=== PATIENT | female | born 1945 | race Caucasian/White ===

== ENCOUNTER 2016-08-18 17:25 | Inpatient (IN) | payer MEDICARE ==
[~2016-08-18] VITALS: Ht 157.5 cm; Wt 71.2 kg
[~2016-08-18 17:25] MED LIST changes: -ACET-2267 PO; -AMOX-358 PO; -BUSP7.5T5 PO; -CATHETER FLUSH 10 ML SYR IV PRN; -CIPR500T4 PO; -DOCU-143 PO; -FAMO-119 PO; -HYDR-3816 PO; -IBUP-30 PO; -IOHEXOL 350 MG/ML 100 ML (OMNIPAQUE 350) VIAL IV ONE; -LEVO500T80 PO; -LORA0.5T PO; -METR500T PO; -METR500T21 PO; -NS 100 ML (IVPB) BAG IV ONE; -ONDA4TAB8 PO; -OXYC-197 PO; -OXYC-201 PO; -OXYC-464 PO; -POLY17PO23 PO; -POLY17PO6 PO; -TRAM50TA2 PO
[2016-08-18 18:05] VITALS: BP 122/80
[2016-08-18] MEDS ORDERED: NS IV 1000 ML 1,000 ML ONE (18:06)
[2016-08-18] MEDS ORDERED: ACETAMINOPHEN 325 MG TABLET/CAPLET (TYLENOL) ONE (18:06)
[2016-08-18] MEDS ORDERED: fentaNYL INJECTION 100 MCG/2 ML AMP ONE (18:06)
[2016-08-18] MEDS ORDERED: ONDANSETRON 4 MG/2 ML (SDV) Z0FRAN IV PRN (18:30)
[2016-08-18] MEDS ORDERED: HYDROcodone/APAP 7.5 MG/325 MG (LORTAB, LORCET PLUS) TABLET PO PRN (18:30)
[2016-08-18] MEDS ORDERED: CATHETER FLUSH 10 ML SYR IV PRN (18:30)
[2016-08-18] MEDS: PANTOPRAZOLE 40 MG/10 ML (PROTONIX) VIAL IV SCH (18:33)
[2016-08-18] MEDS: NS IV 1000 ML 1,000 ML IV SCH (18:33)
[2016-08-18] MEDS: CIPROFLOXACIN 400 MG/D5W 200 ML (PRE-MIX) IV SCH (18:33)
[2016-08-18 18:42] LABS: BASOPHILS % (AUTO) 0 % (0-10); EOSINOPHILS % (AUTO) 0 % (0-10); LYMPHOCYTES # (AUTO) 0.8 X 10^3 (1.0-4.0); LYMPHOCYTES % (AUTO) 6 % (12-44); MEAN CORPUSCULAR HEMOGLOBIN 25 PG (25-34); MEAN CORPUSCULAR HGB CONC 32 G/DL (32-36); MEAN CORPUSCULAR VOLUME 79 FL (80-99); MEAN PLATELET VOLUME 9.1 FL (7.4-10.4); MONOCYTES # (AUTO) 0.5 X 10^3 (0.0-1.0); MONOCYTES % (AUTO) 4 % (0-12); NEUTROPHILS # (AUTO) 11.4 X 10^3 (1.8-7.8); NEUTROPHILS % (AUTO) 89 % (42-75); PLATELET COUNT 522 10^3/uL (130-400); RED BLOOD COUNT 3.92 10^6/uL (4.35-5.85); RED CELL DISTRIBUTION WIDTH 13.9 % (10.0-14.5); WHITE BLOOD COUNT 12.7 10^3/uL (4.3-11.0)
[2016-08-18] MEDS ORDERED: FLU TRIvalent (5 YOA+) 2016-17 (AFLURIA) 0.5 ML IM ONE (18:45)
[2016-08-18 18:59] LABS: BAND NEUTROPHILS 0 %; BASOPHILS % (MANUAL) 0 %; EOSINOPHILS % (MANUAL) 0 %; LYMPHOCYTES % (MANUAL) 6 %; NEUTROPHILS % (MANUAL) 94 %
[2016-08-18 19:00] VITALS: BP 157/76
[2016-08-18 19:00] LABS: MICROCYTOSIS SLIGHT
[2016-08-18] MEDS ORDERED: LORazepam INJ 2 MG/ML (ATIVAN) VIAL IVP PRN (19:45)
[2016-08-18] MEDS: metroNIDAZOLE 500 MG/100 ML IVPB (PRE-MIX) IV SCH (19:50)
[2016-08-18] MEDS: ENOXAPARIN 40 MG/0.4 ML (LOVENOX) SYR SC SCH (20:48)
[2016-08-19] VITALS: BP 105/62
[2016-08-19 04:00] VITALS: BP 162/77
[2016-08-19] MEDS: fentaNYL INJECTION 100 MCG/2 ML AMP IV PRN ×4 (04:03→18:43)
[2016-08-19] MEDS: NS IV 1000 ML 1,000 ML IV SCH (05:40)
[2016-08-19 05:57] LABS: BASOPHILS % (AUTO) 0 % (0-10); EOSINOPHILS % (AUTO) 0 % (0-10); LYMPHOCYTES # (AUTO) 1.3 X 10^3 (1.0-4.0); LYMPHOCYTES % (AUTO) 15 % (12-44); MEAN CORPUSCULAR HEMOGLOBIN 25 PG (25-34); MEAN CORPUSCULAR HGB CONC 32 G/DL (32-36); MEAN CORPUSCULAR VOLUME 79 FL (80-99); MEAN PLATELET VOLUME 8.6 FL (7.4-10.4); MONOCYTES # (AUTO) 0.6 X 10^3 (0.0-1.0); MONOCYTES % (AUTO) 7 % (0-12); NEUTROPHILS # (AUTO) 6.8 X 10^3 (1.8-7.8); NEUTROPHILS % (AUTO) 78 % (42-75); PLATELET COUNT 469 10^3/uL (130-400); RED BLOOD COUNT 3.79 10^6/uL (4.35-5.85); WHITE BLOOD COUNT 8.7 10^3/uL (4.3-11.0)
[2016-08-19] MEDS: metroNIDAZOLE 500 MG/100 ML IVPB (PRE-MIX) IV SCH ×2 (05:57→19:49)
[2016-08-19 06:19] LABS: ANION GAP 10 MMOL/L (5-14); BLOOD UREA NITROGEN 8 MG/DL (7-18); BUN/CREATININE RATIO 14; CALCIUM 8.2 MG/DL (8.5-10.1); CARBON DIOXIDE 21 MMOL/L (21-32); CHLORIDE 105 MMOL/L (98-107); CREATININE SERUM 0.57 MG/DL (0.60-1.30); GFR ESTIMATED > 60; GLUCOSE 121 MG/DL (70-105); POTASSIUM 3.2 MMOL/L (3.6-5.0); SODIUM 136 MMOL/L (135-145)
[2016-08-19] MEDS: CIPROFLOXACIN 400 MG/D5W 200 ML (PRE-MIX) IV SCH ×2 (06:57→18:31)
[2016-08-19 08:00] VITALS: BP 171/80
--- NOTE | 2016-08-19 08:38 | HISTORY AND PHYSICAL ---
DATE OF ADMISSION: 08/18/2016 ATTENDING PRIMARY CARE PHYSICIAN: Dr. Allegra Valentin. Ms. Sarah Emmanuel is a 70-year-old female who was seen in the clinic today for left lower quadrant abdominal pain. She reports that the pain started approximately 2 weeks ago and has persisted on an intermittent basis. She reports that food initially makes this worse and she has crampy pain in the left lower abdominal quadrant. She reports that she has also had a long-standing history of constipation. She reports that she did take some laxatives several days ago and this did result in a significant amount of loose stools. She does not report any red blood per rectum nor any dark tarry stools. She reports that the pain was much worse today and again localized towards left lower abdominal quadrant. In the past 2 weeks. She does report some mild episodes of chills as well. She does not report any fevers. She reports that this is her first event that she has not had any other events like this in the past. She does not report any history of gastroesophageal reflux disease nor peptic ulcer disease, as well as no nausea or vomiting. She was sent over for a CT scan, which did show a sigmoid diverticulitis as well as 2 areas of abscess formation. Her white count is also elevated at 11.4. PAST MEDICAL HISTORY: 1. Fibromyalgia. 2. Osteoarthritis. 3. Anxiety. 4. Depression. PAST SURGICAL HISTORY: 1. Left total knee arthroplasty 09/2012. 2. Right total knee arthroplasty 11/2012. MEDICATIONS: 1. Ambien 10 mg at bedtime p.r.n. 2. buspirone p.r.n. SOCIAL HISTORY: Negative smoke. Negative alcohol. FAMILY HISTORY: Father myocardial infarction age 69. VITAL SIGNS: Blood pressure 140/60, currently 157.7 pounds at 5 feet 2 inches. REVIEW OF SYSTEMS: This is a well-nourished female, currently guarded secondary to the abdominal pain. She is not experiencing any shortness of breath or difficulty breathing. No chest pain, palpitations, or diaphoresis. No nausea or vomiting, with pain in the left lower abdominal quadrant associated with eating food. Long-standing history of constipation. No red blood per rectum. No dark tarry stools. Mild chills. No fevers. No recent inadvertent weight loss. PHYSICAL EXAMINATION: CHEST: Clear. HEART: Regular. EXTREMITIES: No lower extremity edema. Negative Liz sign. HEENT: No scleral icterus. No cervical lymphadenopathy. ABDOMEN: Soft, nondistended. There is pain in the left lower abdominal quadrant with voluntary guarding. No rebound. ASSESSMENT AND PLAN: 70-year-old female with acute diverticulitis with abscess formation. This is her first episode and we will treat her conservatively with IV hydration, IV antibiotics, as well as bowel rest, as well as a follow-up CT scan. Job ID: [id number] Dictated Date: 08/18/2016 17:25:57 Refrigerator Repair Technician Date: 08/19/2016 08:33:24/vikash
[2016-08-19] MEDS ORDERED: ONDA4TAB8 PO (08:44)
[2016-08-19] MEDS ORDERED: BUSP7.5T5 PO (08:44)
[2016-08-19] MEDS ORDERED: CIPR500T4 PO (09:07)
[2016-08-19] MEDS ORDERED: METR500T21 PO (09:07)
[2016-08-19] MEDS ORDERED: HYDR-3816 PO (09:07)
[2016-08-19] MEDS ORDERED: IBUP-30 PO (09:07)
[2016-08-19] MEDS ORDERED: ACET-2267 PO (09:07)
--- NOTE | 2016-08-19 09:14 | History & Physical-Hospitalist ---
HPI History of Present Illness: HPI/Chief Complaint CC: abdominal pain HPI: Source: patient, RN/MD Date Seen 08/19/16 Attending Physician Viktor Rivas MD PCP Allegra Valentin MD Referring Physician Date of Admission Aug 18, 2016 at 17:48 Home Medications & Allergies Home Medications Reviewed patient Home Medication Reconciliation Form Allergies Coded Allergies: No Known Drug Allergies (Unverified , 10/25/15) Past Asceeem-Jsicof-Ooomjk Hx Patient Social History Alcohol Use: Occasionally Uses Recreational Drug Use: No Smoking Status: Never a Smoker Physical Abuse Screen: No Sexual Abuse: No Recent Foreign Travel: No Contact w/other who traveled: No Recent Infectious Disease Expo: No Seasonal Allergies Seasonal Allergies: No Surgeries HX Surgeries: Yes (BTKN) Surgeries: Orthopedic Respiratory Hx Respiratory Disorders: No Cardiovascular Hx Cardiovascular Disorders: No Neurological Hx Neurological Disorders: No 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 System Hx 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 Disorders: No Genitourinary Hx Genitourinary Disorders: No Gastrointestinal Hx Gastrointestinal Disorders: No Musculoskeletal Hx Musculoskeletal Disorders: No Endocrine Hx Endocrine Disorders: No HEENT HX ENT Disorders: No Cancer Hx Cancer: No Psychosocial Hx Psychiatric Problems: Yes Behavioral Health Disorders: Sleep Difficulties Integumentary HX Skin/Integumentary Disorder: No Blood Transfusions Hx Blood Disorders: No Adverse Reaction to a Blood Tr: No Family Medical History Significant Family History: No Pertinent Family Hx Physical Exam Physical Exam Vital Signs Vital Sign - Last 12Hours 08/18/16 18:05 Temp 103.2 Pulse 116 Resp 22 B/P 122/80 Pulse Ox 98 O2 Delivery Room Air Capillary Refill : Results Results/Procedures Lab Laboratory Tests 08/18/16 18:28 08/19/16 05:[address] abd/pelv: 1. There is evidence of sigmoid diverticulitis with localized perforation and small fluid collections adjacent to the sigmoid colon. The sigmoid wall thickening is presumably related to inflammation. A followup colonoscopy in a few weeks to rule out underlying mass would be recommended. 2. There is an S-shaped IUD seen in the uterus. Assessment/Plan Admission Diagnosis diverticulitis with abscess formation Assessment and Plan 70yoF with PMH of fibromyalgia, anxiety and depression with diverticulitis with abscess formation. 1. diverticulitis with abscess 2. hypokalemia 3. elevated lactic acid 4. leukocytosis/fever 5. fibromyalgia 6. OA 7. anxiety 8. depression Continue pushing IVF Continue IV antibiotics Bowel rest F/u CT abd/pelv looking for improvement/progression Will need to obtain colonoscopy as outpatient per radiology CT reading to rule out mass Clinical Quality Measures DVT/VTE Risk/Contraindication: Risk Factor Score Per Nursin RFS Level Per Nursing on Admit: 3=High MARIA EUGENIA PARKS MED STUDENT Aug 19, 2016 09:14
[2016-08-19] MEDS: PANTOPRAZOLE 40 MG/10 ML (PROTONIX) VIAL IV SCH (09:18)
--- NOTE | 2016-08-19 10:01 | Consultation-Hospitalist ---
MARIA EUGENIA PARKS MED STUDENT 08/19/16 1001: HPI History of Present Illness: HPI/Chief Complaint CC: abdominal pain HPI: Mrs. Emmanuel is a 70yo with a PMH of fibromyalgia, OA, and depression who was seen yesterday in clinic by Dr. Rivas for LLQ abdominal pain. CT abd/pelv showed diverticulitis with abscess formation. She was admitted for IVF and antibiotics. Her pain has since improved and she feels she is much better. She has no complaints this morning. Her last BM was yesterday before admission and it was not bloody. She is on a clear liquid diet. She had Jello this morning with no n/v. Her primary care provider is Dr. Allegra Valentin. She lives in [place] with her . Source: patient, RN/MD Exam Limitations: no limitations Date Seen 08/19/16 Attending Physician Viktor Rivas MD PCP Allegra Valentin MD Referring Physician Date of Admission Aug 18, 2016 at 17:48 Home Medications & Allergies Home Medications Reviewed patient Home Medication Reconciliation Form Allergies Coded Allergies: No Known Drug Allergies (Unverified , 10/25/15) Past Dejjvku-Pbmyfx-Qpsumt Hx Patient Social History Alcohol Use: Occasionally Uses Recreational Drug Use: No Smoking Status: Never a Smoker Physical Abuse Screen: No Sexual Abuse: No Recent Foreign Travel: No Contact w/other who traveled: No Recent Infectious Disease Expo: No Seasonal Allergies Seasonal Allergies: No Surgeries HX Surgeries: Yes (BTKN) Surgeries: Orthopedic Respiratory Hx Respiratory Disorders: No Cardiovascular Hx Cardiovascular Disorders: No Neurological Hx Neurological Disorders: No 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 System Hx 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 Disorders: No Genitourinary Hx Genitourinary Disorders: No Gastrointestinal Hx Gastrointestinal Disorders: No Musculoskeletal Hx Musculoskeletal Disorders: No Endocrine Hx Endocrine Disorders: No HEENT HX ENT Disorders: No Cancer Hx Cancer: No Psychosocial Hx Psychiatric Problems: Yes Behavioral Health Disorders: Sleep Difficulties Integumentary HX Skin/Integumentary Disorder: No Blood Transfusions Hx Blood Disorders: No Adverse Reaction to a Blood Tr: No Family Medical History Significant Family History: No Pertinent Family Hx Review of Systems Constitutional: No fever, No weakness EENTM: no symptoms reported Respiratory: no symptoms reported Cardiovascular: no symptoms reported Gastrointestinal: LLQ (improved from yesterday) Genitourinary: no symptoms reported Musculoskeletal: no symptoms reported Skin: no symptoms reported Psychiatric/Neurological: No Symptoms Reported All Other Systems Reviewed Negative Unless Noted: Yes Physical Exam Physical Exam Vital Signs Vital Sign - Last 12Hours 08/18/16 18:05 Temp 103.2 Pulse 116 Resp 22 B/P 122/80 Pulse Ox 98 O2 Delivery Room Air Capillary Refill : General Appearance: No Apparent Distress HEENT: PERRL/EOMI TMs Normal Normal ENT Inspection Neck: Full Range of Motion Normal Inspection Non Tender Supple Respiratory: Chest Non Tender Lungs Clear Normal Breath Sounds No Accessory Muscle Use No Respiratory Distress Cardiovascular: Regular Rate, Rhythm No Edema No Gallop No JVD No Murmur Normal Peripheral Pulses Gastrointestinal: Normal Bowel Sounds No Organomegaly No Pulsatile Mass Non Tender Soft Rectal: Deferred Back: Normal Inspection No CVA Tenderness Extremity: Normal Capillary Refill Normal Inspection Normal Range of Motion Non Tender No Calf Tenderness Neurologic/Psychiatric: Alert Oriented x3 No Motor/Sensory Deficits Normal Mood/Affect Skin: Normal Color Warm/Dry Lymphatic: No Adenopathy Results Results/Procedures Lab Laboratory Tests 08/18/16 18:28 08/19/16 05:[address] abd/pelv: 1. There is evidence of sigmoid diverticulitis with localized perforation and small fluid collections adjacent to the sigmoid colon. The sigmoid wall thickening is presumably related to inflammation. A followup colonoscopy in a few weeks to rule out underlying mass would be recommended. 2. There is an S-shaped IUD seen in the uterus. Assessment/Plan Admission Diagnosis diverticulitis with abscess formation Assessment and Plan 70yoF with PMH of fibromyalgia, anxiety and depression with diverticulitis with abscess formation. 1. diverticulitis with abscess 2. hypokalemia 3. elevated lactic acid 4. leukocytosis/fever 5. fibromyalgia 6. OA 7. anxiety 8. depression Continue pushing IVF Continue IV antibiotics Bowel rest F/u CT abd/pelv looking for improvement/progression Will need to obtain colonoscopy as outpatient per radiology CT reading to rule out mass Copy Copies To 1: ALLEGRA VALENTIN MD Clinical Quality Measures DVT/VTE Risk/Contraindication: Risk Factor Score Per Nursin RFS Level Per Nursing on Admit: 3=High ELIDIA JIN DO 08/19/16 1159: HPI History of Present Illness: HPI/Chief Complaint Patient is doing much better right now and all information obtained by medical student confirmed. She has never had a colonoscopy and she is prepared to have that done in the near future as Dr. 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) Surgeries HX Surgeries: No Respiratory Hx Respiratory Disorders: No Cardiovascular Hx Cardiovascular Disorders: No Neurological Hx Neurological Disorders: No Genitourinary Hx Genitourinary Disorders: No Gastrointestinal Hx Gastrointestinal Disorders: No Musculoskeletal Hx Musculoskeletal Disorders: No Endocrine Hx Endocrine Disorders: No HEENT HX ENT Disorders: No Cancer Hx Cancer: No Psychosocial Hx Psychiatric Problems: Yes Behavioral Health Disorders: Sleep Difficulties, Anxiety Integumentary HX Skin/Integumentary Disorder: No Review of Systems Constitutional: see HPI dizziness EENTM: no symptoms reported Respiratory: no symptoms reported Cardiovascular: no symptoms reported Gastrointestinal: LLQ (improved from yesterday) abdominal pain (LLQ) constipation loss of appetite Genitourinary: no symptoms reported Musculoskeletal: no symptoms reported Skin: no symptoms reported Psychiatric/Neurological: No Symptoms Reported All Other Systems Reviewed Negative Unless Noted: Yes Physical Exam Physical Exam Vital Signs Vital Sign - Last 12Hours 08/18/16 18:05 Temp 103.2 Pulse 116 Resp 22 B/P 122/80 Pulse Ox 98 O2 Delivery Room Air General Appearance: No Apparent Distress WD/WN Eyes: Bilateral Eye Normal Inspection, Bilateral Eye PERRL HEENT: PERRL/EOMI Normal ENT Inspection Pharynx Normal Neck: Full Range of Motion Normal Inspection Non Tender Supple Carotid Bruit Respiratory: Chest Non Tender Lungs Clear Normal Breath Sounds No Accessory Muscle Use No Respiratory Distress Cardiovascular: Regular Rate, Rhythm No Edema No Gallop No JVD No Murmur Normal Peripheral Pulses Gastrointestinal: Normal Bowel Sounds No Organomegaly No Pulsatile Mass Soft Tenderness (LLQ) Back: Normal Inspection No CVA Tenderness No Vertebral Tenderness Extremity: Normal Capillary Refill Normal Inspection Normal Range of Motion Non Tender No Calf Tenderness No Pedal Edema Neurologic/Psychiatric: Alert Oriented x3 No Motor/Sensory Deficits Normal Mood/Affect Skin: Normal Color Warm/Dry Lymphatic: No Adenopathy Results Results/Procedures Lab Laboratory Tests 08/18/16 18:28 08/19/16 05:47 Assessment/Plan Admission Diagnosis Acute diverticulitis with abscess formation Possible colon mass needs colonoscopy upon resolution of abscess difficult to ascertain Anxiety Insomnia Assessment and Plan Agree with the plan Copy Copies To 1: ALLEGRA VALENTIN MD, ZACHARY MED STUDENT Aug 19, 2016 10:01 ELIDIA JIN DO Aug 19, 2016 11:59
--- NOTE | 2016-08-19 11:25 | Progress Note (SOAP) ---
Subjective Subjective/Events-last exam doing better today. less abd pain. no fever/chills. tolerating clears. Objective Exam Vital Signs Date Time Temp Pulse Resp B/P Pulse Ox O2 Delivery O2 Flow Rate FiO2 08/19/16 08:00 98.9 73 18 171/80 96 Room Air 08/19/16 04:00 100.5 84 18 162/77 96 Room Air 08/19/16 00:00 99.0 82 18 105/62 97 Room Air 08/18/16 21:44 99.6 08/18/16 20:10 101.3 08/18/16 19:00 102.9 103 22 157/76 97 Room Air 08/18/16 18:22 103.2 08/18/16 18:05 103.2 116 22 122/80 98 Room Air I & O 08/19/16 07:00 Intake Total 1950 ml Output Total 650 ml Balance 1300 ml Capillary Refill : General Appearance: No Apparent Distress HEENT: PERRL/EOMI Neck: Full Range of Motion Respiratory: Chest Non Tender Lungs Clear Normal Breath Sounds Cardiovascular: Regular Rate, Rhythm Gastrointestinal: soft other (LLQ abd pain) Extremity: Normal Capillary Refill Neurologic/Psychiatric: Alert Oriented x3 Skin: Normal Color Lymphatic: No Adenopathy Results Lab Laboratory Tests 08/18/16 18:28: Band Neutrophils 0, Basophils # (Auto) 0.0, Basophils % (Manual) 0, Basophils (% ) (Auto) 0, Eosinophils # (Auto) 0.0, Eosinophils % (Manual) 0, Eosinophils (%) (Auto) 0, Hematocrit 31L, Hemoglobin 9.9L, Lactic Acid Level 2.7*H, Lymphocytes # (Auto) 0.8L, Lymphocytes % (Manual) 6, Lymphocytes (%) (Auto) 6L, Mean Corpuscular Hemoglobin 25, Mean Corpuscular Hemoglobin Concent 32, Mean Corpuscular Volume 79L, Mean Platelet Volume 9.1, Microcytosis SLIGHT, Monocytes # (Auto) 0.5, Monocytes % (Manual) 0, Monocytes (%) (Auto) 4, Neutrophils # (Auto) 11.4H, Neutrophils % (Manual) 94, Neutrophils (%) (Auto) 89H, Platelet Count 522H, Red Blood Count 3.92L, Red Cell Distribution Width 13.9, White Blood Count 12.7H 08/18/16 21:06: Lactic Acid Level 0.6 08/19/16 05:47: Basophils # (Auto) 0.0, Basophils (%) (Auto) 0, Eosinophils # (Auto) 0.0, Eosinophils (%) (Auto) 0, Hematocrit 30L, Hemoglobin 9.6L, Lactic Acid Level 0.5 , Lymphocytes # (Auto) 1.3, Lymphocytes (%) (Auto) 15, Mean Corpuscular Hemoglobin 25, Mean Corpuscular Hemoglobin Concent 32, Mean Corpuscular Volume 79L, Mean Platelet Volume 8.6, Monocytes # (Auto) 0.6, Monocytes (%) (Auto) 7, Neutrophils # (Auto) 6.8, Neutrophils (%) (Auto) 78H, Platelet Count 469H, Red Blood Count 3.79L, Red Cell Distribution Width 14.0, White Blood Count 8.7, Anion Gap 10, BUN/Creatinine Ratio 14, Blood Urea Nitrogen 8, Calcium Level 8.2L , Carbon Dioxide Level 21, Chloride Level 105, Creatinine 0.57L, Estimat Glomerular Filtration Rate > 60, Glucose Level 121H, Potassium Level 3.2L, Sodium Level 136 Assessment/Plan Assessment/Plan Assess & Plan/Chief Complaint diverticulitis with abscess. continue IV abx and bowel rest. f/u CT tomorrow. Diagnosis/Problems: Clinical Quality Measures DVT/VTE Risk/Contraindication: Risk Factor Score Per Nursin RFS Level Per Nursing on Admit: 3=High AMBER INFANTE MD Aug 19, 2016 11:25 am
[2016-08-19 12:00] VITALS: BP 134/91
[2016-08-19] MEDS ORDERED: ONDANSETRON 4 MG (ZOFRAN) ORAL DISSOLVE TAB PO PRN (12:00)
[2016-08-19] MEDS ORDERED: HYDROcodone/APAP 7.5 MG/325 MG (LORTAB, LORCET PLUS) TABLET PO PRN (12:00)
[2016-08-19] MEDS ORDERED: MAGNESIUM 1 GM/100 ML IVPB 100 ML IV ONE (12:00)
[2016-08-19] MEDS ORDERED: NON-FORMULARY MEDICATION 1 EA EA (Buspirone HCl 7.5 MG) PO PRN (12:00)
[2016-08-19] MEDS ORDERED: busPIRone 15 MG (BUSPAR) TABLET PO PRN (12:15)
--- NOTE | 2016-08-19 13:01 | Physician Query-Sepsis ---
Physician Query-Sepsis Query to Physician: The documentation in this patient's medical record requires additional clarification to accurately capture the patient's diagnosis (es), treatment, acuity, and/or severity of illness per CMS guidelines. Criteria, any TWO of the following with an infectious OR noninfectious etiology: * Temp= <96.8 or >100.4 * HR= >90 bpm * RR= >20/min or PaCO2<32 mmHG * WBC= <4000 or >12,000; or >10% bands PATIENT DATA: DATE/TIME: 08/18/16 TEMP: 103.2 PULSE: 116 RESP: 22 B/P: 122/80 WBC: 12.7 LACTIC ACID: 2.7 OTHER: Blood Culture Organism: (Negative or inconclusive blood cultures do not preclude a diagnosis of septicemia or Sepsis in patients with clinical evidence of the condition.) Choose one of the below Dx: Sepsis=2 or more SIRS criteria with an identified source or suspected source of infection Severe Sepsis=Sepsis associated with organ dysfunction, hypoperfusion or hypotension. (Manifestations may include lactic acidosis, oliguria, and acute alteration in mental status.) Septic Shock=Acute circulatory failure unexplained by other cause: SBP <90 or MAP <65 or reduction in SBP 40 mmHg from baseline despite adequate volume resuscitation or Lactate Level >=4 mmol/L. Patients who require inotropic or vasopressor support despite adequate fluid replacement are in septic shock. Septicemia=Systemic disease associated with the presence of pathological microorganisms or toxins in the blood. Bacteremia=Per ICD-9 guidelines, Bacteremia indicates the presence of bacteria in the blood, but DOES NOT infer the bacterium are pathological or has resulted in any systemic illness needing treatment Please indicate if no sepsis, none of the above, not correct physician/provider. PHYSICIAN RESPONSE: Choose one of the diagnosis: Sepsis Sepsis/Severe Sepsis: Please specify site/source of: diverticulitis with abscess SIRS (systemic response to): If known process list: diverticulitis with abscess Physician Note: If you have questions please contact: Parking Control Officer:Lory Murguia [facility] Ext:[phone] Thank you for your time and cooperation. Clinical Plant Director/Parking Control Officer This is a permanent part of the medical record LORY MURGUIA Aug 19, 2016 13:01 AMBER INFANTE MD Aug 19, 2016 14:16
[2016-08-19] MEDS: POTASSIUM CL 10MEQ/50ML IVPB 50 ML IV SCH ×4 (15:18→18:00)
[2016-08-19 15:55] VITALS: BP 164/77
[2016-08-19] MEDS: ACETAMINOPHEN 325 MG TABLET/CAPLET (TYLENOL) PO PRN (16:57)
[2016-08-19] MEDS ORDERED: KCL 20 MEQ TAB (K-DUR) PO NR (18:30)
[2016-08-19 19:15] VITALS: BP 158/69
[2016-08-19] MEDS: ENOXAPARIN 40 MG/0.4 ML (LOVENOX) SYR SC SCH (19:49)
[2016-08-19] MEDS ORDERED: NON-FORMULARY MEDICATION 1 EA EA (Zolpidem Tartrate 10 MG) PO SCH (21:00)
[2016-08-19] MEDS: ZOLPIDEM 5 MG (AMBIEN) TAB PO SCH (21:33)
[2016-08-20] VITALS: BP 129/73
[2016-08-20 04:00] VITALS: BP 142/83
[2016-08-20] MEDS: NS IV 1000 ML 1,000 ML IV SCH (04:24)
[2016-08-20] MEDS: metroNIDAZOLE 500 MG/100 ML IVPB (PRE-MIX) IV SCH ×2 (06:00→17:59)
[2016-08-20] MEDS: CIPROFLOXACIN 400 MG/D5W 200 ML (PRE-MIX) IV SCH ×2 (06:47→20:15)
[2016-08-20] MEDS: PANTOPRAZOLE 40 MG/10 ML (PROTONIX) VIAL IV SCH (07:55)
[2016-08-20 08:00] VITALS: BP 147/71
[2016-08-20] MEDS ORDERED: NS 100 ML (IVPB) BAG IV ONE (09:00)
[2016-08-20] MEDS ORDERED: IOHEXOL 350 MG/ML 100 ML (OMNIPAQUE 350) VIAL IV ONE (09:00)
--- NOTE | 2016-08-20 11:18 | Progress Note-Hospitalist ---
Progress Note HPI/CC on Admission Patient is doing much better right now and all information obtained by medical student confirmed. She has never had a colonoscopy and she is prepared to have that done in the near future as Dr. Rivas has recommended Progress Notes/Assess & Plan Date Seen 08/20/16 Admission Dx/Process Acute diverticulitis with abscess formation Possible colon mass needs colonoscopy upon resolution of abscess difficult to ascertain Anxiety Insomnia Diagonsis/Assessment & Plan Chart Review: Max fever 100.4 Dr. Rivas Review: Dr. Rivas requests repeat CT scan and drain for abscess. Patient Interview: Dr. Pierre informs pt that she has run a fever. Dr. Pierre informs pt that she will be consulting with Dr. Rivas regarding possible need to drain abscess. Physical exam was stable. Pt states that pain is very manageable, and she has not taken any pain meds today. Pt denies having any BMs. Pt states that she vomited Wednesday, and has not eaten much. Pt at some Jell-O and broth last night at 5pm. no fever except for low-grade 100.4, pleasant, oriented 3, at the bedside Regular rate and rhythm, clear to auscultation bilaterally Mild tenderness LLQ Laboratory Tests 08/20/16 11:21 Assessment: Acute diverticulitis with abscess formation Possible colon mass needs colonoscopy upon resolution of abscess difficult to ascertain Anxiety Insomnia Hypokalemia Plan: CBC CMP Drain abscess? Repeat CT scan Possible DC Wednesday on antibiotics with follow-up Replace potassium in IV fluid Scribed by Kwabena Malone under the direct supervision of Dr. Pierre. ELIDIA PIERRE DO Aug 20, 2016 11:17
[2016-08-20 11:38] LABS: BASOPHILS % (AUTO) 0 % (0-10); EOSINOPHILS % (AUTO) 0 % (0-10); LYMPHOCYTES # (AUTO) 1.4 X 10^3 (1.0-4.0); LYMPHOCYTES % (AUTO) 20 % (12-44); MEAN CORPUSCULAR HEMOGLOBIN 25 PG (25-34); MEAN CORPUSCULAR HGB CONC 32 G/DL (32-36); MEAN CORPUSCULAR VOLUME 79 FL (80-99); MONOCYTES # (AUTO) 0.5 X 10^3 (0.0-1.0); MONOCYTES % (AUTO) 7 % (0-12); NEUTROPHILS # (AUTO) 5.2 X 10^3 (1.8-7.8); NEUTROPHILS % (AUTO) 73 % (42-75); PLATELET COUNT 516 10^3/uL (130-400); RED BLOOD COUNT 4.11 10^6/uL (4.35-5.85); RED CELL DISTRIBUTION WIDTH 13.8 % (10.0-14.5); WHITE BLOOD COUNT 7.1 10^3/uL (4.3-11.0)
[2016-08-20 11:48] LABS: ALANINE AMINOTRANSFERASE 17 U/L (0-55); ALBUMIN 3.4 G/DL (3.2-4.5); ANION GAP 12 MMOL/L (5-14); ASPARTATE AMINO TRANSFERASE 16 U/L (5-34); BILIRUBIN,TOTAL 0.3 MG/DL (0.1-1.0); BLOOD UREA NITROGEN 4 MG/DL (7-18); BUN/CREATININE RATIO 7; CALCIUM 8.8 MG/DL (8.5-10.1); CARBON DIOXIDE 19 MMOL/L (21-32); CHLORIDE 105 MMOL/L (98-107); CREATININE SERUM 0.58 MG/DL (0.60-1.30); GFR ESTIMATED > 60; GLUCOSE 98 MG/DL (70-105); POTASSIUM 3.4 MMOL/L (3.6-5.0); SODIUM 136 MMOL/L (135-145); TOTAL PROTEIN 6.6 G/DL (6.4-8.2)
--- NOTE | 2016-08-20 11:57 | Diagnostic Imaging Report ---
PROCEDURE: CT abdomen and pelvis with contrast. TECHNIQUE: Multiple contiguous axial images were obtained through the abdomen and pelvis after administration of intravenous contrast. INDICATION: Lower abdominal pain. Pelvic pain. COMPARISON: 08/18/2016. FINDINGS: Again noted are findings of diverticulitis in the sigmoid colon with inflammatory changes seen. There are small pockets of loculated perforation again noted with air bubbles and minimal amount of fluid noted that demonstrates no significant change when compared to the previous study. There are 3 adjacent potentially communicating pockets, the largest is 2.9 cm in size located to the left of the sigmoid colon and one pocket is projecting superiorly. There is an S-shaped IUD in the uterus. The uterus is displaced to the right side. The urinary bladder appears unremarkable. No pelvic free fluid of significance is seen. No free peritoneal air is noted. The lung bases appear clear. The liver demonstrates a 1.6 cm simple cyst adjacent to the left hepatic vein. The gallbladder, the adrenal glands, and the pancreas appear unremarkable. The spleen is 12.8 CM in length, at the upper limits of normal. The kidneys have symmetric enhancement and contrast excretion. The abdominal aorta is normal in caliber. No para-aortic significantly enlarged lymph nodes. Tiny fat-containing umbilical hernia is noted. There are degenerative changes in the lumbar spine and sacroiliac joints. IMPRESSION: Sigmoid diverticulitis with adjacent small pockets of contained perforation/abscess. The findings were discussed with Dr. Rivas by Dr. Bautista at the time of dictation. Dictated by: Dictated on workstation # [id number]
[2016-08-20 12:00] VITALS: BP 158/79
[2016-08-20] MEDS: POTASSIUM CHLORIDE INJ 10 MEQ in NS IV 1000 ML 1,000 ML IV SCH (13:35)
--- NOTE | 2016-08-20 15:10 | Progress Note (SOAP) ---
Subjective Subjective/Events-last exam Patient seen with Dr. Rivas. Patient reports that she is doing fine. No N/V. No fever/chills. Minimal LLQ tenderness. Ambulating. No BM. Review of Systems General: No Chills, No Night Sweats Gastrointestinal: : Abdominal Pain (LLQ minimal)No: Nausea, Vomiting Objective Exam Vital Signs Date Time Temp Pulse Resp B/P Pulse Ox O2 Delivery O2 Flow Rate FiO2 08/20/16 12:00 98.6 84 16 158/79 98 Room Air 08/20/16 10:00 96 Room Air 08/20/16 08:00 96.6 73 20 147/71 97 Room Air 08/20/16 07:55 Room Air 08/20/16 04:00 99.8 85 18 142/83 97 Room Air 08/20/16 00:00 98.0 82 18 129/73 97 Room Air 08/19/16 19:15 98.7 85 16 158/69 97 Room Air 08/19/16 17:00 100.4 08/19/16 16:57 100.4 08/19/16 15:55 100.4 88 16 164/77 97 Room Air I & O 08/20/16 07:00 Intake Total 2700 ml Output Total 2350 ml Balance 350 ml Capillary Refill : General Appearance: No Apparent Distress WD/WN HEENT: PERRL/EOMI Neck: Supple Respiratory: Lungs Clear Normal Breath Sounds No Accessory Muscle Use Cardiovascular: Regular Rate, Rhythm Gastrointestinal: soft tenderness (LLQ with deep palpation) Extremity: Normal Capillary Refill Normal Inspection Normal Range of Motion Neurologic/Psychiatric: Alert Oriented x3 Skin: Normal Color Warm/Dry Results Lab Laboratory Tests 08/20/16 11:21: Alanine Aminotransferase (ALT/SGPT) 17, Albumin 3.4, Alkaline Phosphatase 82, Anion Gap 12, Aspartate Amino Transf (AST/SGOT) 16, BUN/Creatinine Ratio 7, Basophils # (Auto) 0.0, Basophils (%) (Auto) 0, Blood Urea Nitrogen 4L, Calcium Level 8.8, Carbon Dioxide Level 19L, Chloride Level 105, Creatinine 0.58L, Eosinophils # (Auto) 0.0, Eosinophils (%) (Auto) 0, Estimat Glomerular Filtration Rate > 60, Glucose Level 98, Hematocrit 32L, Hemoglobin 10.3L, Lymphocytes # (Auto) 1.4, Lymphocytes (%) (Auto) 20, Mean Corpuscular Hemoglobin 25, Mean Corpuscular Hemoglobin Concent 32, Mean Corpuscular Volume 79L, Mean Platelet Volume 9.0, Monocytes # (Auto) 0.5, Monocytes (%) (Auto) 7, Neutrophils # (Auto) 5.2, Neutrophils (%) (Auto) 73, Platelet Count 516H, Potassium Level 3.4L, Red Blood Count 4.11L, Red Cell Distribution Width 13.8, Sodium Level 136, Total Bilirubin 0.3, Total Protein 6.6, White Blood Count 7.1 Assessment/Plan Assessment/Plan Assess & Plan/Chief Complaint A 70 year old female wtih diverticulitis with abscess. VSS. WBC normal. continue IV abx, pain and nausea medication. Continue Clear liquids. Diagnosis/Problems: Clinical Quality Measures DVT/VTE Risk/Contraindication: Risk Factor Score Per Nursin RFS Level Per Nursing on Admit: 3=High JAYDEN SINGH APRN Aug 20, 2016 15:10
[2016-08-20 15:35] VITALS: BP 156/81
--- NOTE | 2016-08-20 15:39 | Progress Note-Standard ---
Standard Progress Note Progress Notes/Assess & Plan Progress/Assessment & Plan doing better, decreased abd pain, tolerating clears, no fever/chills. low grade fever. admitted with severe sepsis however improved. criteria included fever, leukocytosis, and elevated lactic acid. no blood cultures drawn due to known etiology of infection which likely colonic bacterial ry and diverticulitis with abscess. no progression of disease on f/u CT today. will continue with conservative managmenent with bowel rest and IV abx. AMBER INFANTE MD Aug 20, 2016 3:39 pm
[2016-08-20] MEDS: ENOXAPARIN 40 MG/0.4 ML (LOVENOX) SYR SC SCH (20:15)
[2016-08-20] MEDS: ACETAMINOPHEN 325 MG TABLET/CAPLET (TYLENOL) PO PRN (20:16)
[2016-08-20] MEDS: ZOLPIDEM 5 MG (AMBIEN) TAB PO SCH (21:53)
[2016-08-21] VITALS: BP 145/79
[2016-08-21] MEDS: POTASSIUM CHLORIDE INJ 10 MEQ in NS IV 1000 ML 1,000 ML IV SCH ×2 (01:44→08:24)
[2016-08-21] MEDS: metroNIDAZOLE 500 MG/100 ML IVPB (PRE-MIX) IV SCH (06:03)
[2016-08-21] MEDS: CIPROFLOXACIN 400 MG/D5W 200 ML (PRE-MIX) IV SCH (07:36)
[2016-08-21 08:00] VITALS: BP 135/79
[2016-08-21] MEDS: PANTOPRAZOLE 40 MG/10 ML (PROTONIX) VIAL IV SCH (08:46)
--- NOTE | 2016-08-21 11:26 | Progress Note (SOAP) ---
Subjective Subjective/Events-last exam Patient seen with Dr. Rivas. Patient reports doing well. Tolerating diet and ambulating. Reports 2 BMs this AM. Denies N/V, fever/chills. No abdominal pain. Review of Systems General: No Chills, No Night Sweats Gastrointestinal: No: Abdominal Pain, Nausea, Vomiting Objective Exam Vital Signs Date Time Temp Pulse Resp B/P Pulse Ox O2 Delivery O2 Flow Rate FiO2 08/21/16 08:00 98.6 84 16 135/79 96 Room Air 08/21/16 00:00 97.5 82 18 145/79 98 Room Air 08/20/16 20:20 Room Air 08/20/16 15:35 97.7 85 18 156/81 97 Room Air 08/20/16 12:00 98.6 84 16 158/79 98 Room Air I & O 08/21/16 07:00 Intake Total 3445 ml Output Total 1900 ml Balance 1545 ml Capillary Refill : General Appearance: No Apparent Distress WD/WN HEENT: PERRL/EOMI Neck: Supple Respiratory: No Accessory Muscle Use No Respiratory Distress Cardiovascular: Regular Rate, Rhythm Gastrointestinal: normal bowel sounds soft tenderness (LLQ with deep palpation.) Extremity: Normal Capillary Refill Normal Inspection Normal Range of Motion Neurologic/Psychiatric: Alert Oriented x3 Skin: Normal Color Warm/Dry Assessment/Plan Assessment/Plan Assess & Plan/Chief Complaint A 70 year old female wtih diverticulitis with abscess. VSS. Tolerating diet and ambulating. No N/V, no abdominal pain. Will DC home today on Abx and pain medication. Diagnosis/Problems: Clinical Quality Measures DVT/VTE Risk/Contraindication: Risk Factor Score Per Nursin RFS Level Per Nursing on Admit: 3=High JAYDEN SINGH MEDART OPERATOR Aug 21, 2016 11:26
--- NOTE | 2016-08-21 11:31 | Discharge Inst-Surgical ---
D/C Lap Instructions-KIDO New, Converted, or Re-Newed RX: Other Follow Up Appt in 6 weeks. Will need follow up colonoscopy in 6 weeks. Activity as tolerated No driving while on pain medications Low residue diet for 6 weeks. Avoid Alcohol, Caffeine, Spicy Mora and Acid foods. Drink 64 fluid oz or more of fluids per day. Symptoms to Report: Fever over 101 degree F, Nausea/Vomiting If any problems/questions: Contact your physician or go to Emergency Room JAYDEN SINGH APRN Aug 21, 2016 11:31
--- NOTE | 2016-08-21 12:05 | Progress Note-Hospitalist ---
Progress Note HPI/CC on Admission Patient is doing much better right now and all information obtained by medical student confirmed. She has never had a colonoscopy and she is prepared to have that done in the near future as Dr. Rivas has recommended Progress Notes/Assess & Plan Date Seen 08/21/16 Admission Dx/Process Acute diverticulitis with abscess formation Possible colon mass needs colonoscopy upon resolution of abscess difficult to ascertain Anxiety Insomnia Diagonsis/Assessment & Plan Patient doing very well and denies any pain No fever CT scan stable Improved, O x 3 Regular rate and rhythm, clear to auscultation bilaterally Assessment: Acute diverticulitis with abscess formation Possible colon mass needs colonoscopy upon resolution of abscess difficult to ascertain Anxiety Insomnia Hypokalemia Plan: DC planned PO abx ELIDIA JIN DO Aug 21, 2016 12:05
[2016-08-21 12:40] VITALS: BP 135/79
[2016-08-21] MEDS ORDERED: metroNIDAZOLE 500 MG/100 ML IVPB (PRE-MIX) IV SCH (18:00)
--- NOTE | 2016-09-02 11:53 | Discharge Summary-Hospitalist ---
Diagnosis/Chief Complaint Date of Admission Aug 18, 2016 at 17:48 Date of Discharge Aug 21, 2016 at 12:40 Discharge Date: Aug 21, 2016 Admission Diagnosis Acute diverticulitis with abscess formation Possible colon mass needs colonoscopy upon resolution of abscess difficult to ascertain Anxiety Insomnia Discharge Diagnosis Patient doing very well and denies any pain No fever CT scan stable Improved, O x 3 Regular rate and rhythm, clear to auscultation bilaterally Assessment: Acute diverticulitis with abscess formation Possible colon mass needs colonoscopy upon resolution of abscess difficult to ascertain Anxiety Insomnia Hypokalemia Plan: DC planned PO abx Reason Hospital Visit/Course Patient is doing much better right now and all information obtained by medical student confirmed. She has never had a colonoscopy and she is prepared to have that done in the near future as Dr. Rivas has recommended Hospital course: Patient was admitted for diverticulitis with abscess formation and was placed on empiric antibiotics and Dr. Rivas was consulted and monitored CT scan that was repeated to assure she did not need a interventional radiology placement of drain. Patient improved immensely laboratory return back to normal and no fever was noted and patient was ambulatory so she was discharged without complication on oral antibiotics with close follow-up with Dr. Rivas. Discharge Summary Discharge Physical Examination Allergies: Coded Allergies: No Known Drug Allergies (Unverified , 10/25/15) Discharge Home Medications: Active Scripts Active Reported Hydrocodon-Acetaminoph 7.5-325 (Hydrocodone/Acetaminophen) 1 Each Tablet 2 Tab PO EVERY 4-6 HOURS PRN Metronidazole 500 Mg Tablet 500 Mg PO BID 10 DAY SUPPLY FILLED 08-18-16 (HAS NOT STARTED YET) Ciprofloxacin HCl 500 Mg Tablet 500 Mg PO BID 10 DAY SUPPLY FILLED 08-18-16 (HAS NOT STARTED YET) Advil (Ibuprofen) 200 Mg Tablet 600 Mg PO TID PRN Tylenol Extra Strength (Acetaminophen) 500 Mg Tablet 500-1,000 Mg PO Q6H PRN Buspirone HCl 7.5 Mg Tablet 7.5 Mg PO DAILY PRN Zofran Odt (Ondansetron) 4 Mg Tab.rapdis 4 Mg PO Q6H PRN Zolpidem Tartrate 10 Mg Tablet 10 Mg PO HS Instructions to patient/family Please see electonic discharge instructions given to patient. Clinical Quality Measures DVT/VTE Risk/Contraindication: Risk Factor Score Per Nursin RFS Level Per Nursing on Admit: 3=High ELIDIA JIN DO Sep 02, 2016 11:53
== END 2016-08-21 12:40 | disposition home or self-care (01) | DRG 872 ==
LOC: 4TH 17:48
PROVIDERS: ADMIT Surgery Pediatric Surgery; ATTEND Surgery Pediatric Surgery
DX: A41.9 Sepsis, unspecified organism (principal); K57.20 Diverticulitis of large intestine with perforation and abscess without bleeding; E87.2 Acidosis; E87.6 Hypokalemia; G47.00 Insomnia, unspecified; M79.7 Fibromyalgia; M19.90 Unspecified osteoarthritis, unspecified site; Z96.653 Presence of artificial knee joint, bilateral; F41.9 Anxiety disorder, unspecified; F32.9 Major depressive disorder, single episode, unspecified
CPT/HCPCS: 36415; 74177; 80048; 80053; 83605; 85007; 85025; 85027

== ENCOUNTER → 2016-08-18 | Outpatient (CLI) | payer MEDICARE ==
[~2016-08-18] MED LIST: ACET-2267 PO; AMOX-358 PO; BUSP7.5T5 PO; CATHETER FLUSH 10 ML SYR IV PRN; CIPR500T4 PO; DOCU-143 PO; FAMO-119 PO; HYDR-3816 PO; HYDR25CA PO; IBUP-30 PO; IOHEXOL 350 MG/ML 100 ML (OMNIPAQUE 350) VIAL IV ONE; LEVO500T80 PO; LORA0.5T PO; METR500T PO; METR500T21 PO; NITR-65 PO; NS 100 ML (IVPB) BAG IV ONE; ONDA4TAB11 PO; ONDA4TAB8 PO; OXYC-197 PO; OXYC-201 PO; OXYC-464 PO; POLY17PO23 PO; POLY17PO6 PO; TRAM50TA2 PO; ZOLP10TA5 PO
[2016-08-18 15:44] LABS: MEAN PLATELET VOLUME 8.9 FL (7.4-10.4); RED BLOOD COUNT 4.6 10^6/uL (4.35-5.85); RED CELL DISTRIBUTION WIDTH 14.1 % (10.0-14.5); WHITE BLOOD COUNT 11.7 10^3/uL (4.3-11.0)
[2016-08-18 16:00] LABS: ALANINE AMINOTRANSFERASE 20 U/L (0-55); ALBUMIN 3.7 G/DL (3.2-4.5); ANION GAP 10 MMOL/L (5-14); ASPARTATE AMINO TRANSFERASE 20 U/L (5-34); BILIRUBIN,TOTAL 0.3 MG/DL (0.1-1.0); BLOOD UREA NITROGEN 13 MG/DL (7-18); BUN/CREATININE RATIO 16; CALCIUM 9.3 MG/DL (8.5-10.1); CARBON DIOXIDE 25 MMOL/L (21-32); CHLORIDE 103 MMOL/L (98-107); CREATININE SERUM 0.79 MG/DL (0.60-1.30); GFR ESTIMATED > 60; GLUCOSE 135 MG/DL (70-105); POTASSIUM 3.8 MMOL/L (3.6-5.0); SODIUM 138 MMOL/L (135-145); TOTAL PROTEIN 7.4 G/DL (6.4-8.2)
--- NOTE | 2016-08-18 16:53 | Diagnostic Imaging Report ---
PROCEDURE: CT abdomen and pelvis with contrast. TECHNIQUE: Multiple contiguous axial images were obtained through the abdomen and pelvis after administration of intravenous contrast. INDICATION: Left lower quadrant pain with severe nausea and vomiting. CONTRAST: 100 mL of Omnipaque 350 was administered intravenously. FINDINGS: The lung bases appear clear. The liver demonstrates a simple hepatic cyst in the left lobe near the left hepatic vein measuring 1.5 cm. No other abnormality is identified. The gallbladder demonstrates no calcified stones or evidence of cholecystitis. The spleen is not enlarged. The pancreas and adrenal glands appear unremarkable. The kidneys are enhancing in symmetric fashion with no hydronephrosis seen. There is thickening of the sigmoid colon wall with adjacent inflammatory changes and contained perforations and small abscesses along the left side aspect of the sigmoid colon in the upper pelvis with the largest collection measuring 3 x 3.3 cm, a smaller collection with questionable communication more posteriorly measuring 3 x 1.5 cm, and a third focus seen more superiorly measuring 2.3 cm. There are surrounding diverticuli seen and this is presumably related to diverticulitis with contained areas of perforation. Underlying mass is not excluded. The abdominal aorta is normal in caliber. No periaortic significantly enlarged lymph node is seen. There is an intrauterine contraceptive device seen within the uterus. No significant free fluid or free air. The appendix is normal. There is no bowel obstruction. There is, however, debris seen in the distal esophagus which could be related to reflux. The osseous structures demonstrate mild left convexity scoliosis with degenerative changes. IMPRESSION: 1. There is evidence of sigmoid diverticulitis with localized perforation and small fluid collections adjacent to the sigmoid colon. The sigmoid wall thickening is presumably related to inflammation. A followup colonoscopy in a few weeks to rule out underlying mass would be recommended. 2. There is an S-shaped IUD seen in the uterus. Dr. Rivas was called and informed about the findings by Dr. Bautista at the time of dictation. Dictated by: Dictated on workstation # [id number]
== END ==
LOC: RAD 15:28
PROVIDERS: ATTEND Surgery Pediatric Surgery
DX: K57.32 Diverticulitis of large intestine without perforation or abscess without bleeding (principal)
CPT/HCPCS: 36415; 74177; 80053; 85027

== ENCOUNTER 2016-10-04 10:41 | Inpatient (IN) | payer MEDICARE ==
[~2016-10-04] VITALS: Ht 157.5 cm; Wt 71.2 kg
[~2016-10-04 10:41] MED LIST changes: +ACET-2267 PO; +BUSP7.5T5 PO; +CIPR500T4 PO; +HYDR-3816 PO; +IBUP-30 PO; +METR500T21 PO; +ONDA4TAB8 PO
--- OUTSIDE RECORDS SUMMARY | 2016-10-04 10:46 | XMS REPORT | Continuity of Care Document ---
Author Author [facility] Organization [facility] Address Unknown Phone Unavailable Allergies Active Description Code Type Severity Reaction Onset Reported/Identified Relationship to Patient Clinical Status Yes No Known Drug Allergies [id number] Drug Allergy Unknown N/ A 10/25/2015 Medications Problems Date Dx Coded Attending Type Code Diagnosis Diagnosed By 10/25/2015 LARA CERVANTES Ot B34.9 VIRAL INFECTION, UNSPECIFIED 10/25/2015 LARA CERVANTES Ot F43.9 REACTION TO SEVERE STRESS, UNSPECIFIED 10/25/2015 LARA CERVANTES Ot N39.0 URINARY TRACT INFECTION, SITE NOT SPECIF 10/28/2015 LARA CERVANTES Ot B34.9 10/28/2015 LARA CERVANTES Ot F43.9 10/28/2015 LARA CERVANTES Ot N39.0 08/19/2016 AMBER INFANTE MD Ot K57.32 DVTRCLI OF LG INT W/O PERFORATION OR ABS 08/19/2016 AMBER INFANTE MD Ot K57.32 DVTRCLI OF LG INT W/O PERFORATION OR ABS 08/20/2016 AMBER INFANTE MD Ot A41.9 SEPSIS, UNSPECIFIED ORGANISM 08/20/2016 AMBER INFANTE MD Ot E87.2 ACIDOSIS 08/20/2016 AMBER INFANTE MD Ot E87.6 HYPOKALEMIA 08/20/2016 AMBER INFANTE MD Ot F32.9 MAJOR DEPRESSIVE DISORDER, SINGLE EPISOD 08/20/2016 AMBER INFANTE MD Ot F41.9 ANXIETY DISORDER, UNSPECIFIED 08/20/2016 AMBER INFANTE MD Ot G47.00 INSOMNIA, UNSPECIFIED 08/20/2016 AMBER INFANTE MD Ot 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 08/20/2016 AMBER INFANTE MD Ot M19.90 UNSPECIFIED OSTEOARTHRITIS, UNSPECIFIED 08/20/2016 AMBER INFANTE MD, Ot M79.7 FIBROMYALGIA 08/20/2016 AMBER INFANTE MD, Ot Z96.653 PRESENCE OF ARTIFICIAL KNEE JOINT, BILAT 08/21/2016 AMBER INFANTE MD, Ot A41.9 SEPSIS, UNSPECIFIED ORGANISM 08/21/2016 AMBER INFANTE MD, Ot E87.2 ACIDOSIS 08/21/2016 AMBER INFANTE MD, Ot E87.6 HYPOKALEMIA 08/21/2016 AMBER INFANTE MD, Ot F32.9 MAJOR DEPRESSIVE DISORDER, SINGLE EPISOD 08/21/2016 AMBER INFANTE MD, Ot F41.9 ANXIETY DISORDER, UNSPECIFIED 08/21/2016 AMBER INFANTE MD, Ot G47.00 INSOMNIA, UNSPECIFIED 08/21/2016 AMBER INFANTE MD, Ot 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 08/21/2016 AMBER INFANTE MD, Ot M19.90 UNSPECIFIED OSTEOARTHRITIS, UNSPECIFIED 08/21/2016 AMBER INFANTE MD, Ot M79.7 FIBROMYALGIA 08/21/2016 AMBER INFANTE MD, Ot Z96.653 PRESENCE OF ARTIFICIAL KNEE JOINT, BILAT 09/10/2016 AMBER INFANTE MD, Ot K57.32 DVTRCLI OF LG INT W/O PERFORATION OR ABS 09/29/2016 AMBER INFANTE MD, Ot K57.32 DVTRCLI OF LG INT W/O PERFORATION OR ABS Procedures Results Test Result Range Automated blood complete blood count (hemogram) panel - 08/18/16 15:36 Blood leukocytes automated count (number/volume) 11.7 10*3/ uL 4.3-11.0 Blood erythrocytes automated count (number/volume) 4.60 10*6 /uL 4.35-5.85 Venous blood hemoglobin measurement (mass/volume) 11.7 g/dL 11.5-16.0 Blood hematocrit (volume fraction) 36 % 35-52 Automated erythrocyte mean corpuscular volume 79 [foz_us] 80-99 Automated erythrocyte mean corpuscular hemoglobin (mass per erythrocyte) 25 pg 25-34 Automated erythrocyte mean corpuscular hemoglobin concentration measurement ( mass/volume) 32 g/dL 32-36 Automated erythrocyte distribution width ratio 14.1 % 10.0-14.5 Automated blood platelet count (count/volume) 613 10*3/uL 130-400 Automated blood platelet mean volume measurement 8.9 [foz_us ] 7.4-10.4 Comprehensive metabolic panel - 08/18/16 15:36 Serum or plasma sodium measurement (moles/volume) 138 mmol/ L 135-145 Serum or plasma potassium measurement (moles/volume) 3.8 mmol/L 3.6-5.0 Serum or plasma chloride measurement (moles/volume) 103 mmol /L 98-107 Carbon dioxide 25 mmol/L 21-32 Serum or plasma anion gap determination (moles/volume) 10 mmol/L 5-14 Serum or plasma urea nitrogen measurement (mass/volume) 13 mg/dL 7-18 Serum or plasma creatinine measurement (mass/volume) 0.79 mg /dL 0.60-1.30 Serum or plasma urea nitrogen/creatinine mass ratio 16 NRG Serum or plasma creatinine measurement with calculation of estimated glomerular filtration rate > NRG Serum or plasma glucose measurement (mass/volume) 135 mg/dL 70-105 Serum or plasma calcium measurement (mass/volume) 9.3 mg/dL 8.5-10.1 Serum or plasma total bilirubin measurement (mass/volume) 0.3 mg/dL 0.1-1.0 Serum or plasma alkaline phosphatase measurement (enzymatic activity/volume) 87 U/L 40-136 Serum or plasma aspartate aminotransferase measurement (enzymatic activity/ volume) 20 U/L 5-34 Serum or plasma alanine aminotransferase measurement (enzymatic activity/volume ) 20 U/L 0-55 Serum or plasma protein measurement (mass/volume) 7.4 g/dL 6.4-8.2 Serum or plasma albumin measurement (mass/volume) 3.7 g/dL 3.2-4.5 Complete blood count (CBC) with automated white blood cell (WBC) differential - 08/18/16 18:28 Blood leukocytes automated count (number/volume) 12.7 10*3/ uL 4.3-11.0 Blood erythrocytes automated count (number/volume) 3.92 10*6 /uL 4.35-5.85 Venous blood hemoglobin measurement (mass/volume) 9.9 g/dL 11.5-16.0 Blood hematocrit (volume fraction) 31 % 35-52 Automated erythrocyte mean corpuscular volume 79 [foz_us] 80-99 Automated erythrocyte mean corpuscular hemoglobin (mass per erythrocyte) 25 pg 25-34 Automated erythrocyte mean corpuscular hemoglobin concentration measurement ( mass/volume) 32 g/dL 32-36 Automated erythrocyte distribution width ratio 13.9 % 10.0-14.5 Automated blood platelet count (count/volume) 522 10*3/uL 130-400 Automated blood platelet mean volume measurement 9.1 [foz_us ] 7.4-10.4 Automated blood neutrophils/100 leukocytes 89 % 42-75 Automated blood lymphocytes/100 leukocytes 6 % 12-44 Blood monocytes/100 leukocytes 4 % 0-12 Automated blood eosinophils/100 leukocytes 0 % 0-10 Automated blood basophils/100 leukocytes 0 % 0-10 Blood neutrophils automated count (number/volume) 11.4 10*3 1.8-7.8 Blood lymphocytes automated count (number/volume) 0.8 10*3 1.0-4.0 Blood monocytes automated count (number/volume) 0.5 10*3 0.0-1.0 Automated eosinophil count 0.0 10*3/uL 0.0-0.3 Automated blood basophil count (count/volume) 0.0 10*3/uL 0.0-0.1 Blood lactic acid measurement (moles/volume) - 08/18/16 18:28 Blood lactic acid measurement (moles/volume) 2.7 mmol/L 0.5-2.0 Blood manual differential performed detection - 08/18/16 18:28 Blood monocytes/100 leukocytes 0 % NRG Manual blood segmented neutrophils/100 leukocytes 94 % NRG Blood band neutrophils/100 leukocytes 0 % NRG Manual blood lymphocytes/100 leukocytes 6 % NRG Manual eosinophils/100 leukocytes in nose 0 % NRG Manual blood basophils/100 leukocytes 0 % NRG Blood microcytes detection by light microscopy SLIGHT NRG Serum or plasma lactate measurement (moles/volume) - 08/18/16 21:06 Serum or plasma lactate measurement (moles/volume) 0.6 mmol/ L 0.5-2.0 Complete blood count (CBC) with automated white blood cell (WBC) differential - 08/19/16 05:47 Blood leukocytes automated count (number/volume) 8.7 10*3/ uL 4.3-11.0 Blood erythrocytes automated count (number/volume) 3.79 10*6 /uL 4.35-5.85 Venous blood hemoglobin measurement (mass/volume) 9.6 g/dL 11.5-16.0 Blood hematocrit (volume fraction) 30 % 35-52 Automated erythrocyte mean corpuscular volume 79 [foz_us] 80-99 Automated erythrocyte mean corpuscular hemoglobin (mass per erythrocyte) 25 pg 25-34 Automated erythrocyte mean corpuscular hemoglobin concentration measurement ( mass/volume) 32 g/dL 32-36 Automated erythrocyte distribution width ratio 14.0 % 10.0-14.5 Automated blood platelet count (count/volume) 469 10*3/uL 130-400 Automated blood platelet mean volume measurement 8.6 [foz_us ] 7.4-10.4 Automated blood neutrophils/100 leukocytes 78 % 42-75 Automated blood lymphocytes/100 leukocytes 15 % 12-44 Blood monocytes/100 leukocytes 7 % 0-12 Automated blood eosinophils/100 leukocytes 0 % 0-10 Automated blood basophils/100 leukocytes 0 % 0-10 Blood neutrophils automated count (number/volume) 6.8 10*3 1.8-7.8 Blood lymphocytes automated count (number/volume) 1.3 10*3 1.0-4.0 Blood monocytes automated count (number/volume) 0.6 10*3 0.0-1.0 Automated eosinophil count 0.0 10*3/uL 0.0-0.3 Automated blood basophil count (count/volume) 0.0 10*3/uL 0.0-0.1 Blood lactic acid measurement (moles/volume) - 08/19/16 05:47 Blood lactic acid measurement (moles/volume) 0.5 mmol/L 0.5-2.0 Whole blood basic metabolic panel - 08/19/16 05:47 Serum or plasma sodium measurement (moles/volume) 136 mmol/ L 135-145 Serum or plasma potassium measurement (moles/volume) 3.2 mmol/L 3.6-5.0 Serum or plasma chloride measurement (moles/volume) 105 mmol /L 98-107 Carbon dioxide 21 mmol/L 21-32 Serum or plasma anion gap determination (moles/volume) 10 mmol/L 5-14 Serum or plasma urea nitrogen measurement (mass/volume) 8 mg /dL 7-18 Serum or plasma creatinine measurement (mass/volume) 0.57 mg /dL 0.60-1.30 Serum or plasma urea nitrogen/creatinine mass ratio 14 NRG Serum or plasma creatinine measurement with calculation of estimated glomerular filtration rate > NRG Serum or plasma glucose measurement (mass/volume) 121 mg/dL 70-105 Serum or plasma calcium measurement (mass/volume) 8.2 mg/dL 8.5-10.1 Complete blood count (CBC) with automated white blood cell (WBC) differential - 08/20/16 11:21 Blood leukocytes automated count (number/volume) 7.1 10*3/ uL 4.3-11.0 Blood erythrocytes automated count (number/volume) 4.11 10*6 /uL 4.35-5.85 Venous blood hemoglobin measurement (mass/volume) 10.3 g/dL 11.5-16.0 Blood hematocrit (volume fraction) 32 % 35-52 Automated erythrocyte mean corpuscular volume 79 [foz_us] 80-99 Automated erythrocyte mean corpuscular hemoglobin (mass per erythrocyte) 25 pg 25-34 Automated erythrocyte mean corpuscular hemoglobin concentration measurement ( mass/volume) 32 g/dL 32-36 Automated erythrocyte distribution width ratio 13.8 % 10.0-14.5 Automated blood platelet count (count/volume) 516 10*3/uL 130-400 Automated blood platelet mean volume measurement 9.0 [foz_us ] 7.4-10.4 Automated blood neutrophils/100 leukocytes 73 % 42-75 Automated blood lymphocytes/100 leukocytes 20 % 12-44 Blood monocytes/100 leukocytes 7 % 0-12 Automated blood eosinophils/100 leukocytes 0 % 0-10 Automated blood basophils/100 leukocytes 0 % 0-10 Blood neutrophils automated count (number/volume) 5.2 10*3 1.8-7.8 Blood lymphocytes automated count (number/volume) 1.4 10*3 1.0-4.0 Blood monocytes automated count (number/volume) 0.5 10*3 0.0-1.0 Automated eosinophil count 0.0 10*3/uL 0.0-0.3 Automated blood basophil count (count/volume) 0.0 10*3/uL 0.0-0.1 Comprehensive metabolic panel - 08/20/16 11:21 Serum or plasma sodium measurement (moles/volume) 136 mmol/ L 135-145 Serum or plasma potassium measurement (moles/volume) 3.4 mmol/L 3.6-5.0 Serum or plasma chloride measurement (moles/volume) 105 mmol /L 98-107 Carbon dioxide 19 mmol/L 21-32 Serum or plasma anion gap determination (moles/volume) 12 mmol/L 5-14 Serum or plasma urea nitrogen measurement (mass/volume) 4 mg /dL 7-18 Serum or plasma creatinine measurement (mass/volume) 0.58 mg /dL 0.60-1.30 Serum or plasma urea nitrogen/creatinine mass ratio 7 NRG Serum or plasma creatinine measurement with calculation of estimated glomerular filtration rate > NRG Serum or plasma glucose measurement (mass/volume) 98 mg/dL 70-105 Serum or plasma calcium measurement (mass/volume) 8.8 mg/dL 8.5-10.1 Serum or plasma total bilirubin measurement (mass/volume) 0.3 mg/dL 0.1-1.0 Serum or plasma alkaline phosphatase measurement (enzymatic activity/volume) 82 U/L 40-136 Serum or plasma aspartate aminotransferase measurement (enzymatic activity/ volume) 16 U/L 5-34 Serum or plasma alanine aminotransferase measurement (enzymatic activity/volume ) 17 U/L 0-55 Serum or plasma protein measurement (mass/volume) 6.6 g/dL 6.4-8.2 Serum or plasma albumin measurement (mass/volume) 3.4 g/dL 3.2-4.5 Encounters ACCT No. Visit Date/Time Discharge Status Pt. Type Provider Facility Loc./Unit Complaint [id number] 08/18/2016 17:48:00 2016 12:40:00 DIS Inpatient AMBER INFANTE MD [facility] 4TH DIVERTICULITIS, ABSCESS [id number] 10/25/2015 13:21:00 2015 18:05:00 DIS Emergency LARA CERVANTES [facility] ER [id number] 08/18/2016 15:28:00 ACT Outpatient AMBER INFANTE MD [facility] RAD LLQ PAIN
[2016-10-04] MEDS ORDERED: DOCU-143 PO (11:03)
[2016-10-04] MEDS ORDERED: LEVO500T80 PO (11:03)
[2016-10-04 11:05] LABS: BASOPHILS % (AUTO) 0 % (0-10); EOSINOPHILS % (AUTO) 0 % (0-10); LYMPHOCYTES # (AUTO) 0.9 X 10^3 (1.0-4.0); LYMPHOCYTES % (AUTO) 7 % (12-44); MEAN CORPUSCULAR HEMOGLOBIN 26 PG (25-34); MEAN CORPUSCULAR HGB CONC 33 G/DL (32-36); MEAN CORPUSCULAR VOLUME 78 FL (80-99); MEAN PLATELET VOLUME 9.6 FL (7.4-10.4); MONOCYTES # (AUTO) 0.6 X 10^3 (0.0-1.0); MONOCYTES % (AUTO) 5 % (0-12); NEUTROPHILS # (AUTO) 10.8 X 10^3 (1.8-7.8); NEUTROPHILS % (AUTO) 88 % (42-75); PLATELET COUNT 411 10^3/uL (130-400); RED BLOOD COUNT 5.09 10^6/uL (4.35-5.85); RED CELL DISTRIBUTION WIDTH 16.8 % (10.0-14.5); WHITE BLOOD COUNT 12.3 10^3/uL (4.3-11.0)
[2016-10-04 11:15] LABS: BAND NEUTROPHILS 5 %; LYMPHOCYTES % (MANUAL) 9 %; NEUTROPHILS % (MANUAL) 81 %
[2016-10-04 11:24] LABS: ALANINE AMINOTRANSFERASE 16 U/L (0-55); ANION GAP 13 MMOL/L (5-14); ASPARTATE AMINO TRANSFERASE 16 U/L (5-34); BILIRUBIN,TOTAL 0.7 MG/DL (0.1-1.0); BLOOD UREA NITROGEN 15 MG/DL (7-18); BUN/CREATININE RATIO 21; CALCIUM 9.4 MG/DL (8.5-10.1); CARBON DIOXIDE 20 MMOL/L (21-32); CHLORIDE 103 MMOL/L (98-107); CREATININE SERUM 0.73 MG/DL (0.60-1.30); GFR ESTIMATED > 60; GLUCOSE 117 MG/DL (70-105); LIPASE 8 U/L (8-78); SODIUM 136 MMOL/L (135-145); TOTAL PROTEIN 7.2 G/DL (6.4-8.2)
--- NOTE | 2016-10-04 11:31 | ED Abdominal Pain ---
General Chief Complaint: Abdominal/GI Problems Stated Complaint: L SIDE ABD PAIN/VOMITING Nursing Triage Note: pt reports she was released from the hospital 08/18/16 for Diverticulitis. Pt reports she started having similiar symptoms 09/29/16 with left lower abdominal pain constipation and nausea. Sepsis Screen: No Definite Risk Source of Information: Patient Exam Limitations: No Limitations History of Present Illness Time Seen By Provider: 11:30 Initial Comments 70-year-old female patient presents to the emergency Department with reports left lower quadrant pain. Patient was released from the hospital in August for acute diverticulitis. Patient states she finished antibiotics and was seen by Dr. Rivas on Wednesday. Patient now complains of nausea, increased pain, and constipation. Denies any melena, hematochezia, hematemesis, fever. Patient was noted to have a temperature of 100.0 in the emergency department. Timing/Duration: 2-3 Days Severity/Quality: Cramping, Sharp Location: LLQ Radiation: No Radiation Activities at Onset: None Modifying Factors: Worsens With Eating, Worsens With Movement, Worsens With Palpation Allergies and Home Medications Allergies Coded Allergies: No Known Drug Allergies (Unverified , 10/04/16) Home Medications Acetaminophen 500 Mg Tablet 500-1,000 MG PO Q6H PRN PRN PAIN (Reported) Buspirone HCl 7.5 Mg Tablet 7.5 MG PO DAILY PRN PRN ANXIETY (Reported) Docusate Sodium 100 Mg Capsule 200 MG PO DAILY (Reported) Hydrocodone/Acetaminophen 1 Each Tablet 2 TAB PO EVERY 4-6 HOURS PRN PRN PAIN ( Reported) Ibuprofen 200 Mg Tablet 600 MG PO TID PRN PRN PAIN (Reported) Levofloxacin 500 Mg Tablet 500 MG PO DAILY (Reported) Metronidazole 500 Mg Tablet 500 MG PO TID (Reported) 10 DAY SUPPLY FILLED 08-18-16 (HAS NOT STARTED YET) Zolpidem Tartrate 10 Mg Tablet 10 MG PO HS (Reported) Review of Systems Constitutional: No chills, No diaphoresis, No fever, malaise Respiratory: No Symptoms Reported Cardiovascular: No Symptoms Reported Gastrointestinal: Denies Abdomen Distended, Abdominal PainDenies Blood Streaked Stools, ConstipatedDenies Diarrhea, Denies Difficulty Swallowing, Nausea Poor Appetite Poor Fluid IntakeDenies Rectal Bleeding, Denies Vomiting Genitourinary: Denies Burning, Denies Discharge, Denies Frequency, Denies Flank Pain, Denies Hematuria, Denies Pain Musculoskeletal: no symptoms reported Skin: no symptoms reported Psychiatric/Neurological: No Symptoms Reported All Other Systems Reviewed Negative Unless Noted: Yes (Negative excepted noted.) Past Mfcfspb-Ypeglx-Mgivdz Hx Patient Social History Alcohol Use: Occasionally Uses Recreational Drug Use: No Smoking Status: Never a Smoker Recent Foreign Travel: No Contact w/Someone Who Travel: No Recent Infectious Disease Expo: No Recent Hopitalizations: No Seasonal Allergies Seasonal Allergies: No Surgeries HX Surgeries: No (l/r tkr) Surgeries: Orthopedic Respiratory Hx Respiratory Disorders: No Cardiovascular Hx Cardiac Disorders: No Neurological Hx Neurological Disorders: No 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 System Hx 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 Disorders: No 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 Genitourinary Hx Genitourinary Disorders: No Gastrointestinal Hx Gastrointestinal Disorders: Yes Gastrointestinal Disorders: Diverticulosis Musculoskeletal Hx Musculoskeletal Disorders: No Endocrine Hx Endocrine Disorders: No HEENT HX ENT Disorders: No Cancer Hx Cancer: No Psychosocial Hx Psychiatric Problems: Yes Behavioral Health Disorders: Sleep Difficulties, Anxiety Integumentary HX Skin/Integumentary Disorder: No Blood Transfusions Hx Blood Disorders: No Adverse Reaction to a Blood Tr: No Reviewed Nursing Assessment Reviewed/Agree w Nursing PMH: Yes Family Medical History Significant Family History: No Pertinent Family Hx Physical Exam Vital Signs VS - Last 72 Hours, by Label 10/04/16 10/04/16 10/04/16 10/04/16 10:47 10:54 11:04 13:05 Temp 100.0 100.0 100.0 98.9 Pulse 116 111 111 109 Resp 20 24 20 20 B/P 154/90 154/90 151/82 154/71 Pulse Ox 98 96 98 99 10/04/16 10/04/16 13:15 13:30 Temp 98.9 98.9 Pulse 110 116 Resp 20 20 B/P 141/84 131/89 Pulse Ox 97 98 Capillary Refill : Less Than 3 Seconds General Appearance: WD/WN no apparent distress Respiratory: lungs clear normal breath sounds no respiratory distress Cardiovascular: no murmur tachycardia Gastrointestinal: normal bowel sounds soft no organomegalyNo distended, guarding (LLQ and suprapubic)No rebound, tenderness (bilateral lower quadrant and suprapubic) Extremities: normal inspection normal capillary refill Back: normal inspection no CVA tenderness Neurologic/Psychiatric: alert normal mood/affect oriented x 3 Skin: normal color warm/dry Progress/Results/Core Measures Results/Orders Lab Results Laboratory Tests Test 10/04/16 10:50 10/04/16 10:52 10/04/16 11:35 10/04/16 11:55 Range/Units C-Reactive Protein High Sensitivity 11.85 H 0.00-0.50 MG/DL Alanine Aminotransferase (ALT/SGPT) 16 0-55 U/L Albumin 4.0 3.2-4.5 G/DL Alkaline Phosphatase 111 40-136 U/L Anion Gap 13 5-14 MMOL/L Aspartate Amino Transf (AST/SGOT) 16 5-34 U/L BUN/Creatinine Ratio 21 Band Neutrophils 5 % Basophils # (Auto) 0.0 0.0-0.1 10^3/uL Basophils (%) (Auto) 0 0-10 % Blood Morphology Comment NORMAL Blood Urea Nitrogen 15 7-18 MG/DL Calcium Level 9.4 8.5-10.1 MG/DL Carbon Dioxide Level 20 L 21-32 MMOL/L Chloride Level 103 98-107 MMOL/L Creatinine 0.73 0.60-1.30 MG/DL Dohle Bodies SLIGHT Eosinophils # (Auto) 0.0 0.0-0.3 10^3/uL Eosinophils (%) (Auto) 0 0-10 % Estimat Glomerular Filtration Rate > 60 Glucose Level 117 H 70-105 MG/DL Hematocrit 40 35-52 % Hemoglobin 13.2 11.5-16.0 G/DL Lipase 8 8-78 U/L Lymphocytes # (Auto) 0.9 L 1.0-4.0 X 10^3 Lymphocytes % (Manual) 9 % Lymphocytes (%) (Auto) 7 L 12-44 % Mean Corpuscular Hemoglobin 26 25-34 PG Mean Corpuscular Hemoglobin Concent 33 32-36 G/DL Mean Corpuscular Volume 78 L 80-99 FL Mean Platelet Volume 9.6 7.4-10.4 FL Monocytes # (Auto) 0.6 0.0-1.0 X 10^3 Monocytes % (Manual) 5 % Monocytes (%) (Auto) 5 0-12 % Neutrophils # (Auto) 10.8 H 1.8-7.8 X 10^3 Neutrophils % (Manual) 81 % Neutrophils (%) (Auto) 88 H 42-75 % Platelet Count 411 H 130-400 10^3/uL Potassium Level 4.0 3.6-5.0 MMOL/L Red Blood Count 5.09 4.35-5.85 10^6/uL Red Cell Distribution Width 16.8 H 10.0-14.5 % Sodium Level 136 135-145 MMOL/L Total Bilirubin 0.7 0.1-1.0 MG/DL Total Protein 7.2 6.4-8.2 G/DL Toxic Granulation 1+ White Blood Count 12.3 H 4.3-11.0 10^3/uL Urine Bacteria TRACE /HPF Urine Bilirubin NEGATIVE NEGATIVE Urine Casts NONE /LPF Urine Clarity CLEAR Urine Color YELLOW Urine Crystals NONE /LPF Urine Culture Indicated NO Urine Glucose (UA) NEGATIVE NEGATIVE Urine Ketones 4+ H NEGATIVE Urine Leukocyte Esterase 2+ H NEGATIVE Urine Mucus NEGATIVE /LPF Urine Nitrite NEGATIVE NEGATIVE Urine Protein 1+ H NEGATIVE Urine RBC 0-2 /HPF Urine RBC (Auto) 2+ H NEGATIVE Urine Specific Olive 1.025 H 1.016-1.022 Urine Urobilinogen NORMAL NORMAL MG/DL Urine WBC 0-2 /HPF Urine Yeast FEW H /HPF Urine pH 5 5-9 Lactic Acid Level 1.1 0.5-2.0 MMOL/L My Orders Orders-[facility] AC Ct Abdomen/Pelvis W (10/04/16 11:43) Ondansetron Injection (Zofran Injectio (10/04/16 11:45) Ns Iv 1000 Ml (Sodium Chloride 0.9%) (10/04/16 11:43) Morphine Injection (Morphine Injection (10/04/16 11:43) Lactic Acid Analyzer (10/04/16 11:43) Blood Culture (10/04/16 11:43) Piperacillin Sodium/Tazobactam (Zosyn Vi (10/04/16 11:45) Ns (Ivpb) (Sodium Chloride 0.9% Ivpb Bag (10/04/16 11:50) Iohexol Injection (Omnipaque 350 Mg/Ml 1 (10/04/16 12:15) Ns (Ivpb) (Sodium Chloride 0.9% Ivpb Bag (10/04/16 12:15) Medications Given in ED Current Medications Medications Dose Ordered Sig/Zaria Route Start Time Stop Time Status Last Admin Dose Admin Iohexol 100 ml ONCE ONCE IV 10/04/16 12:15 10/04/16 12:16 DC 10/04/16 12:45 100 ML Ondansetron HCl 4 mg 4 mg ONCE ONCE IVP 10/04/16 11:45 10/04/16 11:46 DC 10/04/16 11:55 4 MG Piperacillin Sod/ Tazobactam Sod 4.5 gm ONCE ONCE IV 10/04/16 11:45 10/04/16 11:46 DC 10/04/16 12:58 4.5 GM Sodium Chloride 100 ml ONCE ONCE IV 10/04/16 12:15 10/04/16 12:16 DC 10/04/16 12:46 80 ML Sodium Chloride 1,000 ml @ 0 mls/hr Q0M ONCE IV 10/04/16 11:43 10/04/16 11:45 DC 10/04/16 11:56 0 MLS/HR Vital Signs/I&O Vital Sign - Last 12Hours 10/04/16 10/04/16 10/04/16 10/04/16 10:47 10:54 11:04 13:05 Temp 100.0 100.0 100.0 98.9 Pulse 116 111 111 109 Resp 20 24 20 20 B/P 154/90 154/90 151/82 154/71 Pulse Ox 98 96 98 99 10/04/16 10/04/16 13:15 13:30 Temp 98.9 98.9 Pulse 110 116 Resp 20 20 B/P 141/84 131/89 Pulse Ox 97 98 Blood Pressure Mean: 111 Diagnostic Imaging Diagonstic Imaging: CT Plain Films/CT/US/NM/MRI: abdomen, pelvis Comments INDICATION: Diverticulitis. The previous CT abdomen/pelvis done on 08/20/16 noted diverticulosis of the sigmoid colon with small adjacent pockets of contained perforation/abscesses. On this exam, there is still generalized thickening of the wall of the sigmoid colon. This does suggest that there is still an an element of edema/inflammation/infection present. The small fluid pockets noted on the prior study appear to have coalesced on this exam. There is now a 3.1 x 5.0 cm soft tissue density in this area with a few droplets of gas. I suspect that this is an abscess but it does not appear to be drainable. The overall appearance of the abdomen and pelvis has not changed significantly otherwise. There still some type of IUD within the uterus. The lung bases are clear. IMPRESSION: 1. There is persistent edema/inflammation/infection of the sigmoid colon consistent with diverticulitis. The suspected small abscesses seen on the previous study have coalesced. These abscesses do not appear to be drainable by percutaneous CT guidance, however. 2. There is no new abnormality noted otherwise. These results were discussed with RYLAND Devine. Dictated by: Dictated on workstation # [id number] Reviewed: Reviewed by Me (radiology report reviewed by me) Departure Communication Time/Spoke to Admitting Phy: 14:[address] Rivas accepts patient to his surgical service for IV antibiotics, IV fluids, and pain control. Progress Notes All laboratory findings, diagnostic study findings, and plan for admission discussed with the patient. Patient voices understanding and agrees with the treatment plan. Patient does report pain is much improved after the IV morphine. Patient case and plan for admission discussed with Dr. Najera, he agrees with the plan of care. Impression Impression: Primary Impression: Sepsis Qualified Code: A41.9 - Sepsis, unspecified organism Additional Impression: Diverticulitis Qualified Code: K57.20 - Diverticulitis of large intestine with perforation and abscess without bleeding Disposition: ADMITTED INPATIENT Condition: Stable Decision to Admit Reason: Admit from ER (Trauma) Decision to Admit/Date: Oct 04, 2016 Time/Decision to Admit Time: 14:00 Departure-Patient Inst. Referrals: EDGAR TEMPLETON MD (PCP/Family) Primary Care Physician [facility] AC Oct 04, 2016 11:30
[2016-10-04 11:42] LABS: BILIRUBIN,URINE NEGATIVE (NEGATIVE); KETONES,URINE 4+ (NEGATIVE); LEUKOCYTE ESTERASE ,URINE 2+ (NEGATIVE); NITRITE,URINE NEGATIVE (NEGATIVE); PH,URINE 5 (5-9); PROTEIN,URINE 1+ (NEGATIVE); UROBILINOGEN,URINE NORMAL (NORMAL)
[2016-10-04] MEDS ORDERED: morphine INJ 10 MG/ML 1ML (SYR OR VIAL) IVP STA (11:43)
[2016-10-04] MEDS ORDERED: NS IV 1000 ML 1,000 ML IV ONE (11:43)
[2016-10-04] MEDS ORDERED: ONDANSETRON 4 MG/2 ML (SDV) Z0FRAN IVP ONE (11:45)
[2016-10-04] MEDS ORDERED: PIPERACILLIN/TAZO 4.5 GM VIAL (ZOSYN) IV ONE (11:45)
[2016-10-04] MEDS ORDERED: NS (IVPB) 100 ML ONE (11:50)
[2016-10-04 12:04] LABS: WBC,URINE 0-2 /HPF; YEAST,URINE FEW /HPF
[2016-10-04] MEDS ORDERED: IOHEXOL 350 MG/ML 100 ML (OMNIPAQUE 350) VIAL IV ONE (12:15)
[2016-10-04] MEDS ORDERED: NS 100 ML (IVPB) BAG IV ONE (12:15)
--- NOTE | 2016-10-04 14:22 | Diagnostic Imaging Report ---
PROCEDURE: CT abdomen and pelvis with contrast. TECHNIQUE: Multiple contiguous axial images were obtained through the abdomen and pelvis after administration of intravenous contrast. INDICATION: Diverticulitis. The previous CT abdomen/pelvis done on 08/20/16 noted diverticulosis of the sigmoid colon with small adjacent pockets of contained perforation/abscesses. On this exam, there is still generalized thickening of the wall of the sigmoid colon. This does suggest that there is still an an element of edema/inflammation/infection present. The small fluid pockets noted on the prior study appear to have coalesced on this exam. There is now a 3.1 x 5.0 cm soft tissue density in this area with a few droplets of gas. I suspect that this is an abscess but it does not appear to be drainable. The overall appearance of the abdomen and pelvis has not changed significantly otherwise. There still some type of IUD within the uterus. The lung bases are clear. IMPRESSION: 1. There is persistent edema/inflammation/infection of the sigmoid colon consistent with diverticulitis. The suspected small abscesses seen on the previous study have coalesced. These abscesses do not appear to be drainable by percutaneous CT guidance, however. 2. There is no new abnormality noted otherwise. These results were discussed with RYLAND Devine. Dictated by: Dictated on workstation # [id number]
[2016-10-04 15:09] VITALS: BP 138/58
[2016-10-04] MEDS ORDERED: morphine INJ 4 MG/ML 1 ML (VIAL/SYRINGE) IVP PRN (15:15)
[2016-10-04] MEDS ORDERED: IBUPROFEN 800 MG (MOTRIN) TAB PO PRN (15:15)
[2016-10-04] MEDS ORDERED: ONDANSETRON 4 MG/2 ML (SDV) Z0FRAN IV PRN (15:15)
[2016-10-04] MEDS: NS W/KCL 20 MEQ/L 1,000 ML IV SCH ×2 (15:48→21:55)
[2016-10-04] MEDS: HYDROcodone/APAP 5 MG/325 MG (LORTAB) TAB PO PRN ×2 (15:57→22:06)
[2016-10-04] MEDS: metroNIDAZOLE 500 MG/100 ML IVPB (PRE-MIX) IV SCH ×2 (15:58→22:05)
[2016-10-04] MEDS ORDERED: FLU TRIvalent (5 YOA+) 2016-17 (AFLURIA) 0.5 ML IM ONE (16:30)
[2016-10-04 16:50] VITALS: BP 145/63
[2016-10-04] MEDS ORDERED: ACETAMINOPHEN 500 MG TAB (TYLENOL) PO PRN (17:00)
[2016-10-04] MEDS ORDERED: NON-FORMULARY MEDICATION 1 EA EA (Buspirone HCl 7.5 MG) PO PRN (17:00)
[2016-10-04] MEDS: CIPROFLOXACIN 400 MG/D5W 200 ML (PRE-MIX) IV SCH (17:45)
[2016-10-04 20:00] VITALS: BP 121/61
[2016-10-04] MEDS: FAMOTIDINE 20MG/2ML IV (PEPCID) IVP SCH (22:05)
[2016-10-04] MEDS: ZOLPIDEM 5 MG (AMBIEN) TAB PO SCH (22:05)
[2016-10-05] VITALS: BP 138/82
[2016-10-05] MEDS: NS W/KCL 20 MEQ/L 1,000 ML IV SCH ×4 (03:37→22:16)
[2016-10-05 04:50] LABS: BASOPHILS % (AUTO) 0 % (0-10); EOSINOPHILS % (AUTO) 0 % (0-10); LYMPHOCYTES # (AUTO) 1.8 X 10^3 (1.0-4.0); LYMPHOCYTES % (AUTO) 24 % (12-44); MEAN CORPUSCULAR HEMOGLOBIN 26 PG (25-34); MEAN CORPUSCULAR HGB CONC 32 G/DL (32-36); MEAN CORPUSCULAR VOLUME 80 FL (80-99); MEAN PLATELET VOLUME 9.5 FL (7.4-10.4); MONOCYTES # (AUTO) 0.7 X 10^3 (0.0-1.0); MONOCYTES % (AUTO) 9 % (0-12); NEUTROPHILS % (AUTO) 67 % (42-75); PLATELET COUNT 324 10^3/uL (130-400); RED BLOOD COUNT 4.17 10^6/uL (4.35-5.85); RED CELL DISTRIBUTION WIDTH 16.6 % (10.0-14.5); WHITE BLOOD COUNT 7.6 10^3/uL (4.3-11.0)
[2016-10-05] MEDS: CIPROFLOXACIN 400 MG/D5W 200 ML (PRE-MIX) IV SCH ×2 (05:11→16:19)
[2016-10-05] MEDS: HYDROcodone/APAP 5 MG/325 MG (LORTAB) TAB PO PRN ×2 (05:13→18:01)
[2016-10-05 05:16] LABS: ALANINE AMINOTRANSFERASE 9 U/L (0-55); ALBUMIN 3.2 G/DL (3.2-4.5); ANION GAP 9 MMOL/L (5-14); ASPARTATE AMINO TRANSFERASE 12 U/L (5-34); BILIRUBIN,TOTAL 0.4 MG/DL (0.1-1.0); BLOOD UREA NITROGEN 7 MG/DL (7-18); BUN/CREATININE RATIO 11; CALCIUM 8.5 MG/DL (8.5-10.1); CARBON DIOXIDE 19 MMOL/L (21-32); CHLORIDE 110 MMOL/L (98-107); CREATININE SERUM 0.62 MG/DL (0.60-1.30); GFR ESTIMATED > 60; GLUCOSE 97 MG/DL (70-105); POTASSIUM 4.1 MMOL/L (3.6-5.0); SODIUM 138 MMOL/L (135-145); TOTAL PROTEIN 5.8 G/DL (6.4-8.2); hs C REACTIVE PROTEIN 12.96 MG/DL (0.00-0.50)
[2016-10-05] MEDS: metroNIDAZOLE 500 MG/100 ML IVPB (PRE-MIX) IV SCH ×3 (06:19→22:12)
[2016-10-05 08:00] VITALS: BP 110/57
[2016-10-05] MEDS: FAMOTIDINE 20MG/2ML IV (PEPCID) IVP SCH ×2 (08:21→22:12)
[2016-10-05] MEDS ORDERED: busPIRone 15 MG (BUSPAR) TABLET PO PRN (09:00)
[2016-10-05 12:00] VITALS: BP 136/63
[2016-10-05] MEDS ORDERED: LORazepam 0.5 MG (ATIVAN) TABLET ONE (16:17)
[2016-10-05 16:30] VITALS: BP 159/84
[2016-10-05] MEDS ORDERED: LORazepam INJ 2 MG/ML (ATIVAN) VIAL IVP PRN (16:30)
[2016-10-05] MEDS: LORazepam 0.5 MG (ATIVAN) TABLET PO SCH ×2 (16:31→22:11)
[2016-10-05 20:00] VITALS: BP 140/92
[2016-10-05] MEDS: ZOLPIDEM 5 MG (AMBIEN) TAB PO SCH (22:12)
[2016-10-06] VITALS: BP 142/72
[2016-10-06] MEDS: LORazepam 0.5 MG (ATIVAN) TABLET PO SCH ×4 (04:50→21:45)
[2016-10-06] MEDS: CIPROFLOXACIN 400 MG/D5W 200 ML (PRE-MIX) IV SCH ×2 (04:50→16:44)
[2016-10-06] MEDS: metroNIDAZOLE 500 MG/100 ML IVPB (PRE-MIX) IV SCH ×3 (06:29→21:35)
--- NOTE | 2016-10-06 07:52 | HISTORY AND PHYSICAL ---
DATE OF ADMISSION: 10/04/2016 ATTENDING PRIMARY CARE PHYSICIAN: Dr. Allegra Valentin. Ms. Sarah Emmanuel is a 70-year-old female known to us. She was seen in 08/18/2016 for left lower quadrant abdominal pain. She had reported she had started the pain 2 weeks prior on an intermittent basis and foods make this worse. She reported a sharp, as well as crampy pain in the left lower abdominal quadrant. She also reports a long-standing history of constipation. She states that she has taken laxatives on an intermittent basis for years. She does not report any red blood per rectum nor any dark tarry stools. A CT scan was performed at that time which did show a sigmoid diverticulitis as well as 2 areas of abscess formation, which were small. Her white count was mildly elevated at 11.4 as well. She was treated conservatively with IV antibiotics as well as fluids and bowel rest and did well. She reports in the next approximate 6 weeks, she did slowly improve. She reports that on some days she would feel no symptoms at all; however, on another days would feel some mild left lower quadrant abdominal pain. She states that one point, she did not have any symptoms for a good amount of time. She reports in the past week she has had recurrence of pain in the left lower abdominal quadrant, which progress in severity. She was seen in the emergency department where a CT scan was again performed, which did show inflammation of the similar area of the sigmoid colon as well as fluid collection near sigmoid which were very small. PAST MEDICAL HISTORY: 1. Fibromyalgia. 2. Osteoarthritis. 3. Anxiety. 4. Depression. PAST SURGERIES: 1. Left total knee arthroplasty 09/2012. 2. Right total knee arthroplasty 11/2012. MEDICATIONS: 1. Ambien 10 mg at bedtime. 2. Buspirone p.r.n. SOCIAL HISTORY: Negative smoke. Negative alcohol. FAMILY HISTORY: Father, myocardial infarction at age 69. VITAL SIGNS: Temperature 98.7, blood pressure 136/60, pulse 91. His respirations 18, pulse 96% on room air. REVIEW OF SYSTEMS: This is a well-nourished female currently in no acute distress. She is not experiencing any shortness of breath or difficulty breathing. No chest pain, palpitations, or diaphoresis. No nausea or vomiting, with her last bowel movement yesterday, which she states was soft in consistency. No fever or chills. No recent inadvertent weight loss. PHYSICAL EXAMINATION: CHEST: Clear. HEART: Regular. EXTREMITIES: No lower extremity edema. Negative Liz's sign. HEENT: No scleral icterus. No cervical lymphadenopathy. ABDOMEN: Soft, nondistended. There is pain in the left lower abdominal quadrant upon palpation. There is voluntary guarding, no rebound. LABS: WBC 7.6, hemoglobin 10.7, hematocrit 33, platelets 324, BUN 7, creatinine 0.62. UA showed leukocyte esterase positive. ASSESSMENT AND PLAN: 70-year-old female with recurrent complicated diverticulitis with small adjacent abscesses. We will again treat her conservatively with IV antibiotics, as well as bowel rest. This is her second admission for complicated diverticulitis and she was scheduled to have a colonoscopy; however, this event occurred. Again, we will recommend a colonoscopy to rule out an inflammatory bowel disease versus a malignancy. Once this is established and we could also evaluate the extent of diverticulosis and diverticulitis, the option will be given to proceed with a low anterior sigmoid rectal excision of the diseased portion of the colon to prevent further symptoms, as well as complications. Job ID: [id number] Dictated Date: 10/05/2016 16:30:20 Rhit Date: 10/06/2016 07:41:05/vikash LIEBERMAN
[2016-10-06 08:00] VITALS: BP 144/106
[2016-10-06] MEDS: NS W/KCL 20 MEQ/L 1,000 ML IV SCH ×3 (08:09→21:46)
[2016-10-06] MEDS: CATHETER FLUSH 10 ML SYR IV PRN (08:40)
[2016-10-06] MEDS: FAMOTIDINE 20MG/2ML IV (PEPCID) IVP SCH ×2 (08:40→21:34)
[2016-10-06 09:00] VITALS: BP 151/75
[2016-10-06 09:31] LABS: BASOPHILS % (AUTO) 0 % (0-10); EOSINOPHILS % (AUTO) 0 % (0-10); LYMPHOCYTES # (AUTO) 1.3 X 10^3 (1.0-4.0); LYMPHOCYTES % (AUTO) 21 % (12-44); MEAN CORPUSCULAR HEMOGLOBIN 26 PG (25-34); MEAN CORPUSCULAR HGB CONC 33 G/DL (32-36); MEAN CORPUSCULAR VOLUME 79 FL (80-99); MEAN PLATELET VOLUME 9.2 FL (7.4-10.4); MONOCYTES # (AUTO) 0.4 X 10^3 (0.0-1.0); MONOCYTES % (AUTO) 7 % (0-12); NEUTROPHILS # (AUTO) 4.2 X 10^3 (1.8-7.8); NEUTROPHILS % (AUTO) 71 % (42-75); PLATELET COUNT 389 10^3/uL (130-400); RED BLOOD COUNT 4.48 10^6/uL (4.35-5.85); RED CELL DISTRIBUTION WIDTH 16.4 % (10.0-14.5); WHITE BLOOD COUNT 5.9 10^3/uL (4.3-11.0)
--- NOTE | 2016-10-06 09:35 | Consultation-Hospitalist ---
HPI History of Present Illness: HPI/Chief Complaint CC: Severe and recurrent diverticulitis with fever and leukocytosis HPI: This is a 70-year-old white female known to me from prior hospitalization for diverticular abscess of Dr. Valentin the presents with recurrent diverticulitis episode in the same area the colon on CT scan. There was no abscess noted on CT scan but Dr. Rivas proceeded to admit for IV antibiotics bowel rest and IV fluids to improve status. She had not been able to undergo the planned colonoscopy considering she had become ill last week when she was scheduled for the colonoscopy so she still has never had a colonoscopy to fully evaluate the extensive nature of the diverticulosis but given this fact I did speak to her in depth and then Dr. Rivas regarding the probability of a sigmoid resection due to the severity of her disease. If strong possibility I told her that a diverting colostomy would be required due to the severity and scarring that has likely occurred due to back to back diverticulitis episodes and the abscess formation in the past. She seems willing to entertain that option and Dr. Rivas with talk to her further. Her lab work has improved but we'll be checking today but overall her pain is still present unlike the last time and she does report swelling in her left lower quadrant area. 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) Alcohol Use: Occasionally Uses Recreational Drug Use: No Smoking Status: Never a Smoker Physical Abuse Screen: No Sexual Abuse: No Recent Foreign Travel: No Contact w/other who traveled: No Recent Hopitalizations: No Recent Infectious Disease Expo: No Seasonal Allergies Seasonal Allergies: No Surgeries HX Surgeries: Yes (l/r tkr) Surgeries: Orthopedic Respiratory Hx Respiratory Disorders: No Cardiovascular Hx Cardiovascular Disorders: No Neurological Hx Neurological Disorders: No 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 System Hx 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 Disorders: No Sexually Transmitted Disease: No Female 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 Disorders: Denies Genitourinary Hx Genitourinary Disorders: No Gastrointestinal Hx Gastrointestinal Disorders: Yes Gastrointestinal Disorders: Diverticulosis Musculoskeletal Hx Musculoskeletal Disorders: No Endocrine Hx Endocrine Disorders: No HEENT HX ENT Disorders: No Loss of Vision: Denies Hearing Impairment: Denies Cancer Hx Cancer: No Psychosocial Hx Psychiatric Problems: Yes Behavioral Health Disorders: Sleep Difficulties, Anxiety Integumentary HX Skin/Integumentary Disorder: No Blood Transfusions Hx Blood Disorders: No Adverse Reaction to a Blood Tr: No Reviewed Nursing Assessment Reviewed/Agree w Nursing PMH: Yes Family Medical History Significant Family History: No Pertinent Family Hx Family Hx: Cardiovascular disease 19 FATHER Cataracts Review of Systems Constitutional: see HPI dizziness fever malaise EENTM: no symptoms reported Respiratory: no symptoms reported Cardiovascular: no symptoms reported Gastrointestinal: abdominal pain (LLQ) Genitourinary: no symptoms reported Musculoskeletal: no symptoms reported Skin: no symptoms reported Psychiatric/Neurological: No Symptoms Reported All Other Systems Reviewed Negative Unless Noted: Yes Physical Exam Physical Exam Vital Signs Vital Sign - Last 12Hours 10/04/16 10:47 Temp 100.0 Pulse 116 Resp 20 B/P 154/90 Pulse Ox 98 Capillary Refill : Less Than 3 Seconds General Appearance: No Apparent Distress WD/WN Eyes: Bilateral Eye Normal Inspection, Bilateral Eye PERRL HEENT: PERRL/EOMI Normal ENT Inspection Pharynx Normal Neck: Full Range of Motion Normal Inspection Non Tender Supple Carotid Bruit Respiratory: Chest Non Tender Lungs Clear Normal Breath Sounds No Accessory Muscle Use No Respiratory Distress Cardiovascular: Regular Rate, Rhythm No Edema No Gallop No JVD No Murmur Normal Peripheral Pulses Gastrointestinal: Normal Bowel Sounds No Organomegaly No Pulsatile Mass Soft Tenderness (left lower quadrant) Back: Normal Inspection No CVA Tenderness No Vertebral Tenderness Extremity: Normal Capillary Refill Normal Inspection Normal Range of Motion Non Tender No Calf Tenderness No Pedal Edema Neurologic/Psychiatric: Alert Oriented x3 No Motor/Sensory Deficits Normal Mood/Affect Skin: Normal Color Warm/Dry Lymphatic: No Adenopathy Results Results/Procedures Lab Laboratory Tests 10/04/16 10:52 10/05/16 04:15 Assessment/Plan Admission Diagnosis Assessment: Recurrent left lower quadrant sigmoid diverticulitis previous abscess formation but continued severe disease likely will require resection Anxiety Osteoarthritis status post knee replacement Leukocytosis Dehydration Assessment and Plan Plan: I confer with Dr. Rivas who will talk to her more in depth about resection with a colostomy is likely due to the severity of her inflammation and sigmoid disease Monitor closely Ambulate Pain control IV antibiotics and IV fluids Clinical Quality Measures DVT/VTE Risk/Contraindication: Risk Factor Score Per Nursin RFS Level Per Nursing on Admit: 3=High ELIDIA JIN DO Oct 06, 2016 09:34
[2016-10-06 09:55] LABS: ALANINE AMINOTRANSFERASE 14 U/L (0-55); ALBUMIN 3.6 G/DL (3.2-4.5); ANION GAP 13 MMOL/L (5-14); ASPARTATE AMINO TRANSFERASE 16 U/L (5-34); BILIRUBIN,TOTAL 0.2 MG/DL (0.1-1.0); BLOOD UREA NITROGEN 4 MG/DL (7-18); BUN/CREATININE RATIO 7; CARBON DIOXIDE 19 MMOL/L (21-32); CHLORIDE 108 MMOL/L (98-107); CREATININE SERUM 0.58 MG/DL (0.60-1.30); GFR ESTIMATED > 60; GLUCOSE 94 MG/DL (70-105); POTASSIUM 3.7 MMOL/L (3.6-5.0); SODIUM 140 MMOL/L (135-145); TOTAL PROTEIN 6.5 G/DL (6.4-8.2)
[2016-10-06 10:00] LABS: ERYTHROCYTE SEDIMENTATION RATE 72 MM/HR (0-30)
--- NOTE | 2016-10-06 11:31 | Progress Note (SOAP) ---
Subjective Subjective/Events-last exam still has some LLQ abdominal pain. tolerating clears and had BM. no fever/ chills. WBC normal. Objective Exam Vital Signs Date Time Temp Pulse Resp B/P Pulse Ox O2 Delivery O2 Flow Rate FiO2 10/06/16 09:00 151/75 10/06/16 08:00 99.5 98 18 144/106 97 Room Air 10/06/16 00:00 99.0 93 20 142/72 96 Room Air 10/05/16 20:00 99.7 91 18 140/92 96 Room Air 10/05/16 16:30 98.7 100 18 159/84 99 Room Air 10/05/16 12:00 98.7 91 18 136/63 96 Room Air I & O 10/06/16 07:00 Intake Total 4300 ml Output Total 1300 ml Balance 3000 ml Capillary Refill : Less Than 3 Seconds General Appearance: No Apparent Distress HEENT: PERRL/EOMI Neck: Full Range of Motion Respiratory: Chest Non Tender Lungs Clear Cardiovascular: Regular Rate, Rhythm Gastrointestinal: soft tenderness Extremity: Normal Capillary Refill Neurologic/Psychiatric: Alert Oriented x3 Skin: Normal Color Lymphatic: No Adenopathy Results Lab Laboratory Tests 10/06/16 09:22: Alanine Aminotransferase (ALT/SGPT) 14, Albumin 3.6, Alkaline Phosphatase 81, Anion Gap 13, Aspartate Amino Transf (AST/SGOT) 16, BUN/Creatinine Ratio 7, Basophils # (Auto) 0.0, Basophils (%) (Auto) 0, Blood Urea Nitrogen 4L, Calcium Level 9.0, Carbon Dioxide Level 19L, Chloride Level 108H, Creatinine 0.58L, Eosinophils # (Auto) 0.0, Eosinophils (%) (Auto) 0, Erythrocyte Sedimentation Rate 72H, Estimat Glomerular Filtration Rate > 60, Glucose Level 94, Hematocrit 35, Hemoglobin 11.6, Lymphocytes # (Auto) 1.3, Lymphocytes (%) (Auto) 21, Mean Corpuscular Hemoglobin 26, Mean Corpuscular Hemoglobin Concent 33, Mean Corpuscular Volume 79L, Mean Platelet Volume 9.2, Monocytes # (Auto) 0.4, Monocytes (%) (Auto) 7, Neutrophils # (Auto) 4.2, Neutrophils (%) (Auto) 71, Platelet Count 389, Potassium Level 3.7, Red Blood Count 4.48, Red Cell Distribution Width 16.4H, Sodium Level 140, Total Bilirubin 0.2, Total Protein 6.5, White Blood Count 5.9 Microbiology 10/04/16 Blood Culture - Preliminary, Resulted No growth Assessment/Plan Assessment/Plan Assess & Plan/Chief Complaint recurrent complicated sigmoid diverticulitis. risks and benefits explained to pt for surgery vs. non-surgical management. options given for sigmoid colon resection, end-colostomy, and joanna's pouch with reanastomosis at a later time. also explained continued IV abx and bowel rest may resolve symptoms however chance for recurrence high. she is in full understanding of risks and benefits. at this time she would like to take the medical route. she states that if she does not improve soon, she will then elect for surgery. Diagnosis/Problems: Clinical Quality Measures DVT/VTE Risk/Contraindication: Risk Factor Score Per Nursin RFS Level Per Nursing on Admit: 3=High AMBER INFANTE MD Oct 06, 2016 11:31
[2016-10-06] MEDS: HYDROcodone/APAP 5 MG/325 MG (LORTAB) TAB PO PRN (13:35)
--- NOTE | 2016-10-06 14:04 | Physician Query ---
PQ-Conflicting Diagnosis Admission/Discharge Admission Date: Oct 04, 2016 at 14:27 Discharge Date: he medical record reflects the following clinical scenario: History/Risk Factor: Diverticulitis with abscesses and Leukocytosis. Clinical Findings: WBCs 12.3,Bands 5, Temp 100.0, pulse 116, resp 20 and BP 154/90 Lactic acid 1.1. Treatment: IV Zosyn, IV Cipro and IV fluids. Question: Do you agree with the impression of sepsis per RYLAND Devine ?. Please document a response below. Do you agree w/Consulting Dx?: No Explanation of clincal finding all parameters for sepsis not met. diagnosis includes persistent and worsening left lower quadrant abdominal pain, mild fever, mild leukocytosis, and symptomatic and recurrent complicated acute sigmoid diverticulitis. In responding to this query, please exercise your independent professional judgment. The purpose of this communication is to more accurately reflect the complexity of your patients condition. The fact that a question is asked does not imply that any particular answer is desired or expected. Thank you for your timely response to this clarification. Requestors name: Lory Murguia [facility] Phone # ext [phone] or [phone] THIS PHYSICIAN QUERY FORM IS A PERMANENT PART OF THE MEDICAL RECORD LORY MURGUIA Oct 06, 2016 14:04 AMBER INFANTE MD Oct 06, 2016 18:18
[2016-10-06 16:00] VITALS: BP 153/72
[2016-10-06] MEDS: ZOLPIDEM 5 MG (AMBIEN) TAB PO SCH (21:37)
[2016-10-07] VITALS: BP 140/73
[2016-10-07] MEDS: NS W/KCL 20 MEQ/L 1,000 ML IV SCH ×4 (02:04→20:53)
[2016-10-07] MEDS: LORazepam 0.5 MG (ATIVAN) TABLET PO SCH ×4 (04:37→22:12)
[2016-10-07] MEDS: CIPROFLOXACIN 400 MG/D5W 200 ML (PRE-MIX) IV SCH ×2 (04:37→16:22)
[2016-10-07] MEDS: metroNIDAZOLE 500 MG/100 ML IVPB (PRE-MIX) IV SCH ×3 (05:47→22:12)
[2016-10-07 08:00] VITALS: BP 141/80
--- NOTE | 2016-10-07 09:11 | Progress Note-Hospitalist ---
Progress Note HPI/CC on Admission CC: Severe and recurrent diverticulitis with fever and leukocytosis HPI: This is a 70-year-old white female known to me from prior hospitalization for diverticular abscess of Dr. Valentin the presents with recurrent diverticulitis episode in the same area the colon on CT scan. There was no abscess noted on CT scan but Dr. Rivas proceeded to admit for IV antibiotics bowel rest and IV fluids to improve status. She had not been able to undergo the planned colonoscopy considering she had become ill last week when she was scheduled for the colonoscopy so she still has never had a colonoscopy to fully evaluate the extensive nature of the diverticulosis but given this fact I did speak to her in depth and then Dr. Rivas regarding the probability of a sigmoid resection due to the severity of her disease. If strong possibility I told her that a diverting colostomy would be required due to the severity and scarring that has likely occurred due to back to back diverticulitis episodes and the abscess formation in the past. She seems willing to entertain that option and Dr. Rivas with talk to her further. Her lab work has improved but we'll be checking today but overall her pain is still present unlike the last time and she does report swelling in her left lower quadrant area. Progress Notes/Assess & Plan Date Seen 10/07/16 Admission Dx/Process Assessment: Recurrent left lower quadrant sigmoid diverticulitis previous abscess formation but continued severe disease likely will require resection Anxiety Osteoarthritis status post knee replacement Leukocytosis Dehydration Diagonsis/Assessment & Plan Patient doing much better and overall tolerating clear liquids well Decrease pain in the left lower quadrant Dr. Rivas explained surgical options and she wants to hold off on that if at all possible Patient responding to antibiotic treatment and bowel rest Xanax as helped her anxiety which she has a lot of personal issues going on and this helps her cope No fever, vital signs stable, pleasant, improved Regular rate rhythm, clear to all sedation bilaterally Mild tenderness in the left lower quadrant no masses noted No edema Assessment: Recurrent left lower quadrant sigmoid diverticulitis previous abscess formation but continued severe disease likely will require resection but wants to explore non-surgical options currently Anxiety Osteoarthritis status post knee replacement Leukocytosis Dehydration Plan: Ambulate Pain control IV antibiotics and IV fluids ELIDIA JIN DO Oct 07, 2016 09:11
[2016-10-07] MEDS: FAMOTIDINE 20MG/2ML IV (PEPCID) IVP SCH ×2 (09:16→22:13)
--- NOTE | 2016-10-07 14:12 | Progress Note (SOAP) ---
Subjective Subjective/Events-last exam doing better. tolerating clears. less abdominal pain. having bowel movements. Objective Exam Vital Signs Date Time Temp Pulse Resp B/P Pulse Ox O2 Delivery O2 Flow Rate FiO2 10/07/16 08:00 96.4 94 20 141/80 96 Room Air 10/07/16 00:00 99.0 88 20 140/73 98 Room Air 10/06/16 16:00 98.9 93 18 153/72 94 Room Air I & O 10/07/16 07:00 Intake Total 4520 ml Output Total 1400 ml Balance 3120 ml Capillary Refill : Less Than 3 Seconds General Appearance: No Apparent Distress HEENT: PERRL/EOMI Neck: Full Range of Motion Respiratory: Chest Non Tender Lungs Clear Normal Breath Sounds Cardiovascular: Regular Rate, Rhythm Gastrointestinal: normal bowel sounds soft other (llq pain) Extremity: Normal Capillary Refill Neurologic/Psychiatric: Alert Oriented x3 Skin: Normal Color Lymphatic: No Adenopathy Results Lab Microbiology 10/04/16 Blood Culture - Preliminary, Resulted No growth Assessment/Plan Assessment/Plan Assess & Plan/Chief Complaint recurrent complicated sigmoid diverticulitis. risks and benefits explained to pt for surgery vs. non-surgical management. options given for sigmoid colon resection, end-colostomy, and joanna's pouch with reanastomosis at a later time. also explained continued IV abx and bowel rest may resolve symptoms however chance for recurrence high. she is in full understanding of risks and benefits. at this time she would like to take the medical route. she states that if she does not improve soon, she will then elect for surgery. doing better today. states she wants to continue conservative management. will advance to dys3 diet. augmentin and flagyl PO. Diagnosis/Problems: Clinical Quality Measures DVT/VTE Risk/Contraindication: Risk Factor Score Per Nursin RFS Level Per Nursing on Admit: 3=High AMBER INFANTE MD Oct 07, 2016 2:12 pm
[2016-10-07 16:29] VITALS: BP 131/65
[2016-10-07] MEDS: ZOLPIDEM 5 MG (AMBIEN) TAB PO SCH (22:12)
[2016-10-08] VITALS: BP 133/62
[2016-10-08] MEDS: LORazepam 0.5 MG (ATIVAN) TABLET PO SCH ×2 (04:24→10:53)
[2016-10-08] MEDS: CIPROFLOXACIN 400 MG/D5W 200 ML (PRE-MIX) IV SCH (04:24)
[2016-10-08] MEDS: NS W/KCL 20 MEQ/L 1,000 ML IV SCH ×2 (05:32→12:35)
[2016-10-08] MEDS: metroNIDAZOLE 500 MG/100 ML IVPB (PRE-MIX) IV SCH (05:33)
[2016-10-08 08:00] VITALS: BP 144/83
[2016-10-08] MEDS: CATHETER FLUSH 10 ML SYR IV PRN (09:06)
[2016-10-08] MEDS: FAMOTIDINE 20MG/2ML IV (PEPCID) IVP SCH (09:06)
[2016-10-08] MEDS: HYDROcodone/APAP 5 MG/325 MG (LORTAB) TAB PO PRN (09:11)
--- NOTE | 2016-10-08 10:35 | Progress Note-Hospitalist ---
Progress Note HPI/CC on Admission CC: Severe and recurrent diverticulitis with fever and leukocytosis HPI: This is a 70-year-old white female known to me from prior hospitalization for diverticular abscess of Dr. Valentin the presents with recurrent diverticulitis episode in the same area the colon on CT scan. There was no abscess noted on CT scan but Dr. Rivas proceeded to admit for IV antibiotics bowel rest and IV fluids to improve status. She had not been able to undergo the planned colonoscopy considering she had become ill last week when she was scheduled for the colonoscopy so she still has never had a colonoscopy to fully evaluate the extensive nature of the diverticulosis but given this fact I did speak to her in depth and then Dr. Rivas regarding the probability of a sigmoid resection due to the severity of her disease. If strong possibility I told her that a diverting colostomy would be required due to the severity and scarring that has likely occurred due to back to back diverticulitis episodes and the abscess formation in the past. She seems willing to entertain that option and Dr. Rivas with talk to her further. Her lab work has improved but we'll be checking today but overall her pain is still present unlike the last time and she does report swelling in her left lower quadrant area. Progress Notes/Assess & Plan Date Seen 10/08/16 Admission Dx/Process Assessment: Recurrent left lower quadrant sigmoid diverticulitis previous abscess formation but continued severe disease likely will require resection Anxiety Osteoarthritis status post knee replacement Leukocytosis Dehydration Diagonsis/Assessment & Plan Patient Interview: Pt will have a close follow-up with Dr. Rivas. Pt states that she is ready to DC to home. Pt states that she had a BM today, which was painful. Pt states that she has Hydrocodone at home, but it does not work well for her. Pt requests Xanax. Pt uses [facility]. No fever, vital signs stable, pleasant, improved Regular rate rhythm, clear to all sedation bilaterally Mild tenderness in the left lower quadrant no masses noted No edema Assessment: Recurrent left lower quadrant sigmoid diverticulitis previous abscess formation but continued severe disease likely will require resection but wants to explore non-surgical options currently Anxiety Osteoarthritis status post knee replacement Leukocytosis Dehydration Plan: Xanax Ambulate Pain control - switch to new pain meds Follow-up with Dr. Rivas in 2 weeks Discharge home Scribed by wKabena Malone under the direct supervision of Dr. Jin. ELIDIA JIN DO Oct 08, 2016 10:35
[2016-10-08] MEDS ORDERED: OXYC-201 PO (10:54)
[2016-10-08] MEDS ORDERED: LORA0.5T PO (10:54)
[2016-10-08] MEDS ORDERED: oxyCODONE/APAP 7.5-325 MG (PERCOCET 7.5) TABLET PO PRN (11:00)
[2016-10-08] MEDS ORDERED: METR500T PO (11:23)
[2016-10-08] MEDS ORDERED: AMOX-358 PO (11:23)
--- NOTE | 2016-10-08 11:24 | Discharge Instructions ---
Discharge Instructions Discharge Medications New, Converted or Re-Newed RX: Transmitted to Pharmacy New Medications: Amoxicillin/Potassium Clav (Augmentin 875-125 Tablet) 1 Each Tablet 1 EACH PO BID #20 TAB Metronidazole (Flagyl) 500 Mg Tablet 500 MG PO TID #30 TAB Oxycodone HCl/Acetaminophen (Percocet 7.5-325 mg Tablet) 1 Each Tablet 1 EACH PO Q4H PRN PAIN #60 TAB Lorazepam (Lorazepam) 0.5 Mg Tablet 0.5 MG PO Q6H #30 TAB Continued Medications: Acetaminophen (Tylenol Extra Strength) 500 Mg Tablet 500-1000 MG PO Q6H ALTERNATES WITH IBUPROFEN PRN PAIN TAB Buspirone HCl (Buspirone HCl) 7.5 Mg Tablet 7.5 MG PO DAILY PRN ANXIETY TAB Docusate Sodium (Colace) 100 Mg Capsule 200 MG PO DAILY PRN CONSTIPATION CAP Ibuprofen (Advil) 200 Mg Tablet 600 MG PO TID ALTERNATES WITH ACETAMINOPHEN PRN PAIN TAB Zolpidem Tartrate (Zolpidem Tartrate) 10 Mg Tablet 10 MG PO HS TAB Discontinued Medications: Hydrocodone/Acetaminophen (Hydrocodon-Acetaminoph 7.5-325) 1 Each Tablet 1-2 TAB PO EVERY 4-6 HOURS PRN PAIN TAB Levofloxacin (Levofloxacin) 500 Mg Tablet 500 MG PO DAILY FILLED 10/02/16 #10 FOR A 10 DAY THERAPY TAB Metronidazole (Metronidazole) 500 Mg Tablet 500 MG PO TID FILLED 10/02/16 #30 FOR A 10 DAY THERAPY TAB Patient Instructions Goal/Follow Up Appt: Dr Rivas in 2 weeks Activity & Diet Discharge Diet: Low Residue Activity as Tolerated: Yes ELIDIA JIN DO Oct 08, 2016 11:24
[2016-10-17] MEDS ORDERED: OXYC-197 PO (11:06)
--- NOTE | 2016-10-21 10:20 | DISCHARGE SUMMARY ---
DATE OF ADMISSION: 10/04/2016 DATE OF DISCHARGE: 10/08/2016 ATTENDING PRIMARY CARE PHYSICIAN: Dr. Allegra Valentin. ADMISSION DIAGNOSIS: Recurrent complicated sigmoid diverticulitis. DISCHARGE DIAGNOSIS: Recurrent complicated sigmoid diverticulitis. ADDITIONAL DIAGNOSES: 1. Fibromyalgia. 2. Osteoarthritis. 3. Anxiety. 4. Depression. PRINCIPAL PROCEDURE: None. COMPLICATIONS: None. DISPOSITION: Home in stable condition. Ms. Sarah Emmanuel is a 70-year-old female who was initially seen on 08/18/2016 for left lower quadrant abdominal pain which had started 2 weeks prior however, upon further questioning, she had reported pain on an intermittent basis for years. The pain was sharp and in the left lower abdominal quadrant. She also reports a long-standing history of constipation and has been taking laxatives on an intermittent basis for many years. A CT scan was performed at that time which showed sigmoid diverticulitis as well as 2 areas of abscess formation, which were small. Her white count was mildly elevated at 11.4. She was treated conservatively with IV antibiotics, as well as fluids and bowel rest. She was instructed to follow-up in approximately 6 weeks for follow-up colonoscopy. She reported that once she was discharged she did feel well for some amount of time however developed recurrence of pain in the left lower abdominal quadrant. She was seen in the emergency department where CT scan was performed, which did show inflammation in a similar area of the sigmoid colon, as well as worsening fluid collection and inflammation of the colon. PAST MEDICAL HISTORY: 1. Fibromyalgia. 2. Osteoarthritis. 3. Anxiety. 4. Depression. PAST SURGERIES: 1. Left total knee arthroscopy 2012. 2. Left total knee arthroplasty 09/2012. 3. Right total knee arthroplasty 11/2012. MEDICATIONS: 1. Ambien 10 mg at bedtime. 2. Buspirone p.r.n. 3. Levaquin daily. 4. Flagyl b.i.d. SOCIAL HISTORY: Negative smoke. Negative alcohol. FAMILY HISTORY: Father myocardial infarction age 69. The patient was admitted and again started on IV antibiotics, IV fluids, as well as bowel rest. The findings on the CT scan as well as the natural history of complicated diverticulitis was explained to patient including the a high risk of recurrent episodes of symptoms, as well as worsening abscess formation and possible sepsis, as well as obstruction and free perforation, as well as bleeding. It was also explained to her that due to these symptoms we still could not rule out malignancy because she has not had a colonoscopy up to this point in her life. She is in full understanding of the risks and benefits of surgical versus nonsurgical management and she did wish to proceed with another round of conservative medical management. She did well with IV antibiotics, as well as bowel rest. She was able to have bowel movements and she was started on a clear liquid diet which was advanced to a low residue diet without any difficulty. She also did have adequate control of pain in the left lower abdominal quadrant with oral pain medication. She was also ambulating well, and her vital signs remained stable and she was afebrile and her white count was normal. She is discharged 10/08/2016. HOME GOING INSTRUCTIONS: Activity as tolerated. Low residue diet. She is to follow-up in approximately 2 weeks. MEDICATIONS: 1. Hydrocodone p.r.n. 2. Levofloxacin 500 mg daily. 3. Metronidazole 500 mg t.i.d. Job ID: [id number] Dictated Date: 10/20/2016 13:08:03 Cardiac Technician Date: 10/21/2016 10:07:15/elizabeth
== END 2016-10-08 13:15 | disposition home or self-care (01) | DRG 392 ==
LOC: EDUNIT# 10:41 → ER 10:42 → 4TH 14:27
PROVIDERS: ADMIT Surgery Pediatric Surgery; ATTEND Surgery Pediatric Surgery
DX: K57.20 Diverticulitis of large intestine with perforation and abscess without bleeding (principal); E86.0 Dehydration; K59.00 Constipation, unspecified; M79.7 Fibromyalgia; G47.9 Sleep disorder, unspecified; F41.9 Anxiety disorder, unspecified; F32.9 Major depressive disorder, single episode, unspecified; Z96.653 Presence of artificial knee joint, bilateral
CPT/HCPCS: 36415; 74177; 80053; 81000; 83605; 83690; 85007; 85025; 85027; 85652; 86141; 87040; 96361; 96365; 96375

== ENCOUNTER 2016-10-13 09:05 | Inpatient (IN) | payer MEDICARE ==
[~2016-10-13] VITALS: Ht 157.5 cm; Wt 73.5 kg
[~2016-10-13 09:05] MED LIST changes: +AMOX-358 PO; +DOCU-143 PO; +LEVO500T80 PO; +LORA0.5T PO; +METR500T PO; +OXYC-201 PO
--- OUTSIDE RECORDS SUMMARY | 2016-10-13 09:48 | XMS REPORT | Continuity of Care Document ---
Author Author [facility] Organization [facility] Address Unknown Phone Unavailable Allergies Active Description Code Type Severity Reaction Onset Reported/Identified Relationship to Patient Clinical Status Yes No Known Drug Allergies [id number] Drug Allergy Unknown N/ A 10/04/2016 Medications Problems Date Dx Coded Attending Type [...] Ot M19.90 UNSPECIFIED OSTEOARTHRITIS, UNSPECIFIED 08/20/2016 AMBER IFNANTE MD, Ot M79.7 FIBROMYALGIA 08/20/2016 NARESH HERCULES, AMBER Ot Z96.653 PRESENCE OF ARTIFICIAL KNEE JOINT, BILAT 08/21/2016 AMBER INFANTE MD Ot A41.9 SEPSIS, UNSPECIFIED ORGANISM 08/21/2016 AMBER INFANTE MD Ot E87.2 ACIDOSIS 08/21/2016 AMBER INFANTE MD Ot E87.6 HYPOKALEMIA 08/21/2016 AMBER INFANTE MD Ot F32.9 MAJOR DEPRESSIVE DISORDER, SINGLE EPISOD 08/21/2016 AMBER INFANTE MD, Ot F41.9 ANXIETY DISORDER, UNSPECIFIED 08/21/2016 AMBER INFANTE MD, Ot G47.00 INSOMNIA, UNSPECIFIED 08/21/2016 AMBER INFANTE MD Ot 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 08/21/2016 AMBER INFANTE MD Ot M19.90 UNSPECIFIED OSTEOARTHRITIS, UNSPECIFIED 08/21/2016 AMBER INFANTE MD Ot M79.7 FIBROMYALGIA 08/21/2016 AMBER INFANTE MD Ot Z96.653 PRESENCE OF ARTIFICIAL KNEE JOINT, BILAT 09/10/2016 AMBER INFANTE MD Ot K57.32 DVTRCLI OF LG INT W/O PERFORATION OR ABS 09/29/2016 AMBER INFANTE MD Ot K57.32 DVTRCLI OF LG INT W/O PERFORATION OR ABS 10/06/2016 AMBER INFANTE MD Ot K57.32 DVTRCLI OF LG INT W/O PERFORATION OR ABS 10/06/2016 AMBER INFANTE MD Ot E86.0 DEHYDRATION 10/06/2016 AMBER INFANTE MD Ot F32.9 MAJOR DEPRESSIVE DISORDER, SINGLE EPISOD 10/06/2016 AMBER INFANTE MD Ot F41.9 ANXIETY DISORDER, UNSPECIFIED 10/06/2016 AMBER INFANTE MD Ot G47.9 SLEEP DISORDER, UNSPECIFIED 10/06/2016 AMBER INFANTE MD Ot 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 10/06/2016 AMBER INFANTE MD Ot K59.00 CONSTIPATION, UNSPECIFIED 10/06/2016 AMBER INFANTE MD Ot M79.7 FIBROMYALGIA 10/06/2016 AMBER INFANTE MD, Ot Z96.653 PRESENCE OF ARTIFICIAL KNEE JOINT, BILAT 10/08/2016 AMBER INFANTE MD, Ot E86.0 DEHYDRATION 10/08/2016 AMBER INFANTE MD, Ot F32.9 MAJOR DEPRESSIVE DISORDER, SINGLE EPISOD 10/08/2016 AMBER INFANTE MD, Ot F41.9 ANXIETY DISORDER, UNSPECIFIED 10/08/2016 AMBER INFANTE MD, Ot G47.9 SLEEP DISORDER, UNSPECIFIED 10/08/2016 AMBER INFANTE MD, Ot 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 10/08/2016 AMBER INFANTE MD, Ot K59.00 CONSTIPATION, UNSPECIFIED 10/08/2016 AMBER INFANTE MD, Ot M79.7 FIBROMYALGIA 10/08/2016 AMBER INFANTE MD, Ot Z96.653 PRESENCE OF ARTIFICIAL KNEE JOINT, BILAT Procedures Results Test Result Range Automated blood [...] plasma albumin measurement (mass/volume) 3.4 g/dL 3.2-4.5 Serum or plasma C reactive protein measurement (mass/volume) - 10/04/16 10:50 Serum or plasma C reactive protein measurement (mass/volume) 11.85 mg/dL 0.00-0.50 Complete blood count (CBC) with automated white blood cell (WBC) differential - 10/04/16 10:52 Blood leukocytes automated count (number/volume) 12.3 10*3/ uL 4.3-11.0 Blood erythrocytes automated count (number/volume) 5.09 10*6 /uL 4.35-5.85 Venous blood hemoglobin measurement (mass/volume) 13.2 g/dL 11.5-16.0 Blood hematocrit (volume fraction) 40 % 35-52 Automated erythrocyte mean corpuscular volume 78 [foz_us] 80-99 Automated erythrocyte mean corpuscular hemoglobin (mass per erythrocyte) 26 pg 25-34 Automated erythrocyte mean corpuscular hemoglobin concentration measurement ( mass/volume) 33 g/dL 32-36 Automated erythrocyte distribution width ratio 16.8 % 10.0-14.5 Automated blood platelet count (count/volume) 411 10*3/uL 130-400 Automated blood platelet mean volume measurement 9.6 [foz_us ] 7.4-10.4 Automated blood neutrophils/100 leukocytes 88 % 42-75 Automated blood lymphocytes/100 leukocytes 7 % 12-44 Blood monocytes/100 leukocytes 5 % 0-12 Automated blood eosinophils/100 leukocytes 0 % 0-10 Automated blood basophils/100 leukocytes 0 % 0-10 Blood neutrophils automated count (number/volume) 10.8 10*3 1.8-7.8 Blood lymphocytes automated count (number/volume) 0.9 10*3 1.0-4.0 Blood monocytes automated count (number/volume) 0.6 10*3 0.0-1.0 Automated eosinophil count 0.0 10*3/uL 0.0-0.3 Automated blood basophil count (count/volume) 0.0 10*3/uL 0.0-0.1 Blood manual differential performed detection - 10/04/16 10:52 Blood monocytes/100 leukocytes 5 % NRG Manual blood segmented neutrophils/100 leukocytes 81 % NRG Blood band neutrophils/100 leukocytes 5 % NRG Manual blood lymphocytes/100 leukocytes 9 % NRG Blood erythrocyte morphology finding identification NORMAL NRG Blood toxic granules detection by light microscopy 1+ NRG Blood dohle body detection by light microscopy SLIGHT NRG Comprehensive metabolic panel - 10/04/16 10:52 Serum or plasma sodium measurement (moles/volume) 136 mmol/ L 135-145 Serum or plasma potassium measurement (moles/volume) 4.0 mmol/L 3.6-5.0 Serum or plasma chloride measurement (moles/volume) 103 mmol /L 98-107 Carbon dioxide 20 mmol/L 21-32 Serum or plasma anion gap determination (moles/volume) 13 mmol/L 5-14 Serum or plasma urea nitrogen measurement (mass/volume) 15 mg/dL 7-18 Serum or plasma creatinine measurement (mass/volume) 0.73 mg /dL 0.60-1.30 Serum or plasma urea nitrogen/creatinine mass ratio 21 NRG Serum or plasma creatinine measurement with calculation of estimated glomerular filtration rate > NRG Serum or plasma glucose measurement (mass/volume) 117 mg/dL 70-105 Serum or plasma calcium measurement (mass/volume) 9.4 mg/dL 8.5-10.1 Serum or plasma total bilirubin measurement (mass/volume) 0.7 mg/dL 0.1-1.0 Serum or plasma alkaline phosphatase measurement (enzymatic activity/volume) 111 U/L 40-136 Serum or plasma aspartate aminotransferase measurement (enzymatic activity/ volume) 16 U/L 5-34 Serum or plasma alanine aminotransferase measurement (enzymatic activity/volume ) 16 U/L 0-55 Serum or plasma protein measurement (mass/volume) 7.2 g/dL 6.4-8.2 Serum or plasma albumin measurement (mass/volume) 4.0 g/dL 3.2-4.5 Lipase - 10/04/16 10:52 Lipase 8 U/L 8-78 Complete urinalysis with reflex to culture - 10/04/16 11:35 Urine color determination YELLOW NRG Urine clarity determination CLEAR NRG Urine pH measurement by test strip 5 5- 9 Specific gravity of urine by test strip 1.025 1.016-1.022 Urine protein assay by test strip, semi-quantitative 1+ NEGATIVE Urine glucose detection by automated test strip NEGATIVE NEGATIVE Erythrocytes detection in urine sediment by light microscopy 2+ NEGATIVE Urine ketones detection by automated test strip 4+ NEGATIVE Urine nitrite detection by test strip NEGATIVE NEGATIVE Urine total bilirubin detection by test strip NEGATIVE NEGATIVE Urine urobilinogen measurement by automated test strip (mass/volume) NORMAL NORMAL Urine leukocyte esterase detection by dipstick 2+ NEGATIVE Automated urine sediment erythrocyte count by microscopy (number/high power field) [HPF] NRG Automated urine sediment leukocyte count by microscopy (number/high power field ) [HPF] NRG Bacteria detection in urine sediment by light microscopy TRACE NRG Crystals detection in urine sediment by light microscopy NONE NRG Casts detection in urine sediment by light microscopy NONE NRG Mucus detection in urine sediment by light microscopy NEGATIVE NRG Complete urinalysis with reflex to culture NO NRG Yeast detection in urine sediment by light microscopy FEW NRG Blood lactic acid measurement (moles/volume) - 10/04/16 11:55 Blood lactic acid measurement (moles/volume) 1.1 mmol/L 0.5-2.0 Bacterial blood culture - 10/04/16 11:55 Bacterial blood culture NG NRG Bacterial blood culture - 10/04/16 12:00 Bacterial blood culture NG NRG Complete blood count (CBC) with automated white blood cell (WBC) differential - 10/05/16 04:15 Blood leukocytes automated count (number/volume) 7.6 10*3/ uL 4.3-11.0 Blood erythrocytes automated count (number/volume) 4.17 10*6 /uL 4.35-5.85 Venous blood hemoglobin measurement (mass/volume) 10.7 g/dL 11.5-16.0 Blood hematocrit (volume fraction) 33 % 35-52 Automated erythrocyte mean corpuscular volume 80 [foz_us] 80-99 Automated erythrocyte mean corpuscular hemoglobin (mass per erythrocyte) 26 pg 25-34 Automated erythrocyte mean corpuscular hemoglobin concentration measurement ( mass/volume) 32 g/dL 32-36 Automated erythrocyte distribution width ratio 16.6 % 10.0-14.5 Automated blood platelet count (count/volume) 324 10*3/uL 130-400 Automated blood platelet mean volume measurement 9.5 [foz_us ] 7.4-10.4 Automated blood neutrophils/100 leukocytes 67 % 42-75 Automated blood lymphocytes/100 leukocytes 24 % 12-44 Blood monocytes/100 leukocytes 9 % 0-12 Automated blood eosinophils/100 leukocytes 0 % 0-10 Automated blood basophils/100 leukocytes 0 % 0-10 Blood neutrophils automated count (number/volume) 5.0 10*3 1.8-7.8 Blood lymphocytes automated count (number/volume) 1.8 10*3 1.0-4.0 Blood monocytes automated count (number/volume) 0.7 10*3 0.0-1.0 Automated eosinophil count 0.0 10*3/uL 0.0-0.3 Automated blood basophil count (count/volume) 0.0 10*3/uL 0.0-0.1 Comprehensive metabolic panel - 10/05/16 04:15 Serum or plasma sodium measurement (moles/volume) 138 mmol/ L 135-145 Serum or plasma potassium measurement (moles/volume) 4.1 mmol/L 3.6-5.0 Serum or plasma chloride measurement (moles/volume) 110 mmol /L 98-107 Carbon dioxide 19 mmol/L 21-32 Serum or plasma anion gap determination (moles/volume) 9 mmol/L 5-14 Serum or plasma urea nitrogen measurement (mass/volume) 7 mg /dL 7-18 Serum or plasma creatinine measurement (mass/volume) 0.62 mg /dL 0.60-1.30 Serum or plasma urea nitrogen/creatinine mass ratio 11 NRG Serum or plasma creatinine measurement with calculation of estimated glomerular filtration rate > NRG Serum or plasma glucose measurement (mass/volume) 97 mg/dL 70-105 Serum or plasma calcium measurement (mass/volume) 8.5 mg/dL 8.5-10.1 Serum or plasma total bilirubin measurement (mass/volume) 0.4 mg/dL 0.1-1.0 Serum or plasma alkaline phosphatase measurement (enzymatic activity/volume) 78 U/L 40-136 Serum or plasma aspartate aminotransferase measurement (enzymatic activity/ volume) 12 U/L 5-34 Serum or plasma alanine aminotransferase measurement (enzymatic activity/volume ) 9 U/L 0-55 Serum or plasma protein measurement (mass/volume) 5.8 g/dL 6.4-8.2 Serum or plasma albumin measurement (mass/volume) 3.2 g/dL 3.2-4.5 Serum or plasma C reactive protein measurement (mass/volume) - 10/05/16 04:15 Serum or plasma C reactive protein measurement (mass/volume) 12.96 mg/dL 0.00-0.50 Complete blood count (CBC) with automated white blood cell (WBC) differential - 10/06/16 09:22 Blood leukocytes automated count (number/volume) 5.9 10*3/ uL 4.3-11.0 Blood erythrocytes automated count (number/volume) 4.48 10*6 /uL 4.35-5.85 Venous blood hemoglobin measurement (mass/volume) 11.6 g/dL 11.5-16.0 Blood hematocrit (volume fraction) 35 % 35-52 Automated erythrocyte mean corpuscular volume 79 [foz_us] 80-99 Automated erythrocyte mean corpuscular hemoglobin (mass per erythrocyte) 26 pg 25-34 Automated erythrocyte mean corpuscular hemoglobin concentration measurement ( mass/volume) 33 g/dL 32-36 Automated erythrocyte distribution width ratio 16.4 % 10.0-14.5 Automated blood platelet count (count/volume) 389 10*3/uL 130-400 Automated blood platelet mean volume measurement 9.2 [foz_us ] 7.4-10.4 Automated blood neutrophils/100 leukocytes 71 % 42-75 Automated blood lymphocytes/100 leukocytes 21 % 12-44 Blood monocytes/100 leukocytes 7 % 0-12 Automated blood eosinophils/100 leukocytes 0 % 0-10 Automated blood basophils/100 leukocytes 0 % 0-10 Blood neutrophils automated count (number/volume) 4.2 10*3 1.8-7.8 Blood lymphocytes automated count (number/volume) 1.3 10*3 1.0-4.0 Blood monocytes automated count (number/volume) 0.4 10*3 0.0-1.0 Automated eosinophil count 0.0 10*3/uL 0.0-0.3 Automated blood basophil count (count/volume) 0.0 10*3/uL 0.0-0.1 Comprehensive metabolic panel - 02/28/17 09:22 Serum or plasma sodium measurement (moles/volume) 140 mmol/ L 135-145 Serum or plasma potassium measurement (moles/volume) 3.7 mmol/L 3.6-5.0 Serum or plasma chloride measurement (moles/volume) 108 mmol /L 98-107 Carbon dioxide 19 mmol/L 21-32 Serum or plasma anion gap determination (moles/volume) 13 mmol/L 5-14 Serum or plasma urea nitrogen measurement (mass/volume) 4 mg /dL 7-18 Serum or plasma creatinine measurement (mass/volume) 0.58 mg /dL 0.60-1.30 Serum or plasma urea nitrogen/creatinine mass ratio 7 NRG Serum or plasma creatinine measurement with calculation of estimated glomerular filtration rate > NRG Serum or plasma glucose measurement (mass/volume) 94 mg/dL 70-105 Serum or plasma calcium measurement (mass/volume) 9.0 mg/dL 8.5-10.1 Serum or plasma total bilirubin measurement (mass/volume) 0.2 mg/dL 0.1-1.0 Serum or plasma alkaline phosphatase measurement (enzymatic activity/volume) 81 U/L 40-136 Serum or plasma aspartate aminotransferase measurement (enzymatic activity/ volume) 16 U/L 5-34 Serum or plasma alanine aminotransferase measurement (enzymatic activity/volume ) 14 U/L 0-55 Serum or plasma protein measurement (mass/volume) 6.5 g/dL 6.4-8.2 Serum or plasma albumin measurement (mass/volume) 3.6 g/dL 3.2-4.5 Erythrocyte sedimentation rate by westergren method - 10/06/16 09:22 Erythrocyte sedimentation rate by westergren method 72 mm 0-30 Encounters ACCT No. Visit Date/Time Discharge Status Pt. Type Provider Facility Loc./Unit Complaint [id number] 10/04/2016 14:27:00 2016 13:15:00 DIS Outpatient AMBER INFANTE MD [facility] 4TH SEPSIS, DIVERTICULITIS [id number] 08/18/2016 17:48:00 2016 12:40:00 DIS Inpatient AMBER INFANTE MD [facility] 4TH DIVERTICULITIS, ABSCESS [id number] 10/25/2015 13:21:00 2015 18:05:00 DIS Emergency LARA CERVANTES [facility] ER DIZZINESS;MEMORY LOSS [id number] 10/13/2016 09:05:00 PEN Preadmit AMBER INFANTE MD ABDOMINAL PAIN,DIVERTICULITIS [id number] 08/18/2016 15:28:00 ACT Outpatient AMBER INFANTE MD [facility] RAD LLQ PAIN
[2016-10-13] MEDS ORDERED: CATHETER FLUSH 10 ML SYR IV PRN (10:15)
[2016-10-13] MEDS: HYDROcodone/APAP 7.5 MG/325 MG (LORTAB, LORCET PLUS) TABLET PO PRN ×2 (10:15→19:46)
[2016-10-13] MEDS: metroNIDAZOLE 500MG/100ML IVPB 100 ML IV SCH ×2 (10:16→20:01)
[2016-10-13] MEDS: NS IV 1000 ML 1,000 ML IV SCH ×2 (10:16→19:47)
[2016-10-13] MEDS ORDERED: ONDANSETRON 4 MG/2 ML (SDV) Z0FRAN IVP PRN (10:30)
[2016-10-13 10:38] VITALS: BP 149/73
[2016-10-13] MEDS ORDERED: METR500T21 PO (10:40)
[2016-10-13] MEDS ORDERED: OXYC-464 PO (10:45)
[2016-10-13] MEDS ORDERED: FAMO-119 PO (10:45)
[2016-10-13] MEDS ORDERED: POLY17PO6 PO (10:45)
[2016-10-13] MEDS ORDERED: AMOX-358 PO (10:45)
[2016-10-13] MEDS ORDERED: LORA0.5T PO (10:45)
[2016-10-13 10:50] LABS: BASOPHILS % (AUTO) 0 % (0-10); EOSINOPHILS % (AUTO) 0 % (0-10); LYMPHOCYTES # (AUTO) 1.5 X 10^3 (1.0-4.0); LYMPHOCYTES % (AUTO) 14 % (12-44); MEAN CORPUSCULAR HEMOGLOBIN 26 PG (25-34); MEAN CORPUSCULAR HGB CONC 33 G/DL (32-36); MEAN CORPUSCULAR VOLUME 78 FL (80-99); MEAN PLATELET VOLUME 8.8 FL (7.4-10.4); MONOCYTES # (AUTO) 0.8 X 10^3 (0.0-1.0); MONOCYTES % (AUTO) 7 % (0-12); NEUTROPHILS # (AUTO) 8.7 X 10^3 (1.8-7.8); NEUTROPHILS % (AUTO) 79 % (42-75); PLATELET COUNT 498 10^3/uL (130-400); RED BLOOD COUNT 4.69 10^6/uL (4.35-5.85); RED CELL DISTRIBUTION WIDTH 16.7 % (10.0-14.5)
[2016-10-13 11:09] LABS: ALANINE AMINOTRANSFERASE 12 U/L (0-55); ALBUMIN 3.4 G/DL (3.2-4.5); ANION GAP 12 MMOL/L (5-14); ASPARTATE AMINO TRANSFERASE 13 U/L (5-34); BILIRUBIN,TOTAL 0.4 MG/DL (0.1-1.0); BLOOD UREA NITROGEN 10 MG/DL (7-18); BUN/CREATININE RATIO 16; CARBON DIOXIDE 22 MMOL/L (21-32); CHLORIDE 103 MMOL/L (98-107); CREATININE SERUM 0.64 MG/DL (0.60-1.30); GFR ESTIMATED > 60; GLUCOSE 120 MG/DL (70-105); SODIUM 137 MMOL/L (135-145); TOTAL PROTEIN 6.5 G/DL (6.4-8.2)
[2016-10-13] MEDS: CIPROFLOXACIN IV 400MG/200ML 200 ML IV SCH ×2 (11:26→21:49)
[2016-10-13] MEDS ORDERED: FLU TRIvalent (5 YOA+) 2016-17 (AFLURIA) 0.5 ML IM ONE (11:45)
[2016-10-13 12:00] VITALS: BP 147/65
--- NOTE | 2016-10-13 12:56 | HISTORY AND PHYSICAL ---
DATE OF ADMISSION: 10/13/2016 ATTENDING PRIMARY CARE PHYSICIAN: Dr. Allegra Valentin Ms. Sarah Emmanuel is a 70-year-old female known to us. She was seen 08/18/16 for left lower quadrant abdominal pain. She had reported that the pain had started 2 weeks previous on an intermittent basis and foods makes it worse. The pain was sharp and crampy in nature. She also reports a long-standing history of constipation and has been taking laxatives on as needed basis for years. A CT scan was performed, which did show a sigmoid diverticulitis as well as 2 areas of abscess formation. Her white count was mildly elevated at 11.4 and she was treated conservatively with IV antibiotics and bowel rest and fluids and did well. She reported that she did better for the next 6 weeks; however had recurrence of pain in the left lower abdominal quadrant which progressed in severity. She again presented to the emergency department where CT scan was performed and she was again found to have a significant sigmoid diverticulitis as well as inflammation and fluid collection similar to the previous CT scan however, slightly worse. She was admitted on 10/04/2016. The natural history of this disease process was explained to the patient as well as the high likelihood of recurrence and complications, as well as the fact that she has met criteria for a sigmoid colon resection to prevent further complications. She has full understanding of the risks and benefits of this however wanted to opt for conservative management without surgery. She was eventually discharged home however returned with recurrence of left lower quadrant abdominal pain which was significant in nature. This appears to be recurrent sigmoid diverticulitis. We will proceed with IV fluids, antibiotics, as well as a clear liquid diet. We will also proceed with bowel prep. However, due to the nature of her complicated diverticulitis, we will recommend laparoscopic sigmoid colon resection, as well as creation of Machado pouch and end colostomy and reversal at a later date. PAST MEDICAL HISTORY: 1. Fibromyalgia. 2. Osteoarthritis. 3. Anxiety. 4. Depression. PAST SURGERIES: 1. Left total knee arthroplasty 09/2012. 2. Right total knee arthroplasty 11/2012. ALLERGIES: No known drug allergies. MEDICATIONS: 1. Ambien 10 mg at bedtime. 2. Buspirone p.r.n. 3. Augmentin 875 mg b.i.d. 4. Flagyl 500 mg b.i.d. SOCIAL HISTORY: Negative smoke. Negative alcohol. FAMILY HISTORY: Father myocardial infarction age 69. VITAL SIGNS: Stable. REVIEW OF SYSTEMS: This is a well-nourished female, currently guarded secondary to abdominal pain. She is not experiencing any shortness of breath nor difficulty breathing. No chest pain, palpitations, diaphoresis. No nausea, vomiting, with pain in the left lower abdominal quadrant. She is having bowel movements. No red blood per rectum. No dark tarry stools. Mild fevers at home. No chills. No recent inadvertent weight loss. PHYSICAL EXAMINATION: CHEST: Clear. HEART: Regular. EXTREMITIES: No lower extremity edema. Negative Homans sign. HEENT: No scleral icterus. No cervical lymphadenopathy. ABDOMEN: Soft, nondistended. There is pain in the left lower abdominal quadrant with voluntary guarding. No rebound. ASSESSMENT AND PLAN: 70-year-old female with recurrent complicated sigmoid diverticulitis. The natural history of the disease process was explained to the patient as well as the likelihood of high recurrence, as well as other complications including recurrent abscess formation, sepsis, obstruction and perforation. We will proceed with resuscitation with IV hydration as well as IV antibiotics, as well as bowel prep and possible laparoscopic low anterior sigmoid rectal resection, as well as Machado pouch and end colostomy. Job ID: [id number] Dictated Date: 10/13/2016 10:29:02 Cash Analyst Date: 10/13/2016 12:43:31/elizabeth LIEBERMAN
[2016-10-13] MEDS: LORazepam INJ 2 MG/ML (ATIVAN) VIAL IVP PRN (15:27)
[2016-10-13 16:00] VITALS: BP 128/79
[2016-10-13] MEDS: fentaNYL INJECTION 100 MCG/2 ML AMP IVP PRN (19:59)
[2016-10-13 20:00] VITALS: BP 133/80
[2016-10-13] MEDS: ZOLPIDEM 5 MG (AMBIEN) TAB PO SCH (21:49)
[2016-10-14 00:02] VITALS: BP 111/75
[2016-10-14] MEDS: NS IV 1000 ML 1,000 ML IV SCH ×4 (02:00→19:37)
[2016-10-14 04:07] VITALS: BP 127/9
[2016-10-14] MEDS: HYDROcodone/APAP 7.5 MG/325 MG (LORTAB, LORCET PLUS) TABLET PO PRN ×2 (05:33→12:20)
[2016-10-14] MEDS: fentaNYL INJECTION 100 MCG/2 ML AMP IVP PRN (05:33)
[2016-10-14 06:06] LABS: BASOPHILS % (AUTO) 0 % (0-10); EOSINOPHILS # (AUTO) 0.1 10^3/uL (0.0-0.3); EOSINOPHILS % (AUTO) 1 % (0-10); LYMPHOCYTES # (AUTO) 1.6 X 10^3 (1.0-4.0); LYMPHOCYTES % (AUTO) 28 % (12-44); MEAN CORPUSCULAR HEMOGLOBIN 26 PG (25-34); MEAN CORPUSCULAR HGB CONC 33 G/DL (32-36); MEAN CORPUSCULAR VOLUME 79 FL (80-99); MEAN PLATELET VOLUME 8.9 FL (7.4-10.4); MONOCYTES # (AUTO) 0.5 X 10^3 (0.0-1.0); MONOCYTES % (AUTO) 9 % (0-12); NEUTROPHILS # (AUTO) 3.5 X 10^3 (1.8-7.8); NEUTROPHILS % (AUTO) 62 % (42-75); PLATELET COUNT 425 10^3/uL (130-400); RED BLOOD COUNT 4.09 10^6/uL (4.35-5.85); RED CELL DISTRIBUTION WIDTH 16.7 % (10.0-14.5); WHITE BLOOD COUNT 5.7 10^3/uL (4.3-11.0)
[2016-10-14 06:54] LABS: ALANINE AMINOTRANSFERASE 11 U/L (0-55); ANION GAP 10 MMOL/L (5-14); ASPARTATE AMINO TRANSFERASE 20 U/L (5-34); BILIRUBIN,TOTAL 0.3 MG/DL (0.1-1.0); BLOOD UREA NITROGEN 5 MG/DL (7-18); BUN/CREATININE RATIO 9; CALCIUM 8.4 MG/DL (8.5-10.1); CARBON DIOXIDE 22 MMOL/L (21-32); CHLORIDE 107 MMOL/L (98-107); CREATININE SERUM 0.58 MG/DL (0.60-1.30); GFR ESTIMATED > 60; GLUCOSE 107 MG/DL (70-105); SODIUM 139 MMOL/L (135-145); TOTAL PROTEIN 5.6 G/DL (6.4-8.2)
[2016-10-14] MEDS: CIPROFLOXACIN IV 400MG/200ML 200 ML IV SCH ×2 (07:51→21:42)
[2016-10-14] MEDS: metroNIDAZOLE 500MG/100ML IVPB 100 ML IV SCH ×2 (07:51→20:05)
[2016-10-14] MEDS: PANTOPRAZOLE 40 MG/10 ML (PROTONIX) VIAL IV SCH (07:51)
[2016-10-14 08:15] VITALS: BP 126/67
--- NOTE | 2016-10-14 10:15 | Progress Note (SOAP) ---
Subjective Subjective/Events-last exam doing ok. pain better controlled. no fever/chills. Objective Exam Vital Signs Date Time Temp Pulse Resp B/P Pulse Ox O2 Delivery O2 Flow Rate FiO2 10/14/16 08:58 Room Air 10/14/16 08:15 98.5 83 16 126/67 96 Room Air 10/14/16 04:07 97.4 84 16 127/9 98 Room Air 10/14/16 00:02 97.4 90 20 111/75 97 Room Air 10/13/16 20:00 98.4 93 20 133/80 99 Room Air 10/13/16 19:50 Room Air 10/13/16 16:00 99.3 85 20 128/79 98 Room Air 10/13/16 12:00 98.7 91 20 147/65 97 Room Air 10/13/16 10:38 98.3 106 20 149/73 96 Room Air I & O 10/14/16 06:59 Intake Total 2090 ml Output Total 550 ml Balance 1540 ml Capillary Refill : General Appearance: No Apparent Distress HEENT: PERRL/EOMI Neck: Full Range of Motion Respiratory: Chest Non Tender Lungs Clear Normal Breath Sounds Cardiovascular: Regular Rate, Rhythm Gastrointestinal: normal bowel sounds soft tenderness Extremity: Normal Capillary Refill Neurologic/Psychiatric: Alert Oriented x3 Skin: Normal Color Lymphatic: No Adenopathy Results Lab Laboratory Tests 10/13/16 10:34: Alanine Aminotransferase (ALT/SGPT) 12, Albumin 3.4, Alkaline Phosphatase 68, Anion Gap 12, Aspartate Amino Transf (AST/SGOT) 13, BUN/Creatinine Ratio 16, Basophils # (Auto) 0.0, Basophils (%) (Auto) 0, Blood Urea Nitrogen 10, Calcium Level 9.0, Carbon Dioxide Level 22, Chloride Level 103, Creatinine 0.64, Eosinophils # (Auto) 0.0, Eosinophils (%) (Auto) 0, Estimat Glomerular Filtration Rate > 60, Glucose Level 120H, Hematocrit 36, Hemoglobin 12.0, Lymphocytes # (Auto) 1.5, Lymphocytes (%) (Auto) 14, Mean Corpuscular Hemoglobin 26, Mean Corpuscular Hemoglobin Concent 33, Mean Corpuscular Volume 78L, Mean Platelet Volume 8.8, Monocytes # (Auto) 0.8, Monocytes (%) (Auto) 7, Neutrophils # (Auto) 8.7H, Neutrophils (%) (Auto) 79H, Platelet Count 498H, Potassium Level 3.0L, Red Blood Count 4.69, Red Cell Distribution Width 16.7H, Sodium Level 137, Total Bilirubin 0.4, Total Protein 6.5, White Blood Count 11.0 10/14/16 05:40: Basophils # (Auto) 0.0, Basophils (%) (Auto) 0, Eosinophils # (Auto) 0.1, Eosinophils (%) (Auto) 1, Hematocrit 32L, Hemoglobin 10.6L, Lymphocytes # (Auto ) 1.6, Lymphocytes (%) (Auto) 28, Mean Corpuscular Hemoglobin 26, Mean Corpuscular Hemoglobin Concent 33, Mean Corpuscular Volume 79L, Mean Platelet Volume 8.9, Monocytes # (Auto) 0.5, Monocytes (%) (Auto) 9, Neutrophils # (Auto ) 3.5, Neutrophils (%) (Auto) 62, Platelet Count 425H, Red Blood Count 4.09L, Red Cell Distribution Width 16.7H, White Blood Count 5.7 10/14/16 05:45: Alanine Aminotransferase (ALT/SGPT) 11, Albumin 3.0L, Alkaline Phosphatase 61, Anion Gap 10, Aspartate Amino Transf (AST/SGOT) 20, BUN/Creatinine Ratio 9, Blood Urea Nitrogen 5L, Calcium Level 8.4L, Carbon Dioxide Level 22, Chloride Level 107, Creatinine 0.58L, Estimat Glomerular Filtration Rate > 60, Glucose Level 107H, Potassium Level 3.0L, Sodium Level 139, Total Bilirubin 0.3, Total Protein 5.6L Assessment/Plan Assessment/Plan Assess & Plan/Chief Complaint complicated sigmoid diverticulitis. bowel prep today. continue IV abx. lap colon resection and end colostomy tomorrow. Clinical Quality Measures DVT/VTE Risk/Contraindication: Risk Factor Score Per Nursin RFS Level Per Nursing on Admit: 2=Moderate AMBER INFANTE MD Oct 14, 2016 10:15 am
[2016-10-14] MEDS: MAGNESIUM CITRATE 300 ML BTL PO SCH ×2 (11:37→20:05)
--- NOTE | 2016-10-14 11:55 | Consultation-Hospitalist ---
HPI History of Present Illness: HPI/Chief Complaint CC: Severe and recurrent sigmoid diverticulitis HPI: This is a 70-year-old white female known to me from 2 prior hospitalizations for recurrent and severe diverticulitis that was just discharge and unable to manage fever and pain at home and she is reluctantly but agreed for elective sigmoid resection for severe diseased colon. She is completing colon prep currently and has questions that I answer to the best of my ability. She is ready to have surgery and I explained the postoperative course. Source: patient Exam Limitations: no limitations Date Seen 10/14/16 Attending Physician Viktor Rivas MD PCP Allegra Valentin MD Referring Physician Date of Admission Oct 13, 2016 at 09:40 Home Medications & Allergies Home Medications Reviewed patient Home Medication Reconciliation Form Allergies Coded Allergies: No Known Drug Allergies (Unverified , 10/13/16) Past Tdodtcw-Npesjn-Nawafd Hx Patient Social History Marrital Status: Employed/Student: employed Alcohol Use: Denies Use Recreational Drug Use: No Smoking Status: Never a Smoker Physical Abuse Screen: No Sexual Abuse: No Recent Foreign Travel: No Contact w/other who traveled: No Recent Hopitalizations: No Recent Infectious Disease Expo: No Seasonal Allergies Seasonal Allergies: No Surgeries HX Surgeries: Yes (l/r tkr) Surgeries: Orthopedic Respiratory Hx Respiratory Disorders: No Cardiovascular Hx Cardiovascular Disorders: No Neurological Hx Neurological Disorders: No 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 System Hx 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 Disorders: No Sexually Transmitted Disease: No Female 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 Disorders: Denies Genitourinary Hx Genitourinary Disorders: No Gastrointestinal Hx Gastrointestinal Disorders: Yes Gastrointestinal Disorders: Diverticulosis Musculoskeletal Hx Musculoskeletal Disorders: No Endocrine Hx Endocrine Disorders: No HEENT HX ENT Disorders: No Loss of Vision: Denies Hearing Impairment: Denies Cancer Hx Cancer: No Psychosocial Hx Psychiatric Problems: Yes Behavioral Health Disorders: Sleep Difficulties, Anxiety Integumentary HX Skin/Integumentary Disorder: No Blood Transfusions Hx Blood Disorders: No Adverse Reaction to a Blood Tr: No Family Medical History Significant Family History: No Pertinent Family Hx Family Hx: Cardiovascular disease 19 FATHER Cataracts Review of Systems Constitutional: see HPI fever weakness EENTM: no symptoms reported Respiratory: no symptoms reported Cardiovascular: no symptoms reported Gastrointestinal: abdominal pain (LLQ) Genitourinary: no symptoms reported Musculoskeletal: no symptoms reported Skin: no symptoms reported Psychiatric/Neurological: No Symptoms Reported All Other Systems Reviewed Negative Unless Noted: Yes Physical Exam Physical Exam Vital Signs Vital Sign - Last 12Hours 10/13/16 10/13/16 10:00 10:38 Temp 98.3 Pulse 106 Resp 20 B/P 149/73 Pulse Ox 97 O2 Delivery Room Air Capillary Refill : General Appearance: No Apparent Distress WD/WN Eyes: Bilateral Eye Normal Inspection, Bilateral Eye PERRL HEENT: PERRL/EOMI Normal ENT Inspection Pharynx Normal Neck: Full Range of Motion Normal Inspection Non Tender Supple Carotid Bruit Respiratory: Chest Non Tender Lungs Clear Normal Breath Sounds No Accessory Muscle Use No Respiratory Distress Cardiovascular: Regular Rate, Rhythm No Edema No Gallop No JVD No Murmur Normal Peripheral Pulses Gastrointestinal: Normal Bowel Sounds No Organomegaly No Pulsatile Mass Soft Tenderness (left lower quadrant) Back: Normal Inspection No CVA Tenderness No Vertebral Tenderness Extremity: Normal Capillary Refill Normal Inspection Normal Range of Motion Non Tender No Calf Tenderness No Pedal Edema Neurologic/Psychiatric: Alert Oriented x3 No Motor/Sensory Deficits Normal Mood/Affect Skin: Normal Color Warm/Dry Lymphatic: No Adenopathy Results Results/Procedures Lab Laboratory Tests 10/13/16 10:34 10/14/16 05:40 10/14/16 05:45 Assessment/Plan Admission Diagnosis Assessment: Recurrent and severe diverticulitis plan for elective resection tomorrow by Dr. Rivas Anxiety Insomnia Assessment and Plan Plan: Proceed with surgical procedure for resection since benefits outweigh medical risk Anxiolytics for severe anxiety Clinical Quality Measures DVT/VTE Risk/Contraindication: Risk Factor Score Per Nursin RFS Level Per Nursing on Admit: 2=Moderate ELDIIA JIN DO Oct 14, 2016 11:55
[2016-10-14] MEDS: LORazepam INJ 2 MG/ML (ATIVAN) VIAL IVP PRN ×2 (12:20→20:12)
[2016-10-14 12:57] VITALS: BP 146/74
[2016-10-14 16:00] VITALS: BP 138/63
[2016-10-14 20:00] VITALS: BP 160/74
[2016-10-14] MEDS: ZOLPIDEM 5 MG (AMBIEN) TAB PO SCH (23:41)
[2016-10-15] VITALS (9 sets, daily range): BP systolic 120–178; BP diastolic 58–87
[2016-10-15] MEDS: NS IV 1000 ML 1,000 ML IV SCH ×2 (05:53→21:01)
[2016-10-15] MEDS: fentaNYL INJECTION 100 MCG/2 ML AMP IVP PRN (06:48)
[2016-10-15 07:04] LABS: BASOPHILS % (AUTO) 0 % (0-10); EOSINOPHILS % (AUTO) 1 % (0-10); LYMPHOCYTES # (AUTO) 1.4 X 10^3 (1.0-4.0); LYMPHOCYTES % (AUTO) 26 % (12-44); MEAN CORPUSCULAR HEMOGLOBIN 26 PG (25-34); MEAN CORPUSCULAR HGB CONC 33 G/DL (32-36); MEAN CORPUSCULAR VOLUME 79 FL (80-99); MEAN PLATELET VOLUME 9.3 FL (7.4-10.4); MONOCYTES # (AUTO) 0.5 X 10^3 (0.0-1.0); MONOCYTES % (AUTO) 9 % (0-12); NEUTROPHILS # (AUTO) 3.4 X 10^3 (1.8-7.8); NEUTROPHILS % (AUTO) 64 % (42-75); PLATELET COUNT 511 10^3/uL (130-400); RED BLOOD COUNT 4.48 10^6/uL (4.35-5.85); RED CELL DISTRIBUTION WIDTH 16.6 % (10.0-14.5); WHITE BLOOD COUNT 5.3 10^3/uL (4.3-11.0)
[2016-10-15 07:26] LABS: ALANINE AMINOTRANSFERASE 11 U/L (0-55); ALBUMIN 3.3 G/DL (3.2-4.5); ANION GAP 11 MMOL/L (5-14); ASPARTATE AMINO TRANSFERASE 14 U/L (5-34); BILIRUBIN,TOTAL 0.3 MG/DL (0.1-1.0); BLOOD UREA NITROGEN 4 MG/DL (7-18); BUN/CREATININE RATIO 7; CALCIUM 8.8 MG/DL (8.5-10.1); CARBON DIOXIDE 24 MMOL/L (21-32); CHLORIDE 105 MMOL/L (98-107); CREATININE SERUM 0.57 MG/DL (0.60-1.30); GFR ESTIMATED > 60; GLUCOSE 95 MG/DL (70-105); POTASSIUM 3.2 MMOL/L (3.6-5.0); SODIUM 140 MMOL/L (135-145); TOTAL PROTEIN 6.3 G/DL (6.4-8.2)
[2016-10-15] MEDS: CIPROFLOXACIN IV 400MG/200ML 200 ML IV SCH ×2 (08:59→20:13)
[2016-10-15] MEDS: PANTOPRAZOLE 40 MG/10 ML (PROTONIX) VIAL IV SCH (09:04)
[2016-10-15] MEDS ORDERED: MAGNESIUM 1 GM/100 ML IVPB 100 ML IV NR (09:15)
[2016-10-15] MEDS ORDERED: LACTATED RINGERS 1,000 ML IV PRN (09:27)
[2016-10-15] MEDS ORDERED: LORazepam INJ 2 MG/ML (ATIVAN) VIAL IVP NR (09:30)
[2016-10-15] MEDS: metroNIDAZOLE 500MG/100ML IVPB 100 ML IV SCH ×2 (10:05→21:23)
--- NOTE | 2016-10-15 10:25 | Progress Note-Pre Operative ---
Pre-Operative Progress Note H&P Reviewed The H&P was reviewed, patient examined and no changes noted. Date H&P Reviewed: Oct 15, 2016 Time H&P Reviewed: 10:25 Pre-Operative Diagnosis: complicated sigmoid diverticulitis AMBER INFANTE MD Oct 15, 2016 10:25 am
--- NOTE | 2016-10-15 10:56 | Progress Note-Hospitalist ---
Progress Note HPI/CC on Admission CC: Severe and recurrent sigmoid diverticulitis HPI: This is a 70-year-old white female known to me from 2 prior hospitalizations for recurrent and severe diverticulitis that was just discharge and unable to manage fever and pain at home and she is reluctantly but agreed for elective sigmoid resection for severe diseased colon. She is completing colon prep currently and has questions that I answer to the best of my ability. She is ready to have surgery and I explained the postoperative course. Progress Notes/Assess & Plan Date Seen 10/15/16 Admission Dx/Process Assessment: Recurrent and severe diverticulitis plan for elective resection tomorrow by Dr. Rivas Anxiety Insomnia Diagonsis/Assessment & Plan Chart Review: Max fever 100.6 BP 178/84 WBC 5.3 K+ 3.2 Patient Interview: Pt states that she feels good but is anxious due to upcoming surgery. Pt states that her BMs are very reduced. Physical exam stable. Vital signs stable, no fever Anxious but oriented 3 Clear to auscultation bilaterally No edema Assessment: Recurrent and severe diverticulitis plan for elective resection today by Dr. Rivas Anxiety Insomnia Plan: Proceed with surgical procedure for resection since benefits outweigh medical risk Anxiolytics for severe anxiety Will empirically replace K+ and Mg++ Scribed by Kwabena Malone under the direct supervision of Dr. Pierre. ELIDIA PIERRE DO Oct 15, 2016 10:56
[2016-10-15] MEDS: POTASSIUM CL 10MEQ/50ML IVPB 50 ML IV SCH ×4 (11:30→21:39)
[2016-10-15] MEDS ORDERED: DEXAMETHASONE PF 10 MG/ML (DECADRON) VIAL ONE (12:04)
[2016-10-15] MEDS ORDERED: LACTATED RINGERS 1,000 ML IV ONE (12:04)
[2016-10-15] MEDS ORDERED: MIDAZOLAM 2 MG/2 ML (VERSED) VIAL ONE (12:04)
[2016-10-15] MEDS ORDERED: ROCURONIUM 50 MG/5 ML (ZEMURON) VIAL IV ONE ×2 (12:04→15:45)
[2016-10-15] MEDS ORDERED: SEVOFLURANE (ULTANE) 15 ML INHAL SOLN ONE ×11 (12:04→17:44)
[2016-10-15] MEDS ORDERED: ONDANSETRON 4 MG/2 ML (SDV) Z0FRAN ONE (12:04)
[2016-10-15] MEDS ORDERED: proPOfol 200 MG/20 ML (DIPRIVAN) VIAL IV ONE (12:04)
[2016-10-15] MEDS ORDERED: fentaNYL INJECTION 250 MCG/5 ML AMP ONE (12:04)
[2016-10-15] MEDS ORDERED: LIDOCAINE PF 2% 10 ML (XYLOCAINE) AMP ONE (12:04)
[2016-10-15] MEDS ORDERED: BUP/EPI 0.5% 1:200,000 (SENSORCAINE) 30 ML VIAL ONE (12:39)
[2016-10-15] MEDS ORDERED: ceFAZolin 1,000 MG (ANCEF) VIAL ONE ×2 (12:50→16:56)
[2016-10-15] MEDS ORDERED: ONDANSETRON 4 MG/2 ML (SDV) Z0FRAN IV PRN ×2 (13:15→18:00)
[2016-10-15] MEDS ORDERED: fentaNYL INJECTION 100 MCG/2 ML AMP ONE (13:45)
[2016-10-15] MEDS ORDERED: HEParin (CENTRAL IV FLUSH) 500 UNIT/5 ML SYR ONE (13:50)
[2016-10-15] MEDS: LACTATED RINGERS 1,000 ML IV SCH ×3 (14:05→17:25)
[2016-10-15] MEDS ORDERED: MEPERIDINE (DEMEROL) INJ 50 MG/ML ONE (15:25)
[2016-10-15] MEDS ORDERED: morphine INJ 10 MG/ML 1ML (SYR OR VIAL) ONE (15:25)
[2016-10-15] MEDS ORDERED: ceFAZolin INJECTION 1,000 MG in NS (IVPB) 50 ML IV ONE (17:15)
[2016-10-15] MEDS ORDERED: GLYCOPYRROLATE 0.2 MG/ML (ROBINUL) 2 ML VIAL ONE (17:18)
[2016-10-15] MEDS ORDERED: NEOSTIGMINE (BLOXIVERZ ) 1 MG/1ML 10 ML VIAL ONE (17:18)
--- NOTE | 2016-10-15 17:34 | Progress Note-Post Operative ---
Post-Operative Progess Note Pre-Operative Diagnosis complicated sigmoid diverticulitis Post-Operative Diagnosis same with multiple contained abscess Post-Op Procedure Note Date of Procedure: Oct 15, 2016 Name of Procedure: laparoscopic low anterior sigmoid-rectal resection with bermudez's pouch and end colostomy. left subclavian central venous catheter placement. Anesthesia Type GET Estimated blood loss (mL): 400ml Specimen(s) collected sigmoid colon AMBER INFANTE MD Oct 15, 2016 5:34 pm
[2016-10-15] MEDS ORDERED: fentaNYL INJECTION 5,000 MCG in NS (IVPB) 0 ML IV SCH (17:45)
[2016-10-15] MEDS ORDERED: morphine INJ 10 MG/ML 1ML (SYR OR VIAL) IV PRN (18:00)
--- NOTE | 2016-10-15 18:20 | Diagnostic Imaging Report ---
INDICATION: Line placement. TECHNIQUE: Single view chest, 5:58 p.m. CORRELATION STUDY: None. FINDINGS: Left subclavian central line is present, tip projects over the right paramediastinal region, likely near the junction of the innominate vein and SVC. No pneumothorax. Lung is with minimal atelectasis at the left lung base. Heart size and mediastinum are unremarkable. There is presence of subcutaneous gas over the right lateral abdominal wall. IMPRESSION: 1. Left subclavian central line tip projects over the high paramediastinal region on the right. 2. There is subcutaneous gas over the right lateral abdominal wall, likely owing to recent surgery. Clinical correlation recommended. Report was called to patient's nurse, Damian, in the recovery room at [facility] at 6:14 p.m., by shavon. Dictated by: Dictated on workstation # [id number]
[2016-10-15] MEDS ORDERED: fentaNYL PCA 300 MCG/30 ML VIAL IV PRN (18:30)
[2016-10-15] MEDS ORDERED: FENTANYL INJ SCH ×2 (18:45)
[2016-10-15] MEDS ORDERED: SODIUM CHLORIDE INJ SCH ×2 (18:45)
[2016-10-15] MEDS: HYDROcodone/APAP 7.5 MG/325 MG (LORTAB, LORCET PLUS) TABLET PO PRN (21:03)
[2016-10-15] MEDS: ZOLPIDEM 5 MG (AMBIEN) TAB PO SCH (23:17)
[2016-10-16] VITALS (16 sets, daily range): BP systolic 99–138; BP diastolic 52–78
[2016-10-16] MEDS: NS IV 1000 ML 1,000 ML IV SCH ×3 (00:58→16:45)
[2016-10-16] MEDS: HYDROcodone/APAP 7.5 MG/325 MG (LORTAB, LORCET PLUS) TABLET PO PRN ×2 (02:40→09:26)
[2016-10-16 04:14] LABS: BASOPHILS % (AUTO) 0 % (0-10); EOSINOPHILS % (AUTO) 0 % (0-10); LYMPHOCYTES # (AUTO) 0.7 X 10^3 (1.0-4.0); LYMPHOCYTES % (AUTO) 8 % (12-44); MEAN CORPUSCULAR HEMOGLOBIN 26 PG (25-34); MEAN CORPUSCULAR HGB CONC 32 G/DL (32-36); MEAN CORPUSCULAR VOLUME 80 FL (80-99); MEAN PLATELET VOLUME 9.2 FL (7.4-10.4); MONOCYTES # (AUTO) 0.3 X 10^3 (0.0-1.0); MONOCYTES % (AUTO) 4 % (0-12); NEUTROPHILS # (AUTO) 7.2 X 10^3 (1.8-7.8); NEUTROPHILS % (AUTO) 88 % (42-75); PLATELET COUNT 437 10^3/uL (130-400); RED BLOOD COUNT 3.42 10^6/uL (4.35-5.85); RED CELL DISTRIBUTION WIDTH 16.4 % (10.0-14.5); WHITE BLOOD COUNT 8.2 10^3/uL (4.3-11.0)
[2016-10-16 04:37] LABS: ALANINE AMINOTRANSFERASE 7 U/L (0-55); ALBUMIN 2.6 G/DL (3.2-4.5); ANION GAP 8 MMOL/L (5-14); ASPARTATE AMINO TRANSFERASE 12 U/L (5-34); BILIRUBIN,TOTAL 0.3 MG/DL (0.1-1.0); BLOOD UREA NITROGEN 5 MG/DL (7-18); BUN/CREATININE RATIO 10; CALCIUM 8.1 MG/DL (8.5-10.1); CARBON DIOXIDE 22 MMOL/L (21-32); CHLORIDE 109 MMOL/L (98-107); CREATININE SERUM 0.52 MG/DL (0.60-1.30); GFR ESTIMATED > 60; GLUCOSE 123 MG/DL (70-105); POTASSIUM 3.9 MMOL/L (3.6-5.0); SODIUM 139 MMOL/L (135-145); TOTAL PROTEIN 4.9 G/DL (6.4-8.2)
[2016-10-16] MEDS: ENOXAPARIN 40 MG/0.4 ML (LOVENOX) SYR SC SCH (08:00)
[2016-10-16] MEDS: CIPROFLOXACIN IV 400MG/200ML 200 ML IV SCH ×2 (08:38→21:32)
[2016-10-16] MEDS: PANTOPRAZOLE 40 MG/10 ML (PROTONIX) VIAL IV SCH (08:38)
--- NOTE | 2016-10-16 09:56 | OPERATIVE REPORT ---
PROCEDURE PHYSICIAN: AMBER RIVAS DATE OF ADMISSION: 10/13/2016 DATE OF PROCEDURE: 10/15/2016 ATTENDING PHYSICIAN: Dr. Allegra Valentin PREOPERATIVE DIAGNOSIS: Complicated diverticulitis. POSTOPERATIVE DIAGNOSIS: Complicated diverticulitis with multiple contained abscesses. PROCEDURE: 1. Laparoscopic low anterior rectosigmoid resection with Rohit's pouch and end colostomy. 2. Placement left subclavian central venous catheter. SURGEON: Dr. Rivas. SENIOR SQL DEVELOPER: Leonard Ho APRN. ANESTHESIA: General endotracheal. ESTIMATED BLOOD LOSS: 400 mL. FINDINGS: Severely inflamed acute on chronic sigmoid diverticulitis with multiple contained abscesses, Hinchey's class III. DISPOSITION: The patient tolerated the procedure well. BRIEF HISTORY: Ms. Sarah Emmanuel is a 70-year-old female known to us. She was seen on 08/18/2016 for left lower quadrant abdominal pain. She had reported pain 2 weeks prior and that food made it worse. The pain was in the left lower abdominal quadrant and sharp in nature. She has had a long-standing history of constipation and has been taking laxatives on an as needed basis for many years. A CT scan was performed, which did show a sigmoid diverticulitis as well as 2 areas of abscess formation. Her white count was mildly elevated at 11.4 and she was treated conservatively with IV antibiotics and bowel rest and fluids and did well. She reported that she did better for the next 6 weeks, however, had recurrence of pain in the left lower abdominal quadrant, which progressed in severity. Again a CT scan was performed, which did show worsening of the sigmoid diverticulitis as well as inflammation and fluid collections which were slightly worse as well. She was admitted on 10/04/2016. The natural history of the disease process was explained to the patient as well as the high likelihood of recurrence as well as complications and that she had met the criteria for sigmoid rectal resection to prevent further complications. She is in full understanding of the risks and benefits of surgery, however, wanted to proceed with conservative management. She was eventually discharged home; however returned with recurrence of left lower abdominal quadrant pain which was significant in nature. She clinically had recurrent complicated sigmoid diverticulitis. She was placed on IV antibiotics, as well as a clear liquid diet. She understood the nature of the issue and wanted to proceed with a laparoscopic sigmoid colorectal resection as well as Rohit pouch and end colostomy and reversal at a later date. PROCEDURE: The patient was brought to the operating room, laid supine on the table. After adequate IV pain and sedative medications and general endotracheal intubation, the left chest and neck were prepped and draped in the standard surgical fashion. We first proceeded with placement of the left subclavian central venous catheter. The left subclavian vein was cannulated withdrawing of venous blood. A guidewire was inserted without any resistance. The cannulating needle removed and a small skin incision made using an 11 blade. A tract was then created using a venous dilator. Through this opening, a triple lumen central venous catheter was then placed over the guidewire using the Seldinger technique. The guidewire was then removed. All 3 ports ciarra venous blood and flushed pushed in without any resistance. The catheter was then sutured to the skin using 3-0 silk interrupted sutures. The catheter was then cleaned and covered with sterile gauze, followed by OpSite. The abdomen was then prepped and draped in the standard surgical fashion. 0.5% Marcaine with epinephrine was used to anesthetize the overlying skin in left upper abdominal quadrant. A small transverse incision made using a 15 blade. An 0 silk suture was applied to the medial aspect of the incision for retraction. A Veress needle inserted with low opening pressure of 0 mmHg. The abdomen was then insufflated to 15 mmHg pressure. The Veress needle removed and under direct visualization we then proceeded to place a supraumbilical 10 mm port, as well as a suprapubic 10 mm port. The patient was then placed in reverse Trendelenburg position as well as planed left side up, the right side down. We then proceeded with resection of the sigmoid mesentery from medial to lateral direction with blunt dissection as well as with Sonicision with visualization of good hemostasis. We then proceeded cephalad until unaffected area of bowel was identified which was approximately at the mid descending colon. We then proceeded with inferior dissection. Here there was an inflammatory phlegmon encompassing the fimbria, tubes, as well as the uterus and the colon along the abdominal wall. We then proceeded with blunt dissection as well as Sonicision from a lateral to a medial approach using blunt dissection as well as Sonicision with visualization of good hemostasis. The ureters, as well as the fimbria, uterus, ovaries were spared, as well as the bladder were spared during the process. We then proceeded with inferior dissection until we were at the mesenteric reflection. There were no inflammatory changes identified in this region. Good hemostasis was observed. The mesoappendix was also excised using Sonicision with visualization of good hemostasis. The rectum was then excised using CHANELLE 45 mm stapler with a 3.5 mm thickness load. A 19-Albanian Yeison drain was placed through the 10 mm port site and placed in the pelvis. This site, as well as the other 10 mm port site, fascia and peritoneum were then closed under direct visualization using a Gorge-Cole device and 0 Vicryl suture. An ostomy site was made along the left lateral and upper abdomen. The skin incision was made using a 15 blade and the subcutaneous open using electrocautery. The fascia was then opened horizontally using electrocautery. The peritoneum was then opened under direct visualization. The rectum was then pulled through the opening until the area of non-affected viable bowel was identified. A few seromuscular sutures were placed to hold the colon to subcutaneous tissue. A bowel clamp was then placed and the colon transected using a 10 blade. Good hemostasis was observed. The colostomy was then matured using interrupted 3-0 Vicryl sutures. Before this we sterilely closed the other port site incisions using 4-0 Monocryl running subcuticular sutures. Those wounds were then cleaned and covered Dermabond. The patient tolerated the procedure well. We will admit her to the ICU and start IV fluids, as well as pain control with MANAGER SPA. We will also proceed with DVT prophylaxis with calf SCDs, early ambulation, as well as Lovenox starting tomorrow. We will also await colostomy function and when this is established start a clear liquid diet and advance as tolerated. Job ID: [id number] Dictated Date: 10/15/2016 17:48:51 Net Development Manager Date: 10/16/2016 09:30:27 / elizabeth LIEBERMAN
[2016-10-16] MEDS: metroNIDAZOLE 500MG/100ML IVPB 100 ML IV SCH ×2 (10:50→23:16)
--- NOTE | 2016-10-16 11:08 | Progress Note (SOAP) ---
Subjective Subjective/Events-last exam doing well. colostomy functioning. tolerating clears. pain controlled. Objective Exam Vital Signs Date Time Temp Pulse Resp B/P Pulse Ox O2 Delivery O2 Flow Rate FiO2 10/16/16 09:00 Room Air 10/16/16 07:00 93 10/16/16 06:00 90 13 130/70 97 Room Air 10/16/16 05:00 83 20 120/70 93 Room Air 10/16/16 04:20 97.2 10/16/16 04:00 89 25 117/67 94 Room Air 10/16/16 03:05 98.7 10/16/16 03:00 83 17 112/62 94 Room Air 10/16/16 02:00 78 15 118/63 94 Room Air 10/16/16 01:00 82 10/16/16 01:00 87 18 99/52 92 Room Air 10/16/16 00:00 88 19 106/58 91 Room Air 10/16/16 00:00 Room Air 10/15/16 23:39 99.4 10/15/16 23:00 91 20 121/63 91 Room Air 10/15/16 22:00 90 8 120/58 97 Room Air 10/15/16 21:04 99.7 10/15/16 21:00 99 11 130/86 98 Room Air 10/15/16 21:00 Room Air 10/15/16 20:00 100 17 140/87 94 Room Air 10/15/16 19:04 99.1 10/15/16 19:00 103 12 124/75 94 Room Air 10/15/16 19:00 101 10/15/16 12:46 99.0 95 20 166/74 93 Room Air I & O 10/16/16 07:00 Intake Total 6000 ml Output Total 2370 ml Balance 3630 ml Capillary Refill : General Appearance: No Apparent Distress HEENT: PERRL/EOMI Neck: Full Range of Motion Respiratory: Chest Non Tender Lungs Clear Normal Breath Sounds Cardiovascular: Regular Rate, Rhythm Gastrointestinal: soft tenderness other (wounds clean,dry, colostomy viable) Extremity: Normal Capillary Refill Neurologic/Psychiatric: Alert Oriented x3 Skin: Normal Color Lymphatic: No Adenopathy Results Lab Laboratory Tests 10/16/16 03:46: Alanine Aminotransferase (ALT/SGPT) 7, Albumin 2.6L, Alkaline Phosphatase 48, Anion Gap 8, Aspartate Amino Transf (AST/SGOT) 12, BUN/Creatinine Ratio 10, Basophils # (Auto) 0.0, Basophils (%) (Auto) 0, Blood Urea Nitrogen 5L, Calcium Level 8.1L, Carbon Dioxide Level 22, Chloride Level 109H, Creatinine 0.52L, Eosinophils # (Auto) 0.0, Eosinophils (%) (Auto) 0, Estimat Glomerular Filtration Rate > 60, Glucose Level 123H, Hematocrit 27L, Hemoglobin 8.8#L, Lymphocytes # (Auto) 0.7L, Lymphocytes (%) (Auto) 8L, Mean Corpuscular Hemoglobin 26, Mean Corpuscular Hemoglobin Concent 32, Mean Corpuscular Volume 80, Mean Platelet Volume 9.2, Monocytes # (Auto) 0.3, Monocytes (%) (Auto) 4, Neutrophils # (Auto) 7.2, Neutrophils (%) (Auto) 88H, Platelet Count 437H, Potassium Level 3.9, Red Blood Count 3.42L, Red Cell Distribution Width 16.4H, Sodium Level 139, Total Bilirubin 0.3, Total Protein 4.9L, White Blood Count 8.2 Microbiology 10/13/16 MRSA Screen - Final, Complete MRSA not isolated Assessment/Plan Assessment/Plan Assess & Plan/Chief Complaint complicated sigmoid diverticulitis. s/p lap colon resection and end colostomy. transfer to floor. clear liquid diet. ambulate. Clinical Quality Measures DVT/VTE Risk/Contraindication: Risk Factor Score Per Nursin RFS Level Per Nursing on Admit: 2=Moderate AMBER INFANTE MD Oct 16, 2016 11:08 am
--- NOTE | 2016-10-16 11:45 | Progress Note-Hospitalist ---
Progress Note HPI/CC on Admission CC: Severe and recurrent sigmoid diverticulitis HPI: This is a 70-year-old white female known to me from 2 prior hospitalizations for recurrent and severe diverticulitis that was just discharge and unable to manage fever and pain at home and she is reluctantly but agreed for elective sigmoid resection for severe diseased colon. She is completing colon prep currently and has questions that I answer to the best of my ability. She is ready to have surgery and I explained the postoperative course. Progress Notes/Assess & Plan Date Seen 10/16/16 Admission Dx/Process Assessment: Recurrent and severe diverticulitis plan for elective resection tomorrow by Dr. Rivas Anxiety Insomnia Diagonsis/Assessment & Plan Chart Review: Pt had sigmoidectomy yesterday by Dr. Rivas uncomplicated with diverting colostomy. Pt remained stable over night with no fever, BP of 130/70, WBC 8.2, Hgb 8.8, platelets 437k, CMP normal, and CXR normal. kettle skimmer: Pt is stable and will move to 4 th floor when stable. Pt had diverting colostomy. Patient Interview: Pt states that she feels weak because she has not eaten, but feels stable overall. Physical exam stable. Dr. Pierre informs pt that her bloodwork is normal. Pt states that she would like to DC catheter when possible. Vital signs stable, no fever, much improved Anxious but oriented 3 Clear to auscultation bilaterally No edema Assessment: Recurrent and severe diverticulitis s/p elective resection by Dr. Rivas uncomplicated POD # 1 Anxiety Insomnia Plan: Move to 4th floor today Anxiolytics for severe anxiety Scribed by Kwabena Malone under the direct supervision of Dr. Pierre. ELIDIA PIERRE DO Oct 16, 2016 11:45
--- NOTE | 2016-10-16 12:18 | Anesthesia-General Post-Op ---
General Patient Condition Mental Status/LOC: Same as Preop Cardiovascular: Satisfactory Nausea/Vomiting: Absent Respiratory: Satisfactory Pain: Controlled Complications: Absent Post Op Complications Complications None Follow Up Care/Instructions Patient Instructions None needed. Anesthesia/Patient Condition Patient Condition Patient is doing well, no complaints, stable vital signs, no apparent adverse anesthesia problems. No complications reported per nursing. AMY RODRIGUEZ CRNA Oct 16, 2016 12:18
--- NOTE | 2016-10-16 12:30 | Progress Note-Standard ---
Standard Progress Note Progress Notes/Assess & Plan Progress/Assessment & Plan 1200 10/16/16: Postop round on female patient post sigmoid resection with epidural for pain management. Patient reports pain is under control. Epidural continues at 8 mL/hr. Denies complaints. No headache, backache or paresthesia reported. Planning on transfer out of ICU. Will round on patient again tomorrow. AMY RODRIGUEZ CRNA Oct 16, 2016 12:30
--- NOTE | 2016-10-16 13:20 | Anesthesia Pain Mgmt-Epidural ---
Anesthesia-Pain Mgmnt Epidural Pre-Procedure Chart Review and Risk/Benefits/Options Discussed Progress Note Patient having some discomfort. Otherwise doing well. TAHMINA,REENA Vazquez CRNA Oct 16, 2016 13:20
[2016-10-16] MEDS: ALPRAZolam 1 MG (XANAX) TAB PO PRN (13:47)
--- NOTE | 2016-10-16 13:49 | Anesthesia Pain Mgmt-Epidural ---
Anesthesia-Pain Mgmnt Epidural Pre-Procedure Chart Review and Risk/Benefits/Options Discussed Progress Note c/o pain in lower abdomen. Rate increased to 10ml/hr. AKIKO LIZARRAGA CRNA Oct 16, 2016 13:49
[2016-10-16 13:57] LABS: BASOPHILS % (AUTO) 0 % (0-10); EOSINOPHILS % (AUTO) 0 % (0-10); LYMPHOCYTES # (AUTO) 1.7 X 10^3 (1.0-4.0); LYMPHOCYTES % (AUTO) 17 % (12-44); MEAN CORPUSCULAR HEMOGLOBIN 26 PG (25-34); MEAN CORPUSCULAR HGB CONC 33 G/DL (32-36); MEAN CORPUSCULAR VOLUME 80 FL (80-99); MEAN PLATELET VOLUME 8.8 FL (7.4-10.4); MONOCYTES # (AUTO) 0.6 X 10^3 (0.0-1.0); MONOCYTES % (AUTO) 6 % (0-12); NEUTROPHILS # (AUTO) 7.6 X 10^3 (1.8-7.8); NEUTROPHILS % (AUTO) 77 % (42-75); PLATELET COUNT 469 10^3/uL (130-400); RED BLOOD COUNT 3.45 10^6/uL (4.35-5.85); RED CELL DISTRIBUTION WIDTH 16.7 % (10.0-14.5)
[2016-10-16] MEDS: ZOLPIDEM 5 MG (AMBIEN) TAB PO SCH (21:32)
[2016-10-17] VITALS (11 sets, daily range): BP systolic 91–134; BP diastolic 40–64
[2016-10-17] MEDS: EPIDURAL (SUFENTA 0.6MCG/ML BUPIVA 0.125%) 100 ML BAG EPI SCH ×3 (01:18→22:04)
[2016-10-17] MEDS: NS IV 1000 ML 1,000 ML IV SCH ×2 (02:53→09:55)
[2016-10-17 04:55] LABS: BASOPHILS % (AUTO) 0 % (0-10); EOSINOPHILS % (AUTO) 0 % (0-10); LYMPHOCYTES # (AUTO) 1.4 X 10^3 (1.0-4.0); LYMPHOCYTES % (AUTO) 14 % (12-44); MEAN CORPUSCULAR HEMOGLOBIN 26 PG (25-34); MEAN CORPUSCULAR HGB CONC 32 G/DL (32-36); MEAN CORPUSCULAR VOLUME 81 FL (80-99); MEAN PLATELET VOLUME 8.6 FL (7.4-10.4); MONOCYTES # (AUTO) 0.5 X 10^3 (0.0-1.0); MONOCYTES % (AUTO) 6 % (0-12); NEUTROPHILS # (AUTO) 7.7 X 10^3 (1.8-7.8); NEUTROPHILS % (AUTO) 80 % (42-75); PLATELET COUNT 449 10^3/uL (130-400); RED BLOOD COUNT 3.44 10^6/uL (4.35-5.85); RED CELL DISTRIBUTION WIDTH 16.8 % (10.0-14.5); WHITE BLOOD COUNT 9.7 10^3/uL (4.3-11.0)
[2016-10-17 05:14] LABS: ALANINE AMINOTRANSFERASE 8 U/L (0-55); ALBUMIN 2.4 G/DL (3.2-4.5); ANION GAP 10 MMOL/L (5-14); ASPARTATE AMINO TRANSFERASE 12 U/L (5-34); BILIRUBIN,TOTAL 0.3 MG/DL (0.1-1.0); BLOOD UREA NITROGEN 5 MG/DL (7-18); BUN/CREATININE RATIO 9; CALCIUM 7.7 MG/DL (8.5-10.1); CARBON DIOXIDE 22 MMOL/L (21-32); CHLORIDE 107 MMOL/L (98-107); CREATININE SERUM 0.53 MG/DL (0.60-1.30); GFR ESTIMATED > 60; GLUCOSE 107 MG/DL (70-105); POTASSIUM 3.3 MMOL/L (3.6-5.0); SODIUM 139 MMOL/L (135-145); TOTAL PROTEIN 4.6 G/DL (6.4-8.2)
--- NOTE | 2016-10-17 08:54 | Anesthesia-Regional Post-Op ---
Regional Patient Condition Mental Status: Alert, Oriented x3 Circulation: Same as Pre-Op Headache: Absent Sensation: Full Recovery Motor Block: Absent Post Op Complications Complications None Follow Up Care/Instructions Patient Instructions None needed. Anesthesia/Patient Condition Patient remains in ICU 6 as 4th floor overflow. She is resting comfortably upon me entering the room. Epidural gtt continues at 10cc/hr. She reports pain is well controlled. She demonstrates to me that although they feel weak, she is able to pick her legs up off the bed. DAMI Malloy reports patient had a good night and seems to be doing great with epidural. Will round on patient tomorrow and most likely pull epidural catheter around 72 hr collin. AMY RODRIGUEZ CRNA Oct 17, 2016 08:53
[2016-10-17] MEDS: metroNIDAZOLE 500MG/100ML IVPB 100 ML IV SCH ×2 (09:17→20:26)
[2016-10-17] MEDS: CIPROFLOXACIN IV 400MG/200ML 200 ML IV SCH ×2 (09:17→21:50)
[2016-10-17] MEDS: PANTOPRAZOLE 40 MG/10 ML (PROTONIX) VIAL IV SCH (09:17)
[2016-10-17] MEDS: ENOXAPARIN 40 MG/0.4 ML (LOVENOX) SYR SC SCH (09:17)
--- NOTE | 2016-10-17 09:37 | Progress Note (SOAP) ---
Subjective Subjective/Events-last exam Patient seen with Dr. Rivas. Patient reports doing well but feels weak. Epidural still in place. Patient has not ambulated yet. Tolerating clear liquid diet. Minimal discomfort. No N/V. No fevers/chills. Colostomy functioning with brown stool and gas in bag. Patient reports no complaints at this time. Review of Systems General: No Chills, No Night Sweats Gastrointestinal: No: Abdominal Pain, Nausea, Vomiting Objective Exam Vital Signs Date Time Temp Pulse Resp B/P Pulse Ox O2 Delivery O2 Flow Rate FiO2 10/17/16 09:25 97 Nasal Cannula 2.00 10/17/16 08:00 98.4 99 16 104/56 97 Nasal Cannula 2.00 10/17/16 06:00 91 16 105/57 96 Nasal Cannula 2.00 10/17/16 05:00 93 18 103/58 95 Nasal Cannula 2.00 10/17/16 04:00 91 16 91/40 97 Nasal Cannula 2.00 10/17/16 03:00 90 15 112/61 96 Nasal Cannula 2.00 10/17/16 02:00 92 13 95/63 96 Nasal Cannula 2.00 10/17/16 01:00 94 21 108/64 95 Nasal Cannula 2.00 10/17/16 00:32 94 10/17/16 00:00 Nasal Cannula 2.00 10/17/16 00:00 98.9 96 15 100/62 86 Nasal Cannula 2.00 10/16/16 23:00 97 16 109/63 92 Room Air 10/16/16 22:00 96 17 104/53 84 Room Air 10/16/16 21:00 Room Air 10/16/16 21:00 93 10 136/65 93 Room Air 10/16/16 20:00 99.6 90 12 112/64 89 Room Air 10/16/16 19:20 93 10/16/16 19:00 88 14 105/52 89 Room Air 10/16/16 16:00 88 16 117/66 94 Room Air 10/16/16 11:00 95 10 112/67 96 Room Air I & O 10/17/16 07:00 Intake Total 1750 ml Output Total 1730 ml Balance 20 ml Capillary Refill : General Appearance: No Apparent Distress WD/WN HEENT: PERRL/EOMI Neck: Full Range of Motion Normal Inspection Non Tender Supple Respiratory: Chest Non Tender Lungs Clear Normal Breath Sounds No Accessory Muscle Use No Respiratory Distress Cardiovascular: Regular Rate, Rhythm No Edema No JVD Gastrointestinal: normal bowel sounds soft tenderness other (Colostomy pink and moist with brown stool and gas in bag. ZENOBIA drain with clear SS drainage.) Extremity: Normal Capillary Refill Normal Inspection Normal Range of Motion Non Tender No Calf Tenderness No Pedal Edema Neurologic/Psychiatric: Alert Oriented x3 Skin: Normal Color Warm/Dry Other (Incisions C/D/I) Results Lab Laboratory Tests 10/16/16 13:50: Basophils # (Auto) 0.0, Basophils (%) (Auto) 0, Eosinophils # (Auto) 0.0, Eosinophils (%) (Auto) 0, Hematocrit 28L, Hemoglobin 9.0L, Lymphocytes # (Auto) 1.7, Lymphocytes (%) (Auto) 17, Mean Corpuscular Hemoglobin 26, Mean Corpuscular Hemoglobin Concent 33, Mean Corpuscular Volume 80, Mean Platelet Volume 8.8, Monocytes # (Auto) 0.6, Monocytes (%) (Auto) 6, Neutrophils # (Auto ) 7.6, Neutrophils (%) (Auto) 77H, Platelet Count 469H, Red Blood Count 3.45L, Red Cell Distribution Width 16.7H, White Blood Count 10.0 10/17/16 04:45: Basophils # (Auto) 0.0, Basophils (%) (Auto) 0, Eosinophils # (Auto) 0.0, Eosinophils (%) (Auto) 0, Hematocrit 28L, Hemoglobin 8.8L, Lymphocytes # (Auto) 1.4, Lymphocytes (%) (Auto) 14, Mean Corpuscular Hemoglobin 26, Mean Corpuscular Hemoglobin Concent 32, Mean Corpuscular Volume 81, Mean Platelet Volume 8.6, Monocytes # (Auto) 0.5, Monocytes (%) (Auto) 6, Neutrophils # (Auto ) 7.7, Neutrophils (%) (Auto) 80H, Platelet Count 449H, Red Blood Count 3.44L, Red Cell Distribution Width 16.8H, White Blood Count 9.7, Alanine Aminotransferase (ALT/SGPT) 8, Albumin 2.4L, Alkaline Phosphatase 44, Anion Gap 10, Aspartate Amino Transf (AST/SGOT) 12, BUN/Creatinine Ratio 9, Blood Urea Nitrogen 5L, Calcium Level 7.7L, Carbon Dioxide Level 22, Chloride Level 107, Creatinine 0.53L, Estimat Glomerular Filtration Rate > 60, Glucose Level 107H, Potassium Level 3.3L, Sodium Level 139, Total Bilirubin 0.3, Total Protein 4.6L Microbiology 10/13/16 MRSA Screen - Final, Complete MRSA not isolated Assessment/Plan Assessment/Plan Assess & Plan/Chief Complaint complicated sigmoid diverticulitis. s/p lap colon resection and end colostomy. Clear liquid diet Ambulate when able. Clinical Quality Measures DVT/VTE Risk/Contraindication: Risk Factor Score Per Nursin RFS Level Per Nursing on Admit: 2=Moderate JAYDEN SINGH APRN Oct 17, 2016 9:37 am
--- NOTE | 2016-10-17 11:03 | Progress Note-Hospitalist ---
Progress Note HPI/CC on Admission CC: Severe and recurrent sigmoid diverticulitis HPI: This is a 70-year-old white female known to me from 2 prior hospitalizations for recurrent and severe diverticulitis that was just discharge and unable to manage fever and pain at home and she is reluctantly but agreed for elective sigmoid resection for severe diseased colon. She is completing colon prep currently and has questions that I answer to the best of my ability. She is ready to have surgery and I explained the postoperative course. Progress Notes/Assess & Plan Date Seen 10/17/16 Admission Dx/Process Assessment: Recurrent and severe diverticulitis plan for elective resection tomorrow by Dr. Rivas Anxiety Insomnia Diagonsis/Assessment & Plan Pt had sigmoidectomy [address] Rivas uncomplicated with diverting colostomy. Epidural will be removed tomorrow and then she will ambulate Patient doing well with pain Clear liquids will be started Vital signs stable, no fever, much improved Anxious but oriented 3 Clear to auscultation bilaterally No edema Assessment: Recurrent and severe diverticulitis s/p elective resection by Dr. Rivas uncomplicated POD # 2 Anxiety Insomnia Hypokalemia Plan: Move to 4th floor today Anxiolytics for severe anxiety Decrease IV fluids and add potassium since her clear liquids her starting today ELIDIA JIN DO Oct 17, 2016 11:03
[2016-10-17] MEDS ORDERED: OXYC-197 PO (11:06)
--- NOTE | 2016-10-17 11:08 | Discharge Inst-Surgical ---
D/C Lap Instructions-NARESH New, Converted, or Re-Newed RX: RX on Chart Follow Up Appt in 1 week Activity as tolerated No driving for 24 hours No driving while on pain medications Incentive Spirometry use every 2 hours while awake Regular Diet Symptoms to Report: Fever over 101 degree F, Nausea/Vomiting Infection Signs and Symptoms to report: Increased redness, Foul odor of wound, Increased drainage Bathing instructions: May shower Operative Area Clean/Dry; Keep incision clean/dry If any problems/questions: Contact your physician or go to Emergency Room AMBER INFANTE MD Oct 17, 2016 11:08
[2016-10-17] MEDS: POTASSIUM CHLORIDE INJ 10 MEQ in NS IV 1000 ML 1,000 ML IV SCH ×2 (13:45→23:50)
[2016-10-17] MEDS: HYDROcodone/APAP 7.5 MG/325 MG (LORTAB, LORCET PLUS) TABLET PO PRN ×2 (16:49→20:59)
[2016-10-17] MEDS: ZOLPIDEM 5 MG (AMBIEN) TAB PO SCH (20:26)
[2016-10-18] VITALS: BP 113/60
[2016-10-18] MEDS: POTASSIUM CHLORIDE INJ 10 MEQ in NS IV 1000 ML 1,000 ML IV SCH (01:19)
[2016-10-18 04:00] VITALS: BP 110/55
[2016-10-18 07:06] LABS: BASOPHILS % (AUTO) 0 % (0-10); EOSINOPHILS # (AUTO) 0.2 10^3/uL (0.0-0.3); EOSINOPHILS % (AUTO) 3 % (0-10); LYMPHOCYTES # (AUTO) 1.6 X 10^3 (1.0-4.0); LYMPHOCYTES % (AUTO) 21 % (12-44); MEAN CORPUSCULAR HEMOGLOBIN 25 PG (25-34); MEAN CORPUSCULAR HGB CONC 32 G/DL (32-36); MEAN CORPUSCULAR VOLUME 81 FL (80-99); MEAN PLATELET VOLUME 9.1 FL (7.4-10.4); MONOCYTES # (AUTO) 0.5 X 10^3 (0.0-1.0); MONOCYTES % (AUTO) 7 % (0-12); NEUTROPHILS # (AUTO) 5.4 X 10^3 (1.8-7.8); NEUTROPHILS % (AUTO) 70 % (42-75); PLATELET COUNT 404 10^3/uL (130-400); RED BLOOD COUNT 3.42 10^6/uL (4.35-5.85); RED CELL DISTRIBUTION WIDTH 16.4 % (10.0-14.5); WHITE BLOOD COUNT 7.8 10^3/uL (4.3-11.0)
[2016-10-18 07:26] LABS: ALANINE AMINOTRANSFERASE 6 U/L (0-55); ALBUMIN 2.3 G/DL (3.2-4.5); ANION GAP 9 MMOL/L (5-14); ASPARTATE AMINO TRANSFERASE 9 U/L (5-34); BILIRUBIN,TOTAL 0.2 MG/DL (0.1-1.0); BLOOD UREA NITROGEN 4 MG/DL (7-18); BUN/CREATININE RATIO 8; CALCIUM 7.9 MG/DL (8.5-10.1); CARBON DIOXIDE 24 MMOL/L (21-32); CHLORIDE 107 MMOL/L (98-107); CREATININE SERUM 0.49 MG/DL (0.60-1.30); GFR ESTIMATED > 60; GLUCOSE 106 MG/DL (70-105); POTASSIUM 3.3 MMOL/L (3.6-5.0); SODIUM 140 MMOL/L (135-145); TOTAL PROTEIN 4.5 G/DL (6.4-8.2)
[2016-10-18 08:00] VITALS: BP 112/58
--- NOTE | 2016-10-18 09:47 | Progress Note (SOAP) ---
Subjective Subjective/Events-last exam Patient seen with Dr. Rivas. Patient reports doing well. Tolerating DYS3 diet with no N/V. Epidural still in place. Reports mild abdominal tenderness. Colostomy functioning well. Shelby to DD clear yellow. No fevers/chills. Review of Systems General: No Chills, No Night Sweats, No Fatigue, No Malaise HEENT: No Head Aches, No Eye Pain, No Ear Pain, No Dysphasia, No Sinus Congestion, No Post Nasal Drip, No Sore Throat Pulmonary: No Dyspnea, No Cough, No Pleuritic Chest Pain Cardiovascular: No: Chest Pain, Edema, Lt Headedness, Orthopnea, Palpitations, Paroxysmal Noc. Dyspnea Gastrointestinal: No: Abdominal Pain, Constipation, Diarrhea, Hematochezia, Melena, Nausea, Vomiting Genitourinary: No Dysuria, No Frequency, No Incontinence, No Hematuria, No Retention Musculoskeletal: No: arm pain, back pain, foot pain, hand pain, leg pain, neck pain, other, shoulder pain Neurological: No: Change in speech, Confusion, Incoordination, Numbness, Other , Seizures, Weakness Objective Exam Vital Signs Date Time Temp Pulse Resp B/P Pulse Ox O2 Delivery O2 Flow Rate FiO2 10/18/16 08:00 96.6 82 20 112/58 94 Room Air 10/18/16 04:00 96.5 92 20 110/55 95 Room Air 10/18/16 00:00 98.5 90 18 113/60 94 Room Air 10/17/16 20:00 Nasal Cannula 2.00 10/17/16 20:00 99.0 99 18 134/59 93 Room Air 10/17/16 15:00 93 Room Air 10/17/16 15:00 97.8 79 18 112/58 93 Room Air 10/17/16 13:00 98 10/17/16 12:02 97.8 100 16 100/41 94 Nasal Cannula 2.00 I & O 10/18/16 07:00 Intake Total 2005 ml Output Total 3095 ml Balance -1090 ml Capillary Refill : General Appearance: No Apparent Distress WD/WN HEENT: PERRL/EOMI Neck: Full Range of Motion Normal Inspection Non Tender Supple Respiratory: Chest Non Tender Lungs Clear Normal Breath Sounds No Accessory Muscle Use No Respiratory Distress Cardiovascular: Regular Rate, Rhythm No Edema No JVD Gastrointestinal: normal bowel sounds soft tenderness other (Colostomy pink and moist with brown stool in bag. ZENOBIA drain with SS drainage.) Extremity: Normal Capillary Refill Normal Inspection Normal Range of Motion Non Tender No Calf Tenderness No Pedal Edema Neurologic/Psychiatric: Alert Oriented x3 Skin: Normal Color Warm/Dry Other (Incisions C/D/I.) Results Lab Laboratory Tests 10/18/16 06:50: Alanine Aminotransferase (ALT/SGPT) 6, Albumin 2.3L, Alkaline Phosphatase 39L, Anion Gap 9, Aspartate Amino Transf (AST/SGOT) 9, BUN/Creatinine Ratio 8, Basophils # (Auto) 0.0, Basophils (%) (Auto) 0, Blood Urea Nitrogen 4L, Calcium Level 7.9L, Carbon Dioxide Level 24, Chloride Level 107, Creatinine 0.49L, Eosinophils # (Auto) 0.2, Eosinophils (%) (Auto) 3, Estimat Glomerular Filtration Rate > 60, Glucose Level 106H, Hematocrit 28L, Hemoglobin 8.7L, Lymphocytes # (Auto) 1.6, Lymphocytes (%) (Auto) 21, Mean Corpuscular Hemoglobin 25, Mean Corpuscular Hemoglobin Concent 32, Mean Corpuscular Volume 81, Mean Platelet Volume 9.1, Monocytes # (Auto) 0.5, Monocytes (%) (Auto) 7, Neutrophils # (Auto) 5.4, Neutrophils (%) (Auto) 70, Platelet Count 404H, Potassium Level 3.3L, Red Blood Count 3.42L, Red Cell Distribution Width 16.4H, Sodium Level 140, Total Bilirubin 0.2, Total Protein 4.5L, White Blood Count 7.8 Microbiology 10/13/16 MRSA Screen - Final, Complete MRSA not isolated Assessment/Plan Assessment/Plan Assess & Plan/Chief Complaint complicated sigmoid diverticulitis. s/p lap colon resection and end colostomy. VSS. Will DC epidural today Continue diet. Ambulate when able. Will discharge home soon. Clinical Quality Measures DVT/VTE Risk/Contraindication: Risk Factor Score Per Nursin RFS Level Per Nursing on Admit: 2=Moderate JAYDEN SINGH APRN Oct 18, 2016 9:47 am
[2016-10-18] MEDS: PANTOPRAZOLE 40 MG/10 ML (PROTONIX) VIAL IV SCH (10:07)
[2016-10-18] MEDS: CIPROFLOXACIN IV 400MG/200ML 200 ML IV SCH (10:07)
[2016-10-18] MEDS: metroNIDAZOLE 500MG/100ML IVPB 100 ML IV SCH (10:07)
[2016-10-18 11:47] VITALS: BP 115/62
[2016-10-18] MEDS ORDERED: KCL 20 MEQ TAB (K-DUR) PO SCH (12:00)
--- NOTE | 2016-10-18 12:39 | Progress Note-Hospitalist ---
Progress Note HPI/CC on Admission CC: Severe and recurrent sigmoid diverticulitis HPI: This is a 70-year-old white female known to me from 2 prior hospitalizations for recurrent and severe diverticulitis that was just discharge and unable to manage fever and pain at home and she is reluctantly but agreed for elective sigmoid resection for severe diseased colon. She is completing colon prep currently and has questions that I answer to the best of my ability. She is ready to have surgery and I explained the postoperative course. Progress Notes/Assess & Plan Date Seen 10/18/16 Admission Dx/Process Assessment: Recurrent and severe diverticulitis plan for elective resection tomorrow by Dr. Rivas Anxiety Insomnia Diagonsis/Assessment & Plan Pt had sigmoidectomy [address] Rivas uncomplicated with diverting colostomy. Epidural will be removed and she would be discharged home today Patient doing well with pain Clear liquids tolerated Colostomy care counseling completed and she is comfortable with the plan Vital signs stable, no fever, much improved Anxious but oriented 3, Tearful Clear to auscultation bilaterally except crackles left lower lobe with deep breath No edema Assessment: Recurrent and severe diverticulitis s/p elective resection by Dr. Rivas uncomplicated POD # 3 Anxiety Insomnia Hypokalemia replacing Likely atelectasis left lower lobe Plan: discharge home Deep breathing exercises since she refused to accept incentive spirometer because it cost too much ELIDIA JIN DO Oct 18, 2016 12:39
--- NOTE | 2016-10-18 13:20 | DISCHARGE SUMMARY ---
DATE OF ADMISSION: 10/13/2016 DATE OF DISCHARGE: 10/18/2016 ATTENDING PRIMARY CARE PHYSICIAN: Dr. Allegra Valentin. ADMISSION DIAGNOSIS: Complicated diverticulitis. DISCHARGE DIAGNOSIS: Complicated diverticulitis. ADDITIONAL DIAGNOSES: 1. Fibromyalgia. 2. Osteoarthritis. 3. Anxiety. 4. Depression. PRINCIPAL PROCEDURE: 1. Laparoscopic low anterior sigmoid rectal resection with Rohit pouch and end colostomy. 2. Left subclavian central venous catheter placement. 3. No additional procedures. COMPLICATIONS: None. DISPOSITION: Home in stable condition. Ms. Sarah Emmanuel is a 70-year-old female who was initially seen in 08/18/2016 for left lower quadrant abdominal pain. She reported that this has been occurring for a longer period of time. She reports a long-standing history of constipation, as well as requiring laxatives. She was found to have sigmoid diverticulitis and she opted for conservative medical management with IV antibiotics and was able to do well. She did have recurrence of symptoms including pain. And a repeat CT scan was performed, which did show worsening of her diverticulitis. Again, she had opted for medical management; however. Once she was discharged approximately one week later she had recurrence of pain and did agree to surgery. PAST MEDICAL HISTORY: 1. Fibromyalgia. 2. Osteoarthritis. 3. Anxiety. 4. Depression. PAST SURGERIES: 1. Left total knee arthroplasty 09/2012. 2. Right knee total arthroplasty 11/2012. ALLERGIES: No known drug allergies. MEDICATIONS: 1. Ambien. 2. Buspirone. SOCIAL HISTORY: Negative smoke. Negative alcohol. FAMILY HISTORY: Father myocardial infarction age 69. On 10/13/16 she underwent laparoscopic low anterior sigmoid rectal resection as well as Rohit pouch and end colostomy, as well as a central line placement. She did well after surgery and was sent to the Intensive Care Unit. While in the Intensive Care Unit she did well with stable vital signs and she had colostomy output with 12 hours. She was started on clear liquid diet which he tolerated well. She was then transferred to the general surgical floor and continued to do well. The remainder of her hospital course was uneventful. She was able to tolerate a regular diet without any difficulty with normal functional colostomy and adequate pain control with oral pain medication. She was also ambulating well. HOME GOING INSTRUCTIONS: DIET: As tolerated. May shower. Colostomy care. Drain care. MEDICATIONS: Percocet p.r.n. She is to follow-up in the office in one week to remove drain. Job ID: [id number] Dictated Date: 10/18/2016 11:37:04 Service Writer Advisor Date: 10/18/2016 13:09:30/elizabeth
[2016-10-18] MEDS: HYDROcodone/APAP 7.5 MG/325 MG (LORTAB, LORCET PLUS) TABLET PO PRN (13:49)
[2016-10-18] MEDS: ALPRAZolam 1 MG (XANAX) TAB PO PRN (13:50)
[2016-10-18] MEDS ORDERED: ENOXAPARIN 40 MG/0.4 ML (LOVENOX) SYR SC SCH (14:15)
== END 2016-10-18 14:26 | disposition home or self-care (01) | DRG 330 ==
LOC: 4TH 09:40 → ICU 10-15 19:14 → 4TH 10-17 14:46
PROVIDERS: ADMIT Surgery Pediatric Surgery; ATTEND Surgery Pediatric Surgery
PROC: 0DBP4ZZ Excision of Rectum, Percutaneous Endoscopic Approach (ICD-10-PCS; 2016-10-15)
PROC: 0D1M074 Bypass Descending Colon to Cutaneous with Autologous Tissue Substitute, Open Approach (ICD-10-PCS; 2016-10-15)
PROC: 0DTN4ZZ Resection of Sigmoid Colon, Percutaneous Endoscopic Approach (ICD-10-PCS; principal; 2016-10-15 13:14)
PROC: 0DBM4ZZ Excision of Descending Colon, Percutaneous Endoscopic Approach (ICD-10-PCS; 2016-10-15 13:14)
DX: K57.20 Diverticulitis of large intestine with perforation and abscess without bleeding (principal); F41.9 Anxiety disorder, unspecified; G47.00 Insomnia, unspecified; F32.9 Major depressive disorder, single episode, unspecified; M79.7 Fibromyalgia; Z96.653 Presence of artificial knee joint, bilateral
CPT/HCPCS: 36415; 71010; 80053; 85025; 86850; 86900; 86901; 86920; 87081; 88307

== ENCOUNTER 2016-11-30 10:02 | Outpatient (CLI) | payer MEDICARE ==
[~2016-11-30] VITALS: Ht 157.5 cm; Wt 67.3 kg
[~2016-11-30 10:02] MED LIST changes: +FAMO-119 PO; +OXYC-197 PO; +OXYC-464 PO; +POLY17PO6 PO
[2016-11-30 10:16] VITALS: BP 144/81
[2016-11-30 10:49] LABS: BASOPHILS % (AUTO) 0 % (0-10); EOSINOPHILS # (AUTO) 0.1 10^3/uL (0.0-0.3); EOSINOPHILS % (AUTO) 2 % (0-10); LYMPHOCYTES # (AUTO) 1.9 X 10^3 (1.0-4.0); LYMPHOCYTES % (AUTO) 38 % (12-44); MEAN CORPUSCULAR HEMOGLOBIN 25 PG (25-34); MEAN CORPUSCULAR HGB CONC 32 G/DL (32-36); MEAN CORPUSCULAR VOLUME 80 FL (80-99); MEAN PLATELET VOLUME 9.9 FL (7.4-10.4); MONOCYTES # (AUTO) 0.3 X 10^3 (0.0-1.0); MONOCYTES % (AUTO) 7 % (0-12); NEUTROPHILS # (AUTO) 2.7 X 10^3 (1.8-7.8); NEUTROPHILS % (AUTO) 53 % (42-75); PLATELET COUNT 342 10^3/uL (130-400); RED BLOOD COUNT 4.58 10^6/uL (4.35-5.85); WHITE BLOOD COUNT 5.1 10^3/uL (4.3-11.0)
== END 2016-11-30 11:02 | disposition home or self-care (01) ==
LOC: PREOP 10:02
PROVIDERS: ATTEND Surgery Pediatric Surgery
DX: Z01.812 Encounter for preprocedural laboratory examination (principal); Z11.2 Encounter for screening for other bacterial diseases; K57.92 Diverticulitis of intestine, part unspecified, without perforation or abscess without bleeding
CPT/HCPCS: 36415; 85025; 86850; 86900; 86901; 87081

== ENCOUNTER 2016-12-03 05:55 | Inpatient (IN) | payer MEDICARE ==
[2016-12-03] VITALS (10 sets, daily range): BP systolic 102–146; BP diastolic 55–110
[~2016-12-03] VITALS: Ht 157.5 cm; Wt 69.4 kg
[2016-12-03] MEDS: LACTATED RINGERS 1,000 ML IV PRN ×3 (06:15→12:54)
[2016-12-03] MEDS ORDERED: ceFAZolin 1,000 MG (ANCEF) VIAL ONE ×2 (06:25→11:21)
[2016-12-03] MEDS ORDERED: NS (IVPB) 50 ML ONE (06:25)
[2016-12-03] MEDS ORDERED: ceFAZolin 1 GM/NS 50 ML IVPB IV ONE ×2 (06:45)
[2016-12-03] MEDS ORDERED: ONDANSETRON 4 MG/2 ML (SDV) Z0FRAN ONE (07:33)
[2016-12-03] MEDS ORDERED: proPOfol 200 MG/20 ML (DIPRIVAN) VIAL IV ONE (07:33)
[2016-12-03] MEDS ORDERED: ROCURONIUM 50 MG/5 ML (ZEMURON) VIAL IV ONE ×2 (07:33→13:18)
[2016-12-03] MEDS ORDERED: LIDOCAINE PF 2% 10 ML (XYLOCAINE) AMP ONE (07:33)
[2016-12-03] MEDS ORDERED: LACTATED RINGERS 1,000 ML IV ONE ×4 (07:33→14:00)
[2016-12-03] MEDS ORDERED: DEXAMETHASONE PF 10 MG/ML (DECADRON) VIAL ONE (07:33)
[2016-12-03] MEDS ORDERED: SEVOFLURANE (ULTANE) 15 ML INHAL SOLN ONE ×3 (07:33→13:19)
[2016-12-03] MEDS ORDERED: MIDAZOLAM 2 MG/2 ML (VERSED) VIAL ONE (07:34)
[2016-12-03] MEDS ORDERED: fentaNYL INJECTION 250 MCG/5 ML AMP ONE (07:34)
[2016-12-03] MEDS ORDERED: BUP/EPI 0.5% 1:200,000 (SENSORCAINE) 30 ML VIAL ONE (07:41)
--- NOTE | 2016-12-03 08:00 | Progress Note-Pre Operative ---
Pre-Operative Progress Note H&P Reviewed The H&P was reviewed, patient examined and no changes noted. Date H&P Reviewed: Dec 03, 2016 Time H&P Reviewed: 07:45 Pre-Operative Diagnosis: Severe Diverticulitis JAYDEN SINGH PECAN GROWER Dec 03, 2016 8:00 am
[2016-12-03] MEDS ORDERED: HEParin (CENTRAL IV FLUSH) 500 UNIT/5 ML SYR ONE (08:27)
[2016-12-03] MEDS ORDERED: metroNIDAZOLE 500MG/100ML IVPB 100 ML ONE (09:38)
[2016-12-03] MEDS ORDERED: PHENYLEPHRINE 100 MCG/ML 10 ML (ANESTHESIA) SYR ONE (09:38)
[2016-12-03] MEDS ORDERED: metroNIDAZOLE 500MG/100ML IVPB 100 ML IV ONE (10:00)
[2016-12-03] MEDS ORDERED: NEOSTIGMINE (BLOXIVERZ ) 1 MG/1ML 10 ML VIAL ONE (10:43)
[2016-12-03] MEDS ORDERED: GLYCOPYRROLATE 0.2 MG/ML (ROBINUL) 2 ML VIAL ONE (10:43)
[2016-12-03] MEDS ORDERED: BUPIVACAINE 0.25% 30 ML (SENSORCAINE) VIAL ONE (12:30)
--- NOTE | 2016-12-03 12:55 | Progress Note-Post Operative ---
Post-Operative Progess Note Surgeon (s)/Senior Data Modeler (s) Surgeon AMBER INFANTE MD Senior Data Modeler: deonte li [employer]PRESSOR MECH[employer]IC Pre-Operative Diagnosis Severe Diverticulitis Post-Operative Diagnosis same Post-Op Procedure Note Date of Procedure: Dec 03, 2016 Name of Procedure Performed: laparoscopic reversal end colostomy and hartmans, takedown splenic flexure, colorrhaphy, left subclavian central venous cath placement. Description of the Procedure: laparoscopic reversal end colostomy and hartmans, takedown splenic flexure, colorrhaphy, left subclavian central venous cath placement. Findings of the Procedure . Anesthesia Type GET Estimated blood loss (mL): minimal Specimen(s) collected/removed none AMEBR INFANTE MD Dec 03, 2016 12:55 pm
[2016-12-03] MEDS ORDERED: RT-ALBUTEROL SULF 2.5 MG/3 ML PRE-MIX VIAL INH SCH (13:00)
[2016-12-03] MEDS ORDERED: oxyCODONE 20 MG/1 ML ORAL CONC (RoxiCODONE) CHARGE PER 1 ML PO PRN (13:00)
[2016-12-03] MEDS ORDERED: diphenhydrAMINE 50 MG/ML INJ (BENADRYL) IVP PRN (13:00)
[2016-12-03] MEDS ORDERED: PROCHLORPERAZINE 10 MG/2ML INJ (COMPAZINE) IV PRN (13:00)
[2016-12-03] MEDS: morphine INJ 10 MG/ML 1ML (SYR OR VIAL) IVP PRN ×2 (13:20→13:27)
[2016-12-03] MEDS ORDERED: HYDROmorphone (DILAUDID) 2 MG/ML VIAL IVP PRN (13:30)
[2016-12-03] MEDS ORDERED: ONDANSETRON 4 MG/2 ML (SDV) Z0FRAN IVP PRN (13:30)
[2016-12-03] MEDS ORDERED: SUFENTA 0.6MCG/ML BUPIVA 0.125 100 ML ONE (13:38)
[2016-12-03] MEDS ORDERED: HYDROmorphone (DILAUDID) 2 MG/ML VIAL ONE (13:42)
--- NOTE | 2016-12-03 13:46 | Diagnostic Imaging Report ---
INDICATION: Central line placement. Portable chest at 1:24 p.m. FINDINGS: Left subclavian central tip projects over the SVC. There is an NG tube with tip in the distal esophagus. There is some bilateral medial basilar atelectasis. IMPRESSION: NG tube tip is in the distal esophagus. Left subclavian central line tip is at the cavoatrial junction. Dictated by: Dictated on workstation # [id number]
[2016-12-03] MEDS ORDERED: ONDANSETRON 4 MG/2 ML (SDV) Z0FRAN IV PRN (14:00)
[2016-12-03] MEDS ORDERED: CATHETER FLUSH 10 ML SYR IV PRN (14:00)
[2016-12-03] MEDS ORDERED: ceFAZolin INJECTION 1,000 MG in NS (IVPB) 50 ML IVP ONE (14:00)
[2016-12-03] MEDS ORDERED: EPIDURAL (SUFENTA 0.6MCG/ML BUPIVA 0.125%) 100 ML BAG EPI SCH (14:00)
[2016-12-03] MEDS ORDERED: NALOXONE 0.4 MG/ML 1 ML (NARCAN) VIAL IV PRN (14:00)
[2016-12-03] MEDS ORDERED: diphenhydrAMINE 50 MG/ML INJ (BENADRYL) IV PRN (14:00)
[2016-12-03] MEDS ORDERED: fentaNYL INJECTION 100 MCG/2 ML AMP INJ ONE (14:00)
[2016-12-03] MEDS ORDERED: PIPERACILLIN/TAZO 4.5 GM VIAL (ZOSYN) IV ONE (14:22)
[2016-12-03] MEDS ORDERED: NS (IVPB) 100 ML ONE (14:23)
[2016-12-03] MEDS: 1/2 NS W/KCL 20 MEQ/L 1,000 ML IV SCH (15:38)
[2016-12-03] MEDS: PIPERACILLIN SODIUM/TAZOBACTAM 4.5 GM in NS (IVPB) 100 ML IV SCH ×2 (15:38→21:34)
[2016-12-03] MEDS: fentaNYL PCA 300 MCG/30 ML VIAL IV PRN (16:59)
[2016-12-03] MEDS: LORazepam INJ 2 MG/ML (ATIVAN) VIAL IVP PRN (20:42)
[2016-12-03] MEDS ORDERED: ENOXAPARIN 30 MG/0.3 ML (LOVENOX) SYR SC SCH (21:00)
[2016-12-03] MEDS: ZOLPIDEM 5 MG (AMBIEN) TAB PO SCH (21:33)
[2016-12-04] VITALS (15 sets, daily range): BP systolic 99–154; BP diastolic 52–83
[2016-12-04] MEDS ORDERED: HYDROmorphone (DILAUDID) 2 MG/ML VIAL ONE (03:31)
[2016-12-04 04:17] LABS: MEAN PLATELET VOLUME 9.8 FL (7.4-10.4); RED BLOOD COUNT 4.21 10^6/uL (4.35-5.85); RED CELL DISTRIBUTION WIDTH 14.9 % (10.0-14.5); WHITE BLOOD COUNT 8.9 10^3/uL (4.3-11.0)
[2016-12-04 04:46] LABS: ANION GAP 9 MMOL/L (5-14); BLOOD UREA NITROGEN 8 MG/DL (7-18); BUN/CREATININE RATIO 13; CALCIUM 8.6 MG/DL (8.5-10.1); CARBON DIOXIDE 23 MMOL/L (21-32); CHLORIDE 107 MMOL/L (98-107); CREATININE SERUM 0.62 MG/DL (0.60-1.30); GFR ESTIMATED > 60; GLUCOSE 109 MG/DL (70-105); POTASSIUM 4.3 MMOL/L (3.6-5.0); SODIUM 139 MMOL/L (135-145)
[2016-12-04] MEDS: PIPERACILLIN SODIUM/TAZOBACTAM 4.5 GM in NS (IVPB) 100 ML IV SCH ×3 (05:08→21:10)
[2016-12-04] MEDS: 1/2 NS W/KCL 20 MEQ/L 1,000 ML IV SCH ×4 (05:09→19:52)
[2016-12-04] MEDS ORDERED: HYDROmorphone (DILAUDID) 2 MG/ML VIAL IV ONE (05:30)
[2016-12-04] MEDS ORDERED: KCL 20 MEQ TAB (K-DUR) PO SCH (06:00)
[2016-12-04] MEDS ORDERED: POTASSIUM CL 10MEQ/50ML IVPB 50 ML IV SCH (06:00)
[2016-12-04] MEDS ORDERED: MAGNESIUM 1 GM/100 ML IVPB 100 ML IV SCH (06:00)
[2016-12-04] MEDS ORDERED: SUFENTA 0.6MCG/ML BUPIVA 0.125 100 ML ONE (07:53)
--- NOTE | 2016-12-04 07:54 | Anesthesia-General Post-Op ---
General Patient Condition Mental Status/LOC: Same as Preop Cardiovascular: Satisfactory Nausea/Vomiting: Absent Respiratory: Satisfactory Pain: Controlled Complications: Absent Post Op Complications Complications None Follow Up Care/Instructions Patient Instructions None needed. Anesthesia/Patient Condition Patient Condition Patient is doing well, stable vital signs, no apparent adverse anesthesia problems. She is complaining of pain this morning. Her nurse states her epidural medication finished about 0300 and was not restarted. I will give her 10 ml 2% Lidocaine via her epidural as a bolus and restart her epidural infusion. This should help her pain considerably. No nausea this am. Sore throat which is expected with NGT in place. Will continue to follow and plan for epidural D/C on Wednesday. JESSICA PHILIPPE DO Dec 04, 2016 07:54
[2016-12-04] MEDS ORDERED: LIDOCAINE PF 2% 10 ML (XYLOCAINE) AMP INJ ONE (08:00)
[2016-12-04] MEDS: PANTOPRAZOLE 40 MG/10 ML (PROTONIX) VIAL IV SCH (08:27)
--- NOTE | 2016-12-04 08:27 | OPERATIVE REPORT ---
DATE OF SERVICE: 12/03/2016 PREOPERATIVE DIAGNOSIS: Severe diverticulitis. POSTOPERATIVE DIAGNOSIS: Severe diverticulitis. PROCEDURES: Laparoscopic reversal end colostomy and Rohit's pouch, colorrhaphy, mobilization of splenic flexure, placement of left central venous catheter, repair parastomal hernia. SURGEON: Viktor Rivas MD CROSS TIE CUTTER: Leonard Ho APRN ANESTHESIA: General endotracheal. ESTIMATED BLOOD LOSS: 50 mL. FINDINGS: There appeared to be a small defect after the anastomosis, which was repaired. Due to some potential tension, we also proceeded with a takedown of the splenic flexure. There was also a parastomal hernia 4-5cm in size. DISPOSITION: The patient tolerated the procedure well. INDICATIONS: The patient is a 71-year-old female known to us. She was initially seen on 08/18/2016 for left lower quadrant abdominal pain. A CT scan was performed which showed sigmoid diverticulitis, as well as 2 areas of abscess formation. She did well with conservative management at the time. Over the next 6 weeks, she had had recurrent episodes of pain in her left lower abdominal quadrant. A CT scan showed worsening of sigmoid diverticulosis, as well as the fluid collection slightly worsening. She was admitted on 10/04/2016. At the time, she met the criteria for sigmoid colon resection to prevent further complications. However, she wanted to proceed with conservative management. She was eventually discharged home; however, did develop recurrent pain and was readmitted and did want to proceed with laparoscopic sigmoid colon resection, Rohit's pouch, as well as end colostomy. She underwent this procedure on 10/15/2016 and did well. She is now here for reversal of colostomy. DESCRIPTION OF PROCEDURE: The patient was brought to the operating room and laid supine on the table. After adequate IV pain, sedative medications and general endotracheal intubation, the abdomen was prepped and draped in standard surgical fashion. Before this, the left chest was prepped and draped in standard surgical fashion, and a left subclavian central venous catheter was placed. The left subclavian vein was cannulated with the drawing of venous blood. The guidewire was then inserted without any resistance. The cannula and needle were removed, and a small skin incision was made using an 11-blade. A tract was then created using a venous dilator. A triple-lumen central venous catheter was then placed over the guidewire using the Seldinger technique. The guidewire was removed, and all 3 ports ciarra venous blood and flushed briskly without any resistance. The catheter was then sutured to the skin using 3-0 silk sutures, cleaned and covered with gauze, followed by Op-Site. Before the abdomen was prepped, the end colostomy was sutured closed [id number] using running 0 silk suture. The abdomen was then prepped, as was the perineum, and the patient was placed in modified lithotomy position. Marcaine 0.5% with epinephrine was used to anesthetize the overlying skin in the left upper abdominal quadrant, and a small transverse skin incision made using a 15-blade. An 0 silk suture was applied to the medial aspect of the incision, and a Veress needle inserted with an opening pressure of 0 mmHg. The abdomen was then insufflated to 15 mmHg pressure. The Veress needle removed, and a 5 mm [place] trocar placed, followed by a 5 mm, 45-degree angle laparoscope, visualizing the peritoneal cavity. A 4-quadrant abdominal examination was performed. There were no abscesses or inflammatory changes identified. The end colostomy was intact, as was the Rohit's pouch. There was a significant sized parastomal hernia approximately 4 to 5cm in size. Under direct visualization, we then proceeded to place an infraumbilical 10 mm port after the skin and peritoneum were anesthetized using 0.5% Marcaine with epinephrine and a transverse skin incision made using a 15-blade. In a similar manner, a suprapubic 10 mm port was placed. The patient was then placed in reverse Trendelenburg position. The colostomy was then completely dissected until we were at the level of the skin using blunt dissection, as well as Sonicision. Good hemostasis was also observed. A parastomal hernia was also identified at the time. Small bowel adhesions in the pelvis were then taken down using Sonicision with visualization of good hemostasis. The Rohit's pouch was visualized, and there was no adhesion tissue or overlying tissue over this. A rim of skin around the suture line was opened using a 10-blade, and the end colostomy was freed. A pursestring was applied, and the end including the attached skin was then excised using the 10-blade. We then proceeded with dilatation of the distal colon, and we were able to get a 29 mm dilator in with minimal resistance. We decided to use a 28 mm EEA stapler and the anvil placed and a pursestring tied. This was then placed back into the abdomen, and sharp towel clamps were used to close our abdominal defect. I then went to the anus and rectum and dilated the rectum to 29 mm with the dilator. The 28 mm EEA stapler was then placed, and the stem opened under direct visualization. The anvil was then placed on the stem and closed to medium thickness. The stapler was then fired. The anvil slightly loosened and completely removed. The proximal and distal rings were examined and both intact. Our anastomosis was examined, and there was a small defect identified of the distal colon which may have been due to a diverticula. There was also some tension identified within the anastomosis. It was then decided to proceed with a takedown of the splenic flexure. This was done using blunt dissection, as well as Sonicision until there was no tension identified. Good hemostasis was observed. The gastrocolic ligament next to the colon, as well as the gastrocolic omentum and splenocolic ligament was released using Sonicision. We then proceeded with colorrhaphy of the small defect. A running 2-0 Vicryl suture using endostitch was performed full thickness of the colon layers. Colonic mesentery was then placed over this area and sutured in a patch form using a 2-0 Vicryl running suture. Tisseel fibrin glue was placed on the area of anastomosis as well. A 19-Malay Liang-Wilson drain was placed around the area of the anastomosis and brought out through the 5 mm port. The drain was sutured to the skin using a 3-0 Nylon suture. Both 10 mm port sites, fascia and peritoneum were then closed under direct visualization using a Gorge-Cole device and 0 Vicryl suture. The abdomen was desufflated, and the remaining ports removed. The end colostomy defect, as well as the parastomal hernia, were then closed under direct visualization using #1 looped PDS suture, encompassing all layers of the abdominal wall and after superior and inferior relaxing incisions of fascia were made using cautery. Good hemostasis was observed. The skin edges were then loosely approximated using a few 3-0 Nylon sutures. The remaining 2 skin incisions were closed using 4-0 Monocryl in a subcuticular suture and covered with Dermabond. The patient tolerated the procedure well. We will admit her to the ICU for overnight and then, if her vitals are stable and her pain is controlled, we will transfer her to the floor. We will await bowel function before removing the NG tube and starting a clear liquid diet and advancing. We will also continue with IV antibiotics. If she is ambulating well tomorrow, we will remove the Shelby catheter and also proceed with DVT prophylaxis with calf SCDs, early ambulation, as well as Lovenox injections. Job ID: [id number] DocumentID: [id number] Dictated Date: 12/03/2016 13:16:34 Surveyor Mine Date: 12/04/2016 04:40:02 Dictated By: VIKTOR RIVAS MD MTDD
--- NOTE | 2016-12-04 09:55 | Consultation-Hospitalist ---
HPI History of Present Illness: HPI/Chief Complaint CC: Medical management following colostomy takedown with reanastomosis uncomplicated by Dr. Rivas HPI: This is a 71yoWF known to me from prior admissions due to severe diverticulitis with abscess formation that resulted in a necessity of sigmoidectomy that was uncomplicated and now she is been admitted and recovering from an uncomplicated colostomy takedown with reanastomosis by Dr. Rivas. At this current time patient feels much better since the epidural was changed and now she is pain-free. Denies any nausea since she has NG tube in place. I review labs and vital signs and update her on the plan to likely transfer to the floor to help recovery. Source: patient Exam Limitations: no limitations Date Seen 12/04/16 Attending Physician Viktor Rivas MD PCP Allegra Valentin MD Referring Physician Date of Admission Dec 03, 2016 at 05:55 Home Medications & Allergies Home Medications Reviewed patient Home Medication Reconciliation Form Allergies Allergies Coded Allergies No Known Drug Allergies (Unverified11/30/16) Past Cbbypyz-Hpcqav-Fgmwnc Hx Patient Social History Marrital Status: Employed/Student: employed Alcohol Use: Rarely Uses Recreational Drug Use: No Smoking Status: Never a Smoker Physical Abuse Screen: No Sexual Abuse: No Recent Foreign Travel: No Contact w/other who traveled: No Recent Hopitalizations: Yes (DIVERTICULITIS) Recent Infectious Disease Expo: No Seasonal Allergies Seasonal Allergies: No Surgeries HX Surgeries: Yes (l/r tkr) Surgeries: Abdominal (sigmoidectomy by Dr. Rivas with diverting colostomy September 2016), Orthopedic Respiratory Hx Respiratory Disorders: No Cardiovascular Hx Cardiovascular Disorders: No Neurological Hx Neurological Disorders: No 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 System Hx 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 Disorders: No Sexually Transmitted Disease: No HIV/AIDS: No Female 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 Disorders: Denies Genitourinary Hx Genitourinary Disorders: No Gastrointestinal Hx Gastrointestinal Disorders: Yes Gastrointestinal Disorders: Diverticulosis Musculoskeletal Hx Musculoskeletal Disorders: No Endocrine Hx Endocrine Disorders: No HEENT HX ENT Disorders: No Loss of Vision: Denies Hearing Impairment: Denies Cancer Hx Cancer: No Psychosocial Hx Psychiatric Problems: Yes Behavioral Health Disorders: Sleep Difficulties, Anxiety Integumentary HX Skin/Integumentary Disorder: No Blood Transfusions Hx Blood Disorders: No Adverse Reaction to a Blood Tr: No Family Medical History Significant Family History: No Pertinent Family Hx Family Hx: Cardiovascular disease 19 FATHER Cataracts Review of Systems Constitutional: see HPI, weakness EENTM: no symptoms reported Respiratory: no symptoms reported Cardiovascular: no symptoms reported Gastrointestinal: abdominal pain (LLQ) Genitourinary: no symptoms reported Musculoskeletal: no symptoms reported Skin: no symptoms reported Psychiatric/Neurological: Anxiety All Other Systems Reviewed Negative Unless Noted: Yes Physical Exam Physical Exam Vital Signs Vital Sign - Last 12Hours 12/03/16 14:15 Temp 96.9 Pulse 85 Resp 9 B/P (MAP) 109/55 Pulse Ox 96 O2 Delivery Nasal Cannula O2 Flow Rate 2.00 Capillary Refill : General Appearance: No Apparent Distress, WD/WN Eyes: Bilateral Eye Normal Inspection, Bilateral Eye PERRL HEENT: PERRL/EOMI, Normal ENT Inspection, Pharynx Normal Neck: Full Range of Motion, Normal Inspection, Non Tender, Supple, Carotid Bruit Respiratory: Chest Non Tender, Lungs Clear, Normal Breath Sounds, No Accessory Muscle Use, No Respiratory Distress Cardiovascular: Regular Rate, Rhythm, No Edema, No Gallop, No JVD, No Murmur, Normal Peripheral Pulses Gastrointestinal: Tenderness (post op state) Back: Normal Inspection, No CVA Tenderness, No Vertebral Tenderness Extremity: Normal Capillary Refill, Normal Inspection, Normal Range of Motion, Non Tender, No Calf Tenderness, No Pedal Edema Neurologic/Psychiatric: Alert, Oriented x3, No Motor/Sensory Deficits, Normal Mood/Affect Skin: Normal Color, Warm/Dry Lymphatic: No Adenopathy Results Results/Procedures Lab Laboratory Tests 12/04/16 04:00 Assessment/Plan Admission Diagnosis Assessment: Status post uncomplicated colostomy takedown with reanastomosis by Dr. Rivas POD # 1 Anxiety History of hypokalemia Insomnia Assessment and Plan Plan: Maintain full support with epidural pain management along with IV fluids NG tube Ambulate when able Monitor for any medical complications following surgery Clinical Quality Measures DVT/VTE Risk/Contraindication: Risk Factor Score Per Nursin RFS Level Per Nursing on Admit: 4+=Very High ELIDIA JIN DO Dec 04, 2016 09:55
[2016-12-04] MEDS: fentaNYL PCA 300 MCG/30 ML VIAL IV PRN ×2 (11:23→20:06)
[2016-12-04] MEDS ORDERED: ONDANSETRON 4 MG/2 ML (SDV) Z0FRAN IVP PRN (13:00)
--- NOTE | 2016-12-04 13:40 | Progress Note (SOAP) ---
Subjective Subjective/Events-last exam doing well. 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 Objective Exam Vital Signs Date Time Temp Pulse Resp B/P (MAP) Pulse Ox O2 Delivery O2 Flow Rate FiO2 12/04/16 13:00 101 12/04/16 12:00 99.5 12/04/16 11:23 16 12/04/16 08:06 2.00 12/04/16 08:00 2.00 12/04/16 08:00 98.5 12/04/16 07:00 91 12/04/16 06:00 87 11 147/82 100 Nasal Cannula 2.00 12/04/16 05:00 91 7 140/69 96 Nasal Cannula 2.00 12/04/16 04:00 94 7 141/76 89 Room Air 12/04/16 03:00 88 16 154/83 94 Room Air 12/04/16 02:00 82 13 131/81 93 Room Air 12/04/16 01:00 82 14 123/61 96 Room Air 12/04/16 01:00 82 12/04/16 00:00 79 12 110/56 93 Room Air 12/03/16 23:00 83 14 109/65 94 Room Air 12/03/16 22:00 91 18 125/64 94 Room Air 12/03/16 21:00 92 17 137/73 98 Room Air 12/03/16 20:00 84 13 146/75 96 Room Air 12/03/16 19:57 98.7 12/03/16 19:00 84 13 146/75 96 Room Air 12/03/16 19:00 84 12/03/16 18:00 85 9 107/88 100 Room Air 12/03/16 17:00 76 20 118/97 99 Room Air 12/03/16 16:59 13 12/03/16 16:15 Room Air 12/03/16 16:00 96.8 81 17 102/61 99 Nasal Cannula 2.00 12/03/16 15:00 82 12 136/110 99 Nasal Cannula 2.00 12/03/16 14:33 82 12/03/16 14:15 96.9 85 9 109/55 96 Nasal Cannula 2.00 I & O 12/04/16 07:00 Intake Total 3060 ml Output Total 2820 ml Balance 240 ml Capillary Refill : General Appearance: No Apparent Distress HEENT: PERRL/EOMI Neck: Full Range of Motion Respiratory: Chest Non Tender, Lungs Clear, Normal Breath Sounds Cardiovascular: Regular Rate, Rhythm Gastrointestinal: soft, other (wounds clean/dry, ss ZENOBIA output) Extremity: Normal Capillary Refill Neurologic/Psychiatric: Alert, Oriented x3 Skin: Normal Color Lymphatic: No Adenopathy Results Lab Laboratory Tests 12/04/16 04:00: White Blood Count 8.9, Red Blood Count 4.21L, Hemoglobin 10.8L, Hematocrit 34L, Mean Corpuscular Volume 80, Mean Corpuscular Hemoglobin 26, Mean Corpuscular Hemoglobin Concent 32, Red Cell Distribution Width 14.9H, Platelet Count 315, Mean Platelet Volume 9.8, Sodium Level 139, Potassium Level 4.3, Chloride Level 107, Carbon Dioxide Level 23, Anion Gap 9, Blood Urea Nitrogen 8, Creatinine 0.62, Estimat Glomerular Filtration Rate > 60, BUN/Creatinine Ratio 13, Glucose Level 109H, Calcium Level 8.6, Magnesium Level 2.0 Assessment/Plan Assessment/Plan Assess & Plan/Chief Complaint s/p laparoscopic reversal colostomy and Machado's, incisional hernia repair. continue abx due to ostomy site/hernia. d/c otoole. ambulate. keep NGT in until definitive bowel fxn. Clinical Quality Measures DVT/VTE Risk/Contraindication: Risk Factor Score Per Nursin RFS Level Per Nursing on Admit: 4+=Very High AMBER INFANTE MD Dec 04, 2016 1:40 pm
[2016-12-04] MEDS: EPIDURAL (SUFENTA 0.6MCG/ML BUPIVA 0.125%) 100 ML BAG IV PRN (16:39)
[2016-12-04] MEDS: LORazepam INJ 2 MG/ML (ATIVAN) VIAL IVP PRN (17:25)
[2016-12-04] MEDS: ZOLPIDEM 5 MG (AMBIEN) TAB PO SCH ×3 (17:32→21:11)
[2016-12-05] VITALS: BP 102/58
[2016-12-05] MEDS: EPIDURAL (SUFENTA 0.6MCG/ML BUPIVA 0.125%) 100 ML BAG IV PRN ×2 (02:27→11:22)
[2016-12-05 04:00] VITALS: BP 130/74
[2016-12-05] MEDS: 1/2 NS W/KCL 20 MEQ/L 1,000 ML IV SCH ×2 (05:13→11:05)
[2016-12-05] MEDS: PIPERACILLIN SODIUM/TAZOBACTAM 4.5 GM in NS (IVPB) 100 ML IV SCH ×3 (05:32→21:11)
[2016-12-05 06:36] LABS: MEAN PLATELET VOLUME 9.5 FL (7.4-10.4); RED BLOOD COUNT 3.9 10^6/uL (4.35-5.85); RED CELL DISTRIBUTION WIDTH 14.9 % (10.0-14.5)
[2016-12-05] MEDS: fentaNYL PCA 300 MCG/30 ML VIAL IV PRN ×2 (06:40→18:14)
[2016-12-05 07:07] LABS: ANION GAP 9 MMOL/L (5-14); BLOOD UREA NITROGEN 6 MG/DL (7-18); BUN/CREATININE RATIO 11; CALCIUM 8.3 MG/DL (8.5-10.1); CARBON DIOXIDE 23 MMOL/L (21-32); CHLORIDE 103 MMOL/L (98-107); CREATININE SERUM 0.56 MG/DL (0.60-1.30); GFR ESTIMATED > 60; GLUCOSE 82 MG/DL (70-105); POTASSIUM 3.9 MMOL/L (3.6-5.0); SODIUM 135 MMOL/L (135-145)
[2016-12-05 08:00] VITALS: BP 136/76
[2016-12-05] MEDS: PANTOPRAZOLE 40 MG/10 ML (PROTONIX) VIAL IV SCH ×2 (08:44→21:10)
--- NOTE | 2016-12-05 08:56 | Anesthesia Pain Mgmt-Epidural ---
Anesthesia-Pain Mgmnt Epidural Pre-Procedure Chart Review and Risk/Benefits/Options Discussed Procedure Date of Service: Dec 05, 2016 Time of Service: 08:45 Progress Note Patient seen today. Epidural site is clear and intact. Patient reports good pain control. Will plan on epidural removal tomorrow. AKIKO LIZARRAGA CRNA Dec 05, 2016 08:56
[2016-12-05] MEDS ORDERED: FUROSEMIDE 40 MG/4 ML INJ (LASIX) IVP ONE (09:15)
--- NOTE | 2016-12-05 09:28 | Progress Note-Hospitalist ---
Progress Note HPI/CC on Admission CC: Medical management following colostomy takedown with reanastomosis uncomplicated by Dr. Rivas HPI: This is a 71yoWF known to me from prior admissions due to severe diverticulitis with abscess formation that resulted in a necessity of sigmoidectomy that was uncomplicated and now she is been admitted and recovering from an uncomplicated colostomy takedown with reanastomosis by Dr. Rivas. At this current time patient feels much better since the epidural was changed and now she is pain-free. Denies any nausea since she has NG tube in place. I review labs and vital signs and update her on the plan to likely transfer to the floor to help recovery. Progress Notes/Assess & Plan Date Seen 12/05/16 Admission Dx/Process Assessment: Status post uncomplicated colostomy takedown with reanastomosis by Dr. Rivas POD # 1 Anxiety History of hypokalemia Insomnia Diagonsis/Assessment & Plan Patient feels very depressed and anxious so will initiate Ativan 0.5 MG IV every 6 hours Wants a bath and I conferred with nurse already who is setting that up Review labs and I am slowing her IV fluid down and giving a dose of Lasix due to crackles on the left lower lobe in instructed her to be more diligent using incentive spirometer Overall very depressed and very difficult to motivate that she will do better at the bedside NG tube is in place and causing sore throat but ileus remains Pain is controlled SCDs when asleep No fever, vital signs stable, pleasant, anxious, chronically ill Regular rate and rhythm, clear to auscultation bilaterally except for subtle crackles left lower lobe No edema No bowel sounds noted Laboratory Tests 12/05/16 06:25 Assessment: Status post uncomplicated colostomy takedown with reanastomosis by Dr. Rivas POD # 3 Post op ileus with NGT in place Anxiety History of hypokalemia Insomnia Plan: Decrease IVF Lasix NG tube Ambulate when able Monitor for any medical complications following surgery SCD's ELIDIA Bell DO Dec 05, 2016 09:28
[2016-12-05] MEDS: LORazepam INJ 2 MG/ML (ATIVAN) VIAL IVP PRN ×2 (10:01→18:30)
[2016-12-05 12:00] VITALS: BP 118/76
--- NOTE | 2016-12-05 13:21 | Progress Note ---
Subjective Subjective/Events-last exam Pt seen and examined, denies nausea. Pain is controlled. She feels like she wants to urinate; however, she has a otoole in place (had to be put back in because of urinary retention). Complains of throat pain, most likely from NGT. Pt denies flatus or BM. Review of Systems General: No Chills Pulmonary: No Dyspnea, No Cough Cardiovascular: No: Chest Pain Gastrointestinal: Abdominal Pain (at site of stoma takedown) Objective Exam Vital Signs Date Time Temp Pulse Resp B/P (MAP) Pulse Ox O2 Delivery O2 Flow Rate FiO2 12/05/16 12:00 98.4 102 20 118/76 98 Nasal Cannula 2.00 12/05/16 10:19 97 2.00 12/05/16 08:00 98.7 102 16 136/76 95 Nasal Cannula 2.00 12/05/16 06:40 14 12/05/16 06:27 14 12/05/16 06:17 97 2.00 12/05/16 04:00 99.2 101 22 130/74 98 Nasal Cannula 2.00 12/05/16 02:55 99 12/05/16 00:00 99.2 107 18 102/58 95 Room Air 12/04/16 22:27 94 12/04/16 21:00 14 12/04/16 21:00 2.00 12/04/16 20:06 14 12/04/16 19:15 99.5 103 15 145/77 97 Nasal Cannula 12/04/16 18:41 93 12/04/16 16:55 99.5 103 12 154/80 95 Nasal Cannula 12/04/16 16:48 96 12/04/16 15:00 2.00 12/04/16 14:50 98.1 101 18 129/75 98 Nasal Cannula 2.00 12/04/16 14:00 98 15 97 I & O 12/05/16 07:00 Intake Total 1390 ml Output Total 2385 ml Balance -995 ml Capillary Refill : General Appearance: No Apparent Distress HEENT: PERRL/EOMI Respiratory: Crackles (at bases) Cardiovascular: Regular Rate, Rhythm, No Murmur Gastrointestinal: soft, tenderness (LLQ at site of stoma takedown), other ( wounds clean/dry, ss ZENOBIA output) Neurologic/Psychiatric: Alert, Oriented x3 Skin: Normal Color Results Lab Laboratory Tests 12/05/16 06:25: White Blood Count 9.0, Red Blood Count 3.90L, Hemoglobin 10.0L, Hematocrit 32L, Mean Corpuscular Volume 82, Mean Corpuscular Hemoglobin 26, Mean Corpuscular Hemoglobin Concent 31L, Red Cell Distribution Width 14.9H, Platelet Count 292, Mean Platelet Volume 9.5, Sodium Level 135, Potassium Level 3.9, Chloride Level 103, Carbon Dioxide Level 23, Anion Gap 9, Blood Urea Nitrogen 6L, Creatinine 0.56L, Estimat Glomerular Filtration Rate > 60, BUN/Creatinine Ratio 11, Glucose Level 82, Calcium Level 8.3L, Magnesium Level 2.0 Assessment/Plan Assessment/Plan Assessment/Plan 1. Urinary retention, will leave otoole in place but may try removing again tomorrow and see how she does. 2. Throat pain - probably due to the NGT, will leave in place until pt has flatus or BM. s/p laparoscopic reversal colostomy and Machado's, incisional hernia repair. continue abx due to ostomy site/hernia. Pt told she must ambulate, at least get up to chair. Ok to chew gum (which may help stimulate bowel fxn). Also must use IS 10 times every hour while awake. Clinical Quality Measures DVT/VTE Risk/Contraindication: Risk Factor Score Per Nursin RFS Level Per Nursing on Admit: 4+=Very High ALCON ELIAS DO Dec 05, 2016 13:21
[2016-12-05 16:33] VITALS: BP 131/80
[2016-12-05] MEDS ORDERED: LORazepam INJ 2 MG/ML (ATIVAN) VIAL IVP PRN (18:30)
[2016-12-05] MEDS ORDERED: CHLORASEPTIC SPRAY 177 ML LIQUID MC PRN (18:30)
[2016-12-05] MEDS ORDERED: PANTOPRAZOLE 40 MG (PROTONIX) TAB PO ONE (19:47)
[2016-12-05 20:17] VITALS: BP 99/61
[2016-12-05] MEDS: ZOLPIDEM 5 MG (AMBIEN) TAB PO SCH ×2 (21:10)
[2016-12-06 00:27] VITALS: BP 137/65
[2016-12-06] MEDS: 1/2 NS W/KCL 20 MEQ/L 1,000 ML IV SCH ×2 (00:50→11:32)
[2016-12-06 04:08] VITALS: BP 133/80
[2016-12-06] MEDS: fentaNYL PCA 300 MCG/30 ML VIAL IV PRN (04:46)
[2016-12-06] MEDS: EPIDURAL (SUFENTA 0.6MCG/ML BUPIVA 0.125%) 100 ML BAG IV PRN (04:53)
[2016-12-06] MEDS: PIPERACILLIN SODIUM/TAZOBACTAM 4.5 GM in NS (IVPB) 100 ML IV SCH ×3 (05:04→20:52)
[2016-12-06 06:53] LABS: BASOPHILS % (AUTO) 0 % (0-10); EOSINOPHILS # (AUTO) 0.2 10^3/uL (0.0-0.3); EOSINOPHILS % (AUTO) 2 % (0-10); LYMPHOCYTES # (AUTO) 1.5 X 10^3 (1.0-4.0); LYMPHOCYTES % (AUTO) 19 % (12-44); MEAN CORPUSCULAR HEMOGLOBIN 26 PG (25-34); MEAN CORPUSCULAR HGB CONC 31 G/DL (32-36); MEAN CORPUSCULAR VOLUME 82 FL (80-99); MEAN PLATELET VOLUME 9.2 FL (7.4-10.4); MONOCYTES # (AUTO) 0.5 X 10^3 (0.0-1.0); MONOCYTES % (AUTO) 7 % (0-12); NEUTROPHILS % (AUTO) 72 % (42-75); PLATELET COUNT 272 10^3/uL (130-400); RED BLOOD COUNT 3.66 10^6/uL (4.35-5.85); RED CELL DISTRIBUTION WIDTH 14.8 % (10.0-14.5); WHITE BLOOD COUNT 8.3 10^3/uL (4.3-11.0)
[2016-12-06 07:30] LABS: ALANINE AMINOTRANSFERASE 9 U/L (0-55); ALBUMIN 2.8 G/DL (3.2-4.5); ANION GAP 10 MMOL/L (5-14); ASPARTATE AMINO TRANSFERASE 20 U/L (5-34); BILIRUBIN,TOTAL 0.5 MG/DL (0.1-1.0); BLOOD UREA NITROGEN 8 MG/DL (7-18); BUN/CREATININE RATIO 14; CALCIUM 8.2 MG/DL (8.5-10.1); CARBON DIOXIDE 22 MMOL/L (21-32); CHLORIDE 103 MMOL/L (98-107); CREATININE SERUM 0.58 MG/DL (0.60-1.30); GFR ESTIMATED > 60; GLUCOSE 72 MG/DL (70-105); MAGNESIUM 1.7 MG/DL (1.8-2.4); POTASSIUM 3.7 MMOL/L (3.6-5.0); SODIUM 135 MMOL/L (135-145); TOTAL PROTEIN 5.2 G/DL (6.4-8.2)
[2016-12-06 08:00] VITALS: BP 137/79
[2016-12-06] MEDS: PANTOPRAZOLE 40 MG/10 ML (PROTONIX) VIAL IV SCH ×2 (08:18→20:52)
[2016-12-06] MEDS: LORazepam INJ 2 MG/ML (ATIVAN) VIAL IVP PRN ×2 (08:19→15:17)
[2016-12-06] MEDS: MAGNESIUM 1 GM/D5W 100 ML IVPB IV SCH ×3 (08:35→10:49)
--- NOTE | 2016-12-06 08:54 | Anesthesia Pain Mgmt-Epidural ---
Anesthesia-Pain Mgmnt Epidural Pre-Procedure Chart Review and Risk/Benefits/Options Discussed Procedure Date of Service: Dec 06, 2016 Time of Service: 08:45 Progress Note Patient reports she has had good pain control with epidural. Epidural removed. Site clear. AKIKO LIZARRAGA CRNA Dec 06, 2016 08:54
--- NOTE | 2016-12-06 10:16 | Progress Note-Hospitalist ---
Progress Note HPI/CC on Admission CC: Medical management following colostomy takedown with reanastomosis uncomplicated by Dr. Rivas HPI: This is a 71yoWF known to me from prior admissions due to severe diverticulitis with abscess formation that resulted in a necessity of sigmoidectomy that was uncomplicated and now she is been admitted and recovering from an uncomplicated colostomy takedown with reanastomosis by Dr. Rivas. At this current time patient feels much better since the epidural was changed and now she is pain-free. Denies any nausea since she has NG tube in place. I review labs and vital signs and update her on the plan to likely transfer to the floor to help recovery. Progress Notes/Assess & Plan Date Seen 12/06/16 Admission Dx/Process Assessment: Status post uncomplicated colostomy takedown with reanastomosis by Dr. Rivas POD # 1 Anxiety History of hypokalemia Insomnia Diagonsis/Assessment & Plan Patient still feels very depressed and anxious even though initiated Ativan 0.5 MG IV every 6 hours Epidural DC so will get up and around today Reviewed labs Overall very depressed and very difficult to motivate that she will do better NG tube is in place and causing sore throat but ileus remains Pain is controlled SCDs when asleep No fever, vital signs stable, pleasant, anxious, chronically ill Regular rate and rhythm, clear to auscultation bilaterally No edema No bowel sounds noted NGT in place Laboratory Tests 12/06/16 06:44 Assessment: Status post uncomplicated colostomy takedown with reanastomosis by Dr. Rivas POD # 4 Post op ileus with NGT in place Anxiety History of hypokalemia Insomnia Slow recovery Plan: NG tube Ambulate when able Monitor for any medical complications following surgery SCD's ELIDIA Bell DO Dec 06, 2016 10:16
[2016-12-06 12:00] VITALS: BP 150/81
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
[2016-12-06] MEDS ORDERED: LIDOCAINE JELLY 2% (XYLOCAINE) 30 ML TUBE TOP PRN (12:15)
[2016-12-06] MEDS ORDERED: ACETAMINOPHEN 325 MG TABLET/CAPLET (TYLENOL) PO PRN (12:15)
[2016-12-06] MEDS: fentaNYL INJECTION 100 MCG/2 ML AMP IVP PRN ×3 (14:11→20:52)
[2016-12-06] MEDS ORDERED: TPN IV SCH (16:00)
[2016-12-06 16:27] VITALS: BP 138/74
[2016-12-06] MEDS: 1/2 NS IV SOLUTION 1,000 ML IV SCH (16:56)
[2016-12-06] MEDS ORDERED: ELECTROLYTES INJ 40 ML, POTASSIUM PHOSPHATE INJ 24 MM, VITAMIN MULTI INJECTION 10 ML, T... IV SCH ×7 (17:00)
[2016-12-06 20:27] VITALS: BP 195/85
[2016-12-06] MEDS: ZOLPIDEM 5 MG (AMBIEN) TAB PO SCH ×2 (20:50→21:00)
[2016-12-07 00:47] VITALS: BP 136/66
[2016-12-07 03:42] VITALS: BP 161/73
[2016-12-07] MEDS: PIPERACILLIN SODIUM/TAZOBACTAM 4.5 GM in NS (IVPB) 100 ML IV SCH ×3 (05:32→21:35)
[2016-12-07 05:35] LABS: BASOPHILS % (AUTO) 0 % (0-10); EOSINOPHILS # (AUTO) 0.2 10^3/uL (0.0-0.3); EOSINOPHILS % (AUTO) 2 % (0-10); LYMPHOCYTES % (AUTO) 15 % (12-44); MEAN CORPUSCULAR HEMOGLOBIN 25 PG (25-34); MEAN CORPUSCULAR HGB CONC 32 G/DL (32-36); MEAN CORPUSCULAR VOLUME 80 FL (80-99); MEAN PLATELET VOLUME 9.5 FL (7.4-10.4); MONOCYTES # (AUTO) 0.4 X 10^3 (0.0-1.0); MONOCYTES % (AUTO) 5 % (0-12); NEUTROPHILS # (AUTO) 5.5 X 10^3 (1.8-7.8); NEUTROPHILS % (AUTO) 78 % (42-75); PLATELET COUNT 310 10^3/uL (130-400); RED CELL DISTRIBUTION WIDTH 14.7 % (10.0-14.5); WHITE BLOOD COUNT 7.1 10^3/uL (4.3-11.0)
[2016-12-07 05:59] LABS: ALANINE AMINOTRANSFERASE 11 U/L (0-55); ALBUMIN 3.1 G/DL (3.2-4.5); ANION GAP 9 MMOL/L (5-14); ASPARTATE AMINO TRANSFERASE 13 U/L (5-34); BILIRUBIN,TOTAL 0.5 MG/DL (0.1-1.0); BLOOD UREA NITROGEN 6 MG/DL (7-18); BUN/CREATININE RATIO 12; CALCIUM 8.6 MG/DL (8.5-10.1); CARBON DIOXIDE 27 MMOL/L (21-32); CHLORIDE 100 MMOL/L (98-107); CREATININE SERUM 0.52 MG/DL (0.60-1.30); GFR ESTIMATED > 60; GLUCOSE 152 MG/DL (70-105); MAGNESIUM 1.9 MG/DL (1.8-2.4); POTASSIUM 3.4 MMOL/L (3.6-5.0); SODIUM 136 MMOL/L (135-145); TOTAL PROTEIN 5.9 G/DL (6.4-8.2)
[2016-12-07 08:20] VITALS: BP 138/81
[2016-12-07] MEDS: PANTOPRAZOLE 40 MG/10 ML (PROTONIX) VIAL IV SCH ×2 (08:21→21:35)
[2016-12-07] MEDS: CATHETER FLUSH 10 ML SYR IV PRN ×2 (08:21→15:34)
[2016-12-07] MEDS: fentaNYL INJECTION 100 MCG/2 ML AMP IVP PRN (08:21)
--- NOTE | 2016-12-07 09:28 | Progress Note-Hospitalist ---
Progress Note HPI/CC on Admission CC: Medical management following colostomy takedown with reanastomosis uncomplicated by Dr. Rivas HPI: This is a 71yoWF known to me from prior admissions due to severe diverticulitis with abscess formation that resulted in a necessity of sigmoidectomy that was uncomplicated and now she is been admitted and recovering from an uncomplicated colostomy takedown with reanastomosis by Dr. Rivas. At this current time patient feels much better since the epidural was changed and now she is pain-free. Denies any nausea since she has NG tube in place. I review labs and vital signs and update her on the plan to likely transfer to the floor to help recovery. Progress Notes/Assess & Plan Date Seen 12/07/16 Admission Dx/Process Assessment: Status post uncomplicated colostomy takedown with reanastomosis by Dr. Rivas POD # 1 Anxiety History of hypokalemia Insomnia Diagonsis/Assessment & Plan Patient still feels very depressed and anxious even though initiated Ativan 0.5 MG IV every 6 hours Epidural DC yesterday and was supposed get up and around yesterday but due to pain that has been limited Reviewed labs Overall very depressed and very difficult to motivate that she will do better NG tube is in place and causing sore throat but ileus remains Pain is controlled SCDs when asleep No fever, vital signs stable, pleasant, anxious, chronically ill Regular rate and rhythm, clear to auscultation bilaterally No edema No bowel sounds noted NGT in place Laboratory Tests 12/07/16 05:30 Assessment: Status post uncomplicated colostomy takedown with reanastomosis by Dr. Rivas POD # 5 Post op ileus with NGT in place Anxiety History of hypokalemia Insomnia Slow recovery Plan: NG tube Ambulate when able Monitor for any medical complications following surgery SCD's ELIDIA Bell DO December 07, 2016 09:28
[2016-12-07] MEDS: POTASSIUM CL 10MEQ/50ML IVPB 50 ML IV SCH ×4 (12:38→17:24)
--- NOTE | 2016-12-07 15:53 | Progress Note (SOAP) ---
Subjective Subjective/Events-last exam doing ok, still not ambulating well because feels depressed. low grade temps likely due to atelectasis. WBC normal. passing flatus. Objective Exam Vital Signs Date Time Temp Pulse Resp B/P (MAP) Pulse Ox O2 Delivery O2 Flow Rate FiO2 12/07/16 08:21 99.6 12/07/16 08:20 99.0 89 18 138/81 92 Room Air 12/07/16 08:00 94 2.00 12/07/16 03:42 99.6 88 20 161/73 96 Room Air 12/07/16 00:47 99.5 89 20 136/66 94 Room Air 12/06/16 20:27 101.3 102 18 195/85 92 Room Air 12/06/16 20:00 94 2.00 12/06/16 16:27 98.0 96 20 138/74 94 Room Air I & O 12/07/16 07:00 Intake Total 1884 ml Output Total 3570 ml Balance -1686 ml Capillary Refill : General Appearance: No Apparent Distress HEENT: PERRL/EOMI Neck: Full Range of Motion, Non Tender Respiratory: Chest Non Tender, Normal Breath Sounds Cardiovascular: Regular Rate, Rhythm Gastrointestinal: soft, tenderness, other (wounds clean/dry, minimal SS drain output) Extremity: Normal Capillary Refill Neurologic/Psychiatric: Alert, Oriented x3 Skin: Normal Color Lymphatic: No Adenopathy Results Lab Laboratory Tests 12/06/16 18:49: Glucometer 155H 12/07/16 00:46: Glucometer 194H 12/07/16 05:30: White Blood Count 7.1, Red Blood Count 4.10L, Hemoglobin 10.4L, Hematocrit 33L, Mean Corpuscular Volume 80, Mean Corpuscular Hemoglobin 25, Mean Corpuscular Hemoglobin Concent 32, Red Cell Distribution Width 14.7H, Platelet Count 310, Mean Platelet Volume 9.5, Neutrophils (%) (Auto) 78H, Lymphocytes (%) (Auto) 15 , Monocytes (%) (Auto) 5, Eosinophils (%) (Auto) 2, Basophils (%) (Auto) 0, Neutrophils # (Auto) 5.5, Lymphocytes # (Auto) 1.0, Monocytes # (Auto) 0.4, Eosinophils # (Auto) 0.2, Basophils # (Auto) 0.0, Sodium Level 136, Potassium Level 3.4L, Chloride Level 100, Carbon Dioxide Level 27, Anion Gap 9, Blood Urea Nitrogen 6L, Creatinine 0.52L, Estimat Glomerular Filtration Rate > 60, BUN /Creatinine Ratio 12, Glucose Level 152H, Calcium Level 8.6, Magnesium Level 1.9 , Total Bilirubin 0.5, Aspartate Amino Transf (AST/SGOT) 13, Alanine Aminotransferase (ALT/SGPT) 11, Alkaline Phosphatase 64, Total Protein 5.9L, Albumin 3.1L 12/07/16 12:16: Glucometer 164H Assessment/Plan Assessment/Plan Assess & Plan/Chief Complaint s/p laparoscopic reversal colostomy and Machado's, incisional hernia repair. continue abx due to ostomy site/hernia. passing flatus and NGT removed with no N/V or abd distention, will start clear liquid diet. increase ambulation today to stimulate increased bowel fxn. Clinical Quality Measures DVT/VTE Risk/Contraindication: Risk Factor Score Per Nursin RFS Level Per Nursing on Admit: 4+=Very High AMBER INFANTE MD December 07, 2016 15:53
[2016-12-07 16:00] VITALS: BP 139/87
[2016-12-07] MEDS: [UNRECOGNIZED DRUG - OTHER] IV SCH ×11 (17:24)
[2016-12-07] MEDS: SODIUM CHLORIDE IV SCH ×11 (17:24)
[2016-12-07] MEDS: 1/2 NS IV SOLUTION 1,000 ML IV SCH (17:24)
[2016-12-07] MEDS: SODIUM ACETATE IV SCH ×11 (17:24)
[2016-12-07] MEDS: ZOLPIDEM 5 MG (AMBIEN) TAB PO SCH ×2 (20:10→21:35)
[2016-12-08] VITALS: BP 132/65
[2016-12-08] MEDS: PIPERACILLIN SODIUM/TAZOBACTAM 4.5 GM in NS (IVPB) 100 ML IV SCH (05:27)
[2016-12-08 05:37] LABS: MEAN PLATELET VOLUME 9.6 FL (7.4-10.4); RED BLOOD COUNT 4.3 10^6/uL (4.35-5.85); RED CELL DISTRIBUTION WIDTH 14.9 % (10.0-14.5); WHITE BLOOD COUNT 5.9 10^3/uL (4.3-11.0)
[2016-12-08 05:53] LABS: ANION GAP 10 MMOL/L (5-14); BLOOD UREA NITROGEN 11 MG/DL (7-18); BUN/CREATININE RATIO 20; CALCIUM 9.1 MG/DL (8.5-10.1); CARBON DIOXIDE 24 MMOL/L (21-32); CHLORIDE 103 MMOL/L (98-107); CREATININE SERUM 0.54 MG/DL (0.60-1.30); GFR ESTIMATED > 60; GLUCOSE 112 MG/DL (70-105); SODIUM 137 MMOL/L (135-145)
[2016-12-08 08:00] VITALS: BP 131/75
[2016-12-08] MEDS: PANTOPRAZOLE 40 MG/10 ML (PROTONIX) VIAL IV SCH ×2 (08:32→21:05)
--- NOTE | 2016-12-08 09:10 | Progress Note-Hospitalist ---
Progress Note HPI/CC on Admission CC: Medical management following colostomy takedown with reanastomosis uncomplicated by Dr. Rivas HPI: This is a 71yoWF known to me from prior admissions due to severe diverticulitis with abscess formation that resulted in a necessity of sigmoidectomy that was uncomplicated and now she is been admitted and recovering from an uncomplicated colostomy takedown with reanastomosis by Dr. Rivas. At this current time patient feels much better since the epidural was changed and now she is pain-free. Denies any nausea since she has NG tube in place. I review labs and vital signs and update her on the plan to likely transfer to the floor to help recovery. Progress Notes/Assess & Plan Date Seen 12/08/16 Admission Dx/Process Assessment: Status post uncomplicated colostomy takedown with reanastomosis by Dr. Rivas POD # 1 Anxiety History of hypokalemia Insomnia Diagonsis/Assessment & Plan Patient feels much better and NG tube has been removed and passed gas yesterday none yet today but bowel sounds are noted on exam Overall feels much better and less depressed Going to eat mashed potatoes for breakfast today Pain is controlled No fever, vital signs stable, pleasant, anxious, chronically ill, much improved Regular rate and rhythm, clear to auscultation bilaterally No edema +BS Laboratory Tests 12/08/16 05:30 Assessment: Status post uncomplicated colostomy takedown with reanastomosis by Dr. Rivas POD # 6 s/p Post op ileus with NGT DC Anxiety History of hypokalemia resolved after supp Insomnia Slow recovery but improved Plan: Ambulate Monitor for any medical complications following surgery SCD's Ativan Advance diet and likely will DC tomorrow ELIDIA JIN DO December 08, 2016 09:10
--- NOTE | 2016-12-08 13:40 | Progress Note (SOAP) ---
Subjective Subjective/Events-last exam doing better, no fever/chills, passing flatus, pain controlled with PO meds. tolerating clears. Objective Exam Vital Signs Date Time Temp Pulse Resp B/P (MAP) Pulse Ox O2 Delivery O2 Flow Rate FiO2 12/08/16 08:00 98.1 96 20 131/75 97 Room Air 12/08/16 00:00 98.9 88 20 132/65 96 Room Air 12/07/16 17:20 99.6 12/07/16 16:49 99.6 12/07/16 16:00 100.4 93 18 139/87 92 Room Air I & O 12/08/16 07:00 Intake Total 2950 ml Output Total 1825 ml Balance 1125 ml Capillary Refill : General Appearance: No Apparent Distress HEENT: PERRL/EOMI Neck: Full Range of Motion Respiratory: Chest Non Tender, Normal Breath Sounds Cardiovascular: Regular Rate, Rhythm Gastrointestinal: normal bowel sounds, soft, other (wound clean/dry, ZENOBIA minimal SS) Extremity: Normal Capillary Refill Neurologic/Psychiatric: Alert, Oriented x3 Skin: Normal Color Lymphatic: No Adenopathy Results Lab Laboratory Tests 12/08/16 00:11: Glucometer 134H 12/08/16 05:30: White Blood Count 5.9, Red Blood Count 4.30L, Hemoglobin 11.0L, Hematocrit 35, Mean Corpuscular Volume 80, Mean Corpuscular Hemoglobin 26, Mean Corpuscular Hemoglobin Concent 32, Red Cell Distribution Width 14.9H, Platelet Count 328, Mean Platelet Volume 9.6, Sodium Level 137, Potassium Level 4.0, Chloride Level 103, Carbon Dioxide Level 24, Anion Gap 10, Blood Urea Nitrogen 11, Creatinine 0.54L, Estimat Glomerular Filtration Rate > 60, BUN/Creatinine Ratio 20, Glucose Level 112H, Calcium Level 9.1, Magnesium Level 2.0 12/08/16 12:15: Glucometer 135H Assessment/Plan Assessment/Plan Assess & Plan/Chief Complaint s/p laparoscopic reversal colostomy and Machado's, incisional hernia repair. continue abx due to ostomy site/hernia. passing flatus but no BM yet, will advance to DYS2 diet. increase ambulation today to stimulate increased bowel fxn. Clinical Quality Measures DVT/VTE Risk/Contraindication: Risk Factor Score Per Nursin RFS Level Per Nursing on Admit: 4+=Very High AMBER INFANTE MD December 08, 2016 1:40 pm
[2016-12-08 15:45] VITALS: BP 121/70
[2016-12-08] MEDS: [UNRECOGNIZED DRUG - OTHER] IV SCH ×11 (17:14)
[2016-12-08] MEDS: SODIUM ACETATE IV SCH ×11 (17:14)
[2016-12-08] MEDS: SODIUM CHLORIDE IV SCH ×11 (17:14)
[2016-12-08] MEDS: 1/2 NS IV SOLUTION 1,000 ML IV SCH (17:15)
[2016-12-08] MEDS: ZOLPIDEM 5 MG (AMBIEN) TAB PO SCH ×2 (20:31→21:05)
[2016-12-09 00:44] VITALS: BP 132/62
[2016-12-09] MEDS: LORazepam INJ 2 MG/ML (ATIVAN) VIAL IVP PRN (02:05)
[2016-12-09] MEDS: PANTOPRAZOLE 40 MG/10 ML (PROTONIX) VIAL IV SCH ×2 (08:11→20:29)
[2016-12-09 08:20] VITALS: BP 138/79
--- NOTE | 2016-12-09 10:25 | Progress Note-Hospitalist ---
Progress Note HPI/CC on Admission CC: Medical management following colostomy takedown with reanastomosis uncomplicated by Dr. Rivas HPI: This is a 71yoWF known to me from prior admissions due to severe diverticulitis with abscess formation that resulted in a necessity of sigmoidectomy that was uncomplicated and now she is been admitted and recovering from an uncomplicated colostomy takedown with reanastomosis by Dr. Rivas. At this current time patient feels much better since the epidural was changed and now she is pain-free. Denies any nausea since she has NG tube in place. I review labs and vital signs and update her on the plan to likely transfer to the floor to help recovery. Progress Notes/Assess & Plan Date Seen 12/09/16 Admission Dx/Process Assessment: Status post uncomplicated colostomy takedown with reanastomosis by Dr. 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 Pt has not had any BMs Physical exam stable. Lungs sound perfect. Pt has been using IS No fever, vital signs stable, pleasant, anxious, chronically ill, much improved Regular rate and rhythm, clear to auscultation bilaterally No edema +BS Assessment: Status post uncomplicated colostomy takedown with reanastomosis by Dr. Rivas POD # 7 s/p Post op ileus with NGT DC Anxiety History of hypokalemia resolved after supp Insomnia Slow recovery but improved Plan: Ambulate Monitor for any medical complications following surgery SCD's Ativan Advance diet Continue IS Scribed by Jina Russell under the direct supervision of Dr. Pierre. ELIDIA PIERRE DO December 09, 2016 10:25
[2016-12-09] MEDS: POLYETHYLENE GLYCOL 17 GM (MIRALAX) PACK PO SCH ×2 (11:03→20:29)
--- NOTE | 2016-12-09 13:29 | Progress Note (SOAP) ---
Subjective Subjective/Events-last exam doing ok. tolerating DYS diet. passing flatus, no BM yet. Objective Exam Vital Signs Date Time Temp Pulse Resp B/P (MAP) Pulse Ox O2 Delivery O2 Flow Rate FiO2 12/09/16 08:20 98.5 87 16 138/79 97 Room Air 12/09/16 00:44 98.6 91 20 132/62 95 Room Air 12/08/16 15:45 98.3 92 16 121/70 97 Room Air I & O 12/09/16 07:00 Intake Total 922 ml Output Total 1500 ml Balance -578 ml Capillary Refill : General Appearance: No Apparent Distress HEENT: PERRL/EOMI Neck: Full Range of Motion Respiratory: Chest Non Tender, Lungs Clear, Normal Breath Sounds Cardiovascular: Regular Rate, Rhythm Gastrointestinal: normal bowel sounds Extremity: Normal Capillary Refill Neurologic/Psychiatric: Alert, Oriented x3 Skin: Normal Color Lymphatic: No Adenopathy Results Lab Laboratory Tests 12/09/16 05:09: Glucometer 114H 12/09/16 05:10: Magnesium Level 2.0 Assessment/Plan Assessment/Plan Assess & Plan/Chief Complaint s/p laparoscopic reversal colostomy and Machado's, incisional hernia repair. continue abx due to ostomy site/hernia. passing flatus but no BM yet, will advance to DYS2 diet. increase ambulation today to stimulate increased bowel fxn. Clinical Quality Measures DVT/VTE Risk/Contraindication: Risk Factor Score Per Nursin RFS Level Per Nursing on Admit: 4+=Very High AMBER INFANTE MD December 09, 2016 1:29 pm
[2016-12-09] MEDS: PIPERACILLIN SODIUM/TAZOBACTAM 4.5 GM in NS (IVPB) 100 ML IV SCH ×2 (15:03→21:42)
[2016-12-09 16:00] VITALS: BP 131/71
[2016-12-09] MEDS: ZOLPIDEM 5 MG (AMBIEN) TAB PO SCH ×2 (20:29→21:42)
[2016-12-10] VITALS: BP 132/60
[2016-12-10] MEDS: PIPERACILLIN SODIUM/TAZOBACTAM 4.5 GM in NS (IVPB) 100 ML IV SCH (05:51)
[2016-12-10 08:00] VITALS: BP 144/82
[2016-12-10] MEDS: PANTOPRAZOLE 40 MG/10 ML (PROTONIX) VIAL IV SCH (09:51)
[2016-12-10] MEDS: POLYETHYLENE GLYCOL 17 GM (MIRALAX) PACK PO SCH (09:51)
[2016-12-10] MEDS ORDERED: POLY17PO23 PO (10:32)
[2016-12-10] MEDS ORDERED: AMOX-358 PO (10:35)
[2016-12-10] MEDS ORDERED: TRAM50TA2 PO (10:35)
--- NOTE | 2016-12-10 11:29 | Discharge Summary-Hospitalist ---
Diagnosis/Chief Complaint Date of Admission Dec 03, 2016 at 05:55 Date of Discharge Discharge Date: December 10, 2016 Admission Diagnosis Assessment: Status post uncomplicated colostomy takedown with reanastomosis by Dr. 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 Pt has not had any BMs Physical exam stable. Lungs sound perfect. Pt has been using IS No fever, vital signs stable, pleasant, anxious, chronically ill, much improved Regular rate and rhythm, clear to auscultation bilaterally No edema +BS Assessment: Status post uncomplicated colostomy takedown with reanastomosis by Dr. Rivas POD # 8 s/p Post op ileus with NGT DC Anxiety History of hypokalemia resolved after supp Insomnia Slow recovery but improved Plan: Ambulate Monitor for any medical complications following surgery SCD's Ativan Advance diet Continue IS Scribed by Jina Russell under the direct supervision of Dr. Jin. Reason Hospital Visit/Course CC: Medical management following colostomy takedown with reanastomosis uncomplicated by Dr. Rivas HPI: This is a 71yoWF known to me from prior admissions due to severe diverticulitis with abscess formation that resulted in a necessity of sigmoidectomy that was uncomplicated and now she is been admitted and recovering from an uncomplicated colostomy takedown with reanastomosis by Dr. Riavs. At this current time patient feels much better since the epidural was changed and now she is pain-free. Denies any nausea since she has NG tube in place. I review labs and vital signs and update her on the plan to likely transfer to the floor to help recovery. Notes from 12/10/16 neurodiagnostic technologist: Dr. Rivas will send her home with a drain MiraLax was administered today Patient Interview: Pt admits to having all medications she is requiring at home Pt agrees and excited to DC today Pt admits to not experiencing pain. Pt is flatulent but has not had BMs yet. Physical exam stable Pt is advised to not drive for a week No fever, vital signs stable, pleasant, improved, family bedside Regular rate and rhythm, clear to all sedation bilaterally Bowel sounds are noted in nontender abdomen Plan: Follow up with Dr. Rob Cruz MiraLax upon DC Scribed by Jina Russell under the direct supervision of Dr. Jin. Hospital course: Patient had a lengthy hospital course following colostomy takedown with reanastomosis due to severe ileus and pain that required epidural for several days. Lab work was monitored potassium was supplemented along with IV fluids and TPN and overall she recovered slowly but she was doing very well at day of discharge no fever vital signs remained stable and she was deemed stable for discharge. Discharge Summary Discharge Physical Examination Allergies: Coded Allergies: No Known Drug Allergies (Unverified , 11/30/16) Vitals & I&Os Vital Signs Date Time Temp Pulse Resp B/P (MAP) Pulse Ox O2 Delivery O2 Flow Rate FiO2 12/10/16 08:00 97.5 89 20 144/82 97 Room Air 12/07/16 08:00 2.00 Discharge Home Medications: Active Scripts Active Augmentin 875-125 Tablet (Amoxicillin/Potassium Clav) 1 Each Tablet 1 Each PO BID Tramadol HCl 50 Mg Tablet 50-100 Mg PO Q6HR PRN Polyethylene Glycol 3350 17 Gm Powd.pack 8.5 Gm PO BID 14 Days Reported Zolpidem Tartrate 10 Mg Tablet 10 Mg PO HS Instructions to patient/family Please see electonic discharge instructions given to patient. Clinical Quality Measures DVT/VTE Risk/Contraindication: Risk Factor Score Per Nursin RFS Level Per Nursing on Admit: 4+=Very High ELIDIA JIN DO December 10, 2016 11:29
== END 2016-12-10 12:23 | disposition home or self-care (01) | DRG 345 ==
LOC: 4TH 05:55 → SURG 05:56 → ICU 14:10 → 3RD 12-04 14:22 → 4TH 12-04 15:22
PROVIDERS: ADMIT Surgery Pediatric Surgery; ATTEND Surgery Pediatric Surgery
PROC: 0DSM4ZZ Reposition Descending Colon, Percutaneous Endoscopic Approach (ICD-10-PCS; principal; 2016-12-03 08:18)
PROC: 0WQF0ZZ Repair Abdominal Wall, Open Approach (ICD-10-PCS; 2016-12-03 08:18)
DX: Z43.3 Encounter for attention to colostomy (principal); K57.30 Diverticulosis of large intestine without perforation or abscess without bleeding; K56.7 Ileus, unspecified; J98.11 Atelectasis; G47.00 Insomnia, unspecified; F41.9 Anxiety disorder, unspecified; F32.9 Major depressive disorder, single episode, unspecified; R33.9 Retention of urine, unspecified; E87.6 Hypokalemia; Z87.19 Personal history of other diseases of the digestive system
CPT/HCPCS: 36415; 71010; 80048; 80053; 82962; 83735; 84100; 85025; 85027; 94664; 94760

== ENCOUNTER 2017-08-16 14:22 | Outpatient (CLI) | payer MEDICARE, OTHER ==
[~2017-08-16] VITALS: Ht 157.5 cm; Wt 71.2 kg
[~2017-08-16 14:22] MED LIST changes: +POLY17PO23 PO; +TRAM50TA2 PO
[2017-08-16 14:26] VITALS: BP 137/65
[2017-08-16 15:02] LABS: BASOPHILS % (AUTO) 0 % (0-10); EOSINOPHILS # (AUTO) 0.2 10^3/uL (0.0-0.3); EOSINOPHILS % (AUTO) 3 % (0-10); HEMATOCRIT 38 % (35-52); LYMPHOCYTES % (AUTO) 26 % (12-44); MEAN CORPUSCULAR HEMOGLOBIN 28 PG (25-34); MEAN CORPUSCULAR HGB CONC 34 G/DL (32-36); MEAN CORPUSCULAR VOLUME 82 FL (80-99); MEAN PLATELET VOLUME 9.3 FL (7.4-10.4); MONOCYTES # (AUTO) 0.5 X 10^3 (0.0-1.0); MONOCYTES % (AUTO) 7 % (0-12); NEUTROPHILS # (AUTO) 4.8 X 10^3 (1.8-7.8); NEUTROPHILS % (AUTO) 64 % (42-75); PLATELET COUNT 372 10^3/uL (130-400); RED BLOOD COUNT 4.65 10^6/uL (4.35-5.85); RED CELL DISTRIBUTION WIDTH 14.2 % (10.0-14.5); WHITE BLOOD COUNT 7.6 10^3/uL (4.3-11.0)
[2017-08-16 15:28] LABS: BUN/CREATININE RATIO 17; CARBON DIOXIDE 25 MMOL/L (21-32); CHLORIDE 104 MMOL/L (98-107); CREATININE SERUM 0.71 MG/DL (0.60-1.30); GFR ESTIMATED > 60; GLUCOSE 109 MG/DL (70-105); POTASSIUM 3.9 MMOL/L (3.6-5.0); SODIUM 139 MMOL/L (135-145)
== END 2017-08-16 14:40 | disposition home or self-care (01) ==
LOC: PREOP 14:22
PROVIDERS: ATTEND Surgery
DX: Z01.812 Encounter for preprocedural laboratory examination (principal); Z11.2 Encounter for screening for other bacterial diseases; K43.2 Incisional hernia without obstruction or gangrene
CPT/HCPCS: 36415; 80048; 85025; 87081

== ENCOUNTER 2019-02-04 09:38 | Day surgery (SDC) | payer MEDICARE, OTHER ==
[~2019-02-04] VITALS: Ht 157.5 cm; Wt 76.2 kg
[2019-02-04] VITALS (7 sets, daily range): BP systolic 131; BP diastolic 84
[~2019-02-04 09:38] MED LIST changes: +HYDR-34 PO; -HYDR-3816 PO; +METR-145 PO; -METR500T21 PO; -OXYC-197 PO; -OXYC-201 PO; +OXYC1TAB16 PO; +OXYC1TAB87 PO; -POLY17PO23 PO; +POLY17PO31 PO
--- NOTE | 2019-02-04 11:18 | ED Integumentary General ---
General Chief Complaint: Skin/Wound Problems Stated Complaint: SORE ON BOTTOM Nursing Triage Note: PT PRESENTS TO ED WITH COMPLAINTS OF L BUTTOCK SWELLING SINCE LAST WEDNESDAY. REPORTS SAW HER DR ON WEDNESDAY WHO TOLD HER THAT SHE NEEDED TO SEE A SURGEON AND PLACED HER ON BACTRIM. PT REPORTS SHE HAS APPT ON WEDNESDAY BUT HER PAIN HAS BECOME INTOLERABLE. Source: patient Exam Limitations: no limitations History of Present Illness Date Seen by Provider: Feb 04, 2019 Time Seen by Provider: 11:18 Initial Comments 73 yo female patient presents to the ED with c/o left buttock swelling and pain. Onset last Wednesday. She was seen by Dr. Valentin on Wednesday and given bactrim and scheduled to see Dr. Sanabria on Wednesday. Patient reports pain and swelling is now intolerable. She does report chills, but denies known fever. She does have constipation and a poor appetite. Timing/Duration: getting worse, other (onset 1 week) Possible Cause: no cause identified Modifying Factors: worse with other (worse with sitting, palpations, and BM's.) Associated Symptoms: swelling/mass/lumps Allergies and Home Medications Allergies Coded Allergies: prednisone (Verified Adverse Reaction, Unknown, 02/04/19) PALPITATIONS Home Medications Amoxicillin/Potassium Clav 1 Each Tablet, 1 EACH PO BID Prescribed by: ALVAREZ STAFFORD on 08/19/17 1707 Hydrocodone Bit/Acetaminophen 1 Tab Tab, 1 TAB PO Q6H PRN for PAIN-MODERATE Prescribed by: ALCON ELIAS on 02/04/19 1330 Tramadol HCl 50 Mg Tablet, 50-100 MG PO Q4H Prescribed by: AMBER INFANTE on 08/19/17 1517 Zolpidem Tartrate 10 Mg Tablet, 10 MG PO HS, (Reported) Patient Home Medication List Home Medication List Reviewed: Yes Review of Systems Review of Systems Constitutional: see HPI, chills; No diaphoresis, No fever Respiratory: no symptoms reported Cardiovascular: no symptoms reported Gastrointestinal: No abdominal pain; constipation; No diarrhea; loss of appetite; No nausea, No vomiting Genitourinary: see HPI; No decreased output, No dysuria, No frequency Musculoskeletal: no symptoms reported Skin: see HPI Psychiatric/Neurological: No Symptoms Reported All Other Systems Reviewed Negative Unless Noted: Yes (Negative excepted noted.) Past Relcqmd-Zksdny-Fhhppd Hx Past Med/Social Hx: Reviewed Nursing Past Med/Soc Hx Patient Social History Alcohol Use: Denies Use Number of Drinks Today: AA Alcohol Beverage of Choice: Beer Recreational Drug Use: No Smoking Status: Former Smoker Type Used: Cigarettes Former Smoker, Quit: Nov 30, 1970 Recent Foreign Travel: No Contact w/Someone Who Travel: No Recent Infectious Disease Expo: No Recent Hopitalizations: No Immunizations Up To Date Tetanus Booster (TDap): Unknown Date of Influenza Vaccine: Jun 16, 2017 Seasonal Allergies Seasonal Allergies: No Past Medical History Surgeries: Yes (BILAT TKR, BOWEL RESECTION WITH COLOSOMY THEN REVERSAL) Abdominal, Orthopedic Respiratory: No Cardiac: No Neurological: No 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 Disorders: No Female 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 Sexually Transmitted Disease: No HIV/AIDS: No Genitourinary: No Gastrointestinal: Yes Abdominal Hernia, Diverticulosis Musculoskeletal: No Endocrine: No HEENT: No (CONTACTS) Loss of Vision: Denies Hearing Impairment: Denies Cancer: No Psychosocial: Yes Sleep Difficulties, Anxiety Integumentary: No Blood Disorders: No Adverse Reaction/Blood Tranf: No Family Medical History Reviewed Nursing Family Hx Cardiovascular disease 19 FATHER Cataracts No Pertinent Family Hx Physical Exam Vital Signs Vital Signs - First Documented 02/04/19 10:05 Temp 98.2 Pulse 86 Resp 20 B/P (MAP) 136/77 (96) Pulse Ox 95 Capillary Refill : Less Than 3 Seconds General Appearance: WD/WN, no apparent distress Neck: supple, normal inspection Cardiovascular: regular rate, rhythm, no edema, no gallop, no murmur Respiratory: lungs clear, normal breath sounds, no respiratory distress, no accessory muscle use Gastrointestinal: normal bowel sounds, non tender, soft, no organomegaly Back: normal inspection Extremities: no pedal edema, normal capillary refill Neurologic/Psychiatric: alert, normal mood/affect, oriented x 3 Skin: normal color, warm/dry, other (10x14 cm area of erythema, warmth, and tenderness with central fluctuance and purulent drainage.) Skin Problem Location: other (left buttock) Skin Problem Character: abscess, drainage, erythema, swelling, tenderness, warm Progress/Results/Core Measures Results/Orders Lab Results Laboratory Tests Test 02/04/19 11:44 Range/Units White Blood Count 9.3 4.3-11.0 10^3/uL Red Blood Count 4.76 4.35-5.85 10^6/uL Hemoglobin 13.6 11.5-16.0 G/DL Hematocrit 41 35-52 % Mean Corpuscular Volume 86 80-99 FL Mean Corpuscular Hemoglobin 29 25-34 PG Mean Corpuscular Hemoglobin Concent 33 32-36 G/DL Red Cell Distribution Width 13.3 10.0-14.5 % Platelet Count 300 130-400 10^3/uL Mean Platelet Volume 9.4 7.4-10.4 FL Neutrophils (%) (Auto) 77 H 42-75 % Lymphocytes (%) (Auto) 15 12-44 % Monocytes (%) (Auto) 7 0-12 % Eosinophils (%) (Auto) 1 0-10 % Basophils (%) (Auto) 0 0-10 % Neutrophils # (Auto) 7.1 1.8-7.8 X 10^3 Lymphocytes # (Auto) 1.4 1.0-4.0 X 10^3 Monocytes # (Auto) 0.7 0.0-1.0 X 10^3 Eosinophils # (Auto) 0.1 0.0-0.3 10^3/uL Basophils # (Auto) 0.0 0.0-0.1 10^3/uL Sodium Level 136 135-145 MMOL/L Potassium Level 4.3 3.6-5.0 MMOL/L Chloride Level 104 98-107 MMOL/L Carbon Dioxide Level 21 21-32 MMOL/L Anion Gap 11 5-14 MMOL/L Blood Urea Nitrogen 13 7-18 MG/DL Creatinine 0.80 0.60-1.30 MG/DL Estimat Glomerular Filtration Rate > 60 BUN/Creatinine Ratio 16 Glucose Level 111 H 70-105 MG/DL Calcium Level 9.4 8.5-10.1 MG/DL Corrected Calcium 9.2 8.5-10.1 MG/DL Total Bilirubin 0.5 0.1-1.0 MG/DL Aspartate Amino Transf (AST/SGOT) 13 5-34 U/L Alanine Aminotransferase (ALT/SGPT) 13 0-55 U/L Alkaline Phosphatase 93 40-136 U/L C-Reactive Protein High Sensitivity 4.57 H 0.00-0.50 MG/DL Total Protein 7.3 6.4-8.2 GM/DL Albumin 4.2 3.2-4.5 GM/DL ISAURO AdamsTCHEN L PA Ed Iv/Invasive Line Start (02/04/19 11:23) Fentanyl Injection (Sublimaze Injection (02/04/19 11:23) Ns Iv 1000 Ml (Sodium Chloride 0.9%) (02/04/19 11:23) Cbc With Automated Diff (02/04/19 11:23) Comprehensive Metabolic Panel (02/04/19 11:23) Hs C Reactive Protein (02/04/19 11:23) Vital Signs/I&O 02/04/19 10:05 Temp 98.2 Pulse 86 Resp 20 B/P (MAP) 136/77 (96) Pulse Ox 95 Blood Pressure Mean: 96 Departure Communication (Admissions) Time/Spoke to Consulting Phy: 11:50 Patient evaluated. Initial labs obtained. Patient given 50 g of fentanyl and 1 L of normal saline. 1150 Dr. Elias consulted for need of I&D of perirectal abscess 1205 OR admit for incision and drainage with possible debridement of a perirectal abscess. Dr. Elias to [facility] patient to home. Impression Primary Impression: Perirectal abscess Disposition: 01 HOME, SELF-CARE Condition: Improved Departure-Patient Inst. Decision time for Depature: 12:10 Referrals: EDGAR VALENTIN MD (PCP/Family) Primary Care Physician Add. Discharge Instructions: Discharge instructions per Dr. Elias. Scripts Hydrocodone Bit/Acetaminophen (Hydrocodone/Acetaminophen 5/325mg Tablet) 1 Tab Tab 1 TAB PO Q6H PRN for PAIN-MODERATE MDD 10, #20 TAB Prov: ALCON ELIAS DO 02/04/19 LARA AC Feb 04, 2019 11:18
[2019-02-04] MEDS ORDERED: fentaNYL INJECTION 100 MCG/2 ML AMP IVP STA (11:23)
[2019-02-04] MEDS ORDERED: NS IV 1000 ML 1,000 ML IV SCH (11:23)
[2019-02-04 11:53] LABS: BASOPHILS % (AUTO) 0 % (0-10); EOSINOPHILS # (AUTO) 0.1 10^3/uL (0.0-0.3); EOSINOPHILS % (AUTO) 1 % (0-10); HEMATOCRIT 41 % (35-52); HEMOGLOBIN 13.6 G/DL (11.5-16.0); LYMPHOCYTES # (AUTO) 1.4 X 10^3 (1.0-4.0); LYMPHOCYTES % (AUTO) 15 % (12-44); MEAN CORPUSCULAR HEMOGLOBIN 29 PG (25-34); MEAN CORPUSCULAR HGB CONC 33 G/DL (32-36); MEAN CORPUSCULAR VOLUME 86 FL (80-99); MEAN PLATELET VOLUME 9.4 FL (7.4-10.4); MONOCYTES # (AUTO) 0.7 X 10^3 (0.0-1.0); MONOCYTES % (AUTO) 7 % (0-12); NEUTROPHILS # (AUTO) 7.1 X 10^3 (1.8-7.8); NEUTROPHILS % (AUTO) 77 % (42-75); PLATELET COUNT 300 10^3/uL (130-400); RED CELL DISTRIBUTION WIDTH 13.3 % (10.0-14.5); WHITE BLOOD COUNT 9.3 10^3/uL (4.3-11.0)
--- NOTE | 2019-02-04 12:00 | NUR ---
DR ELIAS HERE TALKING TO PT AT THIS TIME.
--- NOTE | 2019-02-04 12:08 | NUR ---
SURGERY RN HERE FOR PT AT THIS TIME.
[2019-02-04] MEDS ORDERED: LACTATED RINGERS 1,000 ML IV PRN (12:09)
--- NOTE | 2019-02-04 12:10 | Consultation (Surgery) ---
History of Present Illness History of Present Illness Patient Consulted On(lamberto/time) 02/04/19 12:03 Time Seen by Provider: 11:46 History of Present Illness Surgery asked to consult regarding Brandi-rectal abscess. HPI per ED: PT PRESENTS TO ED WITH COMPLAINTS OF L BUTTOCK SWELLING SINCE LAST WEDNESDAY. REPORTS SAW HER DR ON WEDNESDAY WHO TOLD HER THAT SHE NEEDED TO SEE A SURGEON AND PLACED HER ON BACTRIM. PT REPORTS SHE HAS APPT ON WEDNESDAY BUT HER PAIN HAS BECOME INTOLERABLE. 73 yo female patient presents to the ED with c/o left buttock swelling and pain. Onset last Wednesday. She was seen by Dr. Valentin on Wednesday and given bactrim and scheduled to see Dr. Sanabria on Wednesday. Patient reports pain and swelling is now intolerable. She does report chills, but denies known fever. She does have constipation and a poor appetite. Timing/Duration: getting worse, other (onset 1 week) Possible Cause: no cause identified Modifying Factors: worse with other (worse with sitting, palpations, and BM's.) Associated Symptoms: swelling/mass/lumps When I spoke to the pt, she rated the pain 10 out of 10, sharp stabbing. She has never had anything like this before; states she had colon resection with ostomy and then reversal about 2 yrs ago. She thinks the only thing different recently was that she was constipated. Allergies and Home Medications Allergies Coded Allergies: prednisone (Verified Adverse Reaction, Unknown, 02/04/19) PALPITATIONS Home Medications Amoxicillin/Potassium Clav 1 Each Tablet, 1 EACH PO BID Prescribed by: ALVAREZ STAFFORD on 08/19/17 170 Tramadol HCl 50 Mg Tablet, 50-100 MG PO Q4H Prescribed by: AMBER INFANTE on 08/19/17 1517 Zolpidem Tartrate 10 Mg Tablet, 10 MG PO HS, (Reported) Patient Home Medication List Home Medication List Reviewed: Yes Past Xddqyux-Epfnro-Fwsxqu Hx Patient Social History Alcohol Use: Denies Use Number of Drinks Today: AA Recreational Drug Use: No Smoking Status: Former Smoker Former Smoker, Quit: Nov 30, 1970 Type Used: Cigarettes Recent Foreign Travel: No Contact w/Someone Who Travel: No Recent Infectious Disease Expo: No Recent Hopitalizations: No Immunizations Up To Date Tetanus Booster (TDap): Unknown Date of Influenza Vaccine: Jun 16, 2017 Seasonal Allergies Seasonal Allergies: No Surgeries History of Surgeries: Yes (BILAT TKR, BOWEL RESECTION WITH COLOSOMY THEN REVERSAL) Surgeries: Abdominal, Orthopedic Respiratory History of Respiratory Disorde: No Cardiovascular History of Cardiac Disorders: No Neurological History of Neurological Disord: No 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 System Hx 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 Disorders: No Sexually Transmitted Disease: No HIV/AIDS: No Female 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 Genitourinary History of Genitourinary Disor: No Gastrointestinal History of Gastrointestinal Di: Yes Gastrointestinal Disorders: Abdominal Hernia, Diverticulosis Musculoskeletal History of Musculoskeletal Dis: No Endocrine History of Endocrine Disorders: No HEENT History of HEENT Disorders: No (CONTACTS) Loss of Vision: Denies Hearing Impairment: Denies Cancer History of Cancer: No Psychosocial History of Psychiatric Problem: Yes Behavioral Health Disorders: Sleep Difficulties, Anxiety Integumentary History of Skin or Integumenta: No Blood Transfusions History of Blood Disorders: No Adverse Reaction to a Blood Tr: No Family Medical History Significant Family History: No Pertinent Family Hx, Hypertension (brother) Family Medial History: Cardiovascular disease 19 FATHER Cataracts Review of Systems-General Constitutional: chills; No diaphoresis, No weakness EENTM: No blurred vision, No double vision, No mouth pain, No mouth swelling, No epistaxis Respiratory: No cough, No dyspnea on exertion, No hemoptysis, No short of breath Cardiovascular: No chest pain, No edema, No palpitations Gastrointestinal: No abdominal pain; constipation; No melena, No vomiting Genitourinary: No dysuria, No frequency, No hematuria Musculoskeletal: No joint pain, No muscle pain, No muscle stiffness, No muscle cramps Skin: see HPI; No change in color, No change in hair/nails Psychiatric/Neurological: Denies Anxiety, Denies Depressed, Denies Seizure, Denies Tremors Other pt denies any abnormal bleeding or bruising Physical Exam-General Problems Physical Exam Vital Signs Vital Signs - First Documented 02/04/19 10:05 Temp 98.2 Pulse 86 Resp 20 B/P (MAP) 136/77 (96) Pulse Ox 95 Capillary Refill : Less Than 3 Seconds General Appearance: WD/WN, mild distress Eyes: Bilateral Eye PERRL, Bilateral Eye EOMI HEENT: PERRL/EOMI, pharynx normal Neck: non-tender, full range of motion, supple, normal inspection Respiratory: chest non-tender, lungs clear, normal breath sounds, no respiratory distress, no accessory muscle use Cardiovascular: regular rate, rhythm, no edema, no murmur Gastrointestinal: normal bowel sounds, non tender, soft, no organomegaly, no pulsatile mass Rectal: other (exam with nurse in the room, large area of erythema left gluteal cheek. 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, no motor/sensory deficits, alert, normal mood/affect, oriented x 3 Skin: normal color, warm/dry Lymphatic: no adenopathy (neck, axilla or groin) Data Review Labs Laboratory Tests 02/04/19 11:44: White Blood Count 9.3, Red Blood Count 4.76, Hemoglobin 13.6, Hematocrit 41, Mean Corpuscular Volume 86, Mean Corpuscular Hemoglobin 29, Mean Corpuscular Hemoglobin Concent 33, Red Cell Distribution Width 13.3, Platelet Count 300, Mean Platelet Volume 9.4, Neutrophils (%) (Auto) 77H, Lymphocytes (%) (Auto) 15, Monocytes (%) (Auto) 7, Eosinophils (%) (Auto) 1, Basophils (%) (Auto) 0, Neutrophils # (Auto) 7.1, Lymphocytes # (Auto) 1.4, Monocytes # (Auto) 0.7, Eosinophils # (Auto) 0.1, Basophils # (Auto) 0.0 Assessment/Plan Assessment/Plan Assessment/Plan Brandi-rectal Abscess Plan is npo, IV fluids, IV abx precision grinder to OR, pain medications, anti-emetics and to the OR for Incision and Drainage with debridement and packing of wound. Discussed risks and complications with pt; including but not limited to pain, bleeding, infection, scar. ALCON ELIAS DO Feb 04, 2019 12:10
[2019-02-04 12:11] LABS: ALANINE AMINOTRANSFERASE 13 U/L (0-55); ALBUMIN 4.2 GM/DL (3.2-4.5); ALKALINE PHOSPHATASE 93 U/L (40-136); BILIRUBIN,TOTAL 0.5 MG/DL (0.1-1.0); BUN/CREATININE RATIO 16; CALCIUM 9.4 MG/DL (8.5-10.1); CARBON DIOXIDE 21 MMOL/L (21-32); CHLORIDE 104 MMOL/L (98-107); GFR ESTIMATED > 60; GLUCOSE 111 MG/DL (70-105); POTASSIUM 4.3 MMOL/L (3.6-5.0); SODIUM 136 MMOL/L (135-145); TOTAL PROTEIN 7.3 GM/DL (6.4-8.2)
[2019-02-04] MEDS ORDERED: LIDOCAINE PF 2% 5 ML (XYLOCAINE) VIAL ONE (12:12)
[2019-02-04] MEDS ORDERED: BUP/EPI 0.5% 1:200,000 (SENSORCAINE) 30 ML VIAL ONE (12:12)
[2019-02-04] MEDS ORDERED: proPOfol 200 MG/20 ML (DIPRIVAN) VIAL IV ONE (12:12)
[2019-02-04] MEDS ORDERED: fentaNYL INJECTION 100 MCG/2 ML AMP ONE (12:12)
[2019-02-04] MEDS ORDERED: MIDAZOLAM 2 MG/2 ML (VERSED) VIAL ONE (12:12)
[2019-02-04] MEDS ORDERED: ONDANSETRON 4 MG/2 ML (SDV) Z0FRAN IVP PRN (12:15)
[2019-02-04] MEDS ORDERED: morphine INJ 10 MG/ML 1ML (SYR OR VIAL) IVP ONE (12:15)
[2019-02-04] MEDS ORDERED: HYDROmorphone 2 MG/ML VIAL (DILAUDID) IV ONE (12:15)
[2019-02-04] MEDS ORDERED: CLINDAMYCIN 600 MG/4ML (CLEOCIN) VIAL ONE (12:44)
[2019-02-04] MEDS ORDERED: SEVOFLURANE (ULTANE) 15 ML INHAL SOLN ONE (12:58)
[2019-02-04] MEDS ORDERED: DEXAMETHASONE 10 MG/ML (DECADRON) 1 ML VIAL ONE (12:58)
[2019-02-04] MEDS ORDERED: ONDANSETRON 4 MG/2 ML (SDV) Z0FRAN ONE (12:58)
--- NOTE | 2019-02-04 13:26 | Progress Note-Post Operative ---
Post-Operative Progess Note Surgeon (s)/Polisher And Buffer (s) Surgeon ALCON ELIAS DO Polisher And Buffer: none Pre-Operative Diagnosis Brandi-rectal abscess Post-Operative Diagnosis same Procedure & Operative Findings Date of Procedure 02/04/19 Procedure Performed/Findings I&D with debridement and packing Anesthesia Type GET Estimated Blood Loss Estimated blood loss (mL): less than 5ml Specimens/Packing Specimens Removed none ALCON ELIAS DO Feb 04, 2019 13:26
[2019-02-04] MEDS ORDERED: ACHD5005 PO (13:30)
--- NOTE | 2019-02-04 13:31 | Discharge Inst-Surgical ---
Discharge Inst-Surgical Depart Medication/Instructions New, Converted or Re-Newed RX: RX Given to Pt/Family Patient Instructions Follow up Appt: Make appointment for 1 week. [phone] Instructions: May shower in 24 hours, sitz bath ok Use incentive spirometer at home as directed. No Smoking Skin/Wound Care: May remove bandages in am. You need to repack area daily, can go to ER on s unday and my Office during the week. Symptoms to Report: Appetite Changes, Extremity Discoloration, Numbness/Tingling, Swelling Increased, Bleeding Excessive, Eyesight Changes, Pain Increased, Urine Color Change, Constipation(Persistent), Fever over 101 degree F, Pain/Pressure in chest, Urinating Difficulty, Cough Up/Vomit Blood, Heart Beat Irreg/Pounding, P ain/Pressure in jaw, Cramps in feet or legs, Lightheadedness, Pain/Pressure in shoulder, Diarrhea(Persistent), Memory Changes Suddenly, Questions/Concerns, Weight gain consecutive days, Dizziness/Fainting, Nausea/Vomiting, Shortness of Breath, Weight gain over 2 pounds If questions or concerns contact your physician Or seek help at emergency department. Activity Activity as Tolerated: Yes Driving Instructions: No Driving/Refer to Dr. Levin Discharge Diet: No Restrictions Diet After 24 Hours: Clear Liquid if Nauseous If Any Problems/Questions/Issu: Contact Your Physician, Go to Emergency Room Skin/Wound Care Infection Signs and Symptoms: Increased Redness, Foul Odor of Wound, Increased Drainage, Skin Itchy or Has a Rash, Increased Swelling, Temperature Above 101 F Bathing Instructions: ALCON Rolon DO Feb 04, 2019 13:31
--- NOTE | 2019-02-04 14:10 | NUR ---
DEBBIE PERAZA admitted to room 427-1, with an admitting diagnosis of POST I&D PERIRECTAL ABCESS , on 02/04/19 from SURGERY RECOVERY via W/C, accompanied by .DEBBIE PERAZA introduced to surroundings, call light, bed controls, phone, TV, temperature control, lights, meal times, smoking policy, visitor policy, side rail policy, bathrooms and showers. Patient Rights given to patient in the handbook. DEBBIE PERAZA verbalizes understanding that [facility] is not responsible for the loss or damage to any personal effects or valuables that are kept in the patients posession during their hospitalization. DEBBIE PERAZA verbalizes understanding of Interdisciplinary Patient Education. Patient and/or family were informed about the Rapid Response Team and its purpose. NOTE THAT PT CAME TO FLOOR FROM RECOVERY W/ IVFS --
--- NOTE | 2019-02-04 16:38 | OPERATIVE REPORT ---
DATE OF SERVICE: 02/04/2019 PREOPERATIVE DIAGNOSIS: Perirectal abscess. POSTOPERATIVE DIAGNOSIS: Perirectal abscess. PROCEDURE: Incision and drainage with debridement and then packing of the perirectal abscess measured about 2.5 x 4 cm. SPECIMENS: None. There was already an , we obtained a culture in the emergency room. FLUIDS: Per anesthesia. BLEEDING: Less than 5 mL. INDICATION FOR PROCEDURE: The patient is a 73-year-old female who came in with pain in the perirectal area diagnosed with an abscess actually started draining a little bit in the ER, needed to go to surgery to get this drained. FINDINGS: The patient had an approximately 2.5 x 4 cm area of abscess with some erythema spreading out around this, did not go above the anal sphincter, stayed outside of it, did not appear to communicate with the rectum. PROCEDURE NOTE: After informed consent was obtained, the patient was brought to the operating room, placed on table in lithotomy position. She was sterilely prepped and draped in normal fashion. Made incision with #11 blade, carried down through the skin into the subcutaneous tissue immediately got out lot of purulent fluid. The area of the abscess was about 2.5 x 4 cm. Did not go up into the pass the anal sphincter. There was some necrotic fat and this was carefully, but roughly debrided with a lap sponge. Cut out some tissue with Bovie electrocautery. Copiously irrigated with sterile normal saline and then obtained hemostasis using the Bovie electrocautery and finally elected to pack this with a quarter inch iodoform packing. The patient was then transferred to recovery room in stable condition. Sponge, instrument and needle count correct at the end of the case. Job ID: [id number] DocumentID: [id number] Dictated Date: 02/04/2019 15:46:07 [employer] Date: 02/04/2019 16:37:32 Dictated By: ALCON ELIAS DO
== END 2019-02-04 15:34 | disposition home or self-care (01) ==
LOC: EDUNIT# 09:38 → ER 09:40 → SDC 12:06 → 4TH 14:25 → SDC 15:34
PROVIDERS: ATTEND Surgery
DX: K61.1 Rectal abscess (principal); F41.9 Anxiety disorder, unspecified; Z87.891 Personal history of nicotine dependence; Z79.899 Other long term (current) drug therapy
CPT/HCPCS: 36415; 80053; 85025; 86141

== ENCOUNTER 2019-02-05 11:03 | Emergency (ER) | payer MEDICARE, OTHER ==
[~2019-02-05] VITALS: Ht 157.5 cm; Wt 76.2 kg
[~2019-02-05 11:03] MED LIST changes: +ACHD5005 PO
--- OUTSIDE RECORDS SUMMARY | 2019-02-05 11:14 | XMS REPORT | Continuity of Care Document ---
Author Organization Unknown Address Unknown Allergies Active Description Code Type Severity Reaction Onset Reported/Identified Relationship to Patient Clinical Status Yes PREDNISONE UNKNOWN OTHER Yes No Known Drug Allergies [id number] Drug Allergy Unknown N/A 11/30/2016 Medications There is no data. 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 08/20/2016 AMBER INFANTE MD Ot M19.90 UNSPECIFIED OSTEOARTHRITIS, UNSPECIFIED 08/20/2016 AMBER INFANTE MD Ot M79.7 FIBROMYALGIA 08/20/2016 NARESH HERCULES, AMBER Ot Z96.653 PRESENCE OF ARTIFICIAL KNEE JOINT, BILAT 08/21/2016 AMBER INFANTE MD Ot A41.9 SEPSIS, UNSPECIFIED ORGANISM 08/21/2016 AMBER INFANTE MD Ot E87.2 ACIDOSIS 08/21/2016 AMBER INFANTE MD Ot E87.6 HYPOKALEMIA 08/21/2016 AMBER INFANTE MD Ot F32.9 MAJOR DEPRESSIVE DISORDER, SINGLE EPISOD 08/21/2016 AMBER INFANTE MD Ot F41.9 ANXIETY DISORDER, UNSPECIFIED 08/21/2016 AMBER [...] INFANTE MD Ot E86.0 DEHYDRATION 10/06/2016 AMBER INFNATE MD Ot F32.9 MAJOR DEPRESSIVE DISORDER, SINGLE EPISOD 10/06/2016 AMBER INFANTE MD Ot F41.9 ANXIETY DISORDER, UNSPECIFIED 10/06/2016 AMBER INFANTE MD Ot G47.9 SLEEP DISORDER, UNSPECIFIED 10/06/2016 AMBER INFANTE MD Ot 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 10/06/2016 AMBER INFANTE MD Ot K59.00 CONSTIPATION, UNSPECIFIED 10/06/2016 AMBER INFANTE MD Ot M79.7 FIBROMYALGIA 10/06/2016 NARESH HERCULES, AMBER Ot Z96.653 PRESENCE OF ARTIFICIAL KNEE JOINT, BILAT 10/08/2016 AMBER INFANTE MD Ot E86.0 DEHYDRATION 10/08/2016 AMBER INFANTE MD Ot F32.9 MAJOR DEPRESSIVE DISORDER, SINGLE EPISOD 10/08/2016 AMBER INFANTE MD Ot F41.9 ANXIETY DISORDER, UNSPECIFIED 10/08/2016 AMBER INFANTE MD Ot G47.9 SLEEP DISORDER, UNSPECIFIED 10/08/2016 AMBER INFANTE MD Ot 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 10/08/2016 AMBER INFANTE MD Ot K59.00 CONSTIPATION, UNSPECIFIED 10/08/2016 AMBER INFANTE MD, Ot M79.7 FIBROMYALGIA 10/08/2016 AMBER INFANTE MD Ot Z96.653 PRESENCE OF ARTIFICIAL KNEE JOINT, BILAT 10/15/2016 AMBER INFANTE MD Ot F32.9 MAJOR DEPRESSIVE DISORDER, SINGLE EPISOD 10/15/2016 AMBER INFANTE MD Ot F41.9 ANXIETY DISORDER, UNSPECIFIED 10/15/2016 AMBER INFANTE MD Ot G47.00 INSOMNIA, UNSPECIFIED 10/15/2016 AMBER INFANTE MD Ot K57.32 DVTRCLI OF LG INT W/O PERFORATION OR ABS 10/15/2016 AMBER INFANTE MD Ot M79.7 FIBROMYALGIA 10/15/2016 AMBER INFANTE MD Ot Z96.653 PRESENCE OF ARTIFICIAL KNEE JOINT, BILAT 10/16/2016 AMBER INFANTE MD Ot F32.9 MAJOR DEPRESSIVE DISORDER, SINGLE EPISOD 10/16/2016 AMBER INFANTE MD Ot F41.9 ANXIETY DISORDER, UNSPECIFIED 10/16/2016 AMBER INFANTE MD Ot G47.00 INSOMNIA, UNSPECIFIED 10/16/2016 AMBER INFANTE MD Ot K57.32 DVTRCLI OF LG INT W/O PERFORATION OR ABS 10/16/2016 AMBER INFANTE MD Ot M79.7 FIBROMYALGIA 10/16/2016 AMBER INFANTE MD Ot Z96.653 PRESENCE OF ARTIFICIAL KNEE JOINT, BILAT 10/17/2016 AMBER INFANTE MD Ot F32.9 MAJOR DEPRESSIVE DISORDER, SINGLE EPISOD 10/17/2016 AMBER INFANTE MD Ot F41.9 ANXIETY DISORDER, UNSPECIFIED 10/17/2016 AMBER INFANTE MD Ot G47.00 INSOMNIA, UNSPECIFIED 10/17/2016 AMBRE INFANTE MD Ot K57.32 DVTRCLI OF LG INT W/O PERFORATION OR ABS 10/17/2016 AMBER INFANTE MD Ot M79.7 FIBROMYALGIA 10/17/2016 AMBER INFANTE MD Ot Z96.653 PRESENCE OF ARTIFICIAL KNEE JOINT, BILAT 10/17/2016 AMBER INFANTE MD Ot F32.9 MAJOR DEPRESSIVE DISORDER, SINGLE EPISOD 10/17/2016 AMBER INFANTE MD Ot F41.9 ANXIETY DISORDER, UNSPECIFIED 10/17/2016 AMBER INFANTE MD Ot G47.00 INSOMNIA, UNSPECIFIED 10/17/2016 AMBER INFANTE MD Ot K57.32 DVTRCLI OF LG INT W/O PERFORATION OR ABS 10/17/2016 AMBER INFANTE MD Ot M79.7 FIBROMYALGIA 10/17/2016 AMBER INFANTE MD Ot Z96.653 PRESENCE OF ARTIFICIAL KNEE JOINT, BILAT 10/18/2016 AMBER INFANTE MD Ot F32.9 MAJOR DEPRESSIVE DISORDER, SINGLE EPISOD 10/18/2016 AMBER INFANTE MD Ot F41.9 ANXIETY DISORDER, UNSPECIFIED 10/18/2016 AMBER INFANTE MD Ot G47.00 INSOMNIA, UNSPECIFIED 10/18/2016 AMBER INFANTE MD Ot K57.32 DVTRCLI OF LG INT W/O PERFORATION OR ABS 10/18/2016 AMBER INFANTE MD Ot M79.7 FIBROMYALGIA 10/18/2016 AMBER INFANTE MD Ot Z96.653 PRESENCE OF ARTIFICIAL KNEE JOINT, BILAT 10/18/2016 AMBER INFANTE MD Ot F32.9 MAJOR DEPRESSIVE DISORDER, SINGLE EPISOD 10/18/2016 AMBER INFANTE MD Ot F41.9 ANXIETY DISORDER, UNSPECIFIED 10/18/2016 AMBER INFANTE MD Ot G47.00 INSOMNIA, UNSPECIFIED 10/18/2016 AMBER INFANTE MD Ot 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 10/18/2016 AMBER INFANTE MD Ot K57.32 DVTRCLI OF LG INT W/O PERFORATION OR ABS 10/18/2016 AMBER INFANTE MD, Ot M79.7 FIBROMYALGIA 10/18/2016 AMBER INFANTE MD, Ot Z96.653 PRESENCE OF ARTIFICIAL KNEE JOINT, BILAT 11/30/2016 AMBER INFANTE MD, Ot K57.32 DVTRCLI OF LG INT W/O PERFORATION OR ABS 11/30/2016 AMBER INFANTE MD, Ot K57.92 DVTRCLI OF INTEST, PART UNSP, W/O PERF O 11/30/2016 AMBER INFANTE MD, Ot Z01.812 ENCOUNTER FOR PREPROCEDURAL LABORATORY E 11/30/2016 AMBER INFANTE MD, Ot Z11.2 ENCOUNTER FOR SCREENING FOR OTHER BACTER 12/04/2016 AMBER INFANTE MD, Ot F41.9 ANXIETY DISORDER, UNSPECIFIED 12/04/2016 AMBER INFANTE MD, Ot G47.9 SLEEP DISORDER, UNSPECIFIED 12/04/2016 AMBER INFANTE MD Ot K57.30 DVRTCLOS OF LG INT W/O PERFORATION OR AB 12/04/2016 AMBER INFANTE MD Ot Z43.3 ENCOUNTER FOR ATTENTION TO COLOSTOMY 12/04/2016 AMBER INFANTE MD Ot Z87.19 PERSONAL HISTORY OF OTHER DISEASES OF TH 12/06/2016 AMBER INFANTE MD, Ot F41.9 ANXIETY DISORDER, UNSPECIFIED 12/06/2016 AMBER INFANTE MD, Ot G47.9 SLEEP DISORDER, UNSPECIFIED 12/06/2016 AMBER INFANTE MD, Ot K57.30 DVRTCLOS OF LG INT W/O PERFORATION OR AB 12/06/2016 AMBER INFANTE MD Ot Z43.3 ENCOUNTER FOR ATTENTION TO COLOSTOMY 12/06/2016 AMBER INFANTE MD, Ot Z87.19 PERSONAL HISTORY OF OTHER DISEASES OF TH 12/07/2016 AMBER INFANTE MD, Ot F41.9 ANXIETY DISORDER, UNSPECIFIED 12/07/2016 AMBER INFANTE MD, Ot G47.9 SLEEP DISORDER, UNSPECIFIED 12/07/2016 AMBER INFANTE MD Ot K57.30 DVRTCLOS OF LG INT W/O PERFORATION OR AB 12/07/2016 AMBER INFANTE MD, Ot Z43.3 ENCOUNTER FOR ATTENTION TO COLOSTOMY 12/07/2016 AMBER INFANTE MD, Ot Z87.19 PERSONAL HISTORY OF OTHER DISEASES OF TH 12/08/2016 AMBER INFANTE MD, Ot F41.9 ANXIETY DISORDER, UNSPECIFIED 12/08/2016 AMBER INFANTE MD, Ot G47.9 SLEEP DISORDER, UNSPECIFIED 12/08/2016 AMBER INFANTE MD, Ot K57.30 DVRTCLOS OF LG INT W/O PERFORATION OR AB 12/08/2016 AMBER INFANTE MD, Ot Z43.3 ENCOUNTER FOR ATTENTION TO COLOSTOMY 12/08/2016 AMBER INFANTE MD, Ot Z87.19 PERSONAL HISTORY OF OTHER DISEASES OF 12/09/2016 AMBER INFANTE MD, Ot F41.9 ANXIETY DISORDER, UNSPECIFIED 12/09/2016 AMBER INFANTE MD, Ot G47.9 SLEEP DISORDER, UNSPECIFIED 12/09/2016 AMBER INFANTE MD, Ot K57.30 DVRTCLOS OF LG INT W/O PERFORATION OR AB 12/09/2016 AMBER INFANTE MD, Ot Z43.3 ENCOUNTER FOR ATTENTION TO COLOSTOMY 12/09/2016 AMBER INFANTE MD, Ot Z87.19 PERSONAL HISTORY OF OTHER DISEASES OF 12/10/2016 AMBER INFANTE MD Ot E87.6 HYPOKALEMIA 12/10/2016 AMBER INFANTE MD, Ot F32.9 MAJOR DEPRESSIVE DISORDER, SINGLE EPISOD 12/10/2016 AMBER INFANTE MD, Ot F41.9 ANXIETY DISORDER, UNSPECIFIED 12/10/2016 AMBER INFANTE MD, Ot G47.00 INSOMNIA, UNSPECIFIED 12/10/2016 AMBER INFANTE MD, Ot J98.11 ATELECTASIS 12/10/2016 AMBER INFANTE MD, Ot K56.7 ILEUS, UNSPECIFIED 12/10/2016 AMBER INFANTE MD, Ot K57.30 DVRTCLOS OF LG INT W/O PERFORATION OR AB 12/10/2016 AMBER INFANTE MD, Ot K91.89 OTH POSTPROCEDURAL COMPLICATIONS AND DIS 12/10/2016 AMBER INFANTE MD, Ot R33.9 RETENTION OF URINE, UNSPECIFIED 12/10/2016 AMBER INFANTE MD, Ot Z43.3 ENCOUNTER FOR ATTENTION TO COLOSTOMY 12/10/2016 AMBER INFANTE MD, Ot Z87.19 PERSONAL HISTORY OF OTHER DISEASES OF TH 08/16/2017 AMBER INFANTE MD, Ot K43.2 INCISIONAL HERNIA WITHOUT OBSTRUCTION OR 08/16/2017 AMBER INFANTE MD, Ot Z01.812 ENCOUNTER FOR PREPROCEDURAL LABORATORY E 08/16/2017 AMBER INFANTE MD, Ot Z11.2 ENCOUNTER FOR SCREENING FOR OTHER BACTER 08/19/2017 AMBER INFANTE MD, Ot F32.9 MAJOR DEPRESSIVE DISORDER, SINGLE EPISOD 08/19/2017 AMBER INFANTE MD, Ot F41.9 ANXIETY DISORDER, UNSPECIFIED 08/19/2017 AMBER INFANTE MD, Ot K43.2 INCISIONAL HERNIA WITHOUT OBSTRUCTION OR 08/19/2017 AMBER INFANTE MD, Ot K43.6 OTHER AND UNSP VENTRAL HERNIA WITH OBSTR 08/19/2017 AMBER INFANTE MD, Ot K66.0 PERITONEAL ADHESIONS (POSTPROCEDURAL) (P 08/19/2017 AMBER INFANTE MD, Ot K91.72 ACC PNCTR LAC OF A DGSTV SYS ORG DURIN 08/19/2017 AMBER INFANTE MD, Ot M19.91 PRIMARY OSTEOARTHRITIS, UNSPECIFIED SITE 08/19/2017 AMBER INFANTE MD, Ot M79.7 FIBROMYALGIA 08/19/2017 AMBER INFANTE MD, Ot Z79.899 OTHER [facility] (CURRENT) DRUG THERAPY 08/19/2017 AMBER INFANTE MD, Ot Z96.651 PRESENCE OF RIGHT ARTIFICIAL KNEE JOINT 02/14/2018 EDGAR TEMPLETON V76.10 BREAST SCREENING, UNSPECIFIED 02/14/2018 EDGAR TEMPLETON Z12.39 ENCOUNTER FOR OTHER SCREENING FOR MALIGNANT NEOPLASM OF BREAST 02/14/2018 EDGAR TEMPLETON V76.10 BREAST SCREENING, UNSPECIFIED 02/14/2018 EDGAR TEMPLETON Z12.39 ENCOUNTER FOR OTHER SCREENING FOR MALIGNANT NEOPLASM OF BREAST Procedures Code Description Performed By Performed On [id number] BYPASS DESCEND COLON TO CUTAN WITH AUTOL 10/15/2016 [id number] EXCISION OF DESCENDING COLON, PERC ENDO 10/15/2016 [id number] EXCISION OF RECTUM, PERCUTANEOUS ENDOSCO 10/15/2016 [id number] RESECTION OF SIGMOID COLON, PERCUTANEOUS 10/15/2016 [id number] EXCISION OF DESCENDING COLON, PERC ENDO 10/18/2016 [id number] EXCISION OF RECTUM, PERCUTANEOUS ENDOSCO 10/18/2016 [id number] RESECTION OF SIGMOID COLON, PERCUTANEOUS 10/18/2016 [id number] REPAIR DESCENDING COLON, ENDO 12/03/2016 [id number] REPOSITION DESCENDING COLON, PERC ENDO A 12/03/2016 [id number] REPAIR ABDOMINAL WALL, OPEN APPROACH 12/03/2016 [id number] REPAIR SMALL INTESTINE, OPEN APPROACH 08/19/2017 [id number] REPAIR ABDOMINAL WALL, OPEN APPROACH 08/19/2017 Results Test Result Range Automated blood complete blood count (hemogram) panel - 08/18/16 15:36 Blood leukocytes automated count (number/volume) 11.7 10*3/uL 4.3-11.0 Blood erythrocytes automated count (number/volume) 4.60 10*6/uL 4.35-5.85 Venous blood hemoglobin measurement (mass/volume) 11.7 g/dL 11.5-16.0 Blood hematocrit (volume fraction) 36 % 35-52 Automated erythrocyte mean corpuscular volume 79 [foz_us] 80-99 Automated erythrocyte mean corpuscular hemoglobin (mass per erythrocyte) 25 pg 25-34 Automated erythrocyte mean corpuscular hemoglobin concentration measurement (mass/volume) 32 g/dL 32-36 Automated erythrocyte distribution width ratio 14.1 % 10.0- 14.5 Automated blood platelet count (count/volume) 613 10*3/uL 130-400 Automated blood platelet mean volume measurement 8.9 [foz_us] 7.4-10.4 Comprehensive metabolic panel - 08/18/16 15:36 Serum or plasma sodium measurement (moles/volume) 138 mmol/L 135-145 Serum or plasma potassium measurement (moles/volume) 3.8 mmol/L 3.6-5.0 Serum or plasma chloride measurement (moles/volume) 103 mmol/L 98-107 Carbon dioxide 25 mmol/L 21-32 Serum or plasma anion gap determination (moles/volume) 10 mmol/L 5-14 Serum or plasma urea nitrogen measurement (mass/volume) 13 mg/dL 7-18 Serum or plasma creatinine measurement (mass/volume) 0.79 mg/dL 0.60-1.30 Serum or plasma urea nitrogen/creatinine mass [...] Serum or plasma aspartate aminotransferase measurement (enzymatic activity/volume) 20 U/L 5-34 Serum or plasma alanine aminotransferase measurement (enzymatic activity/volume) 20 U/L 0-55 Serum or plasma protein measurement (mass/volume) 7.4 g/dL 6.4-8.2 Serum or plasma albumin measurement (mass/volume) 3.7 g/dL 3.2-4.5 Complete blood count (CBC) with automated white blood cell (WBC) differential - 08/18/16 18:28 Blood leukocytes automated count (number/volume) 12.7 10*3/uL 4.3-11.0 Blood erythrocytes automated count (number/volume) 3.92 10*6/uL 4.35-5.85 Venous blood hemoglobin measurement (mass/volume) 9.9 g/dL 11.5-16.0 Blood hematocrit (volume fraction) 31 % 35-52 Automated erythrocyte mean corpuscular volume 79 [foz_us] 80-99 Automated erythrocyte mean corpuscular hemoglobin (mass per erythrocyte) 25 pg 25-34 Automated erythrocyte mean corpuscular hemoglobin concentration measurement (mass/volume) 32 g/dL 32-36 Automated erythrocyte distribution width ratio 13.9 % 10.0- 14.5 Automated blood platelet count (count/volume) 522 10*3/uL 130-400 Automated blood platelet mean volume measurement 9.1 [foz_us] 7.4-10.4 Automated blood neutrophils/100 leukocytes 89 % 42-75 Automated blood lymphocytes/100 leukocytes 6 % 12-44 Blood monocytes/100 leukocytes 4 % 0-12 Automated blood eosinophils/100 leukocytes 0 % 0-10 Automated blood basophils/100 leukocytes 0 % 0-10 Blood neutrophils automated count (number/volume) 11.4 10*3 1.8-7.8 Blood lymphocytes automated count (number/volume) 0.8 10*3 1.0-4.0 Blood monocytes automated count (number/volume) 0.5 10*3 0.0- 1.0 Automated eosinophil count 0.0 10*3/uL 0.0-0.3 Automated blood basophil count (count/volume) 0.0 10*3/uL 0.0-0.1 Blood lactic acid measurement (moles/volume) - 08/18/16 18:28 Blood lactic acid measurement (moles/volume) 2.7 mmol/L 0.5- 2.0 Blood manual differential performed detection - 08/18/16 [...] Serum or plasma lactate measurement (moles/volume) 0.6 mmol/L 0.5-2.0 Complete blood count (CBC) with automated white blood cell (WBC) differential - 08/19/16 05:47 Blood leukocytes automated count (number/volume) 8.7 10*3/uL 4.3-11.0 Blood erythrocytes automated count (number/volume) 3.79 10*6/uL 4.35-5.85 Venous blood hemoglobin measurement (mass/volume) 9.6 g/dL 11.5-16.0 Blood hematocrit (volume fraction) 30 % 35-52 Automated erythrocyte mean corpuscular volume 79 [foz_us] 80-99 Automated erythrocyte mean corpuscular hemoglobin (mass per erythrocyte) 25 pg 25-34 Automated erythrocyte mean corpuscular hemoglobin concentration measurement (mass/volume) 32 g/dL 32-36 Automated erythrocyte distribution width ratio 14.0 % 10.0- 14.5 Automated blood platelet count (count/volume) 469 10*3/uL 130-400 Automated blood platelet mean volume measurement 8.6 [foz_us] 7.4-10.4 Automated blood neutrophils/100 leukocytes 78 % 42-75 Automated blood lymphocytes/100 leukocytes 15 % 12-44 Blood monocytes/100 leukocytes 7 % 0-12 Automated blood eosinophils/100 leukocytes 0 % 0-10 Automated blood basophils/100 leukocytes 0 % 0-10 Blood neutrophils automated count (number/volume) 6.8 10*3 1.8-7.8 Blood lymphocytes automated count (number/volume) 1.3 10*3 1.0-4.0 Blood monocytes automated count (number/volume) 0.6 10*3 0.0- 1.0 Automated eosinophil count 0.0 10*3/uL 0.0-0.3 Automated blood basophil count (count/volume) 0.0 10*3/uL 0.0-0.1 Blood lactic acid measurement (moles/volume) - 08/19/16 05:47 Blood lactic acid measurement (moles/volume) 0.5 mmol/L 0.5- 2.0 Whole blood basic metabolic panel - 08/19/16 05:47 Serum or plasma sodium measurement (moles/volume) 136 mmol/L 135-145 Serum or plasma potassium measurement (moles/volume) 3.2 mmol/L 3.6-5.0 Serum or plasma chloride measurement (moles/volume) 105 mmol/L 98-107 Carbon dioxide 21 mmol/L 21-32 Serum or plasma anion gap determination (moles/volume) 10 mmol/L 5-14 Serum or plasma urea nitrogen measurement (mass/volume) 8 mg/dL 7-18 Serum or plasma creatinine measurement (mass/volume) 0.57 mg/dL 0.60-1.30 Serum or plasma urea nitrogen/creatinine mass ratio 14 NRG Serum or plasma creatinine measurement with calculation of estimated glomerular filtration rate > NRG Serum or plasma glucose measurement (mass/volume) 121 mg/dL 70-105 Serum or plasma calcium measurement (mass/volume) 8.2 mg/dL 8.5-10.1 Complete blood count (CBC) with automated white blood cell (WBC) differential - 08/20/16 11:21 Blood leukocytes automated count (number/volume) 7.1 10*3/uL 4.3-11.0 Blood erythrocytes automated count (number/volume) 4.11 10*6/uL 4.35-5.85 Venous blood hemoglobin measurement (mass/volume) 10.3 g/dL 11.5-16.0 Blood hematocrit (volume fraction) 32 % 35-52 Automated erythrocyte mean corpuscular volume 79 [foz_us] 80-99 Automated erythrocyte mean corpuscular hemoglobin (mass per erythrocyte) 25 pg 25-34 Automated erythrocyte mean corpuscular hemoglobin concentration measurement (mass/volume) 32 g/dL 32-36 Automated erythrocyte distribution width ratio 13.8 % 10.0- 14.5 Automated blood platelet count (count/volume) 516 10*3/uL 130-400 Automated blood platelet mean volume measurement 9.0 [foz_us] 7.4-10.4 Automated blood neutrophils/100 leukocytes 73 % 42-75 Automated blood lymphocytes/100 leukocytes 20 % 12-44 Blood monocytes/100 leukocytes 7 % 0-12 Automated blood eosinophils/100 leukocytes 0 % 0-10 Automated blood basophils/100 leukocytes 0 % 0-10 Blood neutrophils automated count (number/volume) 5.2 10*3 1.8-7.8 Blood lymphocytes automated count (number/volume) 1.4 10*3 1.0-4.0 Blood monocytes automated count (number/volume) 0.5 10*3 0.0- 1.0 Automated eosinophil count 0.0 10*3/uL 0.0-0.3 Automated blood basophil count (count/volume) 0.0 10*3/uL 0.0-0.1 Comprehensive metabolic panel - 08/20/16 11:21 Serum or plasma sodium measurement (moles/volume) 136 mmol/L 135-145 Serum or plasma potassium measurement (moles/volume) 3.4 mmol/L 3.6-5.0 Serum or plasma chloride measurement (moles/volume) 105 mmol/L 98-107 Carbon dioxide 19 mmol/L 21-32 Serum or plasma anion gap determination (moles/volume) 12 mmol/L 5-14 Serum or plasma urea nitrogen measurement (mass/volume) 4 mg/dL 7-18 Serum or plasma creatinine measurement (mass/volume) 0.58 mg/dL 0.60-1.30 Serum or plasma urea nitrogen/creatinine mass [...] Serum or plasma aspartate aminotransferase measurement (enzymatic activity/volume) 16 U/L 5-34 Serum or plasma alanine aminotransferase measurement (enzymatic activity/volume) 17 U/L 0-55 Serum or plasma protein measurement (mass/volume) 6.6 g/dL 6.4-8.2 Serum or plasma albumin measurement (mass/volume) 3.4 g/dL 3.2-4.5 Serum or plasma C reactive protein measurement (mass/volume) - 10/04/16 10:50 Serum or plasma C reactive protein measurement (mass/volume) 11.85 mg/dL 0.00-0.50 Complete blood count (CBC) with automated white blood cell (WBC) differential - 10/04/16 10:52 Blood leukocytes automated count (number/volume) 12.3 10*3/uL 4.3-11.0 Blood erythrocytes automated count (number/volume) 5.09 10*6/uL 4.35-5.85 Venous blood hemoglobin measurement (mass/volume) 13.2 g/dL 11.5-16.0 Blood hematocrit (volume fraction) 40 % 35-52 Automated erythrocyte mean corpuscular volume 78 [foz_us] 80-99 Automated erythrocyte mean corpuscular hemoglobin (mass per erythrocyte) 26 pg 25-34 Automated erythrocyte mean corpuscular hemoglobin concentration measurement (mass/volume) 33 g/dL 32-36 Automated erythrocyte distribution width ratio 16.8 % 10.0- 14.5 Automated blood platelet count (count/volume) 411 10*3/uL 130-400 Automated blood platelet mean volume measurement 9.6 [foz_us] 7.4-10.4 Automated blood neutrophils/100 leukocytes 88 % 42-75 Automated blood lymphocytes/100 leukocytes 7 % 12-44 Blood monocytes/100 leukocytes 5 % 0-12 Automated blood eosinophils/100 leukocytes 0 % 0-10 Automated blood basophils/100 leukocytes 0 % 0-10 Blood neutrophils automated count (number/volume) 10.8 10*3 1.8-7.8 Blood lymphocytes automated count (number/volume) 0.9 10*3 1.0-4.0 Blood monocytes automated count (number/volume) 0.6 10*3 0.0- 1.0 Automated eosinophil count 0.0 10*3/uL 0.0-0.3 Automated [...] Serum or plasma sodium measurement (moles/volume) 136 mmol/L 135-145 Serum or plasma potassium measurement (moles/volume) 4.0 mmol/L 3.6-5.0 Serum or plasma chloride measurement (moles/volume) 103 mmol/L 98-107 Carbon dioxide 20 mmol/L 21-32 Serum or plasma anion gap determination (moles/volume) 13 mmol/L 5-14 Serum or plasma urea nitrogen measurement (mass/volume) 15 mg/dL 7-18 Serum or plasma creatinine measurement (mass/volume) 0.73 mg/dL 0.60-1.30 Serum or plasma urea nitrogen/creatinine mass [...] Serum or plasma aspartate aminotransferase measurement (enzymatic activity/volume) 16 U/L 5-34 Serum or plasma alanine aminotransferase measurement (enzymatic activity/volume) 16 U/L 0-55 Serum or plasma protein measurement (mass/volume) 7.2 g/dL 6.4-8.2 Serum or plasma albumin measurement (mass/volume) 4.0 g/dL 3.2-4.5 Lipase - 10/04/16 10:52 Lipase 8 U/L 8-78 Complete urinalysis with reflex to culture - 10/04/16 11:35 Urine color determination YELLOW NRG Urine clarity determination CLEAR NRG Urine pH measurement by test strip 5 5-9 Specific gravity of urine by test strip [...] sediment leukocyte count by microscopy (number/high power field) [HPF] NRG Bacteria detection in urine sediment [...] Blood lactic acid measurement (moles/volume) 1.1 mmol/L 0.5- 2.0 Bacterial blood culture - 10/04/16 11:55 Bacterial blood culture NG NRG Bacterial blood culture - 10/04/16 12:00 Bacterial blood culture NG NRG Complete blood count (CBC) with automated white blood cell (WBC) differential - 10/05/16 04:15 Blood leukocytes automated count (number/volume) 7.6 10*3/uL 4.3-11.0 Blood erythrocytes automated count (number/volume) 4.17 10*6/uL 4.35-5.85 Venous blood hemoglobin measurement (mass/volume) 10.7 g/dL 11.5-16.0 Blood hematocrit (volume fraction) 33 % 35-52 Automated erythrocyte mean corpuscular volume 80 [foz_us] 80-99 Automated erythrocyte mean corpuscular hemoglobin (mass per erythrocyte) 26 pg 25-34 Automated erythrocyte mean corpuscular hemoglobin concentration measurement (mass/volume) 32 g/dL 32-36 Automated erythrocyte distribution width ratio 16.6 % 10.0- 14.5 Automated blood platelet count (count/volume) 324 10*3/uL 130-400 Automated blood platelet mean volume measurement 9.5 [foz_us] 7.4-10.4 Automated blood neutrophils/100 leukocytes 67 % 42-75 Automated blood lymphocytes/100 leukocytes 24 % 12-44 Blood monocytes/100 leukocytes 9 % 0-12 Automated blood eosinophils/100 leukocytes 0 % 0-10 Automated blood basophils/100 leukocytes 0 % 0-10 Blood neutrophils automated count (number/volume) 5.0 10*3 1.8-7.8 Blood lymphocytes automated count (number/volume) 1.8 10*3 1.0-4.0 Blood monocytes automated count (number/volume) 0.7 10*3 0.0- 1.0 Automated eosinophil count 0.0 10*3/uL 0.0-0.3 Automated blood basophil count (count/volume) 0.0 10*3/uL 0.0-0.1 Comprehensive metabolic panel - 10/05/16 04:15 Serum or plasma sodium measurement (moles/volume) 138 mmol/L 135-145 Serum or plasma potassium measurement (moles/volume) 4.1 mmol/L 3.6-5.0 Serum or plasma chloride measurement (moles/volume) 110 mmol/L 98-107 Carbon dioxide 19 mmol/L 21-32 Serum or plasma anion gap determination (moles/volume) 9 mmol/L 5-14 Serum or plasma urea nitrogen measurement (mass/volume) 7 mg/dL 7-18 Serum or plasma creatinine measurement (mass/volume) 0.62 mg/dL 0.60-1.30 Serum or plasma urea nitrogen/creatinine mass [...] Serum or plasma aspartate aminotransferase measurement (enzymatic activity/volume) 12 U/L 5-34 Serum or plasma alanine aminotransferase measurement (enzymatic activity/volume) 9 U/L 0-55 Serum or plasma protein measurement (mass/volume) 5.8 g/dL 6.4-8.2 Serum or plasma albumin measurement (mass/volume) 3.2 g/dL 3.2-4.5 Serum or plasma C reactive protein measurement (mass/volume) - 10/05/16 04:15 Serum or plasma C reactive protein measurement (mass/volume) 12.96 mg/dL 0.00-0.50 Complete blood count (CBC) with automated white blood cell (WBC) differential - 10/06/16 09:22 Blood leukocytes automated count (number/volume) 5.9 10*3/uL 4.3-11.0 Blood erythrocytes automated count (number/volume) 4.48 10*6/uL 4.35-5.85 Venous blood hemoglobin measurement (mass/volume) 11.6 g/dL 11.5-16.0 Blood hematocrit (volume fraction) 35 % 35-52 Automated erythrocyte mean corpuscular volume 79 [foz_us] 80-99 Automated erythrocyte mean corpuscular hemoglobin (mass per erythrocyte) 26 pg 25-34 Automated erythrocyte mean corpuscular hemoglobin concentration measurement (mass/volume) 33 g/dL 32-36 Automated erythrocyte distribution width ratio 16.4 % 10.0- 14.5 Automated blood platelet count (count/volume) 389 10*3/uL 130-400 Automated blood platelet mean volume measurement 9.2 [foz_us] 7.4-10.4 Automated blood neutrophils/100 leukocytes 71 % 42-75 Automated blood lymphocytes/100 leukocytes 21 % 12-44 Blood monocytes/100 leukocytes 7 % 0-12 Automated blood eosinophils/100 leukocytes 0 % 0-10 Automated blood basophils/100 leukocytes 0 % 0-10 Blood neutrophils automated count (number/volume) 4.2 10*3 1.8-7.8 Blood lymphocytes automated count (number/volume) 1.3 10*3 1.0-4.0 Blood monocytes automated count (number/volume) 0.4 10*3 0.0- 1.0 Automated eosinophil count 0.0 10*3/uL 0.0-0.3 Automated blood basophil count (count/volume) 0.0 10*3/uL 0.0-0.1 Comprehensive metabolic panel - 10/06/16 09:22 Serum or plasma sodium measurement (moles/volume) 140 mmol/L 135-145 Serum or plasma potassium measurement (moles/volume) 3.7 mmol/L 3.6-5.0 Serum or plasma chloride measurement (moles/volume) 108 mmol/L 98-107 Carbon dioxide 19 mmol/L 21-32 Serum or plasma anion gap determination (moles/volume) 13 mmol/L 5-14 Serum or plasma urea nitrogen measurement (mass/volume) 4 mg/dL 7-18 Serum or plasma creatinine measurement (mass/volume) 0.58 mg/dL 0.60-1.30 Serum or plasma urea nitrogen/creatinine mass [...] Serum or plasma aspartate aminotransferase measurement (enzymatic activity/volume) 16 U/L 5-34 Serum or plasma alanine aminotransferase measurement (enzymatic activity/volume) 14 U/L 0-55 Serum or plasma protein measurement (mass/volume) 6.5 g/dL 6.4-8.2 Serum or plasma albumin measurement (mass/volume) 3.6 g/dL 3.2-4.5 Erythrocyte sedimentation rate by westergren method - 10/06/16 09:22 Erythrocyte sedimentation rate by westergren method 72 mm 0-30 Complete blood count (CBC) with automated white blood cell (WBC) differential - 10/13/16 10:34 Blood leukocytes automated count (number/volume) 11.0 10*3/uL 4.3-11.0 Blood erythrocytes automated count (number/volume) 4.69 10*6/uL 4.35-5.85 Venous blood hemoglobin measurement (mass/volume) 12.0 g/dL 11.5-16.0 Blood hematocrit (volume fraction) 36 % 35-52 Automated erythrocyte mean corpuscular volume 78 [foz_us] 80-99 Automated erythrocyte mean corpuscular hemoglobin (mass per erythrocyte) 26 pg 25-34 Automated erythrocyte mean corpuscular hemoglobin concentration measurement (mass/volume) 33 g/dL 32-36 Automated erythrocyte distribution width ratio 16.7 % 10.0- 14.5 Automated blood platelet count (count/volume) 498 10*3/uL 130-400 Automated blood platelet mean volume measurement 8.8 [foz_us] 7.4-10.4 Automated blood neutrophils/100 leukocytes 79 % 42-75 Automated blood lymphocytes/100 leukocytes 14 % 12-44 Blood monocytes/100 leukocytes 7 % 0-12 Automated blood eosinophils/100 leukocytes 0 % 0-10 Automated blood basophils/100 leukocytes 0 % 0-10 Blood neutrophils automated count (number/volume) 8.7 10*3 1.8-7.8 Blood lymphocytes automated count (number/volume) 1.5 10*3 1.0-4.0 Blood monocytes automated count (number/volume) 0.8 10*3 0.0- 1.0 Automated eosinophil count 0.0 10*3/uL 0.0-0.3 Automated blood basophil count (count/volume) 0.0 10*3/uL 0.0-0.1 Comprehensive metabolic panel - 10/13/16 10:34 Serum or plasma sodium measurement (moles/volume) 137 mmol/L 135-145 Serum or plasma potassium measurement (moles/volume) 3.0 mmol/L 3.6-5.0 Serum or plasma chloride measurement (moles/volume) 103 mmol/L 98-107 Carbon dioxide 22 mmol/L 21-32 Serum or plasma anion gap determination (moles/volume) 12 mmol/L 5-14 Serum or plasma urea nitrogen measurement (mass/volume) 10 mg/dL 7-18 Serum or plasma creatinine measurement (mass/volume) 0.64 mg/dL 0.60-1.30 Serum or plasma urea nitrogen/creatinine mass ratio 16 NRG Serum or plasma creatinine measurement with calculation of estimated glomerular filtration rate > NRG Serum or plasma glucose measurement (mass/volume) 120 mg/dL 70-105 Serum or plasma calcium measurement (mass/volume) 9.0 mg/dL 8.5-10.1 Serum or plasma total bilirubin measurement (mass/volume) 0.4 mg/dL 0.1-1.0 Serum or plasma alkaline phosphatase measurement (enzymatic activity/volume) 68 U/L 40-136 Serum or plasma aspartate aminotransferase measurement (enzymatic activity/volume) 13 U/L 5-34 Serum or plasma alanine aminotransferase measurement (enzymatic activity/volume) 12 U/L 0-55 Serum or plasma protein measurement (mass/volume) 6.5 g/dL 6.4-8.2 Serum or plasma albumin measurement (mass/volume) 3.4 g/dL 3.2-4.5 Methicillin resistant Staphylococcus aureus (MRSA) screening culture - 10/13/16 12:49 Methicillin resistant Staphylococcus aureus (MRSA) screening culture NEG NRG Complete blood count (CBC) with automated white blood cell (WBC) differential - 10/14/16 05:40 Blood leukocytes automated count (number/volume) 5.7 10*3/uL 4.3-11.0 Blood erythrocytes automated count (number/volume) 4.09 10*6/uL 4.35-5.85 Venous blood hemoglobin measurement (mass/volume) 10.6 g/dL 11.5-16.0 Blood hematocrit (volume fraction) 32 % 35-52 Automated erythrocyte mean corpuscular volume 79 [foz_us] 80-99 Automated erythrocyte mean corpuscular hemoglobin (mass per erythrocyte) 26 pg 25-34 Automated erythrocyte mean corpuscular hemoglobin concentration measurement (mass/volume) 33 g/dL 32-36 Automated erythrocyte distribution width ratio 16.7 % 10.0- 14.5 Automated blood platelet count (count/volume) 425 10*3/uL 130-400 Automated blood platelet mean volume measurement 8.9 [foz_us] 7.4-10.4 Automated blood neutrophils/100 leukocytes 62 % 42-75 Automated blood lymphocytes/100 leukocytes 28 % 12-44 Blood monocytes/100 leukocytes 9 % 0-12 Automated blood eosinophils/100 leukocytes 1 % 0-10 Automated blood basophils/100 leukocytes 0 % 0-10 Blood neutrophils automated count (number/volume) 3.5 10*3 1.8-7.8 Blood lymphocytes automated count (number/volume) 1.6 10*3 1.0-4.0 Blood monocytes automated count (number/volume) 0.5 10*3 0.0- 1.0 Automated eosinophil count 0.1 10*3/uL 0.0-0.3 Automated blood basophil count (count/volume) 0.0 10*3/uL 0.0-0.1 Comprehensive metabolic panel - 10/14/16 05:45 Serum or plasma sodium measurement (moles/volume) 139 mmol/L 135-145 Serum or plasma potassium measurement (moles/volume) 3.0 mmol/L 3.6-5.0 Serum or plasma chloride measurement (moles/volume) 107 mmol/L 98-107 Carbon dioxide 22 mmol/L 21-32 Serum or plasma anion gap determination (moles/volume) 10 mmol/L 5-14 Serum or plasma urea nitrogen measurement (mass/volume) 5 mg/dL 7-18 Serum or plasma creatinine measurement (mass/volume) 0.58 mg/dL 0.60-1.30 Serum or plasma urea nitrogen/creatinine mass ratio 9 NRG Serum or plasma creatinine measurement with calculation of estimated glomerular filtration rate > NRG Serum or plasma glucose measurement (mass/volume) 107 mg/dL 70-105 Serum or plasma calcium measurement (mass/volume) 8.4 mg/dL 8.5-10.1 Serum or plasma total bilirubin measurement (mass/volume) 0.3 mg/dL 0.1-1.0 Serum or plasma alkaline phosphatase measurement (enzymatic activity/volume) 61 U/L 40-136 Serum or plasma aspartate aminotransferase measurement (enzymatic activity/volume) 20 U/L 5-34 Serum or plasma alanine aminotransferase measurement (enzymatic activity/volume) 11 U/L 0-55 Serum or plasma protein measurement (mass/volume) 5.6 g/dL 6.4-8.2 Serum or plasma albumin measurement (mass/volume) 3.0 g/dL 3.2-4.5 Complete blood count (CBC) with automated white blood cell (WBC) differential - 10/15/16 06:05 Blood leukocytes automated count (number/volume) 5.3 10*3/uL 4.3-11.0 Blood erythrocytes automated count (number/volume) 4.48 10*6/uL 4.35-5.85 Venous blood hemoglobin measurement (mass/volume) 11.6 g/dL 11.5-16.0 Blood hematocrit (volume fraction) 35 % 35-52 Automated erythrocyte mean corpuscular volume 79 [foz_us] 80-99 Automated erythrocyte mean corpuscular hemoglobin (mass per erythrocyte) 26 pg 25-34 Automated erythrocyte mean corpuscular hemoglobin concentration measurement (mass/volume) 33 g/dL 32-36 Automated erythrocyte distribution width ratio 16.6 % 10.0- 14.5 Automated blood platelet count (count/volume) 511 10*3/uL 130-400 Automated blood platelet mean volume measurement 9.3 [foz_us] 7.4-10.4 Automated blood neutrophils/100 leukocytes 64 % 42-75 Automated blood lymphocytes/100 leukocytes 26 % 12-44 Blood monocytes/100 leukocytes 9 % 0-12 Automated blood eosinophils/100 leukocytes 1 % 0-10 Automated blood basophils/100 leukocytes 0 % 0-10 Blood neutrophils automated count (number/volume) 3.4 10*3 1.8-7.8 Blood lymphocytes automated count (number/volume) 1.4 10*3 1.0-4.0 Blood monocytes automated count (number/volume) 0.5 10*3 0.0- 1.0 Automated eosinophil count 0.0 10*3/uL 0.0-0.3 Automated blood basophil count (count/volume) 0.0 10*3/uL 0.0-0.1 Comprehensive metabolic panel - 10/15/16 06:05 Serum or plasma sodium measurement (moles/volume) 140 mmol/L 135-145 Serum or plasma potassium measurement (moles/volume) 3.2 mmol/L 3.6-5.0 Serum or plasma chloride measurement (moles/volume) 105 mmol/L 98-107 Carbon dioxide 24 mmol/L 21-32 Serum or plasma anion gap determination (moles/volume) 11 mmol/L 5-14 Serum or plasma urea nitrogen measurement (mass/volume) 4 mg/dL 7-18 Serum or plasma creatinine measurement (mass/volume) 0.57 mg/dL 0.60-1.30 Serum or plasma urea nitrogen/creatinine mass ratio 7 NRG Serum or plasma creatinine measurement with calculation of estimated glomerular filtration rate > NRG Serum or plasma glucose measurement (mass/volume) 95 mg/dL 70-105 Serum or plasma calcium measurement (mass/volume) 8.8 mg/dL 8.5-10.1 Serum or plasma total bilirubin measurement (mass/volume) 0.3 mg/dL 0.1-1.0 Serum or plasma alkaline phosphatase measurement (enzymatic activity/volume) 71 U/L 40-136 Serum or plasma aspartate aminotransferase measurement (enzymatic activity/volume) 14 U/L 5-34 Serum or plasma alanine aminotransferase measurement (enzymatic activity/volume) 11 U/L 0-55 Serum or plasma protein measurement (mass/volume) 6.3 g/dL 6.4-8.2 Serum or plasma albumin measurement (mass/volume) 3.3 g/dL 3.2-4.5 Complete blood count (CBC) with automated white blood cell (WBC) differential - 10/16/16 03:46 Blood leukocytes automated count (number/volume) 8.2 10*3/uL 4.3-11.0 Blood erythrocytes automated count (number/volume) 3.42 10*6/uL 4.35-5.85 Venous blood hemoglobin measurement (mass/volume) 8.8 g/dL 11.5-16.0 Blood hematocrit (volume fraction) 27 % 35-52 Automated erythrocyte mean corpuscular volume 80 [foz_us] 80-99 Automated erythrocyte mean corpuscular hemoglobin (mass per erythrocyte) 26 pg 25-34 Automated erythrocyte mean corpuscular hemoglobin concentration measurement (mass/volume) 32 g/dL 32-36 Automated erythrocyte distribution width ratio 16.4 % 10.0- 14.5 Automated blood platelet count (count/volume) 437 10*3/uL 130-400 Automated blood platelet mean volume measurement 9.2 [foz_us] 7.4-10.4 Automated blood neutrophils/100 leukocytes 88 % 42-75 Automated blood lymphocytes/100 leukocytes 8 % 12-44 Blood monocytes/100 leukocytes 4 % 0-12 Automated blood eosinophils/100 leukocytes 0 % 0-10 Automated blood basophils/100 leukocytes 0 % 0-10 Blood neutrophils automated count (number/volume) 7.2 10*3 1.8-7.8 Blood lymphocytes automated count (number/volume) 0.7 10*3 1.0-4.0 Blood monocytes automated count (number/volume) 0.3 10*3 0.0- 1.0 Automated eosinophil count 0.0 10*3/uL 0.0-0.3 Automated blood basophil count (count/volume) 0.0 10*3/uL 0.0-0.1 Comprehensive metabolic panel - 10/16/16 03:46 Serum or plasma sodium measurement (moles/volume) 139 mmol/L 135-145 Serum or plasma potassium measurement (moles/volume) 3.9 mmol/L 3.6-5.0 Serum or plasma chloride measurement (moles/volume) 109 mmol/L 98-107 Carbon dioxide 22 mmol/L 21-32 Serum or plasma anion gap determination (moles/volume) 8 mmol/L 5-14 Serum or plasma urea nitrogen measurement (mass/volume) 5 mg/dL 7-18 Serum or plasma creatinine measurement (mass/volume) 0.52 mg/dL 0.60-1.30 Serum or plasma urea nitrogen/creatinine mass ratio 10 NRG Serum or plasma creatinine measurement with calculation of estimated glomerular filtration rate > NR Serum or plasma glucose measurement (mass/volume) 123 mg/dL 70-105 Serum or plasma calcium measurement (mass/volume) 8.1 mg/dL 8.5-10.1 Serum or plasma total bilirubin measurement (mass/volume) 0.3 mg/dL 0.1-1.0 Serum or plasma alkaline phosphatase measurement (enzymatic activity/volume) 48 U/L 40-136 Serum or plasma aspartate aminotransferase measurement (enzymatic activity/volume) 12 U/L 5-34 Serum or plasma alanine aminotransferase measurement (enzymatic activity/volume) 7 U/L 0-55 Serum or plasma protein measurement (mass/volume) 4.9 g/dL 6.4-8.2 Serum or plasma albumin measurement (mass/volume) 2.6 g/dL 3.2-4.5 Blood type T Indirect antibody screen panel - 10/16/16 09:37 ABO+Rh group AP NR Transfusion band number [id number] [facility] Blood group antibody screen NEGATIVE [facility] Complete blood count (CBC) with automated white blood cell (WBC) differential - 10/16/16 13:50 Blood leukocytes automated count (number/volume) 10.0 10*3/uL 4.3-11.0 Blood erythrocytes automated count (number/volume) 3.45 10*6/uL 4.35-5.85 Venous blood hemoglobin measurement (mass/volume) 9.0 g/dL 11.5-16.0 Blood hematocrit (volume fraction) 28 % 35-52 Automated erythrocyte mean corpuscular volume 80 [foz_us] 80-99 Automated erythrocyte mean corpuscular hemoglobin (mass per erythrocyte) 26 pg 25-34 Automated erythrocyte mean corpuscular hemoglobin concentration measurement (mass/volume) 33 g/dL 32-36 Automated erythrocyte distribution width ratio 16.7 % 10.0- 14.5 Automated blood platelet count (count/volume) 469 10*3/uL 130-400 Automated blood platelet mean volume measurement 8.8 [foz_us] 7.4-10.4 Automated blood neutrophils/100 leukocytes 77 % 42-75 Automated blood lymphocytes/100 leukocytes 17 % 12-44 Blood monocytes/100 leukocytes 6 % 0-12 Automated blood eosinophils/100 leukocytes 0 % 0-10 Automated blood basophils/100 leukocytes 0 % 0-10 Blood neutrophils automated count (number/volume) 7.6 10*3 1.8-7.8 Blood lymphocytes automated count (number/volume) 1.7 10*3 1.0-4.0 Blood monocytes automated count (number/volume) 0.6 10*3 0.0- 1.0 Automated eosinophil count 0.0 10*3/uL 0.0-0.3 Automated blood basophil count (count/volume) 0.0 10*3/uL 0.0-0.1 Complete blood count (CBC) with automated white blood cell (WBC) differential - 10/17/16 04:45 Blood leukocytes automated count (number/volume) 9.7 10*3/uL 4.3-11.0 Blood erythrocytes automated count (number/volume) 3.44 10*6/uL 4.35-5.85 Venous blood hemoglobin measurement (mass/volume) 8.8 g/dL 11.5-16.0 Blood hematocrit (volume fraction) 28 % 35-52 Automated erythrocyte mean corpuscular volume 81 [foz_us] 80-99 Automated erythrocyte mean corpuscular hemoglobin (mass per erythrocyte) 26 pg 25-34 Automated erythrocyte mean corpuscular hemoglobin concentration measurement (mass/volume) 32 g/dL 32-36 Automated erythrocyte distribution width ratio 16.8 % 10.0- 14.5 Automated blood platelet count (count/volume) 449 10*3/uL 130-400 Automated blood platelet mean volume measurement 8.6 [foz_us] 7.4-10.4 Automated blood neutrophils/100 leukocytes 80 % 42-75 Automated blood lymphocytes/100 leukocytes 14 % 12-44 Blood monocytes/100 leukocytes 6 % 0-12 Automated blood eosinophils/100 leukocytes 0 % 0-10 Automated blood basophils/100 leukocytes 0 % 0-10 Blood neutrophils automated count (number/volume) 7.7 10*3 1.8-7.8 Blood lymphocytes automated count (number/volume) 1.4 10*3 1.0-4.0 Blood monocytes automated count (number/volume) 0.5 10*3 0.0- 1.0 Automated eosinophil count 0.0 10*3/uL 0.0-0.3 Automated blood basophil count (count/volume) 0.0 10*3/uL 0.0-0.1 Comprehensive metabolic panel - 10/17/16 04:45 Serum or plasma sodium measurement (moles/volume) 139 mmol/L 135-145 Serum or plasma potassium measurement (moles/volume) 3.3 mmol/L 3.6-5.0 Serum or plasma chloride measurement (moles/volume) 107 mmol/L 98-107 Carbon dioxide 22 mmol/L 21-32 Serum or plasma anion gap determination (moles/volume) 10 mmol/L 5-14 Serum or plasma urea nitrogen measurement (mass/volume) 5 mg/dL 7-18 Serum or plasma creatinine measurement (mass/volume) 0.53 mg/dL 0.60-1.30 Serum or plasma urea nitrogen/creatinine mass ratio 9 NRG Serum or plasma creatinine measurement with calculation of estimated glomerular filtration rate > NRG Serum or plasma glucose measurement (mass/volume) 107 mg/dL 70-105 Serum or plasma calcium measurement (mass/volume) 7.7 mg/dL 8.5-10.1 Serum or plasma total bilirubin measurement (mass/volume) 0.3 mg/dL 0.1-1.0 Serum or plasma alkaline phosphatase measurement (enzymatic activity/volume) 44 U/L 40-136 Serum or plasma aspartate aminotransferase measurement (enzymatic activity/volume) 12 U/L 5-34 Serum or plasma alanine aminotransferase measurement (enzymatic activity/volume) 8 U/L 0-55 Serum or plasma protein measurement (mass/volume) 4.6 g/dL 6.4-8.2 Serum or plasma albumin measurement (mass/volume) 2.4 g/dL 3.2-4.5 Complete blood count (CBC) with automated white blood cell (WBC) differential - 10/18/16 06:50 Blood leukocytes automated count (number/volume) 7.8 10*3/uL 4.3-11.0 Blood erythrocytes automated count (number/volume) 3.42 10*6/uL 4.35-5.85 Venous blood hemoglobin measurement (mass/volume) 8.7 g/dL 11.5-16.0 Blood hematocrit (volume fraction) 28 % 35-52 Automated erythrocyte mean corpuscular volume 81 [foz_us] 80-99 Automated erythrocyte mean corpuscular hemoglobin (mass per erythrocyte) 25 pg 25-34 Automated erythrocyte mean corpuscular hemoglobin concentration measurement (mass/volume) 32 g/dL 32-36 Automated erythrocyte distribution width ratio 16.4 % 10.0- 14.5 Automated blood platelet count (count/volume) 404 10*3/uL 130-400 Automated blood platelet mean volume measurement 9.1 [foz_us] 7.4-10.4 Automated blood neutrophils/100 leukocytes 70 % 42-75 Automated blood lymphocytes/100 leukocytes 21 % 12-44 Blood monocytes/100 leukocytes 7 % 0-12 Automated blood eosinophils/100 leukocytes 3 % 0-10 Automated blood basophils/100 leukocytes 0 % 0-10 Blood neutrophils automated count (number/volume) 5.4 10*3 1.8-7.8 Blood lymphocytes automated count (number/volume) 1.6 10*3 1.0-4.0 Blood monocytes automated count (number/volume) 0.5 10*3 0.0- 1.0 Automated eosinophil count 0.2 10*3/uL 0.0-0.3 Automated blood basophil count (count/volume) 0.0 10*3/uL 0.0-0.1 Comprehensive metabolic panel - 10/18/16 06:50 Serum or plasma sodium measurement (moles/volume) 140 mmol/L 135-145 Serum or plasma potassium measurement (moles/volume) 3.3 mmol/L 3.6-5.0 Serum or plasma chloride measurement (moles/volume) 107 mmol/L 98-107 Carbon dioxide 24 mmol/L 21-32 Serum or plasma anion gap determination (moles/volume) 9 mmol/L 5-14 Serum or plasma urea nitrogen measurement (mass/volume) 4 mg/dL 7-18 Serum or plasma creatinine measurement (mass/volume) 0.49 mg/dL 0.60-1.30 Serum or plasma urea nitrogen/creatinine mass ratio 8 NRG Serum or plasma creatinine measurement with calculation of estimated glomerular filtration rate > NRG Serum or plasma glucose measurement (mass/volume) 106 mg/dL 70-105 Serum or plasma calcium measurement (mass/volume) 7.9 mg/dL 8.5-10.1 Serum or plasma total bilirubin measurement (mass/volume) 0.2 mg/dL 0.1-1.0 Serum or plasma alkaline phosphatase measurement (enzymatic activity/volume) 39 U/L 40-136 Serum or plasma aspartate aminotransferase measurement (enzymatic activity/volume) 9 U/L 5-34 Serum or plasma alanine aminotransferase measurement (enzymatic activity/volume) 6 U/L 0-55 Serum or plasma protein measurement (mass/volume) 4.5 g/dL 6.4-8.2 Serum or plasma albumin measurement (mass/volume) 2.3 g/dL 3.2-4.5 Complete blood count (CBC) with automated white blood cell (WBC) differential - 11/30/16 10:30 Blood leukocytes automated count (number/volume) 5.1 10*3/uL 4.3-11.0 Blood erythrocytes automated count (number/volume) 4.58 10*6/uL 4.35-5.85 Venous blood hemoglobin measurement (mass/volume) 11.6 g/dL 11.5-16.0 Blood hematocrit (volume fraction) 37 % 35-52 Automated erythrocyte mean corpuscular volume 80 [foz_us] 80-99 Automated erythrocyte mean corpuscular hemoglobin (mass per erythrocyte) 25 pg 25-34 Automated erythrocyte mean corpuscular hemoglobin concentration measurement (mass/volume) 32 g/dL 32-36 Automated erythrocyte distribution width ratio 15.0 % 10.0- 14.5 Automated blood platelet count (count/volume) 342 10*3/uL 130-400 Automated blood platelet mean volume measurement 9.9 [foz_us] 7.4-10.4 Automated blood neutrophils/100 leukocytes 53 % 42-75 Automated blood lymphocytes/100 leukocytes 38 % 12-44 Blood monocytes/100 leukocytes 7 % 0-12 Automated blood eosinophils/100 leukocytes 2 % 0-10 Automated blood basophils/100 leukocytes 0 % 0-10 Blood neutrophils automated count (number/volume) 2.7 10*3 1.8-7.8 Blood lymphocytes automated count (number/volume) 1.9 10*3 1.0-4.0 Blood monocytes automated count (number/volume) 0.3 10*3 0.0- 1.0 Automated eosinophil count 0.1 10*3/uL 0.0-0.3 Automated blood basophil count (count/volume) 0.0 10*3/uL 0.0-0.1 Blood type T Indirect antibody screen panel - 11/30/16 10:30 ABO+Rh group AP NRG Blood group antibody screen NEGATIVE NRG Methicillin resistant Staphylococcus aureus (MRSA) screening culture - 11/30/16 10:30 Methicillin resistant Staphylococcus aureus (MRSA) screening culture NEG NRG Automated blood complete blood count (hemogram) panel - 12/04/16 04:00 Blood leukocytes automated count (number/volume) 8.9 10*3/uL 4.3-11.0 Blood erythrocytes automated count (number/volume) 4.21 10*6/uL 4.35-5.85 Venous blood hemoglobin measurement (mass/volume) 10.8 g/dL 11.5-16.0 Blood hematocrit (volume fraction) 34 % 35-52 Automated erythrocyte mean corpuscular volume 80 [foz_us] 80-99 Automated erythrocyte mean corpuscular hemoglobin (mass per erythrocyte) 26 pg 25-34 Automated erythrocyte mean corpuscular hemoglobin concentration measurement (mass/volume) 32 g/dL 32-36 Automated erythrocyte distribution width ratio 14.9 % 10.0- 14.5 Automated blood platelet count (count/volume) 315 10*3/uL 130-400 Automated blood platelet mean volume measurement 9.8 [foz_us] 7.4-10.4 Whole blood basic metabolic panel - 12/04/16 04:00 Serum or plasma sodium measurement (moles/volume) 139 mmol/L 135-145 Serum or plasma potassium measurement (moles/volume) 4.3 mmol/L 3.6-5.0 Serum or plasma chloride measurement (moles/volume) 107 mmol/L 98-107 Carbon dioxide 23 mmol/L 21-32 Serum or plasma anion gap determination (moles/volume) 9 mmol/L 5-14 Serum or plasma urea nitrogen measurement (mass/volume) 8 mg/dL 7-18 Serum or plasma creatinine measurement (mass/volume) 0.62 mg/dL 0.60-1.30 Serum or plasma urea nitrogen/creatinine mass ratio 13 NRG Serum or plasma creatinine measurement with calculation of estimated glomerular filtration rate > NRG Serum or plasma glucose measurement (mass/volume) 109 mg/dL 70-105 Serum or plasma calcium measurement (mass/volume) 8.6 mg/dL 8.5-10.1 Magnesium - 12/04/16 04:00 Magnesium 2.0 mg/dL 1.8-2.4 Automated blood complete blood count (hemogram) panel - 12/05/16 06:25 Blood leukocytes automated count (number/volume) 9.0 10*3/uL 4.3-11.0 Blood erythrocytes automated count (number/volume) 3.90 10*6/uL 4.35-5.85 Venous blood hemoglobin measurement (mass/volume) 10.0 g/dL 11.5-16.0 Blood hematocrit (volume fraction) 32 % 35-52 Automated erythrocyte mean corpuscular volume 82 [foz_us] 80-99 Automated erythrocyte mean corpuscular hemoglobin (mass per erythrocyte) 26 pg 25-34 Automated erythrocyte mean corpuscular hemoglobin concentration measurement (mass/volume) 31 g/dL 32-36 Automated erythrocyte distribution width ratio 14.9 % 10.0- 14.5 Automated blood platelet count (count/volume) 292 10*3/uL 130-400 Automated blood platelet mean volume measurement 9.5 [foz_us] 7.4-10.4 Magnesium - 12/05/16 06:25 Magnesium 2.0 mg/dL 1.8-2.4 Whole blood basic metabolic panel - 12/05/16 06:25 Serum or plasma sodium measurement (moles/volume) 135 mmol/L 135-145 Serum or plasma potassium measurement (moles/volume) 3.9 mmol/L 3.6-5.0 Serum or plasma chloride measurement (moles/volume) 103 mmol/L 98-107 Carbon dioxide 23 mmol/L 21-32 Serum or plasma anion gap determination (moles/volume) 9 mmol/L 5-14 Serum or plasma urea nitrogen measurement (mass/volume) 6 mg/dL 7-18 Serum or plasma creatinine measurement (mass/volume) 0.56 mg/dL 0.60-1.30 Serum or plasma urea nitrogen/creatinine mass ratio 11 NRG Serum or plasma creatinine measurement with calculation of estimated glomerular filtration rate > NRG Serum or plasma glucose measurement (mass/volume) 82 mg/dL 70-105 Serum or plasma calcium measurement (mass/volume) 8.3 mg/dL 8.5-10.1 Complete blood count (CBC) with automated white blood cell (WBC) differential - 12/06/16 06:44 Blood leukocytes automated count (number/volume) 8.3 10*3/uL 4.3-11.0 Blood erythrocytes automated count (number/volume) 3.66 10*6/uL 4.35-5.85 Venous blood hemoglobin measurement (mass/volume) 9.4 g/dL 11.5-16.0 Blood hematocrit (volume fraction) 30 % 35-52 Automated erythrocyte mean corpuscular volume 82 [foz_us] 80-99 Automated erythrocyte mean corpuscular hemoglobin (mass per erythrocyte) 26 pg 25-34 Automated erythrocyte mean corpuscular hemoglobin concentration measurement (mass/volume) 31 g/dL 32-36 Automated erythrocyte distribution width ratio 14.8 % 10.0- 14.5 Automated blood platelet count (count/volume) 272 10*3/uL 130-400 Automated blood platelet mean volume measurement 9.2 [foz_us] 7.4-10.4 Automated blood neutrophils/100 leukocytes 72 % 42-75 Automated blood lymphocytes/100 leukocytes 19 % 12-44 Blood monocytes/100 leukocytes 7 % 0-12 Automated blood eosinophils/100 leukocytes 2 % 0-10 Automated blood basophils/100 leukocytes 0 % 0-10 Blood neutrophils automated count (number/volume) 6.0 10*3 1.8-7.8 Blood lymphocytes automated count (number/volume) 1.5 10*3 1.0-4.0 Blood monocytes automated count (number/volume) 0.5 10*3 0.0- 1.0 Automated eosinophil count 0.2 10*3/uL 0.0-0.3 Automated blood basophil count (count/volume) 0.0 10*3/uL 0.0-0.1 Comprehensive metabolic panel - 12/06/16 06:44 Serum or plasma sodium measurement (moles/volume) 135 mmol/L 135-145 Serum or plasma potassium measurement (moles/volume) 3.7 mmol/L 3.6-5.0 Serum or plasma chloride measurement (moles/volume) 103 mmol/L 98-107 Carbon dioxide 22 mmol/L 21-32 Serum or plasma anion gap determination (moles/volume) 10 mmol/L 5-14 Serum or plasma urea nitrogen measurement (mass/volume) 8 mg/dL 7-18 Serum or plasma creatinine measurement (mass/volume) 0.58 mg/dL 0.60-1.30 Serum or plasma urea nitrogen/creatinine mass ratio 14 NRG Serum or plasma creatinine measurement with calculation of estimated glomerular filtration rate > NRG Serum or plasma glucose measurement (mass/volume) 72 mg/dL 70-105 Serum or plasma calcium measurement (mass/volume) 8.2 mg/dL 8.5-10.1 Serum or plasma total bilirubin measurement (mass/volume) 0.5 mg/dL 0.1-1.0 Serum or plasma alkaline phosphatase measurement (enzymatic activity/volume) 60 U/L 40-136 Serum or plasma aspartate aminotransferase measurement (enzymatic activity/volume) 20 U/L 5-34 Serum or plasma alanine aminotransferase measurement (enzymatic activity/volume) 9 U/L 0-55 Serum or plasma protein measurement (mass/volume) 5.2 g/dL 6.4-8.2 Serum or plasma albumin measurement (mass/volume) 2.8 g/dL 3.2-4.5 Magnesium - 12/06/16 06:44 Magnesium 1.7 mg/dL 1.8-2.4 Serum or plasma phosphate measurement (mass/volume) - 12/06/16 06:44 Serum or plasma phosphate measurement (mass/volume) 3.5 mg/dL 2.3-4.7 Capillary blood glucose measurement by glucometer (mass/volume) - 12/06/16 18:49 Capillary blood glucose measurement by glucometer (mass/volume) 155 mg/dL 70-110 Capillary blood glucose measurement by glucometer (mass/volume) - 12/07/16 00:46 Capillary blood glucose measurement by glucometer (mass/volume) 194 mg/dL 70-110 Complete blood count (CBC) with automated white blood cell (WBC) differential - 12/07/16 05:30 Blood leukocytes automated count (number/volume) 7.1 10*3/uL 4.3-11.0 Blood erythrocytes automated count (number/volume) 4.10 10*6/uL 4.35-5.85 Venous blood hemoglobin measurement (mass/volume) 10.4 g/dL 11.5-16.0 Blood hematocrit (volume fraction) 33 % 35-52 Automated erythrocyte mean corpuscular volume 80 [foz_us] 80-99 Automated erythrocyte mean corpuscular hemoglobin (mass per erythrocyte) 25 pg 25-34 Automated erythrocyte mean corpuscular hemoglobin concentration measurement (mass/volume) 32 g/dL 32-36 Automated erythrocyte distribution width ratio 14.7 % 10.0- 14.5 Automated blood platelet count (count/volume) 310 10*3/uL 130-400 Automated blood platelet mean volume measurement 9.5 [foz_us] 7.4-10.4 Automated blood neutrophils/100 leukocytes 78 % 42-75 Automated blood lymphocytes/100 leukocytes 15 % 12-44 Blood monocytes/100 leukocytes 5 % 0-12 Automated blood eosinophils/100 leukocytes 2 % 0-10 Automated blood basophils/100 leukocytes 0 % 0-10 Blood neutrophils automated count (number/volume) 5.5 10*3 1.8-7.8 Blood lymphocytes automated count (number/volume) 1.0 10*3 1.0-4.0 Blood monocytes automated count (number/volume) 0.4 10*3 0.0- 1.0 Automated eosinophil count 0.2 10*3/uL 0.0-0.3 Automated blood basophil count (count/volume) 0.0 10*3/uL 0.0-0.1 Comprehensive metabolic panel - 12/07/16 05:30 Serum or plasma sodium measurement (moles/volume) 136 mmol/L 135-145 Serum or plasma potassium measurement (moles/volume) 3.4 mmol/L 3.6-5.0 Serum or plasma chloride measurement (moles/volume) 100 mmol/L 98-107 Carbon dioxide 27 mmol/L 21-32 Serum or plasma anion gap determination (moles/volume) 9 mmol/L 5-14 Serum or plasma urea nitrogen measurement (mass/volume) 6 mg/dL 7-18 Serum or plasma creatinine measurement (mass/volume) 0.52 mg/dL 0.60-1.30 Serum or plasma urea nitrogen/creatinine mass ratio 12 NRG Serum or plasma creatinine measurement with calculation of estimated glomerular filtration rate > NRG Serum or plasma glucose measurement (mass/volume) 152 mg/dL 70-105 Serum or plasma calcium measurement (mass/volume) 8.6 mg/dL 8.5-10.1 Serum or plasma total bilirubin measurement (mass/volume) 0.5 mg/dL 0.1-1.0 Serum or plasma alkaline phosphatase measurement (enzymatic activity/volume) 64 U/L 40-136 Serum or plasma aspartate aminotransferase measurement (enzymatic activity/volume) 13 U/L 5-34 Serum or plasma alanine aminotransferase measurement (enzymatic activity/volume) 11 U/L 0-55 Serum or plasma protein measurement (mass/volume) 5.9 g/dL 6.4-8.2 Serum or plasma albumin measurement (mass/volume) 3.1 g/dL 3.2-4.5 Magnesium - 12/07/16 05:30 Magnesium 1.9 mg/dL 1.8-2.4 Capillary blood glucose measurement by glucometer (mass/volume) - 12/07/16 12:16 Capillary blood glucose measurement by glucometer (mass/volume) 164 mg/dL 70-110 Capillary blood glucose measurement by glucometer (mass/volume) - 12/08/16 00:11 Capillary blood glucose measurement by glucometer (mass/volume) 134 mg/dL 70-110 Automated blood complete blood count (hemogram) panel - 12/08/16 05:30 Blood leukocytes automated count (number/volume) 5.9 10*3/uL 4.3-11.0 Blood erythrocytes automated count (number/volume) 4.30 10*6/uL 4.35-5.85 Venous blood hemoglobin measurement (mass/volume) 11.0 g/dL 11.5-16.0 Blood hematocrit (volume fraction) 35 % 35-52 Automated erythrocyte mean corpuscular volume 80 [foz_us] 80-99 Automated erythrocyte mean corpuscular hemoglobin (mass per erythrocyte) 26 pg 25-34 Automated erythrocyte mean corpuscular hemoglobin concentration measurement (mass/volume) 32 g/dL 32-36 Automated erythrocyte distribution width ratio 14.9 % 10.0- 14.5 Automated blood platelet count (count/volume) 328 10*3/uL 130-400 Automated blood platelet mean volume measurement 9.6 [foz_us] 7.4-10.4 Magnesium - 12/08/16 05:30 Magnesium 2.0 mg/dL 1.8-2.4 Whole blood basic metabolic panel - 12/08/16 05:30 Serum or plasma sodium measurement (moles/volume) 137 mmol/L 135-145 Serum or plasma potassium measurement (moles/volume) 4.0 mmol/L 3.6-5.0 Serum or plasma chloride measurement (moles/volume) 103 mmol/L 98-107 Carbon dioxide 24 mmol/L 21-32 Serum or plasma anion gap determination (moles/volume) 10 mmol/L 5-14 Serum or plasma urea nitrogen measurement (mass/volume) 11 mg/dL 7-18 Serum or plasma creatinine measurement (mass/volume) 0.54 mg/dL 0.60-1.30 Serum or plasma urea nitrogen/creatinine mass ratio 20 NRG Serum or plasma creatinine measurement with calculation of estimated glomerular filtration rate > NRG Serum or plasma glucose measurement (mass/volume) 112 mg/dL 70-105 Serum or plasma calcium measurement (mass/volume) 9.1 mg/dL 8.5-10.1 Capillary blood glucose measurement by glucometer (mass/volume) - 12/08/16 12:15 Capillary blood glucose measurement by glucometer (mass/volume) 135 mg/dL 70-110 Capillary blood glucose measurement by glucometer (mass/volume) - 12/09/16 05:09 Capillary blood glucose measurement by glucometer (mass/volume) 114 mg/dL 70-110 Magnesium - 12/09/16 05:10 Magnesium 2.0 mg/dL 1.8-2.4 Complete blood count (CBC) with automated white blood cell (WBC) differential - 08/16/17 14:35 Blood leukocytes automated count (number/volume) 7.6 10*3/uL 4.3-11.0 Blood erythrocytes automated count (number/volume) 4.65 10*6/uL 4.35-5.85 Venous blood hemoglobin measurement (mass/volume) 13.0 g/dL 11.5-16.0 Blood hematocrit (volume fraction) 38 % 35-52 Automated erythrocyte mean corpuscular volume 82 [foz_us] 80-99 Automated erythrocyte mean corpuscular hemoglobin (mass per erythrocyte) 28 pg 25-34 Automated erythrocyte mean corpuscular hemoglobin concentration measurement (mass/volume) 34 g/dL 32-36 Automated erythrocyte distribution width ratio 14.2 % 10.0- 14.5 Automated blood platelet count (count/volume) 372 10*3/uL 130-400 Automated blood platelet mean volume measurement 9.3 [foz_us] 7.4-10.4 Automated blood neutrophils/100 leukocytes 64 % 42-75 Automated blood lymphocytes/100 leukocytes 26 % 12-44 Blood monocytes/100 leukocytes 7 % 0-12 Automated blood eosinophils/100 leukocytes 3 % 0-10 Automated blood basophils/100 leukocytes 0 % 0-10 Blood neutrophils automated count (number/volume) 4.8 10*3 1.8-7.8 Blood lymphocytes automated count (number/volume) 2.0 10*3 1.0-4.0 Blood monocytes automated count (number/volume) 0.5 10*3 0.0- 1.0 Automated eosinophil count 0.2 10*3/uL 0.0-0.3 Automated blood basophil count (count/volume) 0.0 10*3/uL 0.0-0.1 Whole blood basic metabolic panel - 08/16/17 14:35 Serum or plasma sodium measurement (moles/volume) 139 mmol/L 135-145 Serum or plasma potassium measurement (moles/volume) 3.9 mmol/L 3.6-5.0 Serum or plasma chloride measurement (moles/volume) 104 mmol/L 98-107 Carbon dioxide 25 mmol/L 21-32 Serum or plasma anion gap determination (moles/volume) 10 mmol/L 5-14 Serum or plasma urea nitrogen measurement (mass/volume) 12 mg/dL 7-18 Serum or plasma creatinine measurement (mass/volume) 0.71 mg/dL 0.60-1.30 Serum or plasma urea nitrogen/creatinine mass ratio 17 NRG Serum or plasma creatinine measurement with calculation of estimated glomerular filtration rate > NRG Serum or plasma glucose measurement (mass/volume) 109 mg/dL 70-105 Serum or plasma calcium measurement (mass/volume) 9.0 mg/dL 8.5-10.1 Methicillin resistant Staphylococcus aureus (MRSA) screening culture - 08/16/17 14:35 Methicillin resistant Staphylococcus aureus (MRSA) screening culture NEG NRG Encounters ACCT No. Visit Date/Time Discharge Status Pt. Type Provider Facility Loc./Unit Complaint [id number] 02/14/2018 08:48:00 02/14/2018 23:59:00 DIS Outpatient EDGAR TEMPLETON [id number] 08/19/2017 09:41:00 08/19/2017 17:38:00 DIS Inpatient AMBER INFANTE MD [facility] 4TH RECURRENT VENTRAL ABDOMINAL INCISIONAL HERNIA [id number] 08/16/2017 14:22:00 08/16/2017 14:40:00 DIS Outpatient AMBER INFANTE MD [facility] PREOP RECURRENT VENTRAL ABDOMINAL INCISIONAL HERNIA [id number] 12/03/2016 05:55:00 12/10/2016 12:23:00 DIS Inpatient AMBER INFANTE MD [facility] 4TH DIVERTICULITIS [id number] 11/30/2016 10:02:00 11/30/2016 11:02:00 DIS Outpatient AMBER INFANTE MD [facility] PREOP DIVERTICULITIS [id number] 10/13/2016 09:40:00 10/18/2016 14:26:00 DIS Inpatient AMBER INFANTE MD [facility] 4TH ABDOMINAL PAIN,DIVERTICULITIS [id number] 10/04/2016 14:27:00 10/08/2016 13:15:00 DIS Inpatient AMBER INFANTE MD [facility] 4TH SEPSIS, DIVERTICULITIS [id number] 08/18/2016 17:48:00 08/21/2016 12:40:00 DIS Inpatient AMBER INFANTE MD [facility] 4TH DIVERTICULITIS, ABSCESS [id number] 08/18/2016 15:28:00 08/18/2016 23:59:59 CLS Outpatient AMBER INFANTE MD [facility] RAD LLQ PAIN [id number] 10/25/2015 13:21:00 10/25/2015 18:05:00 DIS Emergency LARA CERVANTES [facility] ER DIZZINESS;MEMORY LOSS [id number] 02/04/2019 13:27:00 Document Registration
--- NOTE | 2019-02-05 12:02 | ED Suture Removal/Wound Check ---
Suture/Wound Re-check Suture Removal/Wound Recheck : Progress 73-year-old female patient presents to the emergency department as instructed for wound recheck and dressing change. Physical Exam Vital Signs Vital Signs - First Documented 02/05/19 02/05/19 11:06 12:08 Temp 98.5 Pulse 81 Resp 18 B/P (MAP) 134/73 Pulse Ox 97 O2 Delivery Room Air Capillary Refill : General Appearance: WD/WN, no apparent distress Skin: normal color, warm/dry, other (left buttock erythema improving. Erythema now measures 4 x 5 cm. Minimal purulent drainage noted. Packing removed and replaced with one quarter-inch iodoform gauze. Wound covered with 4 x 4 gauze, abd pad, and tape.) Departure Impression Primary Impression: Perirectal abscess Disposition: HOME, SELF-CARE Condition: Improved Departure-Patient Inst. Decision time for Depature: 12:01 Referrals: EDGAR TEMPLETON MD (PCP/Family) Primary Care Physician Patient Instructions: Anal Abscess and Fistula (DC) Add. Discharge Instructions: All discharge instructions reviewed with patient and/or family. Voiced understanding. Continue medications as prescribed by Dr. Clifford. Follow-up with Dr. Clifford's office tomorrow as instructed by him. Return to the emergency department for worsened pain, redness, fever, or any other concerns. LARA AC Feb 05, 2019 12:02
[2019-02-05 12:08] VITALS: BP 134/73
== END 2019-02-05 12:07 | disposition home or self-care (01) ==
LOC: EDUNIT# 11:03 → ER 11:04
DX: K61.1 Rectal abscess (principal)

== ENCOUNTER → 2021-09-10 | Outpatient (CLI) | payer MEDICARE, OTHER ==
[~2021-09-10] MED LIST changes: -CIPR500T4 PO; +CIPR500T5 PO; -LEVO500T80 PO; +LEVO500T81 PO; -OXYC-464 PO; +OXYC1TAB15 PO; -POLY17PO31 PO; +POLY17PO54 PO; -TRAM50TA2 PO; +TRM50T PO
--- NOTE | 2021-09-10 15:35 | Diagnostic Imaging Report ---
PROCEDURE: CT left lower extremity without contrast. TECHNIQUE: Multiple contiguous axial images were obtained through the left lower extremity without the use of intravenous contrast. Sagittal and coronal reformations were then performed. Auto Exposure Controls were utilized during the CT exam to meet ALARA standards for radiation dose reduction. INDICATION: Abnormal knee x-ray. Knee pain. COMPARISON: None available. FINDINGS: A cemented total knee arthroplasty is present. Patellar resurfacing has also been performed. There are no features of prosthesis loosening. No osteolysis or periprosthetic fracture. The polyethylene spacer tray is normal in appearance. Trace knee joint effusion. No Reyna's cyst is appreciated. No abnormality is appreciated within the soft tissues allowing for the mild artifact associated with the knee arthroplasty. IMPRESSION: Left total knee arthroplasty has no features of complication. Dictated by: Dictated on workstation # [id number]
== END ==
LOC: RAD 15:15
PROVIDERS: ATTEND Orthopaedic Surgery
DX: M23.8X2 Other internal derangements of left knee (principal); Z96.652 Presence of left artificial knee joint
CPT/HCPCS: 73700

== ENCOUNTER → 2021-10-06 | Outpatient (RCR) | payer MEDICARE, OTHER | END | disposition home or self-care (01) | PROVIDERS: ATTEND Orthopaedic Surgery | DX: M25.562 Pain in left knee (principal); Z96.653 Presence of artificial knee joint, bilateral ==

== ENCOUNTER 2021-10-27 11:20 | Outpatient (RCR) | payer MEDICARE, OTHER | END 2021-11-06 | disposition home or self-care (01) | PROVIDERS: ATTEND Orthopaedic Surgery | DX: M25.562 Pain in left knee (principal); Z96.652 Presence of left artificial knee joint ==

== ENCOUNTER 2021-12-05 11:26 | Outpatient (RCR) | payer MEDICARE, OTHER | END 2021-12-06 | disposition home or self-care (01) | PROVIDERS: ATTEND Orthopaedic Surgery | DX: M25.562 Pain in left knee (principal); R53.1 Weakness; Z96.652 Presence of left artificial knee joint ==

== ENCOUNTER 2021-12-09 11:17 | Outpatient (RCR) | payer MEDICARE, OTHER | END 2022-01-06 | disposition home or self-care (01) | PROVIDERS: ATTEND Orthopaedic Surgery | DX: M25.562 Pain in left knee (principal); Z96.652 Presence of left artificial knee joint ==

== ENCOUNTER → 2022-05-25 | Outpatient (CLI) | payer MEDICARE, OTHER ==
[~2022-05-25] MED LIST changes: +LEVO-55 PO; -LEVO500T81 PO
--- NOTE | 2022-05-25 10:45 | Diagnostic Imaging Report ---
PROCEDURE: MRI lumbar spine. TECHNIQUE: Multiplanar, multisequence MRI of the lumbar spine was performed without contrast. INDICATION: Low back pain with radiculopathy. COMPARISON: None FINDINGS: There is motion artifact on multiple sequences resulting in suboptimal evaluation. Alignment of the lumbar spine demonstrates no spondylolisthesis. There is mild left convex curvature centered at L3-L4. Vertebral body heights are preserved and no acute fracture is seen. There are small Tarlov cysts at the sacrum, the larger seen on the left measuring up to 1.4 cm at the S2 level. The conus terminates in appropriate position. Soft tissues about the lumbar spine demonstrate no acute abnormality. T12-L1: No significant disc bulge. No spinal canal or foraminal stenosis. L1-L2: Mild disc bulge. Facet arthropathy with ligamentous infolding. Mild spinal canal narrowing. Mild bilateral foraminal narrowing. L2-L3: Mild disc bulge and facet arthropathy and ligamentous infolding. Mild spinal canal narrowing. Moderate right and moderate to severe left foraminal stenosis. L3-L4: Diffuse disc bulge with facet arthropathy and ligamentous infolding. Mild spinal canal narrowing. Moderate to severe right and moderate left foraminal stenosis. L4-L5: Diffuse disc bulge with facet arthropathy. Mild spinal canal narrowing. Moderate to severe bilateral foraminal stenosis. L5-S1: Diffuse disc bulge with facet arthropathy. No spinal canal stenosis. Severe left and moderate to severe right foraminal stenosis. IMPRESSION: 1. Degenerative changes in the lumbar spine with multilevel mild spinal canal narrowing but no high-grade stenosis. 2. Multilevel foraminal stenosis as described above. Dictated by: Dictated on workstation # [id number]
== END ==
LOC: RAD 08:45
PROVIDERS: ATTEND Pain Medicine Interventional Pain Medicine
DX: M47.26 Other spondylosis with radiculopathy, lumbar region (principal); M48.061 Spinal stenosis, lumbar region without neurogenic claudication; M51.26 Other intervertebral disc displacement, lumbar region; M51.27 Other intervertebral disc displacement, lumbosacral region; M48.07 Spinal stenosis, lumbosacral region
CPT/HCPCS: 72148

== ENCOUNTER 2022-12-12 10:13 | Emergency (ER) | payer MEDICARE, OTHER ==
[2022-12-12] MEDS ORDERED: MIDAZOLAM 5 MG/5 ML (VERSED) VIAL IJ ONE (10:16)
[2022-12-12] MEDS ORDERED: ETOMIDATE IV SOLN 20 MG/10 ML VIAL IV ONE (10:16)
[2022-12-12] MEDS ORDERED: SUCCINYLCHOLINE INJ 20 MG/1 ML 10 ML VIAL INJ ONE (10:16)
[2022-12-12] MEDS ORDERED: fentaNYL INJ 100 MCG/2 ML AMP IV ONE (10:16)
[2022-12-12 10:27] LABS: BASOPHILS # (AUTO) 0.1 10^3/uL (0.0-0.1); BASOPHILS % (AUTO) 1 % (0-10); EOSINOPHILS # (AUTO) 0.1 10^3/uL (0.0-0.3); EOSINOPHILS % (AUTO) 1 % (0-10); HEMATOCRIT 43 % (35-52); LYMPHOCYTES # (AUTO) 2.7 10^3/uL (1.0-4.0); LYMPHOCYTES % (AUTO) 28 % (12-44); MEAN CORPUSCULAR HEMOGLOBIN 29 pg (25-34); MEAN CORPUSCULAR HGB CONC 33 g/dL (32-36); MEAN CORPUSCULAR VOLUME 88 fL (80-99); MONOCYTES # (AUTO) 0.6 10^3/uL (0.0-1.0); MONOCYTES % (AUTO) 6 % (0-12); NEUTROPHILS # (AUTO) 6.1 10^3/uL (1.8-7.8); NEUTROPHILS % (AUTO) 62 % (42-75); PLATELET COUNT 338 10^3/uL (130-400); WHITE BLOOD COUNT 9.9 10^3/uL (4.3-11.0)
[2022-12-12] MEDS ORDERED: NALOXONE 2 MG/2 ML (NARCAN) SYR IV ONE (10:30)
[2022-12-12] MEDS ORDERED: NALOXONE 0.4 MG/ML 1 ML (NARCAN) VIAL IV ONE ×2 (10:30)
[2022-12-12 10:31] LABS: BILIRUBIN,URINE NEGATIVE (NEGATIVE); CLARITY,URINE CLEAR; COLOR,URINE YELLOW; GLUCOSE, URINE (UA) NEGATIVE (NEGATIVE); KETONES,URINE NEGATIVE (NEGATIVE); LEUKOCYTE ESTERASE ,URINE NEGATIVE (NEGATIVE); NITRITE,URINE NEGATIVE (NEGATIVE); PH,URINE 5.5 (5-9); PROTEIN,URINE 1+ (NEGATIVE)
[2022-12-12] MEDS ORDERED: niCARdipine IV PYXIS DRIP KIT = 50 MG X 2 VIALS ONE (10:35)
[2022-12-12] MEDS ORDERED: LABETALOL HCL 20 MG/4 ML VIAL ONE (10:36)
[2022-12-12] MEDS ORDERED: NS (IVPB) 250 ML ONE (10:37)
[2022-12-12 10:39] LABS: ALBUMIN 3.8 GM/DL (3.2-4.5); CHLORIDE 108 MMOL/L (98-107); POTASSIUM 4.1 MMOL/L (3.6-5.0); SODIUM 138 MMOL/L (135-145)
[2022-12-12 10:40] LABS: CALCIUM 8.7 MG/DL (8.5-10.1)
[2022-12-12 10:42] LABS: GLUCOSE 143 MG/DL (70-105); TOTAL PROTEIN 6.7 GM/DL (6.4-8.2)
[2022-12-12 10:43] LABS: BILIRUBIN,TOTAL 0.3 MG/DL (0.1-1.0); CARBON DIOXIDE 18 MMOL/L (21-32)
[2022-12-12 10:44] LABS: FIBRIN DEGRADATION PRODUCTS 3.15 UG/ML (0.00-0.49); PROTHROMBIN TIME PATIENT 13.2 SEC (12.2-14.7)
[2022-12-12 10:44] LABS: AMPHETAMINE SCREEN, URINE NEGATIVE (NEGATIVE); BARBITURATE SCREEN URINE NEGATIVE (NEGATIVE); BENZODIAZEPINES SCREEN URINE NEGATIVE (NEGATIVE); CANNABINOID SCREEN, URINE NEGATIVE (NEGATIVE); COCAINE SCREEN URINE NEGATIVE (NEGATIVE); METHADONE STAT NEGATIVE (NEGATIVE); OPIATE SCREEN URINE POSITIVE (NEGATIVE); OXYCODONE STAT POSITIVE (NEGATIVE); PROPOXYPHENE STAT NEGATIVE (NEGATIVE); TRICYCLIC ANTIDEPRESSANTS SCRE NEGATIVE (NEGATIVE)
[2022-12-12 10:45] LABS: ALKALINE PHOSPHATASE 85 U/L (40-136); CREATININE SERUM 0.72 MG/DL (0.60-1.30); GFR ESTIMATED 87
[2022-12-12] MEDS ORDERED: LABETALOL HCL 20 MG/4 ML VIAL IV ONE (10:45)
[2022-12-12] MEDS ORDERED: niCARdipine IV 50 MG in NS (IVPB) 230 ML IV SCH (10:45)
[2022-12-12 10:46] LABS: BUN/CREATININE RATIO 21
[2022-12-12 10:48] LABS: ALANINE AMINOTRANSFERASE 15 U/L (0-55)
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
[2022-12-12] MEDS ORDERED: levETIRAcetam 1000 mg/NS 100ml 100 ML IV STA (10:59)
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
[2022-12-12 11:00] LABS: BACTERIA,URINE NEGATIVE /HPF; RBC,URINE 0-2 /HPF; SQUAMOUS EPITHELIAL CELL,UR 0-2 /HPF; WBC,URINE RARE /HPF
[2022-12-12] MEDS ORDERED: PROPOFOL DRIP (ICU) 100 ML IV ONE (11:17)
[2022-12-12 12:24] VITALS: BP 123/68
--- NOTE | 2022-12-12 12:28 | Diagnostic Imaging Report ---
INDICATION: Unresponsive. Comparison is made with prior exam of 12/12/2022 at 10:47 AM. This is done on the same date at 12:04 PM. FINDINGS: The ET and NG tube are in satisfactory position. Heart size is normal. There is some minimal discoid atelectasis and/or pneumonitis in the left lung base. No pleural effusion or pneumothorax. IMPRESSION: ET and NG tubes are in satisfactory position. Minimal discoid atelectasis and/or pneumonitis in the left lung base. Dictated by: Dictated on workstation # [id number]
== END 2022-12-12 12:24 | disposition short-term general hospital (02) ==
LOC: EDUNIT# 10:13 → ER 10:15
DX: S06.5X9A Traumatic subdural hemorrhage with loss of consciousness of unspecified duration, initial encounter (principal); S06.6XAA Traumatic subarachnoid hemorrhage with loss of consciousness status unknown, initial encounter; S00.531A Contusion of lip, initial encounter; I16.1 Hypertensive emergency; R90.0 Intracranial space-occupying lesion found on diagnostic imaging of central nervous system; V49.20XA Unspecified car occupant injured in collision with unspecified motor vehicles in nontraffic accident, initial encounter; Y92.481 Parking lot as the place of occurrence of the external cause
CPT/HCPCS: 31500; 51702; 70450; 71045; 72125; 80053; 80306; 81000; 83735; 84484; 85025; 85379; 85610; 85730; 93005; 93041; 99291; G0480; 36415; 80320